=== PATIENT | male | born 1940 | race American Indian/Alaskan Native ===

== ENCOUNTER → 2019-10-18 | Emergency (ER) | payer MEDICARE, OTHER ==
[~2019-10-18] VITALS: Ht 170.2 cm; Wt 85.0 kg
[~2019-10-18] MED LIST: ACETAMINOPHEN-1 EAC1 PO; ASPIRIN EC81 MG PO; CRESTOR10 MG PO; FARXIGA10 MG PO; FERROUS GLUCON324 M2 PO; FERROUS SULFAT325 MG PO; GLIMEPIRIDE4 MG PO; JANUMET XR 50-1 EAC1 PO; LISINOPRIL2.5 MG PO; METHOCARBAMOL750 MG PO; METOPROLOL SUCC25 MG PO; MULTI-DAY VITA1 EACH PO; NORCO 5-325 TA1 EACH PO; OMEGA 3 1,0001 EACH PO; VITAMIN D250000 UNIT PO
--- OUTSIDE RECORDS SUMMARY | ~2019-10-18 | XMS | Encounter Summary ---
Demographics + + + | Address | [address] | | | [place] [address] | + + + | Home Phone | | + + + | Preferred Language | Unknown | + + + | Marital Status | Single | + + + | Hinduism Affiliation | 1041 | + + + | Race | Unknown | + + + | Ethnic Group | Unknown | + + + Author + + + | Author | [facility] | | | and [place] | + + + | Organization | [facility] | | | and [place] | + + + | Address | Unknown | + + + | Phone | Unavailable | + + + Support + + +---------+ + | Name | Relationship | Address | Phone | + + +---------+ + | Kadie Case | ECON | Unknown | | + + +---------+ + Care Team Providers + +------+ + | Care Linux Systems Administrator Name | Role | Phone | + +------+ + PCP | Unavailable | + +------+ + Encounter Details +--------+ + + + + | Date | Type | Department | Care Team | Description | +--------+ + + + + | 08/16/ | Hospital | [facility] | | | | 2000 | Encounter | MED CTR XRAY [address] | | | | | | [address] | | | | | | [place] [address] | | | | | | [phone] | | | +--------+ + + + + Social History + +-------+ +--------+------+ | Tobacco Use | Types | Packs/Day | Years | Date | | | | | Used | | + +-------+ +--------+------+ | Never Assessed | | | | | + +-------+ +--------+------+ + + + | Sex Assigned at | Date Recorded | | | | + + + | Not on file | | + + + + + + + | Job Start Date | Occupation | Industry | + + + + | Not on file | Not on file | Not on file | + + + + + + + + | Travel History | Travel Start | Travel End | + + + + + + | No recent travel history available. | + + documented as of this encounter Plan of Treatment Not on filedocumented as of this encounter Visit Diagnoses Not on filedocumented in this encounter"
--- OUTSIDE RECORDS SUMMARY | ~2019-10-18 | XMS | Clinical Summary ---
Demographics + + + | Address | [address] | | | [place] [address] | + + + | Home Phone | | + + + | Preferred Language | Unknown | + + + | Marital Status | Single | + + + | Mormonism Affiliation | Unknown | + + + | Race | or | + + + | Ethnic Group | Not or | + + + Author + + + | Author | NON REVENUE LOCATIONS | + + + | Organization | NON REVENUE LOCATIONS | + + + | Address | Unknown | + + + | Phone | Unavailable | + + + Support + + +---------+ + | Name | Relationship | Address | Phone | + + +---------+ + | Mihaela Whitehead | ECON | Unknown | | + + +---------+ + Care Team Providers + +------+ + | Care Roll Off Driver Name | Role | Phone | + +------+ + PCP | Unavailable | + +------+ + Source Comments EL is fully live on both [facility] and [facility] Allergies Not on File Medications Not on file Active Problems Not on file Social History + +-------+ +--------+------+ | Tobacco [...] recent travel history available. | + + Last Filed Vital Signs Not on file Plan of Treatment + + + + + | Health Maintenance | Due Date | Last Done | Comments | + + + + + | Pneumococcal | | | | | vaccination (1 of 2 | 8 | | | | - PCV13) | | | | + + + + + | Influenza (Flu) | | | | | vaccination (#1) | 9 | | | + + + + + Results Not on filefrom Last 3 Months Insurance + +--------+ +--------+ + +--------+ | Payer | Benefi | Subscriber | Effect | Phone | Address | Type | | | t Plan | ID | alicia | | | | | | / | | Dates | | | | | | Group | | | | | | + +--------+ +--------+ + +--------+ | MEDICARE | MEDICA | xxxxxxxxxx | Effect | [phone] | [address] | Medica | | | RE A & | | alicia | [phone] | [address] | | | [address] | | for | | [place] | | | | | | all | | [phone] | | | | | | dates | | | | + +--------+ +--------+ + +--------+ | [facility] | [place] | xxxxxxxxx | Effect | | | Agency | | SERVICE | | | alicia | | | | | | HEALTH | | for | | | | | | | | all | | | | | | SERVIC | | dates | | | | | | E | | | | | | + +--------+ +--------+ + +--------+ + +--------+ +--------+ + + | Guarantor Name | Accoun | Relation to | Date | Phone | Billing Address | | | t Type | Patient | of | | | | | | | | | | + +--------+ +--------+ + + | Huey Franco | Person | Self [birth year] | [address] | | | al/Fam | | 1941 | [phone] | [place] [address] | | | luis | | | 2 (Home) | | + +--------+ +--------+ + + | Huey Franco | Agency | Self | [birth year] | | [address] [facility] [address] | | | | | 1941 | [phone] | [place] [address] | | | | | | 2 ([place]) | | + +--------+ +--------+ + +"
--- OUTSIDE RECORDS SUMMARY | ~2019-10-18 | XMS | Encounter Summary ---
Demographics + + + | Address | [address] | | | [place] [address] | + + + | Home Phone | | + + + | Preferred Language | Unknown | + + + | Marital Status | Single | + + + | Nondenominational Affiliation | 1041 | + + + | Race | Unknown | + + + | Ethnic Group | Unknown | + + + Author + + + | Author | [facility] | | | and [place] | + + + | Organization | [facility] | | | and [place] | [...] Team Providers + +------+ + | Care Supervisor Title Name | Role | Phone | + +------+ + PCP | Unavailable | + +------+ + Encounter Details +--------+ + + + + | Date | Type | Department | Care Team | Description | +--------+ + + + + | 09/10/ | Hospital | [facility] | Hannah Simeon, | Carotid Art Occ w/o | | 2008 - | Encounter | [facility] | MD Abdi Valencia | [facility] | | | | INT[facility] | [place] [address] | | | 09/11/ | | [address] | | | | 2008 | | [place], [place] | | | | | | [address] | | | | | [phone] | | | +--------+ + + + [...] Not on filedocumented as of this encounter Procedures + +--------+ + + + | Procedure Name | Priori | Date/Time | Associated Diagnosis | Comments | | | ty | | | | + +--------+ + + + | ECHO LIMITED | Routin | 09/08/2009 | | Results for this | | | e | 3:53 PM | | procedure are in the | | | | PST | | results section. | + +--------+ + + + | XR CHEST 2 VIEWS | Routin | 09/05/2009 | | Results for this | | | e | 2:52 PM | | procedure are in the | | | | PST | | results section. | + +--------+ + + + documented in this encounter Results Echo Limited (09/08/2009 3:53 PM PST) + + | Specimen | + + | | + + + + + | Narrative | Performed At | + + + | [id number] | | | Page 1 ECHO [facility] NAME: | | | [place] [address] MEDICAL RECORD #: | | | [id number] | | | DATE OF : 1940 ORDER | | | NUMBER: [id number] EXAM DATE/TIME: 09/08/2009 14:52 PERFORMING | | | PHYSICIAN: Ronak Lal MD ORDER DETAIL: [id number] | | | ORDER DESCRIPTION: ECHO CARDIAC ADULT WITH DOPPLER COLOR FLOW | | | | | | INDICATIONS pre op, h/o bypass 3x, smoker | | | CONCLUSIONS 1. This was a technically difficult study | | | with suboptimal views, LV fxn is at least adequate. FINDINGS | | | -------- ECG rhythm: Sinus rhythm. Study: A limited 2-dimensional | | | transthoracic echocardiogram with limited spectral and color flow | | | Doppler was performed. Study: This was a technically difficult study | | | with suboptimal views. Left Ventricle: Overall left ventricular | | | systolic function is low-normal with, an EF between 50 - 55 %. Left | | | Ventricle: The cavity size is decreased. Left Ventricle: There is | | | mild concentric left ventricular hypertrophy. Right Ventricle: The | | | right ventricle is mildly enlarged measuring between 3.4 - 3.7 cm. | | | Left Atrium: The left atrium is mildly dilated. Right Atrium: The | | | right atrium is mildly enlarged Right Atrium: , and the RA measures | | | 5.3cm. Aortic Valve: The aortic valve was not well visualized. | | | Mitral Valve: The mitral valve was not well visualized. Mitral Valve: | | | There is trace mitral regurgitation. Tricuspid Valve: The tricuspid | | | valve was not well visualized. Tricuspid Valve: Trace tricuspid | | | regurgitation present. Tricuspid Valve: Right ventricular systolic | | | pressure (pulmonary artery systolic pressure) is normal at < 35 mmHg. | | | Pulmonic Valve: The pulmonic valve was not well visualized. | | | IVC/Hepatic Veins: The IVC was not well visualized. Study quality: | | | This was a technically difficult study with suboptimal views. | | | MEASUREMENTS LA Major: 5.53 cm LVOT Diam: 1.99 | | | cm RA Major: 5.28 cm RVIDd: 3.41 cm LAESV(A-L): 68.86 ml | | | LAESV Index (A-L): 35.49 ml/m2 LAAs A2C: 17.95 cm2 LAESV A-L | | | A2C: 52.69 ml LALs A2C: 5.19 cm LAAs A4C: 23.47 cm2 LAESV | | | A-L A4C: 71.90 ml LALs A4C: 6.50 cm HR: 66.24 BPM AV | | | maxP.77 mmHg AV meanP.07 mmHg AV Vmax: 1.30 m/s AV | | | Vmean: 0.81 m/s AV VTI: 25.60 cm DYLAN Vmax: 1.83 cm2 DYLAN | | | (VTI): 1.66 cm2 LVCI Dopp: 1.46 l/minm2 LVCO Dopp: 2.85 | | | l/min HR: 66.79 BPM LVOT maxP.35 mmHg LVOT meanPG: | | | 1.13 mmHg LVSI Dopp: 22.00 ml/m2 LVSV Dopp: 42.68 ml LVOT | | | Vmax: 0.76 m/s LVOT Vmean: 0.49 m/s LVOT VTI: 13.71 cm MV | | | A Luciano: 1.00 m/s MV DecT: 220.10 ms MV E Luciano: 0.95 m/s MV | | | E/A Ratio: 0.95 MV maxP.97 mmHg MV meanP.29 mmHg | | | MV Vmax: 0.99 m/s MV Vmean: 0.49 m/s MV VTI: 27.94 cm MVA | | | (VTI): 1.52 cm2 Septal e': 0.04 m/s Septal E/e': 19.51 | | | Lateral e': 0.10 m/s Lateral E/e': 9.46 P Vein A: 0.21 m/s | | | P Vein A Dur: 99.81 ms P Vein D: 0.48 m/s P Vein S/D Ratio: | | | 1.27 P Vein S: 0.61 m/s TR maxP.10 mmHg TR Vmax: | | | 2.50 m/s TV A Luciano: 0.25 m/s TV Dec Sunflower: 2.49 m/s2 TV Dec | | | Time: 190.51 ms TV E Luciano: 0.47 m/s TV E/A Ratio: 1.86 | | | Clothing Trades Workers: CM Authenticated by: Ronak Lal MD Report | | | Date/Time: 09-09-2009 09:15:03 | | + + + + + | Procedure Note | + + | Jason Delarosa Conversion - 05/28/2019 3:23 AM PDT [id number] | | Page [address] [place] [address] NAME: [place] | | [address] : ACCOUNT #: | | [id number]: DATE OF : 1940ORDER NUMBER: | | [id number] DATE/TIME: 09/08/2009 14:52PERFORMING PHYSICIAN: Ronak Lal | | MDORDER DETAIL: [id number] DESCRIPTION: ECHO CARDIAC ADULT WITH DOPPLER COLOR | | FLOW INDICATIONS | | -pre op, h/o bypass 3x, smoker CONCLUSIONS 1. This was a technically difficult | | study with suboptimal views, LV fxn is at least adequate. FINDINGS--------ECG rhythm: | | Sinus rhythm.Study: A limited 2-dimensional transthoracic echocardiogram with limited | | spectral and color flow Doppler was performed.Study: This was a technically difficult | | study with suboptimal views.Left Ventricle: Overall left ventricular systolic function | | is low-normal with, an EF between 50 - 55 %.Left Ventricle: The cavity size is | | decreased.Left Ventricle: There is mild concentric left ventricular hypertrophy.Right | | Ventricle: The right ventricle is mildly enlarged measuring between 3.4 - 3.7 cm.Left | | Atrium: The left atrium is mildly dilated.Right Atrium: The right atrium is mildly | | enlargedRight Atrium: , and the RA measures 5.3cm.Aortic Valve: The aortic valve was not | | well visualized.Mitral Valve: The mitral valve was not well visualized.Mitral Valve: | | There is trace mitral regurgitation.Tricuspid Valve: The tricuspid valve was not well | | visualized.Tricuspid Valve: Trace tricuspid regurgitation present.Tricuspid Valve: Right | | ventricular systolic pressure (pulmonary artery systolic pressure) is normal at < 35 | | mmHg.Pulmonic Valve: The pulmonic valve was not well visualized.IVC/Hepatic Veins: The | | IVC was not well visualized.Study quality: This was a technically difficult study with | | suboptimal views. MEASUREMENTS LA Major: 5.53 cmLVOT Diam: 1.99 cmRA | | Major: 5.28 cmRVIDd: 3.41 cmLAESV(A-L): 68.86 mlLAESV Index (A-L): 35.49 | | ml/m2LAAs A2C: 17.95 [id number] A-L A2C: 52.69 mlLALs A2C: 5.19 cmLAAs A4C: 23.47 | | [id number] A-L A4C: 71.90 mlLALs A4C: 6.50 cmHR: 66.24 BPMAV maxP.77 mmHgAV | | meanP.07 mmHgAV Vmax: 1.30 m/Jonh Vmean: 0.81 m/Jonh VTI: 25.60 cmAVA Vmax: | | 1.83 cm2AVA (VTI): 1.66 [id number] Dopp: 1.46 l/ykoe2AEDQ Dopp: 2.85 l/minHR: 66.79 | | BPMLVOT maxP.35 mmHgLVOT meanP.13 mmHgLVSI Dopp: 22.00 ml/m2LVSV Dopp: | | 42.68 mlLVOT Vmax: 0.76 m/sLVOT Vmean: 0.49 m/sLVOT VTI: 13.71 cmMV A Luciano: 1.00 | | m/sMV DecT: 220.10 msMV E Luciano: 0.95 m/sMV E/A Ratio: 0.95MV maxP.97 mmHgMV | | meanP.29 mmHgMV Vmax: 0.99 m/sMV Vmean: 0.49 m/sMV VTI: 27.94 cmMVA (VTI): | | 1.52 er3Iunipc e': 0.04 m/sSeptal E/e': 19.51Lateral e': 0.10 m/sLateral E/e': | | 9.46P Vein A: 0.21 m/sP Vein A Dur: 99.81 msP Vein D: 0.48 m/sP Vein S/D Ratio: | | 1.27P Vein S: 0.61 m/sTR maxP.10 mmHgTR Vmax: 2.50 m/sTV A Luciano: 0.25 m/sTV | | Dec Sunflower: 2.49 m/s2TV Dec Time: 190.51 msTV E Luciano: 0.47 m/sTV E/A Ratio: 1.86 | | Clothing Trades Workers: CMAuthenticated by: Ronak HUANGort Date/Time: 09-09-2009 | | 09:15:03 | |Tricuspid Valve: Right ventricular systolic pressure (pulmonary artery systolic pressure) i s normal at < 35 mmHg. | |Pulmonic Valve: The pulmonic valve was not well visualized. | |IVC/Hepatic Veins: The IVC was not well visualized. | |Study quality: This was a technically difficult study with suboptimal views. | | | |MEASUREMENTS | | | |LA Major: 5.53 cm | |LVOT Diam: 1.99 cm | |RA Major: 5.28 cm | |RVIDd: 3.41 cm | |LAESV(A-L): 68.86 ml | |LAESV Index (A-L): 35.49 ml/m2 | |LAAs A2C: 17.95 cm2 | |LAESV A-L A2C: 52.69 ml | |LALs A2C: 5.19 cm | |LAAs A4C: 23.47 cm2 | |LAESV A-L A4C: 71.90 ml | |LALs A4C: 6.50 cm | |HR: 66.24 BPM | |AV maxP.77 mmHg | |AV meanP.07 mmHg | |AV Vmax: 1.30 m/s | |AV Vmean: 0.81 m/s | |AV VTI: 25.60 cm | |DYLAN Vmax: 1.83 cm2 | |DYLAN (VTI): 1.66 cm2 | |LVCI Dopp: 1.46 l/minm2 | |LVCO Dopp: 2.85 l/min | |HR: 66.79 BPM | |LVOT maxP.35 mmHg | |LVOT meanP.13 mmHg | |LVSI Dopp: 22.00 ml/m2 | |LVSV Dopp: 42.68 ml | |LVOT Vmax: 0.76 m/s | |LVOT Vmean: 0.49 m/s | |LVOT VTI: 13.71 cm | |MV A Luciano: 1.00 m/s | |MV DecT: 220.10 ms | |MV E Luciano: 0.95 m/s | |MV E/A Ratio: 0.95 | |MV maxP.97 mmHg | |MV meanP.29 mmHg | |MV Vmax: 0.99 m/s | |MV Vmean: 0.49 m/s | |MV VTI: 27.94 cm | |MVA (VTI): 1.52 cm2 | |Septal e': 0.04 m/s | |Septal E/e': 19.51 | |Lateral e': 0.10 m/s | |Lateral E/e': 9.46 | |P Vein A: 0.21 m/s | |P Vein A Dur: 99.81 ms | |P Vein D: 0.48 m/s | |P Vein S/D Ratio: 1.27 | |P Vein S: 0.61 m/s | |TR maxP.10 mmHg | |TR Vmax: 2.50 m/s | |TV A Luciano: 0.25 m/s | |TV Dec Sunflower: 2.49 m/s2 | |TV Dec Time: 190.51 ms | |TV E Luciano: 0.47 m/s | |TV E/A Ratio: 1.86 | | | |Clothing Trades Workers: CM | |Authenticated by: Ronak Lal MD | |Report Date/Time: 09-09-2009 09:15:03 | + + XR Chest 2 Vws (09/05/2009 2:52 PM PST) + + | Specimen | + + | | + + + + + | Narrative | Performed At | + + + | [id number] | | | Page 1 RADIOLOGY | | | / | | | [facility] | | | NAME: [place] [address] | | | | | | | | | DATE OF : 1940 ORDER NUMBER: [id number] EXAM | | | DATE/TIME: 09/05/2009 02:40 P ORDERING PHYSICIAN: HANNAH SIMEON | | | ORDER DETAIL: [id number] / / HDI EXAM DESCRIPTION: XR CHEST 2 VIEW | | | | | | TWO-VIEW CHEST 09/05/2009 HISTORY Preoperative evaluation. | | | COMPARISON No prior comparison. FINDINGS The heart is normal in | | | size. The patient has had a previous CABG. There is mild central | | | bronchial wall thickening, probably from mild bronchitis. No acute | | | infiltrates or evidence of edema. No pneumothorax or pleural | | | effusions evident. There is mild elevation of the left hemidiaphragm. | | | IMPRESSION 1. Previous coronary artery bypass graft. 2. Mild | | | bronchitis. 3. No acute superimposed finding. Read by | | | ISH PATEL MD 09/05/2009 04:33 P Electronically Signed by | | | ISH PATEL MD 09/06/2009 03:04 P | | | P P [facility]//[id number]/ cc: HANNAH SIMEON, | | | MD PREMA SEYMOUR, MD ISH PATEL MD | | + + + + + | Procedure Note | + + | [place], Rad Conversion - 05/28/2019 3:23 AM PDT | | [id number] Page 1 | | RADIOLOGY / | | [place] | | [facility] NAME: MADY GRAY | | [place] [address] | | | | DATE OF : 1940 | | | | ORDER NUMBER: [id number] | | EXAM DATE/TIME: 09/05/2009 02:40 P | | ORDERING PHYSICIAN: HANNAH SIMEON | | ORDER DETAIL: [id number] / / HDI | | EXAM DESCRIPTION: XR CHEST 2 VIEW | | | | TWO-VIEW CHEST 09/05/2009 | | | | HISTORY | | Preoperative evaluation. | | | | COMPARISON | | No prior comparison. | | | | FINDINGS | | The heart is normal in size. The patient has had a previous CABG. There | | is mild central bronchial wall thickening, probably from mild | | bronchitis. No acute infiltrates or evidence of edema. No pneumothorax | | or pleural effusions evident. There is mild elevation of the left | | hemidiaphragm. | | | | IMPRESSION | | 1. Previous coronary artery bypass graft. | | 2. Mild bronchitis. | | 3. No acute superimposed finding. 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
--- OUTSIDE RECORDS SUMMARY | ~2019-10-18 | XMS | Encounter Summary ---
Demographics + + + | Address | [address] | | | [place] [address] | + + + | Home Phone | | + + + | Preferred Language | Unknown | + + + | Marital Status | Single | + + + | Restorationism Affiliation | 1041 | + + + | Race | Unknown | + + + | Ethnic Group | Unknown | + + + Author + + + | Author | [facility] | | | and [place] | + + + | Organization | [facility] | | | and [place] [...] Team Providers + +------+ + | Care Charhouse Worker Name | Role | Phone | + +------+ + | Lydia Pop MD | PCP | | + +------+ + Reason for Visit Auth/Cert +--------+--------+ + + + + | Status | Reason | Specialty | Diagnoses / | Referred By | Referred To | | | | | Procedures | Contact | Contact | +--------+--------+ + + + + | Closed | | | Diagnoses | | Darryn, | | | | | Encounter | | Kwasi Lopez MD | | | | | for | | [address], | | | | | colonoscopy | | [address] | | | | | due to | | [place], | | | | | history of | | [place] [address] | | | | | adenomatous | | Phone: | | | | | colonic | | [phone] | | | | | polyps | | Fax: | | | | | 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, | | | | | | | continuous | | | | | | | (HCC) | | | | | | | Encounter | | | | | | | for | | | | | | | colonoscopy | | | | | | | due to | | | | | | | history of | | | | | | | adenomatous | | | | | | | colonic | | | | | | | polyps | | | | | | | [Z12.11, | | | | | | | Z86.010] | | | | | | | 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, | | | | | | | continuous | | | | | | | (HCC) | | | | | | | [F11.20] | | | | | | | Procedures | | | | | | | ID | | | | | | | COLONOSCOPY | | | | | | | FLX DX | | | | | | | W/COLLJ SPEC | | | | | | | WHEN PFRMD | | | +--------+--------+ + + + + Encounter Details +--------+ + + + + | Date | Type | Department | Care Team | Description | +--------+ + + + + | 08/08/ | Anesthesia | [facility] | Eder Ceja, | | | 2014 | Event | [facility] | [address] | | | | | [address] | [place] | | | | | [place] | [address] | | | | | [address] | | | | | | [phone] | | | +--------+ + + + + Anesthesia Record + + + + + | Procedure Name | Responsible | Anesthesia Start | Anesthesia Stop Time | | | Anesthesiologist | Time | | + + + + + | EGD/COLONOSCOPY - | Eder Ceja MD | 08/08/15 1300 | 08/08/15 1347 | | CHRONIC NARC | | | | | DEPENDENT/PAIN (N/A | | | | | ) | | | | + + + + + +----+---+ + + | Da | T | Event | Comment | | te | i | | | | | m | | | | | e | | | +----+---+ + + | 11 | 1 | An Checkout | Pre-use anesthesia machine/equipment checkout. | | /0 | 2 | | | | 6/ | 5 | | | | 20 | 3 | | | | 15 | | | | +----+---+ + + | | 1 | | | | | 3 | | | | | 0 | | | | | 0 | | | +----+---+ + + | | 1 | An Start | Reassessment prior to anesthesia induction/procedure. | | | 3 | | | | | 0 | | | | | 0 | | | +----+---+ + + | | 1 | AN | Per surgeon request | | | 3 | Antibiotic | | | | 0 | declined | | | | 1 | | | +----+---+ + + | | 1 | Pre-Procedu | | | | 3 | ral Timeout | | | | 0 | Completed | | | | 3 | | | +----+---+ + + | | 1 | An | Intravenous induction to loss of reflexes. Spontaneous | | | 3 | Induction | ventilation throughout. | | | 0 | | | | | 6 | | | +----+---+ + + | | 1 | Breathing | | | | 3 | Spontaneous | | | | 0 | ly | | | | 7 | | | +----+---+ + + | | 1 | an stop | | | | 3 | data | | | | 4 | | | | | 4 | | | +----+---+ + + | | 1 | An Stop | Patient handed off to recovery nurse. | | | 4 | | | | | 7 | | | +----+---+ + + +------+ | Meds | +------+ + + + | Name | Total | + + + | lidocaine 2% | 55 mg | + + + | propofol | 70 mg | + + + | propofol | 319.2 mg | + + + | ePHEDrine | 10 mg | + + + | lactated ringers (LR) infusion | 750 mL | + + + + + | Name | + + | O2 Flow Rate (L/Min) | + + + + | No blood administrations on file. | + + +--------+ + + + | Type | Details | Placement | Removal | +--------+ + + + | [READ | 08/08/15; 1149; Chemistry; | 08/08/15 1149 by | 08/08/15 1500 by | | ONLY] | 08/08/15; 1500 | Fartun Chin, | Jose Jean, | | | | RN | RN | | Periph | | | | | eral | | | | | IV - | | | | | Single | | | | | Lumen | | | | | | | | | +--------+ + + + documented in this encounter Social History + +-------+ +--------+------+ | Tobacco [...] Visit Diagnoses Not on filedocumented in this encounter Administered Medications + +--------+ +-------+------+------+ | Medication Order | MAR | Action | Dose | Rate | Site | | | Action | Date | | | | + +--------+ +-------+------+------+ | ePHEDrine 50 mg/mL injection | Given | 08/08/20 | 10 mg | | | | PRN, Starting Tue08/08/15 at | | 15 1:21 | | | | | 1321, Anesthesia Intra-op | | PM PST | | | | + +--------+ +-------+------+------+ +---+---+ | | | +---+---+ + +-------+ +-------+---+---+ | lidocaine (PF) 2% injection | Given | 08/08/20 | 55 mg | | | | Intravenous, PRN, Starting Fri | | 15 1:06 | | | | | 08/08/15 at 1306, Anesthesia | | PM PST | | | | | Intra-op | | | | | | + +-------+ +-------+---+---+ +---+---+ | | | +---+---+ + +-------+ +-------+---+---+ | propofol (DIPRIVAN) injection | Given | 08/08/20 | 70 mg | | | | PRN, Starting 08/08/15 at | | 15 1:06 | | | | | 1306, Anesthesia Intra-op | | PM PST | | | | + +-------+ +-------+---+---+ +---+---+ | | | +---+---+ + + + + + +---+ | propofol (DIPRIVAN) injection | Rate/Dos | 08/08/20 | 75 | 36 mL/hr | | | CONTINUOUS PRN, Starting Fri | e Change | 15 1:29 | mcg/kg/m | | | | 08/08/15 at 1306, Anesthesia | | PM PST | in | | | | Intra-op | | | | | | + + + + + +---+ + + + +-------+---+ | Rate/Dose Change | 08/08/20 | 120 | 57.6 | | | | 15 1:14 | mcg/kg/m | mL/hr | | | | PM PST | in | | | + + + +-------+---+ | New Bag | 08/08/20 | 180 | 86.4 | | | | 15 1:06 | mcg/kg/m | mL/hr | | | | PM PST | in | | | + + + +-------+---+ +---+---+ | | | +---+---+ documented in this encounter"
--- OUTSIDE RECORDS SUMMARY | ~2019-10-18 | XMS | Encounter Summary ---
Demographics + + + | Address | [address] | | | [place] [address] | + + + | Home Phone | | + + + | Preferred Language | Unknown | + + + | Marital Status | Single | + + + | Worship Affiliation | 1041 | + + + | Race | Unknown | + + + | Ethnic Group | Unknown | + + + Author + + + | Author | [facility] | | | and [place] | + + + | Organization | [facility] | | | and [place] [...] Team Providers + +------+ + | Care Magazine Keeper Name | Role | Phone | + +------+ + | Lydia Pop MD | PCP | | + +------+ + Encounter Details +--------+ + + + + | Date | Type | Department | Care Team | Description | +--------+ + + + + | 08/07/ | Abstract | [facility] | Kwasi Cates MD | | | 2014 | | GASTROENTEROLOGY | [address], [place] | | | | | [address] [place] | [address] [place], [place] | | | | | [address] [place], [place] | [address] | | | | | [address] | | | | | | [phone] | | | +--------+ + + + [...] + + documented as of this encounter Last Filed Vital Signs + + + + + | Vital Sign | Reading | Time Taken | Comments | + + + + + | Blood Pressure | 103/63 | 02/18/2015 11:25 AM | | | | | PDT | | + + + + + | Pulse | 80 | 02/18/2015 11:25 AM | | | | | PDT | | + + + + + | Temperature | - | - | | + + + + + | Respiratory Rate | 18 | 02/18/2015 11:25 AM | | | | | PDT | | + + + + + | Oxygen Saturation | 96% | 02/18/2015 11:25 AM | | | | | PDT | | + + + + + | Inhaled Oxygen | - | - | | | Concentration | | | | + + + + + | Weight | 87.3 kg (192 lb 6 | 02/18/2015 11:25 AM | | | | oz) | PDT | | + + + + + | Height | 168.9 cm (5' 6.5") | 02/18/2015 11:25 AM | | | | | PDT | | + + + + + | Body Mass Index | 30.58 | 02/18/2015 11:25 AM | | | | | PDT | | + + + + + documented in this encounter Plan of Treatment Not on filedocumented as of this encounter Visit Diagnoses Not on filedocumented in this encounter
--- OUTSIDE RECORDS SUMMARY | ~2019-10-18 | XMS | Encounter Summary ---
Demographics + + + | Address | [address] | | | [place] [address] | + + + | Home Phone | | + + + | Preferred Language | Unknown | + + + | Marital Status | Single | + + + | Sabianist Affiliation | 1041 | + + + | Race | Unknown | + + + | Ethnic Group | Unknown | + + + Author + + + | Author | [facility] | | | and [place] | + + + | Organization | [facility] | | | and [...] Team Providers + +------+ + | Care Tennis Camp Instructor Name | Role | Phone | + +------+ + PCP | Unavailable | + +------+ + Encounter Details +--------+ + + + + | Date | Type | Department | Care Team | Description | +--------+ + + + + | 08/16/ | Hospital | [facility] | | | | 2000 | Encounter | MED CTR XRAY [address] | | | | | | [place] | | | | | | [place] [address] | | | | | | [phone] | | | +--------+ + + + [...]
--- OUTSIDE RECORDS SUMMARY | ~2019-10-18 | XMS | Encounter Summary ---
Demographics + + + | Address | [address] | | | [place] [address] | + + + | Home Phone | | + + + | Preferred Language | Unknown | + + + | Marital Status | Single | + + + | Anabaptism Affiliation | 1041 | + + + | Race | Unknown | + + + | Ethnic Group | Unknown | + + + Author + + + | Author | [facility] | | | and [place] | + + + | Organization | [facility] | | | and [place] | [...] Team Providers + +------+ + | Care Bun Panner Name | Role | Phone | + +------+ + PCP | Unavailable | + +------+ + Encounter Details +--------+ + + + + | Date | Type | Department | Care Team | Description | +--------+ + + + + | 10/07/ | Hospital | [facility] | Chirag Oliver | | | 2004 - | Encounter | [facility] CTR | | | | | | CARDIAC TRANSPLANT | | | | 10/08/ | | [address] | | | | 2004 | | [place] | | | | | | [address] | | | | | | [phone] | | | +--------+ + + + [...]
--- OUTSIDE RECORDS SUMMARY | ~2019-10-18 | XMS | Encounter Summary ---
Demographics + + + | Address | [address] | | | [place] [address] | + + + | Home Phone | | + + + | Preferred Language | Unknown | + + + | Marital Status | Single | + + + | Congregation Affiliation | 1041 | + + + | Race | Unknown | + + + | Ethnic Group | Unknown | + + + Author + + + | Author | [facility] | | | and [place] | + + + | Organization | [facility] | | | and [...] Team Providers + +------+ + | Care Dowel Inspector Name | Role | Phone | + +------+ + | Pcp, Prov Inactive | PCP | | + +------+ + Reason for Visit Auth/Cert +--------+--------+ + + + + | Status | Reason | Specialty | Diagnoses / | Referred By | Referred To | | | | | Procedures | Contact | Contact | +--------+--------+ + + + + | | | | | | | +--------+--------+ + + + + Encounter Details +--------+ + + + + | Date | Type | Department | Care Team | Description | +--------+ + + + + | 02/01/ | Hospital | [facility] | Donta Reyes MD | | | 2019 | Encounter | MED CTR NUCLEAR | [address] [place] [address] | | | | | MEDICINE [address] | [place], [place] | | | | | [place], | [address] | | | | | [place] [address] | | | | | | [phone] | | | +--------+ + + + [...] + + documented as of this encounter Medications at Time of Discharge + + + +---------+ + + | Medication | Sig | Dispensed | Refills | Start | End Date | | | | | | Date | | + + + +---------+ + + | | Take 1-2 tablets by | | 0 | | | | acetaminophen-codein | mouth every 4 hours | | | | | | e (TYLENOL #3) | as needed for Pain. | | | | | | 300-30 mg per tablet | | | | | | + + + +---------+ + + | aspirin 81 mg | Take 81 mg by mouth | | 0 | | | | chewable tablet | Daily. | | | | | + + + +---------+ + + | ferrous gluconate | Take 325 mg by mouth | | 0 | 06/16/20 | | | (FERGON) 325 mg | Daily. | | | 12 | | | tablet | | | | | | + + + +---------+ + + | lisinopril | Take 5 mg by mouth | | 0 | 06/16/20 | | | (PRINIVIL, ZESTRIL) | Daily. | | | 12 | | | 5 mg tablet | | | | | | + + + +---------+ + + | metoprolol | Take 50 mg by mouth | | 0 | 06/16/20 | | | succinate (TOPROL | Daily. | | | 12 | | | XL) 50 mg 24 hr | | | | | | | tablet | | | | | | + + + +---------+ + + | multivitamin | Take 1 tablet by | | 0 | 06/16/20 | | | (THERAGRAN) per | mouth once daily | | | 12 | | | tablet | | | | | | + + + +---------+ + + | rosuvastatin | Take 10 mg by mouth | | 0 | 06/16/20 | | | (CRESTOR) 10 mg | Daily. | | | 12 | | | tablet | | | | | | + + + +---------+ + + | Sennosides | TABS Take as | | 0 | 06/16/20 | | | (SENOKOT PO) | directed | | | 12 | | + + + +---------+ + + | sitagliptan | Take 50 mg by mouth | | 0 | 06/16/20 | | | (JANUVIA) 50 MG | Daily. | | | 12 | | | tablet | | | | | | + + + +---------+ + + | | Take 2,000 mg by | | 0 | | | | SitaGLIPtin-MetFORMI | mouth Daily. | | | | | | N HCl (JULIO C XR) | | | | | | | 50-1000 MG TB24 | | | | | | + + + +---------+ + + | SUCRALFATE PO | TABS Take as | | 0 | 06/16/20 | | | | directed | | | 12 | | + + + +---------+ + + documented as of this encounter Plan of Treatment Not on filedocumented as of this encounter Procedures + +--------+ + + + | Procedure Name | Priori | Date/Time | Associated Diagnosis | Comments | | | ty | | | | + +--------+ + + + | NM NUCLEAR STRESS | Routin | 02/01/2019 | Coronary artery | Results for this | | TEST (EXERCISE) | e | 2:12 PM | disease of tribal | procedure are in the | | | | PDT | artery of tribal | results section. | | | | | heart with stable | | | | | | angina pectoris | | | | | | (HCC) Chest pain, | | | | | | unspecified type | | | | | | Awareness of heart | | | | | | beat | | + +--------+ + + + documented in this encounter Visit Diagnoses Not on filedocumented in this encounter Administered Medications + +--------+ + +------+------+ | Medication Order | MAR | Action | Dose | Rate | Site | | | Action | Date | | | | + +--------+ + +------+------+ | technetium TC-99M sestamibi | Given | 02/02/20 | 34.5 | | | | (CARDIOLITE) injection 34.5 | | 19 2:11 | millicur | | | | millicurie 34.5 millicurie, | | PM PDT | ies | | | | Intravenous, ONCE PRN, Other, | | | | | | | Starting [facility] 02/01/19 at 1410, For | | | | | | | 1 dose, Nuclear Medicine | | | | | | + +--------+ + +------+------+ +---+---+ | | | +---+---+ documented in this encounter"
--- OUTSIDE RECORDS SUMMARY | ~2019-10-18 | XMS | Clinical Summary ---
Demographics + + + | Address | [address] | | | [place] [address] | + + + | Home Phone | | + + + | Preferred Language | Unknown | + + + | Marital Status | Single | + + + | Taoism Affiliation | 1041 | + + + | Race | Unknown | + + + | Ethnic Group | Unknown | + + + Author + + + | Author | [facility] | | | and [place] | + + + | Organization | [facility] | | | and [place] [...] Team Providers + +------+ + | Care Assistant Case Manager Name | Role | Phone | + +------+ + | Vanessa Mckeon MD | PCP | | + +------+ + Allergies + + + +--------+ + | Active Allergy | Reactions | Severity | Noted | Comments | | | | | Date | | + + + +--------+ + | Diazepam | Itching | Low | | | + + + +--------+ + | Doxepin Hcl | Other (See Comments) | | | Pt does not know | + + + +--------+ + | Valium | Itching | Low | | | + + + +--------+ + Medications + + + +---------+------+------+-------+ | Medication | Sig | Dispensed | Refills | Star | End | Statu | | | | | | t | Date | s | | | | | | Date | | | + + + +---------+------+------+-------+ | sitagliptan | Take 50 mg by mouth | | 0 | 06/03 | | Activ | | (JANUVIA) 50 MG | Daily. | | | 01/20 | | e | | tablet | | | | 12 | | | + + + +---------+------+------+-------+ | rosuvastatin | Take 10 mg by mouth | | 0 | 09/1 | | Activ | | (CRESTOR) 10 mg | Daily. | | | 4/20 | | e | | tablet | | | | 12 | | | + + + +---------+------+------+-------+ | ferrous gluconate | Take 325 mg by mouth | | 0 | 09/1 | | Activ | | (FERGON) 325 mg | Daily. | | | 4/20 | | e | | tablet | | | | 12 | | | + + + +---------+------+------+-------+ | lisinopril | Take 5 mg by mouth | | 0 | 09/1 | | Activ | | (PRINIVIL, ZESTRIL) | Daily. | | | 4/20 | | e | | 5 mg tablet | | | | 12 | | | + + + +---------+------+------+-------+ | metoprolol | Take 50 mg by mouth | | 0 | 09/1 | | Activ | | succinate (TOPROL | Daily. | | | 4/20 | | e | | XL) 50 mg 24 hr | | | | 12 | | | | tablet | | | | | | | + + + +---------+------+------+-------+ | multivitamin | Take 1 tablet by | | 0 | 09/1 | | Activ | | (THERAGRAN) per | mouth once daily | | | 4/20 | | e | | tablet | | | | 12 | | | + + + +---------+------+------+-------+ | Sennosides | TABS Take as | | 0 | 09/1 | | Activ | | (SENOKOT PO) | directed | | | 4/20 | | e | | | | | | 12 | | | + + + +---------+------+------+-------+ | SUCRALFATE PO | TABS Take as | | 0 | 09/1 | | Activ | | | directed | | | 4/20 | | e | | | | | | 12 | | | + + + +---------+------+------+-------+ | | Take 2,000 mg by | | 0 | | | Activ | | SitaGLIPtin-MetFORMI | mouth Daily. | | | | | e | | N HCl (JANUMET XR) | | | | | | | | 50-1000 MG TB24 | | | | | | | + + + +---------+------+------+-------+ | | Take 1-2 tablets by | | 0 | | | Activ | | acetaminophen-codein | mouth every 4 hours | | | | | e | | e (TYLENOL #3) | as needed for Pain. | | | | | | | 300-30 mg per tablet | | | | | | | + + + +---------+------+------+-------+ | aspirin 81 mg | Take 81 mg by mouth | | 0 | | | Activ | | chewable tablet | Daily. | | | | | e | + + + +---------+------+------+-------+ Active Problems + + + | Problem | Noted Date | + + + | Gastritis | 08/08/2015 | + + + | Hiatal hernia | 08/08/2015 | + + + | H-PYLORI | 04/27/2011 | + + + | POLYP-COLON | 04/26/2011 | + + + | HYPERLIPIDEMIA | | + + + | DIABETES MELLITUS | | + + + | ARTERIOSCLEROTIC HEART DISEASE | | + + + | ANEMIA, SECONDARY TO BLOOD LOSS | | + + + | GASTRIC ULCER | | + + + | Neurologic disorder associated with diabetes mellitus | | + + + | Neuropathy | | + + + | Vitamin D deficiency | | + + + | Edema | | + + + | Anemia | | + + + | GI hemorrhage | | + + + | Coronary arteriosclerosis | | + + + | HLD (hyperlipidemia) | | + + + | Palpitations | | + + + | Asymmetrical hearing loss | | + + + | CVA (cerebral vascular accident) | | + + + | Diabetic oculopathy | | + + + | Smoker | | + + + | Onychomycosis | | + + + | Chronic low back pain | | + + + | Acute nephropathy | | + + + | Osteoarthritis | | + + + | Tinea pedis | | + + + | Asymmetrical sensorineural hearing loss | | + + + Family History + + +------+ + | Medical History | Relation | Name | Comments | + + +------+ + | Diabetes | Mother | | | + + +------+ + + +------+--------+ + | Relation | Name | Status | Comments | + +------+--------+ + | Mother | | | | + +------+--------+ + Social History + +-------+ +--------+------+ | [...] | + + Last Filed Vital Signs + + + + + | Vital Sign | Reading | Time Taken | Comments | + + + + + | Blood Pressure | 148/80 | 08/08/2015 2:30 PM | | | | | PST | | + + + + + | Pulse | 61 | 08/08/2015 2:30 PM | | | | | PST | | + + + + + | Temperature | 36.4 C (97.5 F) | 08/08/2015 1:46 PM | | | | | PST | | + + + + + | Respiratory Rate | 16 | 08/08/2015 2:30 PM | | | | | PST | | + + + + + | Oxygen Saturation | 99% | 08/08/2015 2:30 PM | | | | | PST | | + + + + + | Inhaled Oxygen | - | - | | | Concentration | | | | + + + + + | Weight | 83 kg (183 lb) | 08/08/2015 11:00 AM | | | | | PST | | + + + + + | Height | 170.2 cm (5' 7") | 08/08/2015 11:00 AM | | | | | PST | | + + + + + | Body Mass Index | 28.66 | 08/08/2015 11:00 AM | | | | | PST | | + + + + + Plan of Treatment + + + + + | Health Maintenance | Due Date | Last Done | Comments | + + + + + | Vaccine: Zoster (1 | | | | | of 2) | 3 | | | + + + + + | Vaccine: | | | | | Pneumococcal 65+ (1 | 8 | | | | of 2 - PCV13) | | | | + + + + + | Vaccine: Influenza | | 06/28/2018, 07/20/2017, | | | (#1) | 9 | 07/23/2016, Additional history | | | | | exists | | + + + + + | Vaccine: | | 11/25/2017 | | | Dtap/Tdap/Td (2 - | 8 | | | | Td) | | | | + + + + + Results Not on filefrom Last 3 Months Insurance + +--------+ +--------+ +---------+--------+ | Payer | Benefi | Subscriber | Effect | Phone | Address | Type | | | t Plan | ID | alicia | | | | | | / | | Dates | | | | | | Group | | | | | | + +--------+ +--------+ +---------+--------+ | MEDICARE | MEDICA | [id number] | | [phone] | | Medica | | | RE | | 003-Pr | 5 | | re | | | PART A | | esent | | | | | | AND B | | | | | | + +--------+ +--------+ +---------+--------+ | MEDICARE | MEDICA | [id number] | | [phone] | | Medica | | | RE | | 003-Pr | 5 | | re | | | PART A | | esent | | | | | | AND B | | | | | | + +--------+ +--------+ +---------+--------+ | [place] | MEDICA | [id number] | 02/01/20 | [phone] | | Medica | | | [place] | | 19-Pre | 2 | | id | | | PLUS | | sent | | | | + +--------+ +--------+ +---------+--------+ | [facility] | IHS | [id number] | | | | Indemn | | SERVICE | YELLOW | | 015-Pr | | | ity | | | HAWK | | esent | | | | + +--------+ +--------+ +---------+--------+ | [place] | MEDICA | [id number] | | [phone] | | Medica | | | [place] | | 019-Pr | 2 | | id | | | PLUS | | esent | | | | + +--------+ +--------+ +---------+--------+ + +--------+ +--------+ + + | Guarantor [...] | | al/Fam | | 1941 | [phone] | [place] [address] | | | luis | | | 7 (Home) | | + +--------+ +--------+ + + | Huey Franco | Person | Self [birth year] | [address] | | | al/Fam | | 1941 | [phone] | [place] [address] | | | luis | | | 7 (Home) | | + +--------+ +--------+ + + Advance Directives + + + + + | Type | Date Recorded | Patient | Explanation | | | | Room Service Clerk | | + + + + + | Power of | | | | | Chief Of Production | | | | + + + + + | Advance | 08/08/2015 10:44 | | | | Directive | AM | | | + + + + +
--- OUTSIDE RECORDS SUMMARY | ~2019-10-18 | XMS | Encounter Summary ---
Demographics + + + | Address | [address] | | | [place] [address] | + + + | Home Phone | | + + + | Preferred Language | Unknown | + + + | Marital Status | Single | + + + | Rastafarian Affiliation | 1041 | + + + | Race | Unknown | + + + | Ethnic Group | Unknown | + + + Author + + + | Author | [facility] | | | and [place] | + + + | Organization | [facility] | | | and [place] [...] Team Providers + +------+ + | Care Senior Software Engineer Name | Role | Phone | + +------+ + PCP | Unavailable | + +------+ + Encounter Details +--------+ + + + + | Date | Type | Department | Care Team | Description | +--------+ + + + + | 10/08/ | Hospital | [facility] | | | | 1998 - | Encounter | MED CTR GENERIC IP | | | | | | CONV DEPT [address] | | | | 10/09/ | | [place], | | | | 1996 | | [place] [address] | | | | | | [phone] | | | +--------+ + + + [...]
--- OUTSIDE RECORDS SUMMARY | ~2019-10-18 | XMS | Clinical Summary ---
Demographics + + + | Address | [address] | | | [place] [address] | + + + | Home Phone | | + + + | Preferred Language | Unknown | + + + | Marital Status | Single | + + + | Roman Catholic Affiliation | 1041 | + + + | Race | Unknown | + + + | Ethnic Group | Unknown | + + + Author + + + | Author | [facility] (Historical as of | | | 05-19-19) | + + + | Organization | [facility] (Historical as of | | | 05-19-19) | + + + | Address | Unknown | + + + | Phone | Unavailable | + + + Support + + +---------+ + | Name | Relationship | Address | Phone | + + +---------+ + | Kadie Arias | ECON | Unknown | | + + +---------+ + Care Team Providers + +------+ + | Care Concrete Placement Equipment Operator Name | Role | Phone | + +------+ + | Vanessa Mckeon MD | PP | | + +------+ + Allergies Not on File Current Medications Not on file Active Problems Not [...] on file | | + + + Plan of Treatment Not on file Results Not on filefrom Last 3 Months"
--- OUTSIDE RECORDS SUMMARY | ~2019-10-18 | XMS | Encounter Summary ---
Demographics + + + | Address | [address] | | | [place] [address] | + + + | Home Phone | | + + + | Preferred Language | Unknown | + + + | Marital Status | Single | + + + | Mu-Ism Affiliation | 1041 | + + + | Race | Unknown | + + + | Ethnic Group | Unknown | + + + Author + + + | Author | [facility] | | | and [place] | + + + | Organization | [facility] | | | and [...] Team Providers + +------+ + | Care Regulator Inspector Name | Role | Phone | + +------+ + PCP | Unavailable | + +------+ + Encounter Details +--------+ + + + + | Date | Type | Department | Care Team | Description | +--------+ + + + + | 11/18/ | Hospital | [facility] | | | | 1998 - | Encounter | [facility] | | | | | | [address] | | | | 12/02/ | | [place] [id number] | | | | 1998 | | [phone] | | | +--------+ + + + [...]
--- OUTSIDE RECORDS SUMMARY | ~2019-10-18 | XMS | Encounter Summary ---
Demographics + + + | Address | [address] | | | [place] [address] | + + + | Home Phone | | + + + | Preferred Language | Unknown | + + + | Marital Status | Single | + + + | Hoahaoism Affiliation | 1041 | + + + | Race | Unknown | + + + | Ethnic Group | Unknown | + + + Author + + + | Author | [facility] | | | and [place] | + + + | Organization | [facility] | | | and [place] [...] Team Providers + +------+ + | Care Seed Potato Cutter Name | Role | Phone | + [...] | | for | | [address], | | | | | colonoscopy | | [address] | | | | | due to | | [place], | | | | | history of | | [place] [address] | | | | | 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
--- OUTSIDE RECORDS SUMMARY | ~2019-10-18 | XMS | Encounter Summary ---
Demographics + + + | Address | [address] | | | [place] [address] | + + + | Home Phone | | + + + | Preferred Language | Unknown | + + + | Marital Status | Single | + + + | Worship Affiliation | [id number] | + + + | Race | Unknown | + + + | Ethnic Group | Unknown | + + + Author + + + | Author | [facility] | | | and [place] | + + + | Organization | [facility] | | | and [place] [...] Team Providers + +------+ + | Care Filler Shredding Machine Loader Name | Role | Phone | + +------+ + PCP | Unavailable | + +------+ + Encounter Details +--------+ + + + + | Date | Type | Department | Care Team | Description | +--------+ + + + + | 12/28/ | Hospital | [facility] | Felipe Kline, | | | 2010 - | Encounter | [facility] | [address] | | | | | CARDIAC TELEMETRY | [address] [place] | | | 01/05/ | | [address] | [address] | | | 2010 | | [place] | [phone] | | | | | [address] | | | | | | [phone] | Chirag Oliver MD | | +--------+ + + + + [...] + + documented as of this encounter Discharge Summaries Ana Adame PA-C - 08/08/2013 2:10 AM PST PATIENT NAME: MADY FRANCO Sex/Age: M / 70Y : 1940 ADMISSION DATE: 12/28/2010 DISCHARGE DATE: 01/05/2011 [id number] / [id number] DISCHARGE DIAGNOSES: 1. Non-ST elevated myocardial infarction. 2. Profound anemia. 3. Known coronary artery disease with previous coronary artery bypass grafting x3. 4. Type 2 diabetes. 5. Hypertension. 6. Hyperlipidemia. DISCHARGE DIAGNOSES: 1. Acute non-ST elevated myocardial infarction. a. Previous coronary artery bypass grafting. b. Subsequent loss of saphenous vein graft to left circumflex. c. Ninety percent obtus e marginal needing PCI at a later date when GI status is stable. 2. Anemia, status post GI bleed also status post 4 units red blood cell prior to transfe r, 2 units red blood cells transfused here at [facility]. 3. Peptic ulcer disease in the stomach. 4. Question of Crohn's disease by a colonoscopy. 5. Sigmoid polyp noted on colonoscopy, not biopsied at this time. 6. Cellulitis left a ntecubital space secondary to IV. 7. Thrombophlebitis left cephalic vein, as well as left brachial vein. 8. Diabetes romero litus. 9. History of bilateral carotid endarterectomy. 10. Hyperlipidemia. PROCEDURE PERFORMED: 1. Cardiac catheterization power pick placement. 2. Gastroscopy with findings of acute-appearing ulcer in the body of the stomach just be low the cardia and lesser curvature. 3. Colonoscopy: Right colon disease consistent with Crohn's, biopsies taken to rule out ischemia. 4. Polyps in the sigmoid needing to be looked at in the future but not biopsied. 5. Cardiac catheterization with significant findings of loss of saphenous vein graft to left circumflex and 90% obtuse marginal, but no intervention performed because of acute gas trointestinal bleeding. CONSULTATIONS PERFORMED: Infectious disease with Dr. Martinez, gastroenterology with Dr. Antione batista. HISTORY OF PRESENT ILLNESS: This is a 70-year-old gentleman with known cor onary artery disease and previous coronary artery bypass grafting in 2006 with hypertension , hyperlipidemia and diabetes transferred MADY FRANCO ADM:12/28/10 [id number] 01/05/11 DIS IN DISCHARGE SUMMARY [id number] [facility] HIGINIO Ballard [facility] Felipe Kline MD [facility] THIS REPORT IS CONFIDENTIAL AND NOT TO BE RELEASED WITHOUT PROPER AUTHORIZATION. [facility] from [place] with acute GI bleed, status four units transfused with non-ST elevated myocardial infarction with elevation of troponin. The patient's hemoglobin was low at 6.6 a nd hematocrit 17. The patient does admit to one episode of chest pain prior to being admitt ed in the setting of a profound anemia. HOSPITAL COURSE: The patient was admitted to the hospital and underwent cardiac catheteriz ation and the above evaluations performed. In essence, no intervention was performed on his cardiac status, at this time, because of his recent GI bleed, and not wanting to put him o n dual antiplatelet therapy. The patient was placed on appropriate GI medication and was sl ated to go home with the intention of following [facility] no acute distress when his gastrointestinal bleeding was stabl e, consider further intervention with intervention being performed to his obtuse marginal b y Dr. Oliver. However, on Tuesday it was noted that the patient had some cellulitis around his IV site in his left antecubital space. He was subsequently started on IV Ancef, and he had a couple o f days of this. He was also running a temperature, blood cultures were performed, as well a s wound cultures were performed on the second day, as he started having drainage from this. Infectious disease consultation was obtained and they had recommended further IV antibiot ics and repeated blood culture. The blood cultures grew out Methicillin sensitive Staphylococcus aureus and it was recomme nded the patient have two weeks of IV antibiotics. A PIC line was planned to be placed. It was noted that the patient had some cords that were palpable and his antecubital fossa. Ult rasound demonstrated that he did have thrombosis of his cephalic vein as well as brachial v ein. We discussed this briefly with interventional radiology and, obviously, because of hi s GI bleeding, he was not a candidate for thrombolysis in this area. We did ask them to daisy ce the PICC line, however. Also, the patient had repeat lab work showing that his hemoglobin had dropped again to 7.7 from 9.6, his hematocrit was 22.6, white counts at that time were 6.5. Because of this, we typed and cross matched two more units of blood, and they were ordered to be given on this gentleman. We were able to get 1 unit of blood in him today. The patient; however, refuse d repeat hemoglobin and hematocrit was would not take the second unit of blood, and insiste d on being discharged at this time. For the last few days, the patient was very upset regarding his ongoing medical problems, as in particular his IV site and his infection. This was from the IV site that was initiall y placed on arrival to the emergency room. He was also upset about needing more transfusion s regarding his GI bleeding, and actually had a fair number of concerns or complaints. Ever y MADY FRANCO ADM:12/28/10 [id number] 01/05/11 DIS IN DISCHARGE SUMMARY [id number] [facility] Ana Adame, [facility] Felipe Kline MD [facility] THIS REPORT IS CONFIDENTIAL AND NOT TO BE RELEASED WITHOUT PROPER AUTHORIZATION. [facility] single day I saw him over the weekend, I spent an enormous amount of time explaining again the condition and what we were doing to correct these issues at the time. DISPOSITION: The patient will be discharged home in stable condition; however, still earli er than what we would like to send him home, and AGAINST MEDICAL ADVICE. His blood pressure is 120/75, T-max over 24 hours was 100.2, currently his temperature is 98, respiratory rat e is 16, and weight is 80.4 kilograms. DISCHARGE MEDICATIONS: I have asked the patient to followup with his primary care provider tomorrow or . I would like him to have a CBC and basic metabolic panel on , 01/07/2011, order written for this. We have submitted the IV antibiotics for approval thro [facility], which has not been approved, although this is being discussed w ith the patient and, in fact we really would like to do more things before letting him kayden ve. DISCHARGE MEDICATIONS: 1. Entocort EC 9 mg orally daily. 2. Glucotrol XL 10 mg p.o. daily. 3. Glucotrol XL 2.5 mg at night. 4. Lisinopril 10 mg daily 5. Metoprolol XL 25 mg daily. 6. Glucophage 1000 mg at breakfast. 7. Protonix 40 mg b.i.d. 8. Crestor 5 mg daily. 9. Januvia 50 mg daily. 10. Carafate 1 gram before meals and h.s. 11. Sublingual nitroglycerin. I have asked the patient to follow up with Dr. Oliver over the next 3 to 4 weeks. The alfredo ent was informed that most likely he will need further transfusions. I do not know where hi s hemoglobin and hematocrit are at discharge today, as he will not allow us to perform his hemoglobin and hematocrit. We did give the patient his Carafate, as well as his Protonix, as well as his next dose of IV antibiotics somewhat early to get it in to get him through t he night before leaving and, again I have encouraged him to get his medications as soon as possible and to follow up with his primary care provider. Ana Adame PA-C MADY FRANCO ADM:12/28/10 [id number] 01/05/11 DIS IN DISCHARGE SUMMARY [id number] [facility] Ana Adame, [facility] Felipe Kline MD [facility] THIS REPORT IS CONFIDENTIAL AND NOT TO BE RELEASED WITHOUT PROPER AUTHORIZATION. [facility] Felipe Kline MD,[facility]/jojo #[id number] cc: Felipe Kline MD,[facility] MD Gurwinder Castle MD William S. Murphy, MD Douglas E. West, PA-C Ronny Yu, MD Electronically Signed 01/10/11 1853 Felipe Kline MD [facility] MADY FRANCO ADM:12/28/10 [id number] 01/05/11 DIS IN DISCHARGE SUMMARY [id number] [id number] [facility] Ana Adame [facility] Felipe Kline MD [facility] THIS REPORT IS CONFIDENTIAL AND NOT TO BE RELEASED WITHOUT PROPER AUTHORIZATION.Electronica lly signed by Ana Adame PA-C at 08/08/2013 4:45 PM PSTdocumented in this encount er Plan of Treatment Not on filedocumented as of this encounter Procedures + +--------+ + + + | Procedure Name | Priori | Date/Time | Associated Diagnosis | Comments | | | ty | | | | + +--------+ + + + | HISTORICAL IMAGING | | 01/05/2011 | | Results for this | | RESULT | | 10:40 AM | | procedure are in the | | | | PDT | | results section. | + +--------+ + + + | HISTORICAL IMAGING | | 01/04/2011 | | Results for this | | RESULT | | 11:45 PM | | procedure are in the | | | | PDT | | results section. | + +--------+ + + + | XR CHEST 2 VIEWS | | 12/31/2010 | | Results for this | | | | 10:50 PM | | procedure are in the | | | | PDT | | results section. | + +--------+ + + + | SURGICAL PATHOLOGY | Routin | 12/30/2010 | | Results for this | | EXAM | e | 12:00 AM | | procedure are in the | | | | PDT | | results section. | + +--------+ + + + | VAS CAROTID DUPLEX | | 12/29/2010 | | Results for this | | BILATERAL | | 6:10 PM | | procedure are in the | | | | PDT | | results section. | + +--------+ + + + | XR CHEST 2 VIEWS | | 12/28/2010 | | Results for this | | | | 4:07 PM | | procedure are in the | | | | PDT | | results section. | + +--------+ + + + documented in this encounter Results Historical Imaging Result (01/05/2011 10:40 AM PDT) + + | Specimen | + + | | + + + + + | Narrative | Performed At | + + + | Exam Performed Location: [facility] Date: | MISCELANIOUS | | 01/05/2011 10:40:00 AM ULTRASOUND-GUIDED RIGHT ARM PICC | LAB | | Interventional Radiologist: Akhil Raman Referring Physician: | | | ANA ADAME PA-C CLINICAL INFORMATION: Acute coronary | | | syndrome. Evaluate for left upper extremity thrombosis. Picc line | | | placement. PROCEDURE: The patient was brought to the procedure | | | room and placed in the supine position where the right upper arm was | | | sterilely prepped and draped in the usual fashion. After local | | | anesthetic was administered, a micropuncture needle was utilized to | | | access the basilic vein under direct ultrasonographic guidance. A.018 | | | wire was passed centrally under fluoroscopic guidance into the SVC | | | and utilized for measurement purposes. A small incision was made | | | at the access site using an 11 blade. Using standard Seldinger | | | technique, there was placement of a peel away sheath, which was | | | flushed. The PICC was then cut to length and positioned into the SVC | | | under fluoroscopic guidance. The sheath was removed. The wire was | | | removed. The catheter was flushed. Single spot films were obtained | | | over the chest. The catheter was secured to the skin. Fluoro | | | Time: 6 seconds FINDINGS: The ultrasound demonstrated a widely | | | patent and compressible basilic vein. A permanent sonographic image | | | was obtained and stored. Intra procedural fluoroscopic imaging showed | | | the tip of the catheter in good position in the SVC. The catheter | | | flushed well. IMPRESSION: Successful ultrasound guided right arm | | | PICC placement tip in the SVC ready for use. The | | | radiologist/surgeon has reviewed the images and edited/approved the | | | report. For interventional procedures, the signing | | | radiologist/surgeon was present for the londono portions of the exam. | | | S: SQ ([id number]) Signed by: AKHIL RAMAN MD and CRISTAL Denis | | | JAYSON EDWARD | | + + + + + | Procedure Note | + + | [place], Rad Conversion - 07/26/2013 8:41 PM PDT Exam Performed Location: [facility] | | [facility]: 01/05/2011 10:40:00 AMULTRASOUND-GUIDED RIGHT ARM PICCInterventional | | Radiologist: Akhil RamanReferring Physician: ANA SANTOS-CCLINICAL | | INFORMATION:Acute coronary syndrome. Evaluate for left upper extremitythrombosis. Picc | | line placement.PROCEDURE:The patient was brought to the procedure room and placed in | | thesupine position where the right upper arm was sterilely prepped anddraped in the | | usual fashion. After local anesthetic wasadministered, a micropuncture needle was | | utilized to access thebasilic vein under direct ultrasonographic guidance. A.018 wirewas | | passed centrally under fluoroscopic guidance into the SVC andutilized for measurement | | purposes.A small incision was made at the access site using an 11 blade.Using standard | | Seldinger technique, there was placement of a peelaway sheath, which was flushed. The | | PICC was then cut to length andpositioned into the SVC under fluoroscopic guidance. The | | sheath wasremoved. The wire was removed. The catheter was flushed. Singlespot films were | | obtained over the chest. The catheter was securedto the skin.Fluoro Time: 6 | | secondsFINDINGS:The ultrasound demonstrated a widely patent and compressiblebasilic | | vein. A permanent sonographic image was obtained andstored. Intra procedural | | fluoroscopic imaging showed the tip of thecatheter in good position in the SVC. The | | catheter flushed well.IMPRESSION:Successful ultrasound guided right arm PICC placement | | tip in theSVC ready for use.The radiologist/surgeon has reviewed the images and | | edited/approvedthe report. For interventional procedures, the signingradiologist/surgeon | | was present for the londono portions of the exam.S: SQ ([id number]) Signed by: AKHIL Kapadia | | MD LAMINE and JAYSON [place] | | | |A small incision was made at the access site using an 11 blade. | |Using standard Seldinger technique, there was placement of a peel | |away sheath, which was flushed. The PICC was then cut to length and | |positioned into the SVC under fluoroscopic guidance. The sheath was | |removed. The wire was removed. The catheter was flushed. Single | |spot films were obtained over the chest. The catheter was secured | |to the skin. | | | |Fluoro Time: 6 seconds | | | |FINDINGS: | |The ultrasound demonstrated a widely patent and compressible | |basilic vein. A permanent sonographic image was obtained and | |stored. Intra procedural fluoroscopic imaging showed the tip of the | |catheter in good position in the SVC. The catheter flushed well. | | | |IMPRESSION: | |Successful ultrasound guided right arm PICC placement tip in the | |SVC ready for use. | | | | | |The radiologist/surgeon has reviewed the images and edited/approved | |the report. For interventional procedures, the signing | |radiologist/surgeon was present for the londono portions of the exam. | | | | | |S: SQ ([id number]) Signed by: AKHIL RAMAN MD and JAYSON [place] | + + + +---------+ + + | Performing | Address | City/State/Zipcode | Phone Number | | Organization | | | | + +---------+ + + | [facility] | | | [phone] | + +---------+ + + | [facility] | | | [phone] | + +---------+ + + Historical Imaging Result (01/04/2011 11:45 PM PDT) + + | Specimen | + + | | + + + + + | Narrative | Performed At | + + + | Exam Performed Location: [facility] | MISCELANIOUS | | ULTRASOUND VENOUS DUPLEX, LEFT UPPER EXTREMITY CLINICAL | LAB | | INFORMATION: Left upper extremity swelling. COMPARISON: None. | | | PROCEDURE: Duplex and color Doppler evaluation of the veins of the | | | upper extremity including compression and Doppler response to distal | | | compression, Valsalva, and/or other maneuvers. FINDINGS: The | | | right internal jugular and subclavian veins are patent with color | | | Doppler and phasic spectral Doppler flow. The left internal | | | jugular, subclavian and axillary veins are patent with color and | | | phasic Doppler flow. Color and spectral Doppler flow is demonstrated | | | within the left brachial veins which are normally compressible. | | | Color Doppler flow and compressibility are demonstrated within the | | | basilic vein in the upper arm. Hypoechoic thrombus is present within | | | the basilic vein at the level of the antecubital fossa. Color Doppler | | | flow cannot be demonstrated this level. Color and spectral | | | Doppler flow as well as compressibility are demonstrated in the | | | proximal left cephalic vein. A hypoechoic thrombus, incomplete | | | compressibility and lack of color Doppler flow are demonstrated in | | | the mid cephalic vein extending into the proximal forearm. | | | IMPRESSION: 1. Occlusive thrombus of the left cephalic vein in the | | | mid upper arm extending into the forearm. 2. Occlusive thrombus of | | | the left brachial vein at the level of the antecubital fossa | | | extending into the forearm. The radiologist/surgeon has | | | reviewed the images and edited/approved the report. For | | | interventional procedures, the signing radiologist/surgeon was | | | present for the londono portions of the exam. S: SQ ([id number]) | | | Signed by: MIRYAM RIVER MD and LEFTY GARZON MD R5 | | + + + + + | Procedure Note | + + | Jason Delarosa Conversion - 07/26/2013 9:06 PM PDT Exam Performed Location: [facility] | | at [facility] VENOUS DUPLEX, LEFT UPPER EXTREMITYCLINICAL INFORMATION:Left | | upper extremity swelling.COMPARISON:None.PROCEDURE:Duplex and color Doppler evaluation | | of the veins of the upperextremity including compression and Doppler response to | | distalcompression, Valsalva, and/or other maneuvers.FINDINGS:The right internal jugular | | and subclavian veins are patent withcolor Doppler and phasic spectral Doppler flow. The | | left internaljugular, subclavian and axillary veins are patent with color andphasic | | Doppler flow. Color and spectral Doppler flow isdemonstrated within the left brachial | | veins which are normallycompressible.Color Doppler flow and compressibility are | | demonstrated within thebasilic vein in the upper arm. Hypoechoic thrombus is | | presentwithin the basilic vein at the level of the antecubital fossa.Color Doppler flow | | cannot be demonstrated this level.Color and spectral Doppler flow as well as | | compressibility aredemonstrated in the proximal left cephalic vein. A | | hypoechoicthrombus, incomplete compressibility and lack of color Doppler floware | | demonstrated in the mid cephalic vein extending into theproximal forearm.IMPRESSION:1. | | Occlusive thrombus of the left cephalic vein in the mid upperarm extending into the | | forearm.2. Occlusive thrombus of the left brachial vein at the level ofthe antecubital | | fossa extending into the forearm.The radiologist/surgeon has reviewed the images and | | edited/approvedthe report. For interventional procedures, the signingradiologist/surgeon | | was present for the londono portions of the exam.S: SQ ([id number]) Signed by: MIRYAM Tripp | | MD ALETA and LEFTY GARZON MD R5 | |compressible. | | | |Color Doppler flow and compressibility are demonstrated within the | |basilic vein in the upper arm. Hypoechoic thrombus is present | |within the basilic vein at the level of the antecubital fossa. | |Color Doppler flow cannot be demonstrated this level. | | | |Color and spectral Doppler flow as well as compressibility are | |demonstrated in the proximal left cephalic vein. A hypoechoic | |thrombus, incomplete compressibility and lack of color Doppler flow | |are demonstrated in the mid cephalic vein extending into the | |proximal forearm. | | | |IMPRESSION: | |1. Occlusive thrombus of the left cephalic vein in the mid upper | |arm extending into the forearm. | |2. Occlusive thrombus of the left brachial vein at the level of | |the antecubital fossa extending into the forearm. | | | | | |The radiologist/surgeon has reviewed the images and edited/approved | |the report. For interventional procedures, the signing | |radiologist/surgeon was present for the londono portions of the exam. | | | | | |S: SQ ([id number]) Signed by: MIRYAM RIVER MD and LEFTY GARZON MD R5 | + + + +---------+ + + | Performing | Address | City/State/Zipcode | Phone Number | | Organization | | | | + +---------+ + + | [facility] | | | [phone] | + +---------+ + + | [facility] | | | [phone] | + +---------+ + + XR Chest 2 VW (12/31/2010 10:50 PM PDT) + + | Specimen | + + | | + + + + + | Narrative | Performed At | + + + | Exam Performed Location: [facility] CHEST | MISCELANIOUS | | X-RAYS, AP AND LATERAL VIEWS CLINICAL INFORMATION: Fever. | LAB | | COMPARISON: X-rays 12/20/2010. FINDINGS: Sternal wire sutures | | | and mediastinal vascular clips are noted. The heart is enlarged, | | | unchanged. Elevated left hemidiaphragm with bowel gas beneath the | | | hemidiaphragm appears similar to the previous study. There is | | | minimal atelectasis at the lung bases. No focal infiltrate or | | | pleural effusion is seen. No pneumothorax is seen. The bony thorax | | | appears intact. IMPRESSION: Stable chest x-ray. There is mild | | | bibasilar atelectasis. S: SQ ([id number]) Signed by: OSCAR MARIE, | | | MD | | + + + + + | Procedure Note | + + | [place], Rad Conversion - 07/26/2013 9:39 PM PDT Exam Performed Location: [facility] | | at [facility] X-RAYS, AP AND LATERAL VIEWSCLINICAL | | INFORMATION:Fever.COMPARISON:X-rays 12/20/2010.FINDINGS:Sternal wire sutures and | | mediastinal vascular clips are noted. Theheart is enlarged, unchanged. Elevated left | | hemidiaphragm withbowel gas beneath the hemidiaphragm appears similar to the | | previousstudy. There is minimal atelectasis at the lung bases. No focalinfiltrate or | | pleural effusion is seen. No pneumothorax is seen.The bony thorax appears | | intact.IMPRESSION:Stable chest x-ray. There is mild bibasilar atelectasis.S: SQ | | ([id number]) Signed by: OSCAR MARIE MD | | | |FINDINGS: | |Sternal wire sutures and mediastinal vascular clips are noted. The | |heart is enlarged, unchanged. Elevated left hemidiaphragm with | |bowel gas beneath the hemidiaphragm appears similar to the previous | |study. There is minimal atelectasis at the lung bases. No focal | |infiltrate or pleural effusion is seen. No pneumothorax is seen. | |The bony thorax appears intact. | | | |IMPRESSION: | |Stable chest x-ray. There is mild bibasilar atelectasis. | | | | | |S: SQ ([id number]) Signed by: OSCAR MARIE MD | + + + +---------+ + + | Performing | Address | City/State/Zipcode | Phone Number | | Organization | | | | + +---------+ + + | [facility] | | | [phone] | + +---------+ + + | [facility] | | | [phone] | + +---------+ + + Surgical Pathology Exam (12/30/2010 12:00 AM PDT) + + | Specimen | + + | | + + + + + | Narrative | Performed At | + + + | SURGICAL PATHOLOGY REPORT | [facility] | | Date Taken: 12/30/2010 Date Received: | | | 12/30/2010 Completed: 12/31/2010 Physician: Paul WEIR Copy to: | | | Chirag Oliver DIAGNOSIS: Right colon, biopsy: - | | | Colonic mucosa with mucosal ischemic changes and ulceration. 0 | | | Danyel Cao M.D. Electronic signature GROSS | | | DESCRIPTION: The specimen labeled and designated "Salvador, right colon | | | biopsy" is received in fixative and consists of fragments of tissue | | | measuring up to a few millimeters in size. All submitted "A1". | | | ([place]) MICROSCOPIC DESCRIPTION: Histologic sections of all | | | submitted blocks are examined by light microscopy. These findings, | | | together with the gross examination, support the pathologic | | | diagnosis. 1: [id number] | | | [place], [place] [id number] or Testing | | | performed at: [facility] | | | Law Luciano M.D., Director [address] [place] [address] [address] | | | [place] [address] | | + + + + + + + + | Performing | Address | City/State/Zipcode | Phone Number | | Organization | | | | + + + + + | [facility] | [address] | [place] [address] | | | [facility] | | | | | LABORATORY | | | | + + + + + | [facility] | | | | + + + + + VAS Carotid Duplex Bilateral (12/29/2010 6:10 PM PDT) + + | Specimen | + + | | + + + + + | Narrative | Performed At | + + + | Exam Performed Location: [facility] CAROTID | MISCELANIOUS | | DUPLEX ULTRASOUND CLINICAL INFORMATION: Coronary artery disease, | LAB | | hypertension, smoker, history of bilateral endarterectomy. | | | COMPARISON: Carotid sonograms 10/06/2010 PROCEDURE: Evaluation | | | of the extracranial carotid and vertebral arteries with production of | | | real-time images integrating B-mode two-dimensional vascular | | | structure, Doppler spectral analysis and color-flow Doppler imaging. | | | FINDINGS (Peak velocity cm/sec): Anterior Circulation: | | | Right CCA: 106 ICA: 130 ECA: 118 Left CCA: 122 ICA: 78 ECA: | | | 186 Posterior Circulation: Right Vertebral: Antegrade Left | | | Vertebral: Antegrade Rehman scale images: Previous bilateral carotid | | | endarterectomy no evidence of reaccumulation of plaque. | | | IMPRESSION: Previous endarterectomies bilaterally. No evidence of | | | reaccumulation of plaque. Strandness classification and NASCET | | | criteria applied for internal carotid stenosis determination. | | | Criteria: Diameter reduction Peak systolic velocity Peak | | | diastolic velocity Normal <125 cm/sec | | | NA 1%-49% <125 cm/sec | | | NA (Presence of plaque differentiates 1%-49% from | | | normal) 50%-79% >125 cm/sec | | | <140 cm/sec 80%-99% NA | | | >140 cm/sec If PSV is > than 125 and PDV is < 140 | | | and ICA/CCA ratio is > 4.0, then > 70% stenosis by NASCET criteria. | | | S: SQ ([id number]) Signed by: ELA OLGUIN MD | | + + + + + | Procedure Note | + + | Jason Delarosa Conversion - 07/26/2013 9:31 PM PDT Exam Performed Location[facility]:Coronary artery disease, | | hypertension, smoker, history of bilateralendarterectomy.COMPARISON:Carotid sonograms | | 10/06/2010PROCEDURE:Evaluation of the extracranial carotid and vertebral arteries | | withproduction of real-time images integrating B-mode two-dimensionalvascular structure, | | Doppler spectral analysis and color-flowDoppler imaging.FINDINGS(Peak velocity | | cm/sec):Anterior Circulation:RightCCA: 106ICA: 130ECA: 118LeftCCA: 122ICA: 78ECA: | | 186Posterior Circulation:Right Vertebral: AntegradeLeft Vertebral: AntegradeGray scale | | images: Previous bilateral carotid endarterectomy noevidence of reaccumulation of | | plaque.IMPRESSION:Previous endarterectomies bilaterally. No evidence ofreaccumulation | | of plaque.Strandness classification and NASCET criteria applied for internalcarotid | | stenosis determination.Criteria:Diameter reduction Peak systolic velocity Peak | | diastolicvelocityNormal <125 cm/sec NA1%-49% <125 | | cm/sec NA(Presence of plaque differentiates 1%-49% from normal)50%-79% | | >125 cm/sec <140 cm/sec80%-99% NA | | >140 cm/secIf PSV is > than 125 and PDV is < 140 and ICA/CCA ratio is > 4.0,then > 70% | | stenosis by NASCET criteria.S: SQ ([id number]) Signed by: ELA OLGUIN MD | |FINDINGS | |(Peak velocity cm/sec): | | | |Anterior Circulation: | | | |Right | |CCA: 106 | |ICA: 130 | |ECA: 118 | | | |Left | |CCA: 122 | |ICA: 78 | |ECA: 186 | | | |Posterior Circulation: | | | |Right Vertebral: Antegrade | |Left Vertebral: Antegrade | | | |Rehman scale images: Previous bilateral carotid endarterectomy no | |evidence of reaccumulation of plaque. | | | |IMPRESSION: | |Previous endarterectomies bilaterally. No evidence of | |reaccumulation of plaque. | | | |Strandness classification and NASCET criteria applied for internal | |carotid stenosis determination. | | | |Criteria: | | | |Diameter reduction Peak systolic velocity Peak diastolic | |velocity | | | |Normal <125 cm/sec NA | | | |1%-49% <125 cm/sec NA | | | |(Presence of plaque differentiates 1%-49% from normal) | | | |50%-79% >125 cm/sec <140 cm/sec | | | |80%-99% NA >140 cm/sec | | | | | | | |If PSV is > than 125 and PDV is < 140 and ICA/CCA ratio is > 4.0, | |then > 70% stenosis by NASCET criteria. | | | | | |S: SQ ([id number]) Signed by: ELA OLGUIN MD | + + + +---------+ + + | Performing | Address | City/State/Zipcode | Phone Number | | Organization | | | | + +---------+ + + | [facility] | | | [phone] | + +---------+ + + | [facility] | | | [phone] | + +---------+ + + XR Chest 2 VW (12/28/2010 4:07 PM PDT) + + | Specimen | + + | | + + + + + | Narrative | Performed At | + + + | Exam Performed Location: [facility] TWO-VIEW | MISCELANIOUS | | CHEST RADIOGRAPH CLINICAL INFORMATION: Acute coronary syndrome. | LAB | | COMPARISON: 11/26/2006 FINDINGS: Current examination | | | demonstrates evidence of previous median sternotomy. Removal of the | | | right IJ line and left-sided chest tube since the previous | | | examination is noted. Gas filled stomach with mild elevation left | | | hemidiaphragm. Previous median sternotomy is noted. Mild cardiac | | | enlargement is noted. Bilateral infrahilar areas of atelectasis | | | versus infiltrate are present. This has improved slightly since the | | | previous examination. IMPRESSION: 1. Previous median | | | sternotomy. Mild cardiac enlargement. Mild perihilar and | | | infrahilar areas of atelectasis versus infiltrate with slight | | | interval improvement. No focal confluent infiltrates or overt | | | failure. 2. Elevated left hemidiaphragm with gaseous distension of | | | the stomach. See above comments S: SQ ([id number]) | | | Signed by: RUSTY WORTHY MD | | + + + + + | Procedure Note | + + | [place], Rad Conversion - 07/26/2013 9:23 PM PDT Exam Performed Location[facility] | [facility] CHEST RADIOGRAPHCLINICAL INFORMATION:Acute coronary | | syndrome.COMPARISON:11/26/2006FINDINGS:Current examination demonstrates evidence of | | previous mediansternotomy. Removal of the right IJ line and left-sided chest tubesince | | the previous examination is noted. Gas filled stomach withmild elevation left | | hemidiaphragm. Previous median sternotomy isnoted. Mild cardiac enlargement is noted. | | Bilateral infrahilarareas of atelectasis versus infiltrate are present. This | | hasimproved slightly since the previous examination.IMPRESSION:1. Previous median | | sternotomy. Mild cardiac enlargement. Mildperihilar and infrahilar areas of | | atelectasis versus infiltratewith slight interval improvement. No focal confluent | | infiltratesor overt failure.2. Elevated left hemidiaphragm with gaseous distension of | | thestomach.See above commentsS: SQ ([id number]) Signed by: RUSTY WORTHY MD | |sternotomy. Removal of the right IJ line and left-sided chest tube | |since the previous examination is noted. Gas filled stomach with | |mild elevation left hemidiaphragm. Previous median sternotomy is | |noted. Mild cardiac enlargement is noted. Bilateral infrahilar | |areas of atelectasis versus infiltrate are present. This has | |improved slightly since the previous examination. | | | |IMPRESSION: | | | |1. Previous median sternotomy. Mild cardiac enlargement. Mild | |perihilar and infrahilar areas of atelectasis versus infiltrate | |with slight interval improvement. No focal confluent infiltrates | |or overt failure. | |2. Elevated left hemidiaphragm with gaseous distension of the | |stomach. | | | |See above comments | | | | | | | | | |S: SQ ([id number]) Signed by: RUSTY WORTHY MD | + + + +---------+ + + | Performing | Address | City/State/Zipcode | Phone Number | | Organization | | | | + +---------+ + + | [facility] | | | [phone] | + +---------+ + + | [facility] | | | [phone] | + +---------+ + + documented in this encounter Visit Diagnoses Not on filedocumented in this encounter
--- OUTSIDE RECORDS SUMMARY | ~2019-10-18 | XMS | Encounter Summary ---
Demographics + + + | Address | [address] | | | [place] [address] | + + + | Home Phone | | + + + | Preferred Language | Unknown | + + + | Marital Status | Single | + + + | Gnosticist Affiliation | [id number] | + + + | Race | Unknown | + + + | Ethnic Group | Unknown | + + + Author + + + | Author | [facility] | | | and [place] | + + + | Organization | [facility] | | | and [...] Team Providers + +------+ + | Care User Experience Team Lead Name | Role | Phone | + +------+ + PCP | Unavailable | + +------+ + Encounter Details +--------+ + + + + | Date | Type | Department | Care Team | Description | +--------+ + + + + | 11/14/ | Hospital | [facility] | Hannah Simeon, | Carotid Art Occ w/o | | 2009 - | Encounter | CONVERSION [address] | MD [address] | [facility] | | | | [address] | [place] [address] | | | 11/15/ | | [place], [place] | | | | 2009 | | [id number] | | | | | | [phone] | | | +--------+ + + + [...] XR CHEST 2 VIEWS | Routin | 11/04/2009 | | Results for this | | | e | 2:34 PM | | procedure are in the | | | | PST | | results section. | + +--------+ + + + documented in this encounter Results XR Chest 2 Vws (11/04/2009 2:34 PM PST) + + | Specimen | + + | | + + + + + | Narrative | Performed At | + + + | [facility] | | | [facility] [address] | | | , | | | [id number]/RADIOLOGY Patient Name: HUEY GRAY Date of : | | | 1940 Medical Record: [id number] Account: [id number] | | | CONNOR// Exam Date/Time: 11/04/2009 12:17 P | | | Ordering Provider: HANNAH SIMEON Order Detail: 7000 / / HDI | | | Exam Description: XR CHEST 2 VIEW | | | | | | PA AND LATERAL VIEWS CHEST 11/04/2009 INDICATIONS A 68-year-old | | | male, preprocedural. TECHNIQUE PA and lateral views chest. | | | COMPARISON Prior study 09/05/2009. FINDINGS This is a patient | | | post median sternotomy and CABG, with some calcification of the | | | aortic arch and some minimal fullness in the AP window, but this is | | | stable from the patient's prior examination. Lungs are | | | symmetrically inflated. There is some minimal coarse markings | | | throughout the medial base, perhaps more on the left than the right, | | | but this is not a new finding. There is arthropathy of the shoulders | | | and spine, modest, non unusual for age and nonfocal. IMPRESSION | | | Stable examination. Bronchitis would be difficult to exclude, or | | | chronic interstitial hilar disease, but no evidence of acute or | | | active process when the patient's prior examination is compared. | | | Read by BRONWYN GERMAN MD 11/04/2009 04:03 P Electronically | | | Signed by BRONWYN GERMAN MD 11/05/2009 05:21 P DD: | | | 11/04/2009 04:[address] [facility]/[id number]/ cc: | | | MD BRONWYN RICE MD | | + + + + + | Procedure Note | + + | Jason Delarosa Conversion - 05/27/2019 4:36 PM PDT | | [facility] | | [facility] [address] | | , | | | | [id number]/RADIOLOGY | | | | Patient Name: HUEY GRAY | | Date of : 1940 | | Medical Record: [id number] | | Account: [id number] | | CONNOR// | | | | | | Exam Date/Time: 11/04/2009 12:17 P | | Ordering Provider: HANNAH SIMEON | | Order Detail: 7000 / / HDI | | Exam Description: XR CHEST 2 VIEW | | | | PA AND LATERAL VIEWS CHEST 11/04/2009 | | | | INDICATIONS | | A 68-year-old male, preprocedural. | | | | TECHNIQUE | | PA and lateral views chest. | | | | COMPARISON | | Prior study 09/05/2009. | | | | FINDINGS | | This is a patient post median sternotomy and CABG, with some | | calcification of the aortic arch and some minimal fullness in the AP | | window, but this is stable from the patient's prior examination. | | | | Lungs are symmetrically inflated. There is some minimal coarse markings | | throughout the medial base, perhaps more on the left than the right, but | | this is not a new finding. There is arthropathy of the shoulders and | | spine, modest, non unusual for age and nonfocal. | | | | IMPRESSION | | Stable examination. Bronchitis would be difficult to exclude, or chronic | | interstitial hilar disease, but no evidence of acute or active process | | when the patient's prior examination is compared. | | | | Read by | | BRONWYN GERMAN MD 11/04/2009 04:03 P | | Electronically Signed by | | BRONWYN GERMAN MD 11/05/2009 05:21 P | | | | P | | A | | [facility]/[id number]/ | | cc: HANNAH SIMEON MD | | BRONWYN GERMAN MD | + + documented in this encounter Visit Diagnoses + + | Diagnosis | + + | Occlusion and stenosis of carotid artery without mention of cerebral infarction | + + documented in this encounter"
--- OUTSIDE RECORDS SUMMARY | ~2019-10-18 | XMS | Encounter Summary ---
Demographics + + + | Address | [address] | | | [place] [address] | + + + | Home Phone | | + + + | Preferred Language | Unknown | + + + | Marital Status | Single | + + + | Holiness Affiliation | Unknown | + + + | Race | or | + + + | Ethnic Group | Not or | + + + Author + + + | Organization | Unknown | + + + | Address | Unknown | + + + | Phone | Unavailable | + + + Support + + +---------+ + | Name | Relationship | Address | Phone | + + +---------+ + | Mihaela Whitehead | ECON | Unknown | | + + +---------+ + Care Team Providers + +------+ + | Care Proofer Prepress Name | Role | Phone | + +------+ + PCP | Unavailable | + +------+ + Encounter Details +--------+ + + + + | Date | Type | Department | Care Team | Description | +--------+ + + + + | 07/15/ | Office | | Report, Outpatient | Progress Note | | 2005 | Visit-Trans | | Consultation | | | | cribed | | | | +--------+ + + [...] + + documented as of this encounter Progress Notes Interface, Pipe Changer In - 08/04/2005 5:04 AM [facility] [id number] ISAAC EARL Consulting Physician: Geoff Henry M.D. Consultation Date: 07/15/2005 Referring Physician: Dr. Covarrubias [facility] Chief Complaint: A 64-year-old male with lumbar back pain. Reason For Requested Consultation: Evaluation of Huey Franco's lumbar back pain. History of Present Illness: This is a 64-year-old male with lumbar back pain. He suffered a work related injury in August 1977. He was moving thermopane windows when a jenifer of wind blew, and he felt a popping sensation in his back. He is status post lumbar laminectomy surgery x2 at levels L4-L5 and L5-S1. He describes this pain has throbbing, stabbing, sharp, shooting, burning, exhausting, tender, grueling, wretched, and agonizing. The pain is made worse by climbing stairs, bending forwards, lifting, bending backwards, walking, standing, and stressful situations. Relieving the pain is lying down, sitting, and medications. Weather appears to aggravate the pain as well. He does have some numbness in his right hand and the back of his legs, and he has some weakness in his right hand. His lumbar back pain is about 75% of his pain and includes some bilateral lower extremity pain. He additionally has right arm numbness secondary to shingles with arm pain for the past 6 to 7 months. His shingles occurred 6 to 7 months ago. He has also gotten some pain and numbness in his hand on the right and some significant pain in his shoulder. His care has been complicated by a coronary artery disease, and he received a shunt to his heart. Currently, he has been suffering restenosis in his stents and has been considered for radiation therapy to his coronary; however, it is complicated by 2 stents which surround the area that needs to be irradiated. Additionally, he describes head pain with unilateral headaches which occur every 3 to 4 weeks, and he has a 5-minute grabbing pain in that area. He has no visual problems associated with that. He has a history of having a head injury when he was cleaning a television which is up above head level, it fell and hit him on the head. He described his pain between a 3 and 8 out of 10 and interferes with much of his general activity. He has tried medications which have been helpful for him, especially Tylenol No. 3 and surgery which improved his pain. He has tried physical therapy which made his pain worse. Past Medical History: 1. Stent placement, multiple in his heart, up to 8 stents. 2. Hypercholesteremia. 3. Coronary artery disease. 4. Smoking 1/2 to 1-1/2 packs per day. 5. History of alcoholism and cirrhosis. 6. History of osteoarthritis. 7. History of herpes zoster, right arm. 8. History of stroke in the past as evidenced by MRI. 9. History of diabetes. 10. History of anticoagulation, currently on Plavix therapy. Medications: 1. Plavix 1 tablet daily. 2. Toprol 1 tablet daily. 3. Imdur 1 tablet daily. 4. Aspirin 1 tablet daily. 5. Glucophage 1 tablet daily. 6. Glipizide 1 tablet daily. 7. Tylenol No. 3 one-half tablet twice a day. 8. Methocarboxal 1 tablet 3times a day. 9. Nitroglycerin p.r.n. 10. Quinine sulfate. Allergies: 1. VALIUM CAUSED HIM TO ITCH ALL OVER. 2. FIG NEWTONS "MAKE HIM TOTALLY SICK." Medications he has tried; 1. Tylenol No. 3 2. Demerol. 3. Darvon. 4. Neurontin. 5. Flexeril was not effective. 6. Valium, he had a drug reaction. 7. Methocarbamol (Robaxin) 3 times a day. 8. Capsaicin. 9. Celebrex. Review of Systems: Cardiovascular: No symptoms of angina and no symptoms of high blood pressure. Respiratory: No symptoms. GI: No symptoms. : No symptoms. Musculoskeletal: No symptoms. Integumentary: No symptoms. Neurologic: No symptoms. Psychiatric: No symptoms. Endocrine: No symptoms. Hematologic: No symptoms. Allergic: No symptoms. Cancer: No symptoms. Constitutional: No symptoms. Occasional incontinence, easy bowel movements 2 to 3 times a day. Sleep disturbance 3 to 4 hours per night. Past Surgical History : 1. Stent implant. 2. Angioplasty. 3. Cholecystectomy. 4. Appendectomy. 5. Tonsillectomy. 6. Laminectomy x2. 7. Multiple fracture repairs. Family History: Mother with diabetes, brother and sister with diabetes, had 15 siblings, now has 7. Social History: Smokes a 1/2 pack to 1-1/2 packs per day; does not drink alcohol; does not use marijuana. Drinks occasional caffeine. 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 Physical Examination: Vital Signs: Weight 78 kg/172 pounds, height 5 feet 7 inches, blood pressure 96/56, pulse 64, respiratory rate is 16, temperature 36.2. Pain is 2 out of 10. General: Interaction is pleasant, calm, slow mobility. Facies within normal limits. He is well developed. Lungs: Clear to auscultation. Heart: Regular rate and rhythm. Abdomen: Soft, nontender, positive bowel sounds. Neck: Limited flexion. Right rotation and extension causes right arm pain. Left rotation and extension, no pain. Palpation over the posterior occiput bilaterally causes pain. Skin: Within normal limits. He has an area of old zoster rash on his right arm. Musculoskeletal: His lumbar range of motion is 30 degrees flexion, 0 extension. He has tenderness over the lumbar spine lateral to the areas of his spur. He has myofascial tenderness over the buttocks. Right rotation and extension, left rotation and extension elicits pain in his left lumbar spine. His straight leg leg raise is 70 degrees on the right, 80 degrees on the left with some pulling in the back of the leg but no overt pain in the back. Ludwig's is negative bilaterally. Hip rotation causes some pain on the left hip. Toe gait is brief. Heel gait, he is unable to do a tandem gait. He has balance problems with it. Romberg is negative for ulnar drift. Gait is otherwise slow. Squat, he is slow to rise, he is able to hop on each foot. He has decreased vibrations in his feet. Reflexes are 1+ throughout the upper and lower extremities except at the ankles where they are 0. Diagnostic Data: Mr. Franco brought his records today which we reviewed at length including his history of catheterization and his most recent MRI of the spine from August 16, 2001. MRI of lumbar spine August 16, 2001, status post posterior lumbar surgery L4-L5, L5-S1 with focal right paramedian recurrent disk herniation in L4-L5 with subarticular recess narrowing exacerbated by hypertrophic facet arthropathy. Problem List: 1. Status post spine surgery x2, L4-L5, L5-S1. 2. Myofascial pain including bilateral piriformis pain. 3. Mechanical and possible facet arthropathy as evidenced on physical exam and MRI from 2000. 4. History of diabetes type 2. 5. History of coronary artery disease status post stent placement. 6. History of anticoagulation, on Plavix. 7. History of very mild postherpetic neuralgia with numbness in his right upper extremity. 8. History of muscular mechanical neck pain. 9. History of hyperlipidemia. 10. History of osteoarthritis. 11. History of lumbar disk disease. 12. History of tobacco dependency. 13. 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 Impression: Huey Franco is a 64-year-old male with chronic lumbar back pain. He feels like his lumbar back pain is about 75% of his current pain. He is concerned about his short-acting opioid medicines as these have given him the most significant relief over time. On review of records, it appears he has tried Neurontin in the past. He would likely benefit from multiple medication therapies including a long-acting pain medicine such as long-acting morphine or methadone, so he could have a stable level of opioid therapy rather than short-acting drugs. We would suggest starting at a very low dose, for instance on the methadone, start at 2.5 mg twice a day and increase to 2.5 mg two to three times per day and then increase by 2.5 mg each week until the patient is at a stable dose. Alternatively, we can start a long-acting morphine such as MS Contin 2 to 3 times per day starting at a low dose 15 mg and increasing upward as needed. We would suggest these as a substitute for his Vicodin therapy given his history of cirrhosis of the liver which we are not exactly clear on what his current problems are; in regards to this, he says that he does not have any problems with his liver function test; however, it is likely that Tylenol is not the best choice for him. If he has problems with liver function, he would best at that time not start a medication like methadone; however, long-acting morphine would be beneficial. Additionally, other modalities for pain medications can also be tried. Consider Effexor 37.5 mg increase each week. First, 37.5 mg for 1 week and increase to 75 mg for 1 week and then on to 150 mg the following week. This medication can be effective for both depression and for pain. Additionally, if there is any time when he can be off his Plavix for 1 week, we would consider doing a lumbar medial branch block for him. We discussed this therapy with him today. It would likely give him good relief for his mechanical pain in his back which probably is a large component of this pain. However, given his cardiac history and his need to optimize his stent, going off Plavix may not be feasible at this time. We will defer to his kiln firer helper and his primary care physician for an opinion on this. We would definitely maintain him on opioid-type therapy until the time when we could do this type of procedure and he may not completely come off the opioid therapy, but it may help his pain significantly. If we would proceed to denervation with him, we would like to have a Physical Therapy evaluation here and at least 2 followup visits. If not, we would be happy to have the patient see a physical therapist close to home. If coming off his Plavix will be very far into the future and would not make the lumbar medial branch possible anytime soon or he does not wish to follow through with this type of therapy, we would suggest physical therapist in [place] named Ham High, phone number [phone] for pain-oriented physical therapy who is a patient with lumbar back pain. If you have any questions please feel free to call us in regards to Huey Franco. It was pleasure meeting him today, and hope we will see him in the future. Recommendations: 1. Long acting opioid substitution for vicodin, see suggestions above. 2. Trial of Effexor as dosed above. Titrating to doses for pain efficacy above 150mg as described above. 2. If can be off plavix safely at some time in the future, he may benefit from Lumbar medial branch blocks, associated deneration and PT as described above. 3. If can not be off plavix safely in the future would suggest a trial of PT with Ham Bolden (information above). Dr. Geoff Henry was involved in the history, physical, and formulation of plan. Yaquelin Esposito M.D. Geoff Henry M.D. / [id number] / [id number] / [id number] / [id number] cc: Dr. Covarrubias [address] [place] [address] Electronically signed by Yaquelin Esposito 08-03-2005 08:55:55 AM documented i n this encounter Plan of Treatment Not on filedocumented as of this encounter Visit Diagnoses Not on filedocumented in this encounter
--- OUTSIDE RECORDS SUMMARY | ~2019-10-18 | XMS | Encounter Summary ---
Demographics + + + | Address | [address] | | | [place] [address] | + + + | Home Phone | | + + + | Preferred Language | Unknown | + + + | Marital Status | Single | + + + | Mormonism Affiliation | 1041 | + + + | Race | Unknown | + + + | Ethnic Group | Unknown | + + + Author + + + | Author | [facility] | | | and [place] | + + + | Organization | [facility] | | | and [place] | [...] Team Providers + +------+ + | Care Hot Strip Mill Inspector Name | Role | Phone | [...] [place] | | | | | | [address] | | | | | | [phone] | | | +--------+ + + + [...]
--- OUTSIDE RECORDS SUMMARY | ~2019-10-18 | XMS | Encounter Summary ---
Demographics + + + | Address | [address] | | | [place] [address] | + + + | Home Phone | | + + + | Preferred Language | Unknown | + + + | Marital Status | Single | + + + | Baptism Affiliation | Unknown | + + + | Race | or | + + + | Ethnic Group | Not or | + + + Author + + + | Author | [facility] | + + + | Organization | [facility] | + + + | Address | Unknown | + + + | Phone | Unavailable | + + + Support + + +---------+ + | Name | Relationship | Address | Phone | + + +---------+ + | Mihaela Whitehead | ECON | Unknown | | + + +---------+ + Care Team Providers + +------+ + | Care Subway Train Driver Name | Role | Phone | [...] [id number] | | | | | | [place], [place] | | | | | | [address] | | | | | | [phone] | | | +--------+ + + + [...]
--- OUTSIDE RECORDS SUMMARY | ~2019-10-18 | XMS | Encounter Summary ---
Demographics + + + | Address | [address] | | | [place] [address] | + + + | Home Phone | | + + + | Preferred Language | Unknown | + + + | Marital Status | Single | + + + | Taoist Affiliation | Unknown | + + + [...] Team Providers + +------+ + | Care Nurse Administrator Name | Role | Phone | [...] as of this encounter Progress Notes Interface, Forepart Rasper In - 07/17/2005 5:05 AM PDT [id number] 07/15/2005 07/15/2005 [id number] ISAAC EARL [facility] [address] [place] [address] or July 16, 2005 Kevin Harris M.D. [facility] [address] [place] [address] RE: HUEY GRAY MR #: [id number] Dear Dr. Harris: Thank you very much for referring Huey Gray to the [facility] here at [facility] for consultation regarding his chief complaint of [...] him with one of our fellows, Dr. Esposito, who will be dictating complete consultation note [...] give me a call through the paging fine grade operator in the meantime. The best way to reach me is at [phone]. Sincerely, Geoff Henry M.D. [facility] / [id number] / [id number] / [id number] / documented i n this encounter Plan of Treatment Not on filedocumented as of this encounter Visit Diagnoses Not on filedocumented in this encounter"
--- OUTSIDE RECORDS SUMMARY | ~2019-10-18 | XMS | Encounter Summary ---
Demographics + + + | Address | [address] | | | [place] [address] | + + + | Home Phone | | + + + | Preferred Language | Unknown | + + + | Marital Status | Single | + + + | Gnosticism Affiliation | 1041 | + + + | Race | Unknown | + + + | Ethnic Group | Unknown | + + + Author + + + | Author | [facility] | | | and [place] | + + + | Organization | [facility] | | | and [place] [...] Team Providers + +------+ + | Care Install And Repair Technician Name | Role | Phone | + +------+ + | Lydia Pop MD | PCP | | + +------+ + Reason for Referral Evaluate & Treat (Routine) +--------+ + + + + + | Status | Reason | Specialty | Diagnoses / | Referred By | Referred To | | | | | Procedures | Contact | Contact | +--------+ + + + + + | Closed | Specialty | Gastroenterol | Diagnoses | Harri, | Harri, | | | Services | ogy | Hx of | Kwasi Lopez MD | Kwasi Lopez MD | | | Required | | colonic | [address], | | | | | polyps | [place], [address] | [address] | | | | | 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[place], | | | | | dependence, | [place], [place] | [place] [address] | | | | | continuous | [address] | Phone: | | | | | (HCC) | Phone: | [phone] | | | | | Procedures | [phone] | Fax: | | | | | [place] | Fax: | [phone] | | | | | COLONOSCOPY | [phone] | | | | | | FLX DX | | | | | | | W/COLLJ SPEC | | | | | | | WHEN PFRMD | | | | | | | RI | | | | | | | COLONOSCOPY | | | | | | | W/BIOPSY | | | | | | | SINGLE/MULTI | | | | | | | PLE RI | | | | | | | COLSC FLX | | | | | | | W/RMVL OF | | | | | | | TUMOR POLYP | | | | | | | LESION SNARE | | | | | | | TQ RI | | | | | | | ESOPHAGOGAST | | | | | | | RODUODENOSCO | | | | | | | PY TRANSORAL | | | | | | | DIAGNOSTIC | | | | | | | RI EDG | | | | | | | TRANSORAL | | | | | | | BIOPSY | | | | | | | SINGLE/MULTI | | | | | | | PLE RI | | | | | | | ANESTH,UGI | | | | | | | ENDOSCOPY | | | | | | | RI | | | | | | | ANESTH,INTES | | | | | | | SIERRA,SCOPE,L | | | | | | | OW | | | +--------+ + + + + + Reason for Visit + + + | Reason | Comments | + + + | Appointment | procedure | + + + Encounter Details +--------+ + + + + | Date | Type | Department | Care Team | Description | +--------+ + + + + | 07/22/ | Telephone | [facility] | Kwasi Cates MD | Appointment | | 2014 | | GASTROENTEROLOGY | [address] | (procedure) | | | | [address] | [address] [place] | | | | | [address] | [address] | | | | | [address] | | | | | | [phone] | | | +--------+ + + + [...] Ambulatory referral | Outpatient | Routin | Hx of colonic | Expected: | | to Gastroenterology | Referral | e | polyps Opioid type | 08/08/2015, Expires: | | (donato) | | | dependence, | 07/21/2016 | | | | | continuous (HCC) | | + + +--------+ + + documented as of this encounter Visit Diagnoses + + | Diagnosis | + + | Hx of colonic polyps - Primary Personal history of colonic polyps | + + | Opioid type dependence, continuous (HCC) Opioid type dependence, continuous | + + documented in this encounter"
--- OUTSIDE RECORDS SUMMARY | ~2019-10-18 | XMS | Encounter Summary ---
Demographics + + + | Address | [address] | | | [place] [address] | + + + | Home Phone | | + + + | Preferred Language | Unknown | + + + | Marital Status | Single | + + + | Mosque Affiliation | 1041 | + + + | Race | Unknown | + + + | Ethnic Group | Unknown | + + + Author + + + | Author | [facility] | | | and [place] | + + + | Organization | [facility] | | | and [...] Team Providers + +------+ + | Care Hemotherapist Name | Role | Phone | + +------+ + PCP | Unavailable | + +------+ + Encounter Details +--------+ + + + + | Date | Type | Department | Care Team | Description | +--------+ + + + + | 01/13/ | Hospital | [facility] | | | | 1999 | Encounter | MED CTR XRAY [address] | | | | | | [address] | | | | | | [place] [address] | | | | | | [phone] | | | +--------+ + + + [...]
--- OUTSIDE RECORDS SUMMARY | ~2019-10-18 | XMS | Encounter Summary ---
Demographics + + + | Address | [address] | | | [place] [address] | + + + | Home Phone | | + + + | Preferred Language | Unknown | + + + | Marital Status | Single | + + + | Jewish Affiliation | 1041 | + + + | Race | Unknown | + + + | Ethnic Group | Unknown | + + + Author + + + | Author | [facility] | | | and [place] | + + + | Organization | [facility] | [...] Team Providers + +------+ + | Care Field Trainer Name | Role | Phone | + +------+ + PCP | Unavailable | + +------+ + Encounter Details +--------+ + + + + | Date | Type | Department | Care Team | Description | +--------+ + + + + | 01/13/ | Hospital | [facility] | | | | 1999 | Encounter | MED CTR XRAY [address] | | | | | | [address] | | | | | | [place] [address] | | | | | | [phone] | | | +--------+ + + + [...]
--- OUTSIDE RECORDS SUMMARY | ~2019-10-18 | XMS | Encounter Summary ---
Demographics + + + | Address | [address] | | | [place] [address] | + + + | Home Phone | | + + + | Preferred Language | Unknown | + + + | Marital Status | Single | + + + | Latter Day Affiliation | 1041 | + + + | Race | Unknown | + + + | Ethnic Group | Unknown | + + + Author + + + | Author | [facility] | | | and [place] | + + + | Organization | [facility] | | | and [place] [...] Team Providers + +------+ + | Care Sales And Marketing Assistant Name | Role | Phone | + +------+ + PCP | Unavailable | + +------+ + Encounter Details +--------+ + + + + | Date | Type | Department | Care Team | Description | +--------+ + + + + | 12/28/ | Hospital | [facility] | Felipe Kline, | | | 2010 - | Encounter | [facility] | [address] | | | | | CARDIAC TELEMETRY | [address] [place] | | | 01/05/ | | [address] | [address] | | | 2010 | | [place] | [phone] | | | | | [address] | | | | | | [phone] | Chirag Oliver MD | | +--------+ [...] 1940 ADMISSION DATE: 12/28/2010 DISCHARGE DATE: 01/05/2011 [id number] / [id number] DISCHARGE DIAGNOSES: 1. Non-ST elevated myocardial infarction. [...] units red blood cells transfused here at [facility]. 3. Peptic ulcer disease in the stomach. [...] hyperlipidemia and diabetes transferred MADY FRANCO ADM:12/28/10 [id number] 01/05/11 DIS IN DISCHARGE SUMMARY [id number] [facility] HIGINIO Ballard [facility] Felipe Kline MD [facility] FS R THIS REPORT IS CONFIDENTIAL AND NOT TO BE RELEASED WITHOUT PROPER AUTHORIZATION. [facility] from [place] with acute GI bleed, status four units [...] up closely as an outpatient from a [facility] side of things no acute distress when [...] or complaints. Ever y MADY FRANCO ADM:12/28/10 [id number] 01/05/11 DIS IN DISCHARGE SUMMARY [id number] [facility] Ana Adame, [facility] Felipe Kline MD [facility] FS R THIS REPORT IS CONFIDENTIAL AND NOT TO BE RELEASED WITHOUT PROPER AUTHORIZATION. [facility] single day I saw him over the [...] submitted the IV antibiotics for approval thro [facility], which has not been approved, although this [...] provider. Ana Adame PA-C MADY FRANCO ADM:12/28/10 [id number] 01/05/11 DIS IN DISCHARGE SUMMARY [id number] [facility] Ana Adame, [facility] Felipe Kline MD [facility] FS R THIS REPORT IS CONFIDENTIAL AND NOT TO BE RELEASED WITHOUT PROPER AUTHORIZATION. [facility] Felipe Kline MD,[facility] P P DEW/jojo #[id number] cc: Felipe Kline MD,[facility] MD Gurwinder Castle MD William S. Murphy, MD Douglas E. West, PA-C Ronny Yu, MD Electronically Signed 01/10/11 1853 Felipe Kline MD [facility] MADY FRANCO ADM:12/28/10 [id number] 01/05/11 DIS IN DISCHARGE SUMMARY [id number] [facility] Ana Adame [facility] Felipe Kline MD [facility] THIS REPORT IS CONFIDENTIAL AND NOT [...] + + + | Exam Performed Location: [facility] [place] Date: | MISCELANIOUS | | 01/05/2011 10:40:00 [...] the exam. | | | S: SQ ([id number]) Signed by: AKHIL RAMAN MD and CRISTAL Denis | | | JAYSON EDWARD | | + + + + + | Procedure Note | + + | [place], Rad Conversion - 07/26/2013 8:41 PM PDT Exam Performed [place] [place]: 01/05/2011 10:40:00 AMULTRASOUND-GUIDED RIGHT ARM PICCInterventional | [...] the londono portions of the exam.S: SQ ([id number]) Signed by: AKHIL Kapadia | | MD [...] | | | | | |S: SQ ([id number]) Signed by: AKHIL RAMAN MD and JAYSON COL[place] | + + + +---------+ + + | Performing | Address | City/State/Zipcode | Phone Number | | Organization | | | | + +---------+ + + | [facility] | | | [phone] | + +---------+ + + | [facility]ISC[facility] | | | [phone] | + +---------+ + + Historical Imaging Result (01/04/2011 11:45 PM PDT) + + | Specimen | + + | | + + + + + | Narrative | Performed At | + + + | Exam Performed Location: [facility] [place] | MISCELANIOUS | | ULTRASOUND VENOUS DUPLEX, [...] londono portions of the exam. S: SQ ([id number]) | | | Signed by: MIRYAM RIVER MD and LEFTY GARZON MD R5 | | + + + + + | Procedure Note | + + | Jason Delarosa Conversion - 07/26/2013 9:06 PM PDT Exam Performed Location: [facility] | | at [facility] VENOUS DUPLEX, LEFT UPPER EXTREMITYCLINICAL INFORMATION:Left | [...] the londono portions of the exam.S: SQ ([id number]) Signed by: MIRYAM Tripp | | MD [...] | | | | | |S: SQ ([id number]) Signed by: MIRYAM RIVER MD and LEFTY GARZON MD R5 | + + + +---------+ + + | Performing | Address | City/State/Zipcode | Phone Number | | Organization | | | | + +---------+ + + | [facility] | | | [phone] | + +---------+ + + | [facility]ISC[facility] | | | [phone] | + +---------+ + + XR Chest 2 VW (12/31/2010 10:50 PM PDT) + + | Specimen | + + | | + + + + + | Narrative | Performed At | + + + | Exam Performed Location: [facility] [place] CHEST | MISCELANIOUS | | X-RAYS, AP [...] | | | bibasilar atelectasis. S: SQ ([id number]) Signed by: OSCAR MARIE, | | | MD | | + + + + + | Procedure Note | + + | [place], Rad Conversion - 07/26/2013 9:39 PM PDT Exam Performed Location: [facility] | | at [facility] X-RAYS, AP AND LATERAL VIEWSCLINICAL | | [...] is mild bibasilar atelectasis.S: SQ | | ([id number]) Signed by: OSCAR MARIE MD | | [...] | | | | | |S: SQ ([id number]) Signed by: OSCAR MARIE MD | + + + +---------+ + + | Performing | Address | City/State/Zipcode | Phone Number | | Organization | | | | + +---------+ + + | [facility] | | | [phone] | + +---------+ + + | MISC[facility] | | | [phone] | + +---------+ + + Surgical Pathology Exam (12/30/2010 12:00 AM PDT) + + | Specimen | + + | | + + + + + | Narrative | Performed At | + + + | SURGICAL PATHOLOGY REPORT | [facility] | | Date Taken: 12/30/2010 Date Received: [...] the pathologic | | | diagnosis. 1: [address] | | | [place], [place] [address] or Testing | | | performed at: [facility] | | | Law Luciano M.D., Director [address] [place] [address] [address] | | | [place] [address] | | + + + + + + + + | Performing | Address | City/State/Zipcode | Phone Number | | Organization | | | | + + + + + | [facility] | [address] | [place] [address] | | | [facility] | | | | | LABORATORY | | | | + + + + + | [facility] | | | | + + + + + VAS Carotid Duplex Bilateral (12/29/2010 6:10 PM PDT) + + | Specimen | + + | | + + + + + | Narrative | Performed At | + + + | Exam Performed Location: [facility] [place] CAROTID | MISCELANIOUS | | DUPLEX ULTRASOUND [...] NASCET criteria. | | | S: SQ ([id number]) Signed by: ELA OLGUIN MD | | + + + + + | Procedure Note | + + | Jason Delarosa Conversion - 07/26/2013 9:31 PM PDT Exam [facility] [...] | | stenosis by NASCET criteria.S: SQ ([id number]) Signed by: ELA OLGUIN MD | |FINDINGS [...] | | | | | |S: SQ ([id number]) Signed by: ELA OLGUIN MD | + + + +---------+ + + | Performing | Address | City/State/Zipcode | Phone Number | | Organization | | | | + +---------+ + + | [facility] | | | [phone] | + +---------+ + + | [facility]ISC[facility] | | | [phone] | + +---------+ + + XR Chest 2 VW (12/28/2010 4:07 PM PDT) + + | Specimen | + + | | + + + + + | Narrative | Performed At | + + + | Exam Performed Location: [facility] [place] TWO-VIEW | MISCELANIOUS | | CHEST RADIOGRAPH [...] the stomach. See above comments S: SQ ([id number]) | | | Signed by: RUSTY WORTHY MD | | + + + + + | Procedure Note | + + | [place], Rad Conversion - 07/26/2013 9:23 PM PDT Exam Performed [facility] CHEST RADIOGRAPHCLINICAL INFORMATION:Acute coronary | | syndrome.COMPARISON:11/26/2006FINDINGS:Current [...] of | | thestomach.See above commentsS: SQ ([id number]) Signed by: RUSTY WORTHY MD | |sternotomy. [...] | | | | | |S: SQ ([id number]) Signed by: RUSTY WORTHY MD | + + + +---------+ + + | Performing | Address | City/State/Zipcode | Phone Number | | Organization | | | | + +---------+ + + | [facility] | | | [phone] | + +---------+ + + | MISCELANIOUS [facility] | | | [phone] | + +---------+ + + documented in this encounter Visit Diagnoses Not on filedocumented in this encounter
--- OUTSIDE RECORDS SUMMARY | ~2019-10-18 | XMS | Encounter Summary ---
Demographics + + + | Address | [address] | | | [place] [address] | + + + | Home Phone | | + + + | Preferred Language | Unknown | + + + | Marital Status | Single | + + + | Yazidism Affiliation | Unknown | + + + [...] Team Providers + +------+ + | Care Extrusion Engineer Name | Role | Phone | [...] as of this encounter Progress Notes Interface, Geospatial Technologist In - 08/04/2005 5:[address] [facility] [id number] ISAAC EARL Consulting Physician: Geoff Henry M.D. Consultation Date: 07/15/2005 Referring Physician: Dr. Covarrubias [facility] Chief Complaint: A [...] caffeine. 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 Physical Examination: Vital [...] this time. We will defer to his parking lot spotter and his primary care physician for an [...] therapy, we would suggest physical therapist in [place] named [place], phone number [phone] for pain-oriented physical therapy who is a [...] Yaquelin Esposito M.D. Geoff Henry M.D. / [id number] / [id number] / [id number] / [id number] cc: Dr. Covarrubias [address] [place] [address] Electronically signed by Yaquelin Esposito 08-03-2005 08:55:55 AM documented i n this encounter Plan of Treatment Not on filedocumented as of this encounter Visit Diagnoses Not on filedocumented in this encounter
--- OUTSIDE RECORDS SUMMARY | ~2019-10-18 | XMS | Encounter Summary ---
Demographics + + + | Address | [address] | | | [place] [address] | + + + | Home Phone | | + + + | Preferred Language | Unknown | + + + | Marital Status | Single | + + + | Nondenominational Affiliation | 1041 | + + + | Race | Unknown | + + + | Ethnic Group | Unknown | + + + Author + + + | Author | [facility] | | | and [place] | + + + | Organization | [facility] | | | and [place] [...] Team Providers + +------+ + | Care Surveillance Officer Name | Role | Phone | + [...] unspecified | [address], | | | | | anemia type | [place], [place] | [address] | | | | | PUD (peptic | [address] [place] | [place], | | | | | ulcer | [place], [place] | [place] [address] | | | | | disease) | [address] | Phone: | | | | | | Phone: | [phone] | | | | | | [phone] | Fax: | | | | | | Fax: | [phone] | | | | | | [phone] | | +--------+ + + + + + Encounter Details +--------+ + + + + | Date | Type | Department | Care Team | Description | +--------+ + + + + | 08/07/ | Orders Only | [facility] | Kwasi Cates MD | Anemia, unspecified | | 2014 | | GASTROENTEROLOGY | [address], [place] | anemia type (Primary | | | | [address] | [address] [place], [place] | Dx); PUD (peptic | | | | [address] [place], [place] | [address] | ulcer disease) | | | | [address] | | | | | | [phone] | | | +--------+ + + + [...] (peptic ulcer | 08/08/2015, Expires: | | ([email or web address]) | | | disease) | 08/06/2016 | [...]
--- OUTSIDE RECORDS SUMMARY | ~2019-10-18 | XMS | Encounter Summary ---
Demographics + + + | Address | [address] | | | [place] [address] | + + + | Home Phone | | + + + | Preferred Language | Unknown | + + + | Marital Status | Single | + + + | Yarsanism Affiliation | 1041 | + + + | Race | Unknown | + + + | Ethnic Group | Unknown | + + + Author + + + | Author | [facility] | | | and [place] | + + + | Organization | [facility] | | | and [place] | [...] Team Providers + +------+ + | Care Paving And Surfacing Labourer Name | Role | Phone | + [...] unspecified | [address], | | | | | anemia type | [place], [place] | [address] | | | | | PUD (peptic | [address] [place] | [place], | | | | | ulcer | [place], [place] | [place] [address] | | | | | disease) | [address] | Phone: | | | | | | Phone: | [phone] | | | | | | [phone] | Fax: | | | | | | Fax: | [phone] | | | | | | [phone] | | +--------+ + + + + + Encounter Details +--------+ + + + + | Date | Type | Department | Care Team | Description | +--------+ + + + + | 08/07/ | Orders Only | [facility] | Kwasi Cates MD | Anemia, unspecified | | 2014 | | GASTROENTEROLOGY | [address], [place] | anemia type (Primary | | | | [address] | [address] [place], [place] | Dx); PUD (peptic | | | | [address] [place], [place] | [address] | ulcer disease) | | | | [address] | | | | | | [phone] | | | +--------+ + + + [...]
--- OUTSIDE RECORDS SUMMARY | ~2019-10-18 | XMS | Encounter Summary ---
Demographics + + + | Address | [address] | | | [place] [address] | + + + | Home Phone [...] + + + | Author | [facility] | | | and [place] | + + + | Organization | [facility] [...] Team Providers + +------+ + | Care Pricing Director Name | Role | Phone | + +------+ + PCP | Unavailable | + +------+ + Encounter Details +--------+ + + + + | Date | Type | Department | Care Team | Description | +--------+ + + + + | 02/22/ | Hospital | [facility] | | | | 2000 | Encounter | MED CTR XRAY [address] | | | | | | [address] | | | | | | [place] [address] | | | | | | [phone] | | | +--------+ + + + [...]
--- OUTSIDE RECORDS SUMMARY | ~2019-10-18 | XMS | Encounter Summary ---
Demographics + + + | Address | [address] | | | [place] [address] | + + + | Home Phone | | + + + | Preferred Language | Unknown | + + + | Marital Status | Single | + + + | Mormon Affiliation | 1041 | + + + | Race | Unknown | + + + | Ethnic Group | Unknown | + + + Author + + + | Author | [facility] | | | and [place] | + + + | Organization | [facility] [...] Team Providers + +------+ + | Care Online Marketing Analyst Name | Role | Phone | + [...] colonic | [address], | | | | | polyps | [address], [place] | [address] | | | | | 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[place], | | | | | dependence, | [place], [place] | [place] [address] | | | | | continuous | [address] | Phone: | | | | | (HCC) | Phone: | [phone] | | | | | Procedures | [phone] | Fax: | | | | | ID | Fax: | [phone] | | | | | COLONOSCOPY | [phone] | | | | | | FLX [...] | | | | | | PLE ID | | | | | | | COLSC FLX | | | | | | | W/RMVL OF | | | | | | | TUMOR POLYP | | | | | | | LESION SNARE | | | | | | | TQ ID | | | | | | | ESOPHAGOGAST | | | | | | | RODUODENOSCO | | | | | | | PY TRANSORAL | | | | | | | DIAGNOSTIC | | | | | | | ID EDG | | | | | | | TRANSORAL | | | | | | | BIOPSY | | | | | | | SINGLE/MULTI | | | | | | | PLE ID | | | | | | [...] + + | 07/22/ | Telephone | [facility] | Kwasi Cates MD | Appointment | | 2014 | | GASTROENTEROLOGY | [address] | (procedure) | | | | [address] | [address] [place] | | | | | [address] [place] | [address] | | | | | [address] | | | | | | [phone] | | | +--------+ + + + [...]
--- OUTSIDE RECORDS SUMMARY | ~2019-10-18 | XMS | Encounter Summary ---
Demographics + + + | Address | [address] | | | [place] [address] | + + + | Home Phone | | + + + | Preferred Language | Unknown | + + + | Marital Status | Single | + + + | Yazidism Affiliation | 1041 | + + + | Race | Unknown | + + + | Ethnic Group | Unknown | + + + Author + + + | Author | [facility] | | | and [place] | + + + | Organization | [facility] | | | and [place] [...] Team Providers + +------+ + | Care Turner Machine Operator Name | Role | Phone | [...] | | for | | [address], | | | | | colonoscopy | | [address] | | | | | due to | | [place], | | | | | history of | | [place] [address] | | | | | adenomatous | | Phone: | | | | | colonic | | [phone] | | | | | polyps | | Fax: | | | | | Opioid type | | [phone] | | | | | dependence, | [...] | | | | | | | ND | | | | | | | COLONOSCOPY | | | | | | | FLX DX | | | | | | | W/COLLJ SPEC | | | | | | | WHEN PFRMD | | | +--------+--------+ + + + + Encounter Details +--------+---------+ + + + | Date | Type | Department | Care Team | Description | +--------+---------+ + + + | 08/08/ | Surgery | [facility] | Kwasi Cates MD | EGD/COLONOSCOPY - | | 2014 | | [facility] | [address], [place] | CHRONIC NARC | | | | [address] | [address] [place], [place] | DEPENDENT/PAIN | | | | [place], [place] | [address] | | | | | [address] | | | | | | [phone] | | | +--------+---------+ + + + Social History + +-------+ [...] + + + documented in this encounter Medications at Time of Discharge [...] | | | | | N HCl (JANUMET XR) | [...] + | HELICOBACTER PYLORI | Routin | 08/08/2015 | | Results for this | | BIOPSY | e | 1:10 PM | | procedure are in the | | | | PST | | results section. 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 | + +--------+ + + + | COLONOSCOPY | Routin | 08/08/2015 | | Results for this | | | e | 12:58 PM | | procedure are in the | | | | PST | | results section. | + +--------+ + + + | POC GLUCOSE | Routin | 08/08/2015 | | Results for this | | | e | 11:45 AM | | procedure are in the | | | | PST | | results section. | + +--------+ + + + | SURGICAL PATHOLOGY | Routin | 08/08/2015 | | Results for this | | EXAM | e | 12:00 AM | | procedure are in the | | | | PST | | results section. | + +--------+ + + + documented in this encounter Results Helicobactor pylori Biopsy (08/08/2015 1:10 PM PST) + + + + + + | Component | Value | Ref Range | Performed | Pathologist | | | | | At | Signature | + + + + + + | Helicobacte | Negative | Negative | [facility] | | | r pylori Ag | | | [facility] | | | | | [facility] | | | [facility] | [facility] - | | | | | | LABORATORY | | + + + + + + + + | Specimen | + + | Tissue - Entire | | pyloric antrum (body | | structure) | + + + + + + + | Performing | Address | City/State/Zipcode | Phone Number | | Organization | | | | + + + + + | [facility] | [address] | [place] | [phone] | | [facility] | | [address] | | | - LABORATORY | | | | + + + + + LIDA (08/08/2015 12:58 PM PST) + + | Specimen | + + | | + + + + -+ | Narrative | Performed At | + + -+ | | [facility] | | GastroenterologyPatient Name: Huey RamirezerProcedure Date: 08/08/2015 | [facility] | | 12:58 PMMRN: [id number] #: [id number] of : | | | 1940dmit Type: AmbulatoryAge: 74Room: [place] [address]Gender: MaleNote | | | Status: FinalizedAttending MD: Kwasi Cates, [facility]cedure: | | | Upper GI endoscopyIndications: AnemiaProviders: | | | Kwasi Cates MD, Manuela Christianson RN, Michaelle | | | Ally West, Lead Nurse, Eder Ceja MD | | | (Anesthesia Staff)Referring MD: | | | Lydia Pop MD (Referring MD)Medicines: Sedation | | | Required Anesthesia Staff AssistanceComplications: No immediate | | | complications. Estimated blood loss: Minimal.Procedure: | | | Pre-Anesthesia Assessment: - Prior to the procedure, a History | | | and Physical was performed, and patient medications, allergies | | | and sensitivities were reviewed. The patient's tolerance of | | | previous anesthesia was reviewed. - Prior to the procedure, a | | | History and Physical was performed, and patient medications and | | | allergies were reviewed. The patient is competent. The risks | | | and benefits of the procedure and the sedation options and | | | risks were discussed with the patient. All questions were | | | answered and informed consent was obtained. Patient identification and | | | proposed procedure were verified by the physician, the nurse, | | | the anesthesiologist and the regulatory and compliance technician in the endoscopy suite. | | | Mental Status Examination: alert and oriented. Airway | | | Examination: normal oropharyngeal airway and neck mobility and | | | Mallampati Class III (part of the uvula and soft palate | | | visualized). Respiratory Examination: clear to auscultation. CV | | | Examination: normal. Prophylactic Antibiotics: The patient | | | does not require prophylactic antibiotics. Prior Anticoagulants: | | | The patient has taken no previous anticoagulant or antiplatelet | | | agents. ASA Grade Assessment: III - A patient with severe | | | systemic disease. After reviewing the risks and benefits, the | | | patient was deemed in satisfactory condition to undergo the | | | procedure. The anesthesia plan was to use monitored anesthesia | | | care (MAC). Immediately prior to administration of medications, | | | the patient was re-assessed for adequacy to receive sedatives. | | | The heart rate, respiratory rate, oxygen saturations, blood | | | pressure, adequacy of pulmonary ventilation, and response to | | | care were monitored throughout the procedure. The physical | | | status of the patient was re-assessed after the procedure. - | | | After reviewing the risks and benefits, the patient was deemed in | | | satisfactory condition to undergo the procedure. - Using IV | | | propofol under the supervision of an anesthesiologist was | | | determined to be medically necessary for this procedure based on age | | | 65 or older, severe comorbidity (greater than ASA Grade II), | | | patient's dependence on opiates, sedatives or hypnotics and | | | patient's history of drug or alcohol abuse. - Immediately | | | prior to administration of medications, the patient was | | | re-assessed for adequacy to receive sedatives. - The heart rate, | | | respiratory rate, oxygen saturations, blood pressure, adequacy | | | of pulmonary ventilation, and response to care were monitored | | | throughout the procedure. - The physical status of the patient | | | was re-assessed after the procedure. After obtaining informed | | | consent, the endoscope was passed under direct vision. | | | Throughout the procedure, the patient's blood pressure, pulse, | | | and oxygen saturations were monitored continuously. The endoscope was | | | introduced through the mouth, and advanced to the third part of | | | duodenum. The upper GI endoscopy was accomplished without | | | difficulty. The patient tolerated the procedure well.Findings: | | | The cricopharyngeus, upper third of the esophagus, middle third | | | of the esophagus, lower third of the esophagus and lower | | | esophageal sphincter were normal. The Z-line was regular | | | and was found 40 cm from the incisors. A small hiatus hernia was | | | present. Localized moderate inflammation characterized by | | | congestion (edema) and erosions was found in the gastric | | | antrum. Biopsies were taken with a cold forceps for | | | Helicobacter pylori testing using CLOtest. Verification of | | | patient identification for the specimen was done. The duodenal | | | bulb, first part of the duodenum, 2nd part of the duodenum, | | | area of the papilla and 3rd part of the duodenum were normal. | | | The retroflexed view confirmed previous findings,Impression: - | | | Normal cricopharyngeus, upper third of esophagus, middle third of | | | esophagus, lower third of esophagus and lower esophageal sphincter. | | | - Z-line regular, 40 cm from the incisors. - Hiatus | | | hernia. - Gastritis. Biopsied. - Normal duodenal bulb, | | | first part of the duodenum, 2nd part of the duodenum, area of | | | the papilla and 3rd part of the duodenum. - The retroflexed view | | | confirmed previous findings,Recommendation: - Written discharge | | | instructions were provided to the patient. - Discharge patient | | | to home (ambulatory). - Mechanical soft diet for 3 days. - | | | Continue present medications. - No aspirin, ibuprofen, | | | naproxen, or other non-steroidal anti-inflammatory drugs for 7 | | | days after polyp removal. - Await pathology results. - | | | Perform a colonoscopy today. - Telephone GI clinic for pathology | | | results in 1 week.Kwasi Cates MD08/08/2015 1:54 PMThis report has | | | been signed electronically.Number of Addenda: 0Note Initiated On: | | | 08/08/2015 12:58 PMScope Withdrawal Time: 0 hours 0 minutes 0 seconds | | | Total Procedure Duration: 0 hours 2 minutes 50 seconds Scope In: | | | 1:09:13 PMScope Out: 1:12:03 PM [facility] | | | [place], [address] [place] [id number] | | | - Discharge patient to home (ambulatory). | | | - Mechanical soft diet for 3 days. | | | - Continue present medications. | | | - No aspirin, ibuprofen, naproxen, or other non-steroidal | | | anti-inflammatory drugs for 7 days after polyp removal. | | | - Await pathology results. | | | - Perform a colonoscopy today. | | | - Telephone GI clinic for pathology results in 1 week. | | |Kwasi Cates MD | | |08/08/2015 1:54 PM | | |This report has been signed electronically. | | |Number of Addenda: 0 | | |Note Initiated On: 08/08/2015 12:58 PM | | |Scope Withdrawal Time: 0 hours 0 minutes 0 seconds | | |Total Procedure Duration: 0 hours 2 minutes 50 seconds | | |Scope In: 1:09:13 PM | | |Scope Out: 1:12:03 PM | | | [facility], [address] [place] [address] | | | [phone] | | + + -+ + +---------+ + + | Performing | Address | City/State/Zipcode | Phone Number | | Organization | | | | + +---------+ + + | [facility] | | | | + +---------+ + + COLONOSCOPY (08/08/2015 12:58 PM PST) + + | Specimen | + + | | + + + +--------- -----+ | Narrative | Performe d At | + +--------- -----+ | | [facility] | | GastroenterologyPatient Name: Huey Goodwin Date: 08/08/2015 | [place] | | 12:58 PMMRN: [id number] #: [id number] of : | | | 3Admit Type: AmbulatoryAge: 74Room: [facility] 01Gender: MaleNote | | | Status: FinalizedAttending MD: Kwasi Cates MDProcedure: | | | ColonoscopyIndications: High risk colon cancer | | | surveillance: Personal history of colonic | | | polypsProviders: Kwasi Cates MD, Manuela Thomas | | | RIO Christianson, Michaelle West, | | | Lead Nurse, Eder Ceja MD (Anesthesia | | | Staff)Referring MD: Lydia Pop MD (Referring | | | MD)Medicines: Sedation Required Anesthesia Staff | | | AssistanceComplications: No immediate complications. Estimated | | | blood loss: None.Procedure: Pre-Anesthesia Assessment: - | | | Prior to the procedure, a History and Physical was performed, and | | | patient medications, allergies and sensitivities were reviewed. The | | | patient's tolerance of previous anesthesia was reviewed. | | | - Prior to the procedure, a History and Physical was performed, and | | | patient medications and allergies were reviewed. The patient is | | | competent. The risks and benefits of the procedure and the | | | sedation options and risks were discussed with the patient. All | | | questions were answered and informed consent was obtained. | | | Patient identification and proposed procedure were verified by | | | the physician, the nurse, the anesthesiologist and the | | | regulatory and compliance technician in the endoscopy suite. Mental Status Examination: | | | alert and oriented. Airway Examination: normal oropharyngeal | | | airway and neck mobility and Mallampati Class III (part of the | | | uvula and soft palate visualized). Respiratory Examination: clear to | | | auscultation. CV Examination: normal. Prophylactic Antibiotics: | | | The patient does not require prophylactic antibiotics. Prior | | | Anticoagulants: The patient has taken no previous anticoagulant | | | or antiplatelet agents. ASA Grade Assessment: III - A patient | | | with severe systemic disease. After reviewing the risks and | | | benefits, the patient was deemed in satisfactory condition to | | | undergo the procedure. The anesthesia plan was to use monitored | | | anesthesia care (MAC). Immediately prior to administration of | | | medications, the patient was re-assessed for adequacy to | | | receive sedatives. The heart rate, respiratory rate, oxygen | | | saturations, blood pressure, adequacy of pulmonary ventilation, and | | | response to care were monitored throughout the procedure. The | | | physical status of the patient was re-assessed after the | | | procedure. - After reviewing the risks and benefits, the patient | | | was deemed in satisfactory condition to undergo the procedure. | | | - Using IV propofol under the supervision of an | | | anesthesiologist was determined to be medically necessary for | | | this procedure based on age 65 or older, severe comorbidity | | | (greater than ASA Grade II) and patient's dependence on | | | opiates, sedatives or hypnotics. - Immediately prior to | | | administration of medications, the patient was re-assessed for | | | adequacy to receive sedatives. - The heart rate, respiratory | | | rate, oxygen saturations, blood pressure, adequacy of pulmonary | | | ventilation, and response to care were monitored throughout | | | the procedure. - The physical status of the patient was | | | re-assessed after the procedure. After I obtained informed | | | consent, the scope was passed under direct vision. Throughout | | | the procedure, the patient's blood pressure, pulse, and oxygen | | | saturations were monitored continuously. The endoscope was | | | introduced through the anus and advanced to the cecum, identified by | | | the appendiceal orifice, ileocecal valve and palpation. The | | | colonoscopy was somewhat difficult due to significant looping | | | and a tortuous colon. Successful completion of the procedure | | | was aided by using manual pressure, straightening and | | | shortening the scope to obtain bowel loop reduction and using | | | scope torsion. The patient tolerated the procedure well. The | | | quality of the bowel preparation was good.Findings: The perianal | | | and digital rectal examinations were normal. Pertinent | | | negatives include normal sphincter tone, no palpable rectal lesions | | | and normal prostate (size, shape, and consistency). The | | | descending colon and transverse colon were moderately redundant. | | | Four sessile polyps were found in the descending colon, in the distal | | | ascending colon and in the cecum. The polyps were small in | | | size. Estimated blood loss: none. The exam was otherwise | | | without abnormality. The retroflexed view of the distal rectum | | | and anal verge was normal and showed no anal or rectal | | | abnormalities.Impression: - Redundant colon. - Four small | | | polyps in the descending colon, in the distal ascending colon | | | and in the cecum. - The examination was otherwise normal. | | | - The distal rectum and anal verge are normal on retroflexion | | | view.Recommendation: - Written discharge instructions were | | | provided to the patient. - Discharge patient to home | | | (ambulatory). - Mechanical soft diet for 3 days. - | | | Continue present medications. - No aspirin, ibuprofen, naproxen, | | | or other non-steroidal anti-inflammatory drugs for 7 days | | | after polyp removal. - Await pathology results. - Repeat | | | colonoscopy for surveillance based on pathology results and for | | | surveillance of multiple polyps. - Return to primary care | | | physician as previously scheduled. - Telephone GI clinic for | | | pathology results in 1 week.Kwasi Cates MD08/08/2015 2:01 PMThis | | | report has been signed electronically.Number of Addenda: 0Note | | | Initiated On: 08/08/2015 12:58 PMScope Withdrawal Time: 0 hours 15 | | | minutes 25 seconds Total Procedure Duration: 0 hours 26 minutes 23 | | | seconds Scope In: 1:13:56 PMScope Out: 1:40:19 PM [facility]. | | | [facility], [address] [place] [address] | | | [phone] | | | - Await pathology results. | | | - Repeat colonoscopy for surveillance based on pathology results and for | | | surveillance of multiple polyps. | | | - Return to primary care physician as previously scheduled. | | | - Telephone GI clinic for pathology results in 1 week. | | |Kwasi Cates MD | | |08/08/2015 2:01 PM | | |This report has been signed electronically. | | |Number of Addenda: 0 | | |Note Initiated On: 08/08/2015 12:58 PM | | |Scope Withdrawal Time: 0 hours 15 minutes 25 seconds | | |Total Procedure Duration: 0 hours 26 minutes 23 seconds | | |Scope In: 1:13:56 PM | | |Scope Out: 1:40:19 PM | | | [facility], [address] [facility] [place], [place] | | | [address] | | + +--------- -----+ + +---------+ + + | Performing | Address | City/State/Zipcode | Phone Number | | Organization | | | | + +---------+ + + | [facility] | | | | + +---------+ + + POC Glucose (08/08/2015 11:45 AM PST) + +---------+ + + + | Component | Value | Ref Range | Performed | Pathologist | | | | | At | Signature | + +---------+ + + + | Glucose, | 298 (H) | 70 - 150 mg/dL | [facility] | | | POC | | | [facility] | | | | | | MEDICAL | | | | | | CENTER - | | | | | | LABORATORY | | + +---------+ + + + + + | Specimen | + + | Blood | + + + + + + + | Performing | Address | City/State/Zipcode | Phone Number | | Organization | | | | + + + + + | [facility] | [address] | [place] | [phone] | | [facility] | | [address] | | | - LABORATORY | | | | + + + + + Surgical Pathology Exam (08/08/2015 12:00 AM PST) + + | Specimen | + + | | + + + + + | Narrative | Performed At | + + + | SPECIMEN(S): A CECAL COLON POLYP SPECIMEN(S): B ASCENDING COLON | [facility] | | POLYP SPECIMEN(S): C DESCENDING COLON POLYP SPECIMEN SOURCE: A. | [facility] | | CECAL COLON POLYP B. ASCENDING COLON POLYP C. DESCENDING COLON POLYP | | | CLINICAL HISTORY: Z12.11 (encounter for screening for malignant | | | neoplasm of colon), Z86.010 (personal history of colonic polyps), | | | F11.20 (opioid dependence, uncomplicated) MICROSCOPIC DESCRIPTION: | | | Histologic sections of all submitted blocks are examined by light | | | microscopy. These findings, together with the gross examination, | | | support the pathologic diagnosis. FINAL PATHOLOGIC DIAGNOSIS: A. | | | Cecum, polyp: - Fragments of tubular adenoma. B. Ascending | | | colon, polyp: - Fragments of tubular adenoma. C. Descending | | | colon, polyp: - Fragments of tubular adenoma. DDN:[facility]:C2NR | | | GROSS DESCRIPTION: The specimen is received in three parts. A. | | | The specimen is labeled "Salvador, Huey E" and designated "cecal polyp" | | | on the requisition. Received in formalin are five hurst colored tissue | | | fragments 0.2-0.4 cm, all into (A1). B. The specimen is labeled | | | "Salvador, Huey E" and designated "ascending colon polyp" on the | | | requisition. Received in formalin is one hurst colored tissue fragment, | | | 0.3 cm, all into (B1). C. The specimen is labeled "Salvador, Huey | | | E" and designated "descending colon polyp" on the requisition. | | | Received in formalin are five cream to pink-hurst colored tissue | | | fragments 0.15-0.5 cm, all into (C1). yt:REGGIE:[facility] PERFORMING | | | LABORATORY: Tissue processing and slide preparation were performed by | | | [facility], [facility] [place], [address], [place] [address] | | | (School Teacher: Aydin Wilhelm M.D. CLIA#: [id number]). | | | Professional interpretation was performed by [facility], [address] | | | [facility] [address], [place] [address] (School Teacher: Aydin | | | Natalya Wilhelm; CLIA#: [id number]). Diagnostician: Cy | | | Latesha ARCEO Pathologist Electronically Signed 08/12/2015 | | + + + + +---------+ + + | Performing | Address | City/State/Zipcode | Phone Number | | Organization | | | | + +---------+ + + | [facility] | | | | | [facility] | | | | + +---------+ + + documented in this encounter Visit Diagnoses + + | Diagnosis | + + | Encounter for colonoscopy due to history of adenomatous colonic polyps Special | | screening for malignant neoplasms, colon | + + | Opioid type dependence, continuous (HCC) Opioid type dependence, continuous | + + documented in this encounter Administered Medications + +---------+ +------+-------+------+ | Medication Order | MAR | Action | Dose | Rate | Site | | | Action | Date | | | | + +---------+ +------+-------+------+ | lactated ringers (LR) infusion | New Bag | 08/08/20 | | 100 | | | at 100 mL/hr, Intravenous, | | 15 11:50 | | mL/hr | | | CONTINUOUS, Starting 08/09/15 | | AM PST | | | | | at 0000, Pre-op | | | | | | + +---------+ +------+-------+------+ +---+---+ | | | +---+---+ + +-------+ +-------+---+---+ | metoprolol succinate | Given | 08/08/20 | 50 mg | | | | (TOPROL-XL) ER tablet 50 mg 50 | | 15 12:11 | | | | | mg, Oral, DAILY, First dose on | | PM PST | | | | | 08/08/15 at 1230, Tablet may | | | | | | | be cut where scored but do not | | | | | | | crush. Give now prior to OR with | | | | | | | sip of water., Pre-op | | | | | | + +-------+ +-------+---+---+ +---+---+ | | | +---+---+ documented in this encounter
--- OUTSIDE RECORDS SUMMARY | ~2019-10-18 | XMS | Encounter Summary ---
Demographics + + + | Address | [address] | | | [place] [address] | + + + | Home Phone | | + + + | Preferred Language | Unknown | + + + | Marital Status | Single | + + + | Confucianism Affiliation | 1041 | + + + | Race | Unknown | + + + | Ethnic Group | Unknown | + + + Author + + + | Author | [facility] | | | and [place] | + + + | Organization | [facility] | | | and [place] [...] Team Providers + +------+ + | Care Elastic Cutter Name | Role | Phone | + +------+ + PCP | Unavailable | + +------+ + Encounter Details +--------+ + + + + | Date | Type | Department | Care Team | Description | +--------+ + + + + | 04/09/ | Hospital | [facility] | Kwasi Cates MD | | | 2010 | Encounter | MED CTR [facility] OP | [address], [place] | | | | | [address] | [address] [place] | | | | | [place] | [address] | | | | | [address] | | | | | | [phone] | | | +--------+ + + + [...] | [address] | [place] | [phone] | | [facility] | | [address] | | | - LABORATORY | | | | + + + + + | [facility] | [address] | [place], [place] | | | [facility] | | [address] | | | - LABORATORY | | | | + + + + + documented in this encounter Visit Diagnoses Not on filedocumented in this encounter"
--- OUTSIDE RECORDS SUMMARY | ~2019-10-18 | XMS | Encounter Summary ---
Demographics + + + | Address | [address] | | | [place] [address] | + + + | Home Phone | | + + + | Preferred Language | Unknown | + + + | Marital Status | Single | + + + | Jain Affiliation | 1041 | + + + | Race | Unknown | + + + | Ethnic Group | Unknown | + + + Author + + + | Author | [facility] | | | and [place] | + + + | Organization | [facility] [...] Team Providers + +------+ + | Care Leisure Studies Professor Name | Role | Phone | + +------+ + PCP | Unavailable | + +------+ + Encounter Details +--------+ + + + + | Date | Type | Department | Care Team | Description | +--------+ + + + + | 02/22/ | Hospital | [facility] | | | | 2000 | Encounter | MED CTR XRAY [address] | | | | | | [address] [place] [address] | | | | | | [place] [address] | | | | | | [phone] | | | +--------+ + + + [...]
--- OUTSIDE RECORDS SUMMARY | ~2019-10-18 | XMS | Clinical Summary ---
Demographics + + + | Address | [address] | | | [place] [address] | + + + | Home Phone | | + + + | Preferred Language | Unknown | + + + | Marital Status | Single | + + + | Congregational Affiliation | 1041 | + + + | Race | Unknown | + + + | Ethnic Group | Unknown | + + + Author + + + | Author | [facility] | | | and [place] | + + + | Organization | [facility] | | | [...] Team Providers + +------+ + | Care Manager Marketing Communication Name | Role | Phone | + [...] +--------+ +---------+--------+ | MEDICARE | MEDICA | [id number] | | [phone] | | Medica | | | RE | | 003-Pr | 5 | | re | | | PART A | | esent | | | | | | AND B | | | | | | + +--------+ +--------+ +---------+--------+ | MEDICARE | MEDICA | [id number] | | [phone] | | Medica | | | RE | | 003-Pr | 5 | | re | | | PART A | | esent | | | | | | AND B | | | | | | + +--------+ +--------+ +---------+--------+ | [place]ID [place] | MEDICA | [id number] | 02/01/20 | [phone] | | Medica | | | [place] | | 19-Pre | 2 | | id | | | PLUS | | sent | | | | + +--------+ +--------+ +---------+--------+ | [facility] | IHS | [id number] | | | | Indemn | | SERVICE | YELLOW | | 015-Pr | | | ity | | | HAWK | | esent | | | | + +--------+ +--------+ +---------+--------+ | [place]ICAID [place] | MEDICA | [id number] | | [phone] | | Medica | | | ID [...] | 1941 | [phone] | [place] [address] | | | luis | | | 7 (Home) | | + +--------+ +--------+ + + | Huey Franco | Person | Self [birth year] | [address] | | | al/Fam | | 1941 | [phone] | [place] [address] | | | luis | | | 7 (Home) | | + +--------+ +--------+ + + Advance Directives + + + + + | Type | Date Recorded | Patient | Explanation | | | | Endo Tech | | + + + + + | Power of | | | | | Utility Locator | | | | + + + + + | Advance | 08/08/2015 10:44 | | | | Directive | AM | | | + + + + +
--- OUTSIDE RECORDS SUMMARY | ~2019-10-18 | XMS | Encounter Summary ---
Demographics + + + | Address | [address] | | | [place] [address] | + + + | Home Phone | | + + + | Preferred Language | Unknown | + + + | Marital Status | Single | + + + | Mormonism Affiliation | 1041 | + + + | Race | Unknown | + + + | Ethnic Group | Unknown | + + + Author + + + | Author | [facility] | | | and [place] | + + + | Organization | [facility] | | | and [place] [...] Team Providers + +------+ + | Care Career Development Director Name | Role | Phone | [...] + + | 02/01/ | Hospital | [facility] | Donta Reyes MD | | | 2019 | Encounter | MED CTR NUCLEAR | [address] [place] [address] | | | | | MEDICINE [address] | [place], [place] | | | | | [place], | [address] | | | | | [place] [address] | | | | | | [phone] | | | +--------+ + + + [...] e | 2:12 PM | disease of cocopah | procedure are in the | | | | PDT | artery of cocopah | results section. | | | | [...] | | | | | | Starting [facility] 02/01/19 at 1410, For | | | | | | | 1 dose, Nuclear Medicine | | | | | | + +--------+ + +------+------+ +---+---+ | | | +---+---+ documented in this encounter"
--- OUTSIDE RECORDS SUMMARY | ~2019-10-18 | XMS | Encounter Summary ---
Demographics + + + | Address | [address] | | | [place] [address] | + + + | Home Phone | | + + + | Preferred Language | Unknown | + + + | Marital Status | Single | + + + | Tenriism Affiliation | 1041 | + + + | Race | Unknown | + + + | Ethnic Group | Unknown | + + + Author + + + | Author | [facility] | | | and [place] | + + + | Organization | [facility] | | | and [place] [...] Team Providers + +------+ + | Care Ring Conductor Name | Role | Phone | + +------+ + PCP | Unavailable | + +------+ + Encounter Details +--------+ + + + + | Date | Type | Department | Care Team | Description | +--------+ + + + + | 06/15/ | Abstract | [facility] | [facility] | | | 2011 | | Conversion Location | SR | | | | | [phone] | | | +--------+ + + + [...] + + + | Blood Pressure | 122/74 | 03/24/2011 12:00 AM | | | | | PDT | | + + + + + | Pulse | - | - | | + + + + + | Temperature | - | - | | + + + + + | Respiratory Rate | - | - | | + + + + + | Oxygen Saturation | - | - | | + + + + + | Inhaled Oxygen | - | - | | | Concentration | | | | + + + + + | Weight | 77.1 kg (170 lb) | 03/24/2011 12:00 AM | | | | | PDT | | + + + + + | Height | 170.2 cm (5' 7") | 03/24/2011 12:00 AM | | | | | PDT | | + + + + + | Body Mass Index | 26.63 | 03/24/2011 12:00 AM | | | | | PDT | | + + + + + documented in this encounter Plan of Treatment Not on filedocumented as of this encounter Procedures + +--------+ + + + | Procedure Name | Priori | Date/Time | Associated Diagnosis | Comments | | | ty | | | | + +--------+ + + + | ENDOSCOPY, COLON, | Routin | 12/30/2010 | | Results for this | | DIAGNOSTIC | e | 12:00 AM | | procedure are in the | | | | PDT | | results section. | + +--------+ + + + documented in this encounter Results ENDOSCOPY, COLON, DIAGNOSTIC (12/30/2010 12:00 AM PDT) + + | Specimen | + + | | + + + + + | Narrative | Performed At | + + + | | | + + + documented in this encounter Visit Diagnoses Not on filedocumented in this encounter
--- OUTSIDE RECORDS SUMMARY | ~2019-10-18 | XMS | Encounter Summary ---
Demographics + + + | Address | [address] | | | [place] [address] | + + + | Home Phone [...] + | Author | [facility] | | | and [place] | + + + | Organization | [facility] | | | and [place] [...] Team Providers + +------+ + | Care Black Jack Dealer Name | Role | Phone | + +------+ + PCP | Unavailable | + +------+ + Encounter Details +--------+ + + + + | Date | Type | Department | Care Team | Description | +--------+ + + + + | 01/12/ | Hospital | [facility] | Tony Raymond MD | | | 2010 - | Encounter | [facility] | [address] | | | | | CARDIAC TRANSPLANT | [place] [address] | | | 01/17/ | | [address] | [phone] | | | 2010 | | [place] | | | | | | [address] | | | | | | [phone] | | | +--------+ + + + [...] documented as of this encounter Discharge Summaries Antonio Cadena MD - 08/08/2013 1:57 AM PST PATIENT NAME: MADY FRANCO Sex/Age: M / 70Y : 1940 ADMISSION DATE: 01/12/2011 DISCHARGE DATE: 01/17/2011 [id number] / [id number] ADMISSION DIAGNOSES: 1. Anemia. 2. Gastrointestinal bleed. 3. Coronary artery disease with recent non-ST elevation. 4. Diabetes. 5. Recent bacteremia. 6. Fall risk. 7. Code status: Full code. DISCHARGE DIAGNOSES: 1. Anemia, stable status post transfusion. 2. Gastrointestinal bleed secondary to a gastric ulcer found on EGD in December 2010. 3. Encephalopathy improved. 4. Coronary artery disease, stable. 5. Diabetes mellitus, stable. 6. Chronic obstructive pulmonary disease, stable. 7. History of bacteremia, not an active problem during this stay. 8. Fall risk. Patient wa s recommended for extended-care facility placement. 9. Code status: Full code. CONSULTS: Gastrointestinal: Informal consult phone call with Dr. Bai. The patient has a bleedi ng gastric ulcer, as well as ischemic colitis in the descending colon. The patient should n ot be on aspirin, but can start Plavix when his gastrointestinal bleed is stable. Cardiology: Informal consult with Dr. Oliver [facility] who recommended interventi on or stent when gastrointestinal bleed is stable. HOSPITAL COURSE: 1. Anemia. The patient initially presented at [facility] with a hemoglobin of 4 .4. He received 2 liters of IV fluid and 4 units packed red blood cells. Upon arrival at [facility] ICU the patient had a hemoglobin of 6.2. He received a second tra nsfusion of 4 units packed red blood cells and, upon transfer to the floor, his hemoglobin had improved to 8.7. The patient did not require any further transfusions. His hemoglobin remained stable over the rest of his stay and he was discharged with a hemoglobin of 8.7. The anemia was attribu mandy to his gastric ulcer, as well as ischemic colitis, and the fact that he had been on Caro vix and aspirin MADY FRANCO ADM:01/12/11 [id number] 01/17/11 DIS IN DISCHARGE SUMMARY [id number] [facility] MD DEYSI Cowart B [facility] Ata Yeager MD B THIS REPORT IS CONFIDENTIAL AND NOT TO BE RELEASED WITHOUT PROPER AUTHORIZATION. [facility] for his coronary artery disease. 2. Gastrointestinal bleed. As the patient had recent colonoscopy and EGD the week prior to this admission, this was not repeated. However, we did discuss the findings with Dr. Antione batista. As noted above, the findings included a bleeding gastric ulcer, as well as right-mary ed ischemic colitis. This bleed appeared stable during his hospitalization and he was kenneth nued on Protonix for the gastrointestinal bleed, as well as budesonide for the ischemic co litis. 3. Encephalopathy. Initially the patient reported that he could not recall the events of his previous hospitalizations, said that he didn't know what had been going on, and did no t know that he needed to be taking certain medications. This apparent encephalopathy improv ed over the course of his stay, and I found that upon further more direct questioning the patient was able to recall those events significantly. At the time of discharge the patient was able to recount interventions, as well as treatment goals, and consequences and risks of not following up with medications and appointments. 4. Coronary artery disease. Stable during this hospitalization. The patient had a non-ST elevation myocardial infarction on January 11 prior to this hospitalization. As noted above, consult with cardiology recommended stent placement or other interventions when his gastro intestinal bleed is stable. Once the patient has a stable hemoglobin for two weeks, he can start his Plavix, although he will undoubtedly have further GI bleeds and transfusions. 5. Diabetes mellitus. We had moderately good control of his diabetes during his stay. At the time of discharge, he was returned to his home regimen of glipizide 2.5 mg p.o. q.p.m. , metformin 1000 mg p.o. q. a.m. 6. Recent bacteremia. On his previous stay, the patient had bacteremia. However, blood c ultures during this stay were negative, and the patient did not require antibiotic therapy. 7. Chronic obstructive pulmonary disease, stable with DuoNeb q.4 hours p.r.n. 8. Fall risk. Due to his likelihood of having further gastrointestinal bleeds and profou nd anemia, as well as his having demonstrated an inability MADY FRANCO ADM:01/12/11 [id number] 01/17/11 DIS IN DISCHARGE SUMMARY [id number] [facility] Antonio Cadena MD ES B [facility] MD Derek Reyes THIS REPORT IS CONFIDENTIAL AND NOT TO BE RELEASED WITHOUT PROPER AUTHORIZATION. [facility] or unwillingness to continue medications and follow up with appointments, it was felt the patient would be best provided for in a nursing home facility. Social work provided tremendous assistance with this and did find placement for him at an extended care facility in [place], where the patient has family, however, the patient was not overly agreeable to this placement. He said he would go, but if he didn't like it, he would just leave. At the time of discharge the patient was contemplating the extended-care facility placemen t. 9. Code status remains full code. DISPOSITION: Stable. DISCHARGE MEDICATIONS: 1. Budesonide 9 mg p.o. daily. 2. Glipizide 2.5 mg p.o. every evening before meal. 3. Lisinopril 5 mg p.o. daily. 4. Metformin 1000 mg p.o. q.a.m. before breakfast. 5. Crestor 10 mg p.o. at bedtime. 6. Sitagliptin 50 mg p.o. daily before breakfast. 7. Carafate 1 gram p.o. daily. 8. Protonix 40 mg p.o. b.i.d. before meals. 9. Nitroglycerin 0.4 mg sublingual p.r.n. chest pain. 10. Metoprolol 50 mg p.o. daily. FOLLOW UP: 1. The patient will need a CBC on TuesdayJanuary 20, either by the extended-care facility if the patient has reported to an extended-care facility or by [facility] if he returns home. These results should be evaluated, and if it is dropping, the patient may require a blood transfusion. His CBC should be evaluated closely over the next couple of weeks. Once his hemoglobin is determined to be stable x2 weeks, he can be restarted on his Plavix. 2. Gastrointestinal. The patient will need to establish with a gastroenterology doctor in either [place], which is his home, or [place], where the nursing facility is. Recomm endations by Dr. Bai is that the patient continue on Protonix and Carafate as well as the budesonide for the ischemic colitis. The patient should continue to follow up with a astroenterology physician to monitor for further MADY FRANCO ADM:01/12/11 [id number] 01/17/11 DIS IN DISCHARGE SUMMARY [id number] [facility] Antonio Cadena MD ES B [facility] Ata Yeager MD B THIS REPORT IS CONFIDENTIAL AND NOT TO BE RELEASED WITHOUT PROPER AUTHORIZATION. [facility] gastrointestinal bleed and any intervention is needed. 3. Cardiology. The patient should follow up with a maintenance of way clerk in regards to restarting P lavix, and further intervention and possible stenting of his coronary arteries after non-ST -elevation myocardial infarction. The patient can restart Plavix once his hemoglobin is st able for two weeks. His maintenance of way clerk can determine the optimal timing for further intervent ions regarding his coronary artery disease. 4. Placement. Again, the patient did have a nursing home facility placement arranged by social work, which is greatly appreciated. However, at the time of discharge, the patient was seen and discharged here in [place] to go to the [facility], because he was unabl e to find family here that felt capable of taking him into their home. It will be left up t o the patient to determine whether or not he wants to present himself to the skilled nursi facility in [place] where he has placement. He verbalized his understanding that if he fails to do so, he will loose that placement and it will not be readily available to be ac cepted into the nursing home facility. He states that he understands the risks involved if he were to discontinue his medications or not continue to follow up with his doctors as recommended. At the time of discharge it is unknown what the patient has decided in terms of his long-term placement. Antonio Cadena MD,R2 Ata Yeager MD A P DEYANIRA/rod #[id number] cc: Antonio Cadena MD,R2 MD Ata Castle MD Bryan K. Stamm, MD Electronically Signed 05/03/11 0843 Antonio Cadena MD Electronically Signed 04/27/11 1602 Ata Yeager MD MADY FRANCO ADM:01/12/11 [id number] 01/17/11 DIS IN DISCHARGE SUMMARY [id number] [facility] Antonio Cadena MD ES B [facility] Ata Yeager MD B THIS REPORT IS CONFIDENTIAL AND NOT TO BE RELEASED WITHOUT PROPER AUTHORIZATION.Electronica lly signed by Antonio Cadena MD at 08/08/2013 4:10 PM PSTdocumented in this encounter Progress Notes Antonio Cadena MD - 08/08/2013 1:55 AM PST Family Medicine Progress Note . Progress Note initiated: 01/14/11 at 1511. ISAAC,MADY Bella, a 70yo Male admitted on 01/12/11 with profound anemia 2/2 GI bleed. ADOD: 01/15/11 Comments: No acute concerns overnight per RN, pt states feeling "better, but still tired". Denies CP, GABRIEL, dizziness. Family Medicine Physical Exam General Appearance: well developed, well nourished, no apparent distress Current VS,I&O's: Date Time Temp Pulse Resp B/P Pulse O2 O2 Flow FiO2 Ox Delivery Rate 01/14 1230 99.2 74 22 115/66 93 Room Air 01/14 0800 97.8 68 16 126/67 99 Nasal 2 Cannula 24hr totals 01/14 0700 Intake Total 880.00 Output Total 1600.00 Balance -720.00 HEENT: PERRL, poor dentition, sclera anicteric Neck: supple, non-tender Respiratory: lungs clear, no respiratory distress Cardiovascular: regular rate/rhythm, no murmurs/rubs/gallops, normal peripheral pulses Abdominal: normal bowel sounds, soft, nontender Psychiatric: normal mood/affect, oriented to self and place. Does not recall details of c onversation yesterday. Says "the doctors are keeping me in the dark ". Wants to know "wha t are you going to do about the bleeding?" When asked why he didn't take his medication be fore he states "I don't have anyone at home to help me". Current Labs: Labs from last 24 hours 01/14 01/14 1110 0350 Chemistry Sodium (135 - 145 mmol/L) 136 Potassium (3.5 - 5.0 mmol/L) 3.6 Chloride (98 - 109 mmol/L) 107 Carbon Dioxide (21 - 28 mmol/L) 24 Anion Gap (5 - 16 mmol/L) 5 BUN (7 - 23 mg/dL) 9 Creatinine (0.50 - 1.30 mg/dL) 0.79 Estimated GFR (>60 - ) >60 Glucose (65 - 99 mg/dL) 135 H POC Glucose (65 - 99 mg/dL) Calcium (8.5 - 10.5 mg/dL) 7.3 L Phosphorus (2.1 - 3.9 mg/dL) 3.2 Magnesium (1.5 - 2.4 mg/dL) 2.2 Troponin I (0.00 - 0.29 ng/mL) 0.99 1.12 Coagulation PT (10.9 - 14.8 sec) 15.0 H INR (0.9 - 1.2 ) 1.1 PT Normal Mean Secs (() - sec) 13.4 Hematology WBC (4.0 - 11.0 K/uL) 10.1 RBC (4.30 - 5.70 M/uL) 2.78 L Hgb (13.7 - 16.7 g/dL) 8.3 L Hct (40.0 - 50.0 %) 24.5 L MCV (80.0 - 100.0 fL) 88.3 MCH (27.0 - 34.0 pg) 29.9 MCHC (32.0 - 35.5 g/dL) 33.8 RDW (11.0 - 15.0 %) 17.0 H Plt Count (150 - 400 K/uL) 124 L Neut % (40.0 - 80.0 %) 84.2 H Absolute Neuts (auto) (2.00 - 7.30 K/uL) 8.47 H Differential Method Lymphocytes % (15.0 - 45.0 %) 9.9 L Monocytes % (0.0 - 12.0 %) 5.0 Eosinophils % (0.0 - 7.0 %) 0.6 Basophils % (0.0 - 2.0 %) 0.3 Absolute Lymphocytes (1.00 - 3.40 K/uL) 0.99 L Absolute Monocytes (0.00 - 0.80 K/uL) 0.50 Absolute Eosinophils (0.00 - 0.50 K/uL) 0.06 Absolute Basophils (0.00 - 0.10 K/uL) 0.03 WBC/PLT Morphology (() - ) Normal Platelet Morphology (() - ) Decreased RBC Morphology (() - ) Anisocytosis 1+ Current Medications Budesonide 9 mg QDAY PO Lisinopril 5 mg QDAY PO Metoprolol Tartrate 25 mg QDAY PO Rosuvastatin Calcium 10 mg QHS PO Folic Acid 1 mg QDAY PO Pyridoxine HCl 100 mg QDAY PO Thiamine HCl 100 mg QDAY PO Insulin Glargine 20 units QHS SC Pantoprazole 40 mg BIDAC PO Influenza Virus Vaccine 0.5 ml ONCE@0900 IM Pneumococcal Polysaccharide Vaccine 25 mcg ONCE@0900 IM Multivitamins/Minerals 1 tab QDAY PO Family Medicine A/P . 63 yo M with 2nd admit for GI bleed and anemia and recent NSTEMI, left AMA last admission one week ago. 1. Anemia * profound anemia, now stable 24 hrs after last transfusion (s/p 8 units PRBC total) * 2/2 bleeding gastric ulcer examined by GI on last admission * recheck noon H/H, am CBC 2. GI bleed * evaluated last week during admit, found bleeding gastric ulcer * on protonix 40 mg PO BI D, carafate 1 gm PO qid 3. Encephalopathy * acute vs chronic, 2/2 anemia, hypoperfusion, metabolic etiologies * medical team questio ns his ability to appreciate his condition and treatment goals * MMSE today to eval 4. CAD * s/p NSTEMI 01/11 with rec medical management * troponin bump 2/2 demand ischemia, trending down since admit, no further checks required * considered transfusion for Hgb > 9.0, but at troponin trending down, asx, feel transfusi on not indicated at this time * once bleed is stable x 2 weeks outpt physician can consider starting ASA per cards recs 5. thrombocytopenia * new since admit, 2/2 dilution and consumption from bleed * check CBC in am 6. Hypokalemia * stabilized, still borderline low * replace w/KCl 40 mEq PO x 1 now, BMP in am 7. hypoxia * resolved, pt has been on oxygen 2L NC since transfer from ICU, O2 sats 100% * D/C'd nisha al cannula, monitor oxygen sats, apply O2 for sats < 90 8. Deconditioning * 2 recent hospitalizations, risk of deconditioning * PT/OT to eval 9. Dispo * H/H stable x 24 hours post transfusion, troponin trending down * Concern about pt's abil ity to care for self adequately, administer medications reliably at home. Pt has a GI blee d that without treatment is potentially life- threatening. Explained this to the patient, he agrees that he needs more help and will agree to go to an ECF. * SW arranging ECF VTE prophylaxis: SCDs Code Status: Full Code ADDENDUM: Ata Yeager on 01/14/11 at 1647 Subjective: Patient's cognitive status unclear. States he has no place to live around he re and meds not taken for that reason. Not sure if transient confusion or more constant. Short answers, usually one word, needs to be focused to attention. Without complaint excep t fatigue at this time. Objective: Dry mouth; answers questions when directed to him. Gill vitcarlene is modus operandi Chest: entirely clear CV: RRR without murmur or gallop Abdomen: SNT with normal BT Labs per above: Assess GI bleed; likely same source as previous; non-compliant with meds Anemia secondary to abov e with likely need to get a catheterization per cards note NSTEMI Confusion: likely making compliance worse; may need ECF and this has been discussed and he is apparently agreeable. Doesn't appear to be hypoxia related but may well be baseline. w orking with SW on this Teaching Physician's Statement: During today's hospital visit, I personally interviewed and examined the patient. I confir med the londono components of today's history and PE. I then reviewed the note as written by [facility] physician, and discussed the patient with the resident. I agree with the impress ions and plans and have listed any needed clarifications below. CC: //ivnm// Electronically Signed By: Antonio Cadena MD 01/14/11 1528 Electronically Signed By: Kaycee Yeager MD 01/14/11 3286 (A) ISAACMADY Jessica ADM:01/12/11 [id number] ADM IN PROGRESS NOTE [id number] [facility] Antonio Cadena MD E -Sign: [facility] THIS REPORT IS CONFIDENTIAL AND NOT TO BE RELEASED WITHOUT PROPER AUTHORIZATION.Electronica lly signed by Antonio Cadena MD at 01/14/2011 3:28 PM PDTColeAntonio cavazos MD - 013 1:54 AM [facility] Family Medicine Progress Note . Progress Note initiated: 01/15/11 at 1225. ISAACMADY Jessica, a 70yo Male admitted on 01/12/11 with profound anemia 2/2 GI bleed. ADOD: 01/15/11 Comments: no acute events overnight per nursing, pt has no c/o pain. Pt first claims he d oes not know "what is going on". But when specific questions are posed he explains that he has a bleeding ulcer, that he has had blood transfusions, and that he has to take two medi cines to keep it from bleeding more. He states that if he does not take his medications he will "keel over". Family Medicine Physical Exam General Appearance: well developed, well nourished, no apparent distress Current VS,I&O's: Date Time Temp Pulse Resp B/P Pulse O2 O2 Flow FiO2 Ox Delivery Rate 01/15 1203 98.9 75 24 134/76 100 Nasal 5 Cannula 01/15 0800 96.6 65 28 131/64 99 Nasal 3 Cannula 01/15 0430 98.2 82 12 123/62 94 Nasal 3L Cannula 24hr totals 01/15 0700 Intake Total 1140.00 Output Total 1980.00 Balance -840.00 HEENT: head inspection normal, poor dentition Respiratory: lungs clear, no respiratory distress Cardiovascular: regular rate/rhythm, no murmurs/rubs/gallops, normal peripheral pulses Abdominal: normal bowel sounds, soft, nontender Extremities: no calf tenderness, no edema Psychiatric: sleeping comfortably, oriented x 3, MMSE yesterday . , pt first denies knowledge of his medical condition, but on questioning has good recall and understanding of events and risks of discontinuing treatment. Current Labs: Labs from last 24 hours 01/15 01/15 0859 0325 Chemistry Potassium (3.5 - 5.0 mmol/L) 3.7 POC Glucose (65 - 99 mg/dL) Vitamin B12 (247 - 911 pg/mL) 615 TSH (0.40 - 5.00 uIU/mL) 0.46 Hematology WBC (4.0 - 11.0 K/uL) 12.8 H RBC (4.30 - 5.70 M/uL) 3.02 L Hgb (13.7 - 16.7 g/dL) 8.8 L Hct (40.0 - 50.0 %) 27.2 L MCV (80.0 - 100.0 fL) 90.1 MCH (27.0 - 34.0 pg) 29.1 MCHC (32.0 - 35.5 g/dL) 32.3 RDW (11.0 - 15.0 %) 17.6 H Plt Count (150 - 400 K/uL) 209 Urines Urine Color (() - ) Yellow Urine Appearance (() - ) Clear Urine pH (5.0 - 7.5 ) 5.5 Ur Specific Sharon (1.001 - 1.030 ) 1.004 Urine Protein (NEG - mg/dL) Negative Urine Glucose (UA) (NEG - mg/dL) Negative Urine Ketones (NEG - mg/dL) Negative Urine Occult Blood (NEG - ) Negative Urine Nitrite (NEG - ) Negative Urine Bilirubin (NEG - ) Negative Urine Urobilinogen (<2.0 - mg/dL) 2.0 H Ur Leukocyte Esterase (NEG - ) Negative Urine RBC (<3 - /hpf) <1 Urine WBC (<6 - /hpf) <1 Ur Squamous Epith Cells Urine Bacteria (NS - /hpf) None seen Ur Culture Indicated? Current Medications Budesonide 9 mg QDAY PO Lisinopril 5 mg QDAY PO Metoprolol Tartrate 25 mg QDAY PO Rosuvastatin Calcium 10 mg QHS PO Insulin Glargine 20 units QHS SC Pantoprazole 40 mg BIDAC PO Ferrous Sulfate 325 mg QDAY PO Multivitamins/Minerals 1 tab QDAY PO Senna 1 tab QDAY PO Family Medicine A/P . 63 yo M with 2nd admit for GI bleed and anemia and recent NSTEMI, left AMA last admission one week ago. 1. Anemia * 2/2 bleeding gastric ulcer and ischemic colitis per discussion w/ Dr. Bai of GI (se e below) * stable; should have H/H checked Thursday 01/18 at ECF or outpt 2. GI bleed * Phone call w/Dr. Bai of GI reveals that pt has both a gastric ulcer that was treate d w/epinephrine, and ischemic colitis in the right colon * Needs reliable GI follow-up * Dr. Bai's recs: NO ASA! Ok to start Plavix when bleed stable (h/h stable x 2 weeks ), but expect continued bleeding and need for further transfusions if pt is on Plavix. How ever, Dr. Bai recognizes this pt's risk of severe life -threatening coronary events gi ve recent cardiac cath findings, and feels that Mr. Franco can be on Plavix as long as he h as reliable GI follow-up or other outpt monitoring of h/h and transfusion as indicated. * Cont Protonix PO BID and carafate, can wean carafate to PO once daily, follow- up w/GI * Can call Dr. Bai here or Dr. Dejesus in [facility] for further details as Dr. Perdomo er dictated a very detailed letter to Dr. Dejesus as well 3. Encephalopathy * acute vs chronic, 2/2 anemia, hypoperfusion, metabolic etiologies * medical team questio ns his ability to appreciate his condition and treatment goals * MMSE today to eval 4. CAD * s/p NSTEMI 01/11 with rec medical management * troponin bump now resolved, 2/2 demand ischemia from profound anemia * Cardiac cath in [place] January revealed occluded saphenous vein graft and another partially occluded vessel whi ch could be stented * Cards recs (Dr. Oliver of [facility] [phone]): needs intervention/st ent "at some point in the future when GI bleed is stable". See above #1 * Ok to start Plavix in two weeks if h/h stable, but expect further GI bleeding from ische juanjo colitis and need for repeated transfusions 5. thrombocytopenia * 2/2 dilution and consumption from GIB, now stable 6. Hypokalemia * resolved w/PO replacement 7. hypoxia * Pt again on O2 by NC despite normal RA sats * D/C oxygen, recheck sats, titrate for O2 sats > 90 8. Deconditioning * 2 recent hospitalizations, risk of deconditioning * PT/OT to eval, cont PT at outpt ECF 9. Dispo * Pt stable to transfer to ECF. * SW unable to get pt accepted in ECF in [place], [place] because of recent AMA discharge * SW continuing to attempt to find placement Pt needs to establish care with a primary care provider wherever he goes, to coordinate care between GI and cardiology. Pt needs to have further caterina discussions concerning his two life-threatening illnesses, his ischemic colitis and CAD. Anticoagulation for the lat ter will almost definitely result in worsening of the former, requiring repeated blood mccullough sfusions, which is not without risk. On the other hand, witholding anticoagulation because of GIB puts pt at risk for another [place]. Have broached this subject with the patient, but jann bella is vague about his wishes. At this time pt not on Plavix or other anti-platelet medicat ion, may resume if h/h stable x 2 weeks. VTE prophylaxis: SCDs ADDENDUM: Ata Yeager on 01/15/11 at 1431 Subjective: Doing baseline, ready for home but this is complicated. No local connection s. Working on disposition Objective: good spirits though sleepy Chest: Clear CV: RRR without Murmur Abdomen: Not tender labs above Assess: 1. Anemia 2. GI bleed 4. CAD Plan: Really a disposition issue at this time. If good situation, good to go home but sit uation is not good. Need to create a viable option regardless, may need to go to snf t omorrow if nothing available by end of day. Teaching Physician's Statement: During today's hospital visit, I personally interviewed and examined the patient. I confir med the londono components of today's history and PE. I then reviewed the note as written by e resident physician, and discussed the patient with the resident. I agree with the impress ions and plans and have listed any needed clarifications below. CC: //ivnh// Electronically Signed By: Antonio Cadena MD 01/15/11 1244 Electronically Signed By: Kaycee Yeager MD 01/15/11 1447 (A) MADY FRANCO ADM:01/12/11 [id number] ADM IN PROGRESS NOTE [id number] [facility] Antonio Cadena MD E -Sign: [facility] THIS REPORT IS CONFIDENTIAL AND NOT TO BE RELEASED WITHOUT PROPER AUTHORIZATION.Electronica lly signed by Antonio Cadena MD at 01/15/2011 12:44 PM PDTColeAntonio cavazos MD - 013 1:54 AM [facility] Family Medicine Progress Note . Progress Note initiated: 01/16/11 at 0652. MADY FRANCO, a 70yo Male admitted on 01/12/11with profound anemia 2/2 GI bleed. ADOD: 01/16/11 Comments: [facility] arranged ECF in [place], [place], cannot take until Tuesday. SW asked pt's siste r to transport, no answer yet. No acute ON events per RN. Mobilizing pt more yesterday w/P T/OT and up to chair most of day. Family Medicine Physical Exam General Appearance: well developed, well nourished, no apparent distress Current VS,I&O's: Date Time Temp Pulse Resp B/P Pulse O2 O2 Flow FiO2 Ox Delivery Rate 01/16 0331 97.4 80 20 126/64 95 Room Air 01/16 0000 97.4 68 22 128/72 100 Nasal 1 Cannula 24hr totals 01/16 0700 Intake Total 1480.00 Output Total 3330.00 Balance -1850.00 HEENT: head inspection normal, poor dentition Respiratory: lungs clear, no respiratory distress Cardiovascular: regular rate/rhythm, no murmurs/rubs/gallops, normal peripheral pulses Abdominal: normal bowel sounds, soft, nontender Extremities: no calf tenderness, no edema Psychiatric: sleeping comfortably, oriented x 3, cooperative, as before states ignorance o f his medical situation, but with specific questioning admits to adequate recollection of e vents and medical plan. Current Labs: Labs from last 24 hours 01/15 0859 Chemistry POC Glucose (65 - 99 mg/dL) Urines Urine Color (() - ) Yellow Urine Appearance (() - ) Clear Urine pH (5.0 - 7.5 ) 5.5 Ur Specific Sharon (1.001 - 1.030 ) 1.004 Urine Protein (NEG - mg/dL) Negative Urine Glucose (UA) (NEG - mg/dL) Negative Urine Ketones (NEG - mg/dL) Negative Urine Occult Blood (NEG - ) Negative Urine Nitrite (NEG - ) Negative Urine Bilirubin (NEG - ) Negative Urine Urobilinogen (<2.0 - mg/dL) 2.0 H Ur Leukocyte Esterase (NEG - ) Negative Urine RBC (<3 - /hpf) <1 Urine WBC (<6 - /hpf) <1 Ur Squamous Epith Cells Urine Bacteria (NS - /hpf) None seen Ur Culture Indicated? Current Medications Budesonide 9 mg QDAY PO Lisinopril 5 mg QDAY PO Metoprolol Tartrate 25 mg QDAY PO Rosuvastatin Calcium 10 mg QHS PO Insulin Glargine 20 units QHS SC Pantoprazole 40 mg BIDAC PO Ferrous Sulfate 325 mg QDAY PO Senna 1 tab QDAY PO Family Medicine A/P . 63 yo M with 2nd admit for GI bleed and anemia and recent NSTEMI, left AMA last admission one week ago. 1. Anemia * stable, 2/2 GIB (see below) * should have H/H checked Thursday 01/18 at [facility] or outpt * if pt remains in hospital will check h/h in am to confirm stability prior to d /c 2. GI bleed * Stable, on protonix PO BID and carafate currently QID per GI recs (see prev note) * will send detailed notes and recs to [facility] upon d/c as adequate follow-up is crucial for t his pt 3. Encephalopathy * resolved, MMSE * pt still claims ignorance of medical condition, but can reiterate recent medical events, plan, and consequence of insufficient follow-up or noncompliance 4. CAD * s/p NSTEMI 01/11 with rec medical management * pt recommended to have stent when GI bleed stable * start Plavix when h/h stable x 2 weeks with understanding that pt will have continued GI B and require transfusions 5. thrombocytopenia * resolved 6. Hypokalemia * resolved w/PO replacement, no further issues 7. hypoxia * resolved, pt off O2 w/adequate RA sats 8. Deconditioning * cont PT/OT here and in ECF 9. Dispo * Pt stable to transfer to ECF. * Call sister today to confirm transportation plan, d/c today with sister with plan for EC F on Tuesday * Pt MUST have good follow- up with GI, Cardiology and PCP to coordinate care and clarify goals of care with patient VTE prophylaxis: SCDs CC: //ivnm// Electronically Signed By: Antonio Cadena MD 01/16/11 0703 MADY FRANCO A DM:01[birth year]12[birth year]11 [id number] ADM IN PROGRESS NOTE [id number] [facility] Antonio Cadena MD E -Sign: [facility] THIS REPORT IS CONFIDENTIAL AND NOT TO BE RELEASED WITHOUT PROPER AUTHORIZATION.Electronica lly signed by Antonio Cadena MD at 01/16/2011 7:03 AM [facility] MD - 08/08/2013 1:54 AM [facility] Family Medicine Progress Note . Progress Note initiated: 01/16/11 at 0911. MADY FRANCO, a 70yo Male admitted on 01/12/11. ADOD: 01/16/11 Comments: [] [place] accepted [place]. Willing to go to ECF but clearly conflicted. Not sure what h e/family want to do O: VSS; had BM Little quicker with response at this time More alert, sitting with hair cared for A/P : GI bleed (importance of continuance of GI f/u. GI recommends re-start Plavix; not ASA) se ems like this is a long time request. Carafate for one month. His concern is the ischemic colitis. Will do one more CBC before D/C if he goes tomorrow. Anemia stable NSTEMI Disposition: is good to go at this time but will need family to step up. Teaching Physician's Statement: During today's hospital visit, I personally interviewed and examined the patient. I confir med the londono components of today's history and PE. I then reviewed the note as written by e resident physician, and discussed the patient with the resident. I agree with the impress ions and plans and have listed any needed clarifications below. Family Medicine A/P . 63 yo M with 2nd admit for GI bleed and anemia and recent NSTEMI, left AMA last admission one week ago. 1. Anemia * stable, 2/2 GIB (see below) * should have H/H checked Thursday 01/18 at ECF or outpt * if pt remains in hospital will check h/h in am to confirm stability prior to d /c 2. GI bleed * Stable, on protonix PO BID and carafate currently QID per GI recs (see prev note) * will send detailed notes and recs to ECF upon d/c as adequate follow-up is crucial for t his pt 3. Encephalopathy * resolved, MMSE 28/30 * pt still claims ignorance of medical condition, but can reiterate recent medical events, plan, and consequence of insufficient follow-up or noncompliance 4. CAD * s/p NSTEMI 01/11 with rec medical management * pt recommended to have stent when GI bleed stable * start Plavix when h/h stable x 2 weeks with understanding that pt will have continued GI B and require transfusions 5. thrombocytopenia * resolved 6. Hypokalemia * resolved w/PO replacement, no further issues 7. hypoxia * resolved, pt off O2 w/adequate RA sats 8. Deconditioning * cont PT/OT here and in ECF 9. Dispo * Pt stable to transfer to ECF. * Call sister today to confirm transportation plan, d/c today with sister with plan for EC F on Tuesday * Pt MUST have good follow- up with GI, Cardiology and PCP to coordinate care and clarify goals of care with patient VTE prophylaxis: SCDs CC: //ivnh// Electronically Signed By: Ata Yeager MD 01/16/11 1351 MADY FRANCO ADM:01/12/11 [id number] ADM IN PROGRESS NOTE [id number] [facility] Ata Yeager MD E -Sign: [facility] THIS REPORT IS CONFIDENTIAL AND NOT TO BE RELEASED WITHOUT PROPER AUTHORIZATION.Electronica lly signed by Ata Yeager MD at 01/16/2011 1:51 PM PDTAntonio Cadena MD - 08/08/20 13 1:53 AM PST Family Medicine Progress Note . Progress Note initiated: 01/17/11 at 0701. MADY FRANCO, a 70yo Male admitted on 01/12/11with profound anemia 2/2 GI bleed, with re cent NSTEMI and MSSA bacteremia for which he left AMA. ADOD: Comments: Discussed pt's need to contact family and make arrangements for discharge today with transportation to home ([place], [place]) at his convenience. Counseled pt that he can go to ECF or home, but he will need to decide and report to ECF Tuesday if that is where he wa nts to live. Pt reported he wants to "live by myself". No acute ON events per RN. Family Medicine Physical Exam General Appearance: well developed, well nourished, no apparent distress Current VS,I&O's: Date Time Temp Pulse Resp B/P Pulse O2 O2 Flow FiO2 Ox Delivery Rate 01/17 0400 98.0 68 16 150/80 91 Room Air 01/17 0000 99.0 66 18 130/82 93 Room Air 24hr totals 01/17 0700 Intake Total 2640.00 Output Total 2350.00 Balance 290.00 HEENT: head inspection normal Respiratory: lungs clear, no respiratory distress Cardiovascular: regular rate/rhythm, no murmurs/rubs/gallops, normal peripheral pulses Abdominal: normal bowel sounds, soft, nontender Extremities: no calf tenderness, no edema Psychiatric: sleeping comfortably, oriented x 3, cooperative, flat affect, unchanged from previous exams Current Labs: Labs from last 24 hours 01/17 0611 Chemistry POC Glucose (65 - 99 mg/dL) Hematology WBC (4.0 - 11.0 K/uL) 7.4 RBC (4.30 - 5.70 M/uL) 2.99 L Hgb (13.7 - 16.7 g/dL) 8.7 L Hct (40.0 - 50.0 %) 26.6 L MCV (80.0 - 100.0 fL) 89.1 MCH (27.0 - 34.0 pg) 29.3 MCHC (32.0 - 35.5 g/dL) 32.9 RDW (11.0 - 15.0 %) 16.4 H Plt Count (150 - 400 K/uL) 197 Current Medications Budesonide 9 mg QDAY PO Lisinopril 5 mg QDAY PO Metoprolol Tartrate 25 mg QDAY PO Rosuvastatin Calcium 10 mg QHS PO Insulin Glargine 20 units QHS SC Pantoprazole 40 mg BIDAC PO Ferrous Sulfate 325 mg QDAY PO Multivitamins/Minerals 1 tab QDAY PO Senna 1 tab QDAY PO Sucralfate 1 gm ACHS PO Family Medicine A/P . 63 yo M with 2nd admit for GI bleed and anemia and recent NSTEMI, left AMA last admission one week ago. 1. Anemia * now stable 4 days s/p transfusion * will need minimum weekly h/h as outpt, either at [facility] or [facility] 2. GI bleed * no change, no melena or hematochezia * on protonix PO BID and carafate currently QID per GI recs, will change to BID on dischar ge (see note 01/15) * will send detailed notes to ECF and to GI and PCP in [place] for follow-up 3. Encephalopathy * no acute concerns, MMSE 28/30 * pt better able to recount interventions and treatment goals 4. CAD * stable; s/p NSTEMI 01/11 with rec medical management * pt recommended to have stent when GI bleed stable * plan to start Plavix when h/h stable x 2 weeks with understanding that pt will have cont inued GIB and require transfusions 5. thrombocytopenia * resolved 6. Hypokalemia * resolved w/PO replacement, no further issues 7. hypoxia * resolved, pt off O2 w/adequate RA sats 8. Deconditioning * cont PT/OT here and in ECF or at home by [facility] 9. Dispo * Will d/c today, either to family's home or to [facility] depending on pt 's wishes and ability to arrange placement with the help of SW and RN * pt to either report to ECF i n [place] on Tuesday or return home depending on his wishes and willingness to commit to E CF placement long-term. * Pt to be provided with detailed notes for follow-up VTE prophylaxis: SCDs CC: //ivnm// Electronically Signed By: Antonio Cadena MD 01/17/11 1109 MADY FRANCO DM:01/12/11 [id number] ADM IN PROGRESS NOTE [id number] [facility] Antonio Cadena MD E -Sign: [facility] THIS REPORT IS CONFIDENTIAL AND NOT TO BE RELEASED WITHOUT PROPER AUTHORIZATION.Electronica lly signed by Antonio Cadena MD at 01/17/2011 11:09 AM [facility] MD - 08/08/2013 1:53 AM [facility] Family Medicine Progress Note . Progress Note initiated: 01/17/11 at 0841. MADY FRANCO, a 70yo Male admitted on 01/12/11. ADOD: 01/16/11 Comments: [] S: Discussed clearly with him re: options for further care/where he wants to live. No com plaints overnight O: VSS though BP up a bit, Awake alert HCt is stable A/P GI bleed with anemia NSTEMI, did increase his propranolol Disposition issues remain a problem Day of Discharge I interviewed and examined the patient. The patient is ready for discharge as described. Discharge disposition is also noted. Patient is to follow-up with primary provider - other providers as noted. For further deta ils of hospital course, discharge medications, and follow-up please see the dictated discha rge summary. Family Medicine A/P VTE prophylaxis: SCDs CC: //ivnm// Electronically Signed By: Ata Yeager MD 01/17/11 1032 MADY FRANCO ADM:01/12/11 [id number] ADM IN PROGRESS NOTE [id number] [facility] Ata Yeager MD E -Sign: [facility] THIS REPORT IS CONFIDENTIAL AND NOT TO BE RELEASED WITHOUT PROPER AUTHORIZATION.Electronica lly signed by Ata Yeager MD at 01/17/2011 10:32 AM PDTdocumented in this encounter Plan of Treatment Not on filedocumented as of this encounter Visit Diagnoses Not on filedocumented in this encounter
--- OUTSIDE RECORDS SUMMARY | ~2019-10-18 | XMS | Encounter Summary ---
Demographics + + + | Address | [address] | | | [place] [address] | + + + | Home Phone | | + + + | Preferred Language | Unknown | + + + | Marital Status | Single | + + + | Bahai Affiliation | 1041 | + + + | Race | Unknown | + + + | Ethnic Group | Unknown | + + + Author + + + | Author | [facility] | | | and [place] | + + + | Organization | [facility] | | | and [place] [...] Team Providers + +------+ + | Care Cartoonist Special Effects Name | Role | Phone | + [...] | | for | | [address], | | | | | colonoscopy | | [address] | | | | | due to | | [place], | | | | | history of | | [place] [address] | | | | | adenomatous | | Phone: | | | | | colonic | | [phone] | | | | | polyps | | 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 | | [...] [address] | [place] | [phone] | | [facility] | | [address] | | | - LABORATORY | | | | + + + + + LIDA (08/08/2015 12:58 PM PST) + + | Specimen | + + | | + + + + -+ | Narrative | Performed At | + + -+ | | [facility] | | GastroenterologyPatient Name: Huey RamirezerProcedure Date: 08/08/2015 | [facility] | | 12:58 PMMRN: [id number] #: [id number] of : | | | 1940dmit Type: AmbulatoryAge: 74Room: [place] [address]Gender: MaleNote | | | Status: FinalizedAttending MD: Kwasi Cates, [facility]cedure: | | | Upper GI endoscopyIndications: AnemiaProviders: | | | Kwasi Cates MD, Manuela Christianson RN, Michaelle | | | Ally West, New Car Make Ready Mechanic, Eder Ceja MD | | | (Anesthesia [...] | | | the anesthesiologist and the thin film technician in the endoscopy suite. | | [...] | | 1:09:13 PMScope Out: 1:12:03 PM [facility] | | | [place], [address] [place] [address] | | | - Discharge patient to [...] |Scope Out: 1:12:03 PM | | | [facility], [address] [place] [address] | | | [address] | | + + -+ + +---------+ [...] GastroenterologyPatient Name: Huey Goodwin Date: 08/08/2015 | PROVYOANAO N | | 12:58 PMMRN: [id number] #: [id number] of : | | | 1940dmit Type: AmbulatoryAge: 74Room: [facility] 01Gender: MaleNote | | | Status: FinalizedAttending MD: MITCHEL Lacyrocedure: | | | ColonoscopyIndications: High risk colon cancer | | | surveillance: Personal history of colonic | | | polypsProviders: Kwasi Cates MD, Manuela Thomas | | | RIO Christianson, Michaelle West, | | | New Car Make Ready Mechanic, Eder Ceja MD (Anesthesia | | | [...] the anesthesiologist and the | | | thin film technician in the endoscopy suite. Mental Status [...] Scope In: 1:13:56 PMScope Out: 1:40:19 PM [facility]. | | | [facility], [address] [place] [address] | | | [phone] | | | - Await pathology results. [...] |Scope Out: 1:40:19 PM | | | [facility], [address] [facility], [place], [place] | | | [address] | | + +--------- -----+ + +---------+ [...] + | [facility] | [address] | [place] | [phone] | | [facility] | | [address] | | | - LABORATORY | | [...] colon, polyp: - Fragments of tubular adenoma. DDN:[facility]:C2NR | | | GROSS DESCRIPTION: The specimen is received in three parts. A. | | | The specimen is labeled "Salvador Huey E" and designated "cecal polyp" | [...] into (B1). C. The specimen is labeled "Salvador Huey | | | E" and designated "descending colon polyp" on the requisition. | | | Received in formalin are five cream to pink-hurst colored tissue | | | fragments 0.15-0.5 cm, all into (C1). yt:REGGIE:[facility] PERFORMING | | | LABORATORY: Tissue processing and slide preparation were performed by | | | [employer], [facility] [address], [place] [address] | | | (Brass Finisher: Aydin Wilhelm M.D. CLIA#: [id number]). | | | Professional interpretation was performed by [employer], [facility] | | | [facility] [address], [place] [address] (Brass Finisher: Aydin | | | Natalya Wilhelm; CLIA#: [id number]). Diagnostician: Cy | | | Latesha ARCEO [...] + | Diagnosis | + + | POLYP-COLON Benign neoplasm of colon | + + | Iron deficiency anemia due to chronic blood loss Iron deficiency anemia secondary to | | blood loss (chronic) | + + | Gastritis Unspecified gastritis and gastroduodenitis without mention of hemorrhage | + + | Hiatal hernia Diaphragmatic hernia without mention of obstruction or gangrene | + + documented in this encounter [...]
--- OUTSIDE RECORDS SUMMARY | ~2019-10-18 | XMS | Encounter Summary ---
Demographics + + + | Address | [address] | | | [place] [address] | + + + | Home Phone [...] + + + | Author | [facility] | | | and [place] | + + + | Organization | [facility] | | | and [place] [...] Team Providers + +------+ + | Care Tubing Drier Name | Role | Phone | + +------+ + PCP | Unavailable | + +------+ + Encounter Details +--------+ + + + + | Date | Type | Department | Care Team | Description | +--------+ + + + + | 01/12/ | Hospital | [facility] | Sanjay Ordaz, | | | 2010 | Encounter | MED CTR EMERGENCY | [address] | | | | | CENTER [address] | [place] | | | | | [place] | [address] | | | | | [address] | | | | | | [phone] | | | +--------+ + + + [...] + + documented in this encounter Results Vincentime INR (01/12/2011 9:43 PM PDT) + + [...] + + | [facility] | [address] | [place] | [phone] | | [facility] | | [address] | | | - LABORATORY | | | | + + + + + | [facility] | [address] | [place] | | | [facility] | | [address] | | | - LABORATORY | | [...] [address] | [place] | [phone] | | [facility] | | [address] | | | - LABORATORY | | | | + + + + + | [facility] | [address] | [place] | | | [facility] | | [address] | | | - LABORATORY | | [...] + + + | UNIT # | [id number] | | [facility] | | | | [...] ST. | [address] | [place], [place] | [phone] | | [facility] | | [address] | | | - LABORATORY | | | | + + + + + | [facility] | | | | | [facility] | | | | | - LABORATORY [...] + + + | UNIT # | [id number] | | [facility] | | | | | [facility] | | | | | | MEDICAL | | | | | | CENTER - | | | | | | LABORATORY | | + + + + + + | UNIT ABO | O | | [facility] | | | | | | [facility] | | | | | | MEDICAL | | | | | | CENTER - | | | | | | LABORATORY | | + + + + + + | UNIT RH | POS | | [facility] | | | | | | [facility] | | | | | | MEDICAL | | | | | | CENTER - | | | | | | LABORATORY | | + + + + + + | Unit Status | TRANSFUSED | | [facility] | | | | | | ST. [...] [address] | [place] | [phone] | | [facility] | | [address] | | | - LABORATORY | | | | + + + + + | [facility] | | | | | [facility] | | | | | - LABORATORY [...] | | Code | | | [facility] | | | | | | MEDICAL | | | | | | CENTER - | | | | | | LABORATORY | | + + + + + + | UNIT # | [id number] | | [facility] | | | | [...] + | [facility] | [address] | [place] | [phone] | | [facility] | | [address] | | | - LABORATORY | | | | + + + + + | [facility] | | | | | [facility] | | | | | - LABORATORY [...] + + + | UNIT # | [id number] | | [facility] | | | | [...] + + + + + | [facility] | [address] | [place] | [phone] | | [facility] | | [address] | | | - LABORATORY | | | | + + + + + | [facility] | | | | | [facility] | | | | | - LABORATORY [...] (H) | 70 - 109 mg/dL | [facility] | | | | | | [facility] | | | | | | MEDICAL | | | | | | CENTER - | | | | | | LABORATORY | | + + + + + + | Calcium | 7.4 (L) | 8.3 - 10.5 | [facility] | | | | | mg/dL | [facility] | | | | | | [...] >60Comment: For | >60 mL/min/A | [facility] | | | GFR | -Americans, | [...] | 11.1 | 6.0 - 17.0 | [facility] | | | | | | [facility] | | [...] [address] | [place] | [phone] | | [facility] | | [address] | | | - LABORATORY | | | | + + + + + | [facility] | [address] | [place] | | | [facility] | | [address] | | | - LABORATORY | | | | + + + + + Troponin I (01/12/2011 7:57 PM PDT) + + + + + + | Component | Value | Ref Range | Performed | Pathologist | | | | | At | Signature | + + + + + + | Troponin I | 1.51 ()Comment: | <0.10 ng/mL | [facility] | | | | | | [facility] | | | | ALERT VALUE | [...] | | | | | | the [facility] | | | | | | Access [...] [address] | [place] | [phone] | | [facility] | | [address] | | | - LABORATORY | | | | + + + + + | [facility] | [address] | [place] | | | [facility] | | [address] | | | - LABORATORY | | | | + + + + + CBC with Differential (01/12/2011 7:57 PM PDT) + + + + + + | Component | Value | Ref Range | Performed | Pathologist | | | | | At | Signature | + + + + + + | WBC | 8.8 | 4.0 - 11.0 K/uL | [facility] | | | | | | [facility] | | | | | | MEDICAL | | | | | | CENTER - | | | | | | LABORATORY | | + + + + + + | RBC | 1.57 (L) | 4.30 - 5.70 | [facility] | | | | | M/uL | [facility] | | | | | | [...] | | | Monocytes | | | [facility] | | | | | | MEDICAL | | | | | | CENTER - | | | | | | LABORATORY | | + + + + + + | Absolute | 0.0 | 0.0 - 0.4 K/uL | [facility] | | | Eosinophils | | | [facility] | | | | | | MEDICAL | | | | | | CENTER - | | | | | | LABORATORY | | + + + + + + | Absolute | 0.0 | 0.0 - 0.1 K/uL | [facility] | | | Basophils | | | [facility] | | [...] + | [facility] | [address] | [place], [place] | [phone] | | [facility] | | [address] | | | - LABORATORY | | | | + + + + + | [facility] | [address] | [place], [place] | | | [facility] | | [address] | | | - LABORATORY | | | | + + + + + XR Chest AP Portable (01/12/2011 6:39 PM PDT) + + | Specimen | + + | | + + + + + | Narrative | Performed At | + + + | [facility] Diagnostic Imaging Department | [facility] | | [address] [facility] | [facility] | | PORTABLE SINGLE VIEW AP CHEST, [...] Transcribed Date/Time: | | | 01/13/2011 11:18 Saddle And Harness Maker: <Electronically Signed | | | by Rodrigo Ibarra MD> 01/13/11 2282 | | + + + + + | Procedure Note | + + | [place], Rad Conversion - 11/09/2013 2:41 PM [facility] | | Diagnostic Imaging Department [address] [place] [address] | | PORTABLE SINGLE VIEW AP CHEST, [...] 10:06 Transcribed | | Date/Time: 01/13/2011 11:18 Saddle And Harness Maker: <Electronically Signed by Rodrigo Kraft | | [...] 10:06 | |Transcribed Date/Time: 01/13/2011 11:18 | |Saddle And Harness Maker: | |<Electronically Signed by Rodrigo Ibarra MD> 01/13/111711 | + + + +---------+ + + | Performing | Address | City/State/Zipcode | Phone Number | | Organization | | | | + +---------+ + + | [place] | | | | | [place] | | | | + +---------+ + + documented in this encounter Visit Diagnoses Not on filedocumented in this encounter"
--- OUTSIDE RECORDS SUMMARY | ~2019-10-18 | XMS | Encounter Summary ---
Demographics + + + | Address | [address] | | | [place] [address] | + + + | Home Phone | | + + + | Preferred Language | Unknown | + + + | Marital Status | Single | + + + | Protestant Affiliation | 1041 | + + + | Race | Unknown | + + + | Ethnic Group | Unknown | + + + Author + + + | Author | [facility] | | | and [place] | + + + | Organization | [facility] | | | and [...] Team Providers + +------+ + | Care Continuous Improvement Lead Name | Role | Phone | [...] 2014 | | GASTROENTEROLOGY | [address], [place] | | | | | [address] [place] | [address] [place], [place] | | | | | [address] [place], [place] | [address] | | | | | [address] | | | | | | [phone] | | | +--------+ + + + [...]
--- OUTSIDE RECORDS SUMMARY | ~2019-10-18 | XMS | Encounter Summary ---
Demographics + + + | Address | [address] | | | [place] [address] | + + + | Home Phone | | + + + | Preferred Language | Unknown | + + + | Marital Status | Single | + + + | Yazidi Affiliation | 1041 | + + + | Race | Unknown | + + + | Ethnic Group | Unknown | + + + Author + + + | Author | [facility] | | | and [place] | + + + | Organization | [facility] | | | and [place] [...] Team Providers + +------+ + | Care Flosser Name | Role | Phone | + +------+ + | Lydia Pop MD | PCP | | + +------+ + Reason for Visit + + + | Reason | Comments | + + + | Results, Pathology | | + + + Encounter Details +--------+ + + + + | Date | Type | Department | Care Team | Description | +--------+ + + + + | 08/15/ | Telephone | [facility] | Kwasi Cates MD | Results, Pathology | | 2015 | | GASTROENTEROLOGY | [address], [place] | | | | | [address] [place] | [address] [place], [place] | | | | | [address] [place], [place] | [address] | | | | | [address] | | | | | | [phone] | | | +--------+ + + + [...]
--- OUTSIDE RECORDS SUMMARY | ~2019-10-18 | XMS | Encounter Summary ---
Demographics + + + | Address | [address] | | | [place] [address] | + + + | Home Phone | | + + + | Preferred Language | Unknown | + + + | Marital Status | Single | + + + | Scientology Affiliation | 1041 | + + + | Race | Unknown | + + + | Ethnic Group | Unknown | + + + Author + + + | Author | [facility] | | | and [place] | + + + | Organization | [facility] [...] Team Providers + +------+ + | Care Machinist 2Nd Shift Name | Role | Phone | + [...] | CONVERSION [address] | MD [address] | Infarc | | | | [address] | [place] [address] | | | 11/15/ | | [place], [place] | | | | 2009 | | [address] | | | | | | [phone] | | | +--------+ + + + [...] Performed At | + + + | [facility] | | | [facility] [address] | | | , | | | [id number]/RADIOLOGY Patient Name: HUEY GRAY Date of : | | | 1940 Medical Record: [id number] Account: [id number] | | | CONNOR// Exam Date/Time: 11/04/2009 [...] | | | 11/04/2009 04:03 P A [facility]/[id number]/ cc: | | | MD BRONWYN RICE MD | | + + + + + | Procedure Note | + + | Jason Delarosa Conversion - 05/27/2019 4:36 PM PDT | | [facility] | | [facility] [address] | | , | | | | [id number]/RADIOLOGY | | | | Patient Name: HUEY GRAY | | Date of : 1940 | | Medical Record: [id number] | | Account: [id number] | | CONNOR// | | | | [...] | P | | A | | [facility]/[id number]/ | | cc: HANNAH SIMEON MD | | BRONWYN GERMAN MD | + + documented in this encounter Visit Diagnoses + + | Diagnosis | + + | Occlusion and stenosis of carotid artery without mention of cerebral infarction | + + documented in this encounter"
--- OUTSIDE RECORDS SUMMARY | ~2019-10-18 | XMS | Encounter Summary ---
Demographics + + + | Address | [address] | | | [place] [address] | + + + | Home Phone | | + + + | Preferred Language | Unknown | + + + | Marital Status | Single | + + + | Sikhism Affiliation | 1041 | + + + | Race | Unknown | + + + | Ethnic Group | Unknown | + + + Author + + + | Author | [facility] | | | and [place] | + + + | Organization | [facility] | | | and [...] Team Providers + +------+ + | Care Aircraft Engine Dismantler Name | Role | Phone | + +------+ + PCP | Unavailable | + +------+ + Encounter Details +--------+ + + + + | Date | Type | Department | Care Team | Description | +--------+ + + + + | 04/09/ | Hospital | [facility] | Kwasi Cates MD | | | 2010 | Encounter | MED CTR MP INTRA OP | [address], [place] | | | | | [address] | [address] [place] | | | | | [place] | [address] | | | | | [address] | | | | | | [phone] | | | +--------+ + + + [...] | [address] | [place] | [phone] | | [facility] | | [address] | | | - LABORATORY | | | | + + + + + | [facility] | [address] | [place], [place] | | | [facility] | | [address] | | | - LABORATORY | | | | + + + + + documented in this encounter Visit Diagnoses Not on filedocumented in this encounter"
--- OUTSIDE RECORDS SUMMARY | ~2019-10-18 | XMS | Encounter Summary ---
Demographics + + + | Address | [address] | | | [place] [address] | + + + | Home Phone | | + + + | Preferred Language | Unknown | + + + | Marital Status | Single | + + + | Episcopal Affiliation | 1041 | + + + | Race | Unknown | + + + | Ethnic Group | Unknown | + + + Author + + + | Author | [facility] | | | and [place] | + + + | Organization | [facility] | | | and [place] | [...] Team Providers + +------+ + | Care Collections Officer Name | Role | Phone | [...] | | | | 2004 | | [address] | | | | | | [phone] | | | +--------+ + + + [...]
--- OUTSIDE RECORDS SUMMARY | ~2019-10-18 | XMS | Encounter Summary ---
Demographics + + + | Address | [address] | | | [place] [address] | + + + | Home Phone | | + + + | Preferred Language | Unknown | + + + | Marital Status | Single | + + + | Cheondoism Affiliation | Unknown | + + + | Race | or | + + + | Ethnic Group | Not or | + + + Author + + + | Author | [facility] | + + + | Organization | [facility] | + + + | Address | Unknown | + + + | Phone | Unavailable | + + + Support + + +---------+ + | Name | Relationship | Address | Phone | + + +---------+ + | Mihaela [place] | ECON | Unknown | | + + +---------+ + Care Team Providers + +------+ + | Care Plycor Operator Name | Role | Phone | [...] [id number] | | | | | | [place], [place] | | | | | | [address] | | | | | | [phone] | | | +--------+ + + + [...]
--- OUTSIDE RECORDS SUMMARY | ~2019-10-18 | XMS | Encounter Summary ---
Demographics + + + | Address | [address] | | | [place] [address] | + + + | Home Phone | | + + + | Preferred Language | Unknown | + + + | Marital Status | Single | + + + | Restorationist Affiliation | Unknown | + + + | Race | or | + + + | Ethnic Group | Not or | + + + Author + + + | Author | [facility] | + + + | Organization | [facility] | + + + | Address | Unknown | + + + | Phone | Unavailable | + + + Support + + +---------+ + | Name | Relationship | Address | Phone | + + +---------+ + | Mihaela [place] | ECON | Unknown | | + + +---------+ + Care Team Providers + +------+ + | Care Nurse Aide Evaluator Name | Role | Phone | + [...] [id number] | | | | | | [place], [place] | | | | | | [address] | | | | | | [phone] | | | +--------+ + + + [...]
--- OUTSIDE RECORDS SUMMARY | ~2019-10-18 | XMS | Encounter Summary ---
Demographics + + + | Address | [address] | | | [place] [address] | + + + | Home Phone | | + + + | Preferred Language | Unknown | + + + | Marital Status | Single | + + + | Advent Affiliation | 1041 | + + + | Race | Unknown | + + + | Ethnic Group | Unknown | + + + Author + + + | Author | [facility] | | | and [place] | + + + | Organization | [facility] | | | and [place] [...] Team Providers + +------+ + | Care Courtesy Bus Driver Name | Role | Phone | + +------+ + PCP | Unavailable | + +------+ + Encounter Details +--------+ + + + + | Date | Type | Department | Care Team | Description | +--------+ + + + + | 01/22/ | Hospital | [facility] | Erich Castaneda | CHR ISCHEMIC HRT DIS | | 2003 - | Encounter | [facility] [place] | [address] | NOS | | | | CLINICAL DECISION | [address] | | | 01/23/ | | [address] | [place] [address] | | | 2003 | | [place], [place] | [phone] | | | | | [address] | | | | | | [phone] | | | +--------+ + + + [...]
--- OUTSIDE RECORDS SUMMARY | ~2019-10-18 | XMS | Encounter Summary ---
Demographics + + + | Address | [address] | | | [place] [address] | + + + | Home Phone | | + + + | Preferred Language | Unknown | + + + | Marital Status | Single | + + + | Gnosticism Affiliation | 1041 | + + + | Race | Unknown | + + + | Ethnic Group | Unknown | + + + Author + + + | Author | [facility] | | | and [place] | + + + | Organization | [facility] | | | and [place] | + + + | Address | Unknown | + + + | Phone | Unavailable | + + + Support + + +---------+ + | Name | Relationship | Address | Phone | + + +---------+ + | Kadei Case | ECON | Unknown | | + + +---------+ + Care Team Providers + +------+ + | Care Quill Winder Name | Role | Phone | + [...] | | | | 2004 | | [address] | | | | | | [phone] | | | +--------+ + + + [...]
--- OUTSIDE RECORDS SUMMARY | ~2019-10-18 | XMS | Encounter Summary ---
Demographics + + + | Address | [address] | | | [place] [address] | + + + | Home Phone | | + + + | Preferred Language | Unknown | + + + | Marital Status | Single | + + + | Oriental Orthodox Affiliation | 1041 | + + + | Race | Unknown | + + + | Ethnic Group | Unknown | + + + Author + + + | Author | [facility] | | | and [place] | + + + | Organization | [facility] | | | and [place] [...] Team Providers + +------+ + | Care Golf Course Keeper Name | Role | Phone | + +------+ + PCP | Unavailable | + +------+ + Encounter Details +--------+ + + + + | Date | Type | Department | Care Team | Description | +--------+ + + + + | 11/18/ | Hospital | [facility] | | | | 1998 - | Encounter | MED CTR OP REHAB | | | | | | [address] [place] | | | | 12/02/ | | [place] [address] | | | | 1998 | | [phone] | | | +--------+ + + + [...]
--- OUTSIDE RECORDS SUMMARY | ~2019-10-18 | XMS | Encounter Summary ---
Demographics + + + | Address | [address] | | | [place] [address] | + + + | Home Phone | | + + + | Preferred Language | Unknown | + + + | Marital Status | Single | + + + | Yarsani Affiliation | 1041 | + + + | Race | Unknown | + + + | Ethnic Group | Unknown | + + + Author + + + | Author | [facility] | | | and [place] | + + + | Organization | [facility] [...] Team Providers + +------+ + | Care Erecting Crane Operator Name | Role | Phone | [...] | | for | | [address], | | | | | colonoscopy | | [place] | | | | | due to | | [place], | | | | | history of | | [place] [address] | | | | | adenomatous | | Phone: | | | | | colonic | | [phone] | | | | | polyps | | 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, | [...] | | | | | | | [place] | | | | | | | [...] + + | 08/08/ | Hospital | [facility] | Kwasi Cates MD | POLYP-COLON; 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 | [address], [place] | deficiency anemia | | | | [address] | [address] [place], [place]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 | | | | [place], [place] | [address] | loss | | | | [address] | | | | | | [phone] | | | +--------+ + + + [...] [address] | [place] | [phone] | | [facility] | | [address] | | | - LABORATORY | | | | + + + + + LIDA (08/08/2015 12:58 PM PST) + + | Specimen | + + | | + + + + -+ | Narrative | Performed At | + + -+ | | [facility] | | GastroenterologyPatient Name: Huey RamirezerProcedure Date: 08/08/2015 | [facility] | | 12:58 PMMRN: [id number] #: [id number] of : | | | 1940dmit Type: AmbulatoryAge: 74Room: [place] [address]Gender: MaleNote | | | Status: FinalizedAttending MD: Kwasi Cates, [facility]cedure: | | | Upper GI endoscopyIndications: AnemiaProviders: | | | Kwasi Cates MD, Manuela Christianson RN, Michaelle | | | Ally [place], Unit Nurse, Eder Ceja MD | | | [...] | | | the anesthesiologist and the hearing aide technician in the endoscopy suite. | | [...] | | 1:09:13 PMScope Out: 1:12:03 PM [facility] | | | [place], [address] [place] [address] | | | - Discharge patient to [...] |Scope Out: 1:12:03 PM | | | [facility], [address] [place] [address] | | | [address] | | + + -+ + +---------+ [...] | PROVY[place]O N | | 12:58 PMMRN: [id number] #: [id number] of : | | | 1940dmit Type: AmbulatoryAge: 74Room: [facility] [place]Gender: MaleNote | | | Status: FinalizedAttending MD: MITCHEL Lacyrocedure: | | | ColonoscopyIndications: High risk colon cancer | | | surveillance: Personal history of colonic | | | polypsProviders: Kwasi Cates MD, Manuela Thomas | | | RIO Christianson, Michaelle [place], | | | Unit Nurse, Eder Ceja MD (Anesthesia | | [...] the anesthesiologist and the | | | hearing aide technician in the endoscopy suite. Mental Status [...] Scope In: 1:13:56 PMScope Out: 1:40:19 PM [facility]. | | | [facility], [address] [place] [address] | | | [phone] | | | - Await pathology results. [...] |Scope Out: 1:40:19 PM | | | [facility], [address] [facility], [place], [place] | | | [address] | | + +--------- -----+ + +---------+ [...] [address] | [place] | [phone] | | [facility] | | [address] | | | - LABORATORY | | [...] colon, polyp: - Fragments of tubular adenoma. DDN:[facility]:C2NR | | | GROSS DESCRIPTION: The specimen [...] | fragments 0.15-0.5 cm, all into (C1). yt:REGGIE:[facility] PERFORMING | | | LABORATORY: Tissue processing and slide preparation were performed by | | | [employer], [facility] [address], [place] [address] | | | (Revenue Accountant: Aydin Wilhelm M.D. CLIA#: [id number]). | | | Professional interpretation was performed by [employer], [facility] | | | [facility], [place] [address] (Revenue Accountant: Aydin | | | Natalya Wilhelm; CLIA#: [id number]). Diagnostician: Cy | | | Latesha ARCEO [...]
--- OUTSIDE RECORDS SUMMARY | ~2019-10-18 | XMS | Encounter Summary ---
Demographics + + + | Address | [address] | | | [place] [address] | + + + | Home Phone [...] | Author | [facility] | | | and [place] | + + + | Organization | [facility] | | | and [...] Team Providers + +------+ + | Care Cut And Cover Line Worker Name | Role | Phone | + +------+ + PCP | Unavailable | + +------+ + Encounter Details +--------+ + + + + | Date | Type | Department | Care Team | Description | +--------+ + + + + | 11/17/ | Hospital | [facility] | Unknown, | | | 1992 | Encounter | MED CTR XRAY [address] | MD Dean | | | | [address] | | | | | | [place] [address] | (Fax) | | | | | [phone] | | | +--------+ + + + [...]
--- OUTSIDE RECORDS SUMMARY | ~2019-10-18 | XMS | Encounter Summary ---
Demographics + + + | Address | [address] | | | [place] [address] | + + + | Home Phone | | + + + | Preferred Language | Unknown | + + + | Marital Status | Single | + + + | Rastafari Affiliation | 1041 | + + + | Race | Unknown | + + + | Ethnic Group | Unknown | + + + Author + + + | Author | [facility] | | | and [place] | + + + | Organization | [facility] | | | and [...] Team Providers + +------+ + | Care Building Superintendent Name | Role | Phone | + +------+ + PCP | Unavailable | + +------+ + Encounter Details +--------+ + + + + | Date | Type | Department | Care Team | Description | +--------+ + + + + | 11/24/ | Hospital | [facility] | Cy Olson MD | | | 2006 - | Encounter | HEART MED CTR | [address] [place] [address] | | | | | CARDIAC TRANSPLANT | [address] [place], | | | 12/02/ | | [address] | [place] [address] | | | 2006 | | [place] | [phone] | | | | | [address] | | | | | | [phone] | | | +--------+ + + + [...]
--- OUTSIDE RECORDS SUMMARY | ~2019-10-18 | XMS | Encounter Summary ---
Demographics + + + | Address | [address] | | | [place] [address] | + + + | Home Phone | | + + + | Preferred Language | Unknown | + + + | Marital Status | Single | + + + | Zoroastrianism Affiliation | 1041 | + + + | Race | Unknown | + + + | Ethnic Group | Unknown | + + + Author + + + | Author | [facility] | | | and [place] | + + + | Organization | [facility] | | | and [...] Providers + +------+ + | Care Senior Portfolio Analyst Name | Role | Phone | + +------+ + PCP | Unavailable | + +------+ + Encounter Details +--------+ + + + + | Date | Type | Department | Care Team | Description | +--------+ + + + + | 11/17/ | Hospital | [facility] | Unknown, | | | 1992 | Encounter | MED CTR XRAY [address] | MD [address] | | | | | [place] | | | | | | [place] [address] | (Fax) | | | | | [phone] | | | +--------+ + + + [...]
--- OUTSIDE RECORDS SUMMARY | ~2019-10-18 | XMS | Encounter Summary ---
Demographics + + + | Address | [address] | | | [place] [address] | + + + | Home Phone | | + + + | Preferred Language | Unknown | + + + | Marital Status | Single | + + + | Cheondoism Affiliation | 1041 | + + + | Race | Unknown | + + + | Ethnic Group | Unknown | + + + Author + + + | Author | [facility] | | | and [place] | + + + | Organization | [facility] | | | and [...] Team Providers + +------+ + | Care Timber Deadener Name | Role | Phone | + +------+ + PCP | Unavailable | + +------+ + Encounter Details +--------+ + + + + | Date | Type | Department | Care Team | Description | +--------+ + + + + | 01/12/ | Hospital | [facility] | Tony Raymond MD | | | 2010 - | Encounter | HEART MED CTR | [address] | | | | | CARDIAC TRANSPLANT | [place] [address] | | | 01/17/ | | [address] | [phone] | | | 2010 | | [place] | | | | | | [address] | | | | | | [phone] | | | +--------+ + + + [...] 1940 ADMISSION DATE: 01/12/2011 DISCHARGE DATE: 01/17/2011 [id number] / [id number] ADMISSION DIAGNOSES: 1. Anemia. 2. Gastrointestinal bleed. [...] stable. Cardiology: Informal consult with Dr. Oliver [facility] who recommended interventi on or stent when gastrointestinal bleed is stable. HOSPITAL COURSE: 1. Anemia. The patient initially presented at [facility] with a hemoglobin of 4 .4. He received 2 liters of IV fluid and 4 units packed red blood cells. Upon arrival at [facility] ICU the patient had a hemoglobin of [...] Caro vix and aspirin MADY FRANCO ADM:01/12/11 [id number] 01/17/11 DIS IN DISCHARGE SUMMARY [id number] [facility] MD DEYSI Cowart [facility] Ata Yeager MD B THIS REPORT IS CONFIDENTIAL AND NOT TO BE RELEASED WITHOUT PROPER AUTHORIZATION. [facility] for his coronary artery disease. 2. Gastrointestinal [...] having demonstrated an inability MADY FRANCO ADM:01/12/11 [id number] 01/17/11 DIS IN DISCHARGE SUMMARY [id number] [facility] Antonio Cadena MD ES [facility] MD Derek Reyes THIS REPORT IS CONFIDENTIAL AND NOT TO BE RELEASED WITHOUT PROPER AUTHORIZATION. [facility] or unwillingness to continue medications and follow up with appointments, it was felt the patient would be best provided for in a correction facility. Social work provided tremendous assistance with this and did find placement for him at an extended care facility in [place], where the patient has family, however, the [...] reported to an extended-care facility or by [facility] if he returns home. These results [...] establish with a gastroenterology doctor in either [place], which is his home, or [place], where the nursing facility is. Recomm endations by Dr. Bai is that the patient continue on Protonix and Carafate as well as the budesonide for the ischemic colitis. The patient should continue to follow up with a astroenterology physician to monitor for further MADY FRACNO ADM:01/12/11 [id number] 01/17/11 DIS IN DISCHARGE SUMMARY [id number] [facility] Antonio Cadena MD ES [facility] Ata Yeager MD B THIS REPORT IS CONFIDENTIAL AND NOT TO BE RELEASED WITHOUT PROPER AUTHORIZATION. [facility] gastrointestinal bleed and any intervention is needed. 3. Cardiology. The patient should follow up with a sustainable development policy analyst in regards to restarting P lavix, and further intervention and possible stenting of his coronary arteries after non-ST -elevation myocardial infarction. The patient can restart Plavix once his hemoglobin is st able for two weeks. His sustainable development policy analyst can determine the optimal timing for further intervent ions regarding his coronary artery disease. 4. Placement. Again, the patient did have a correction facility placement arranged by social work, which is greatly appreciated. However, at the time of discharge, the patient was seen and discharged here in [place] to go to the [facility], because he was unabl e to find family here that felt capable of taking him into their home. It will be left up t o the patient to determine whether or not he wants to present himself to the skilled nursi facility in [place] where he has placement. He verbalized his understanding that if he fails to do so, he will loose that placement and it will not be readily available to be ac cepted into the correction facility. He states that he understands the risks involved if he were to discontinue his medications or not continue to follow up with his doctors as recommended. At the time of discharge it is unknown what the patient has decided in terms of his long-term placement. Antonio Cadena MD,R2 Ata Yeager MD A P DEYANIRA/rod #[id number] cc: Antonio Cadena MD,R2 MD Ata Castel MD Bryan K. Stamm, MD Electronically Signed 05/03/11 0843 Antonio Cadena MD Electronically Signed 04/27/11 1602 Ata Yeager MD MADY FRANCO ADM:01/12/11 [id number] 01/17/11 DIS IN DISCHARGE SUMMARY [id number] [facility] Antonio Cadena MD ES [facility] Ata Yeager MD B [...] then reviewed the note as written by [facility], and discussed the patient with the resident. I agree with the impress ions and plans and have listed any needed clarifications below. CC: //ivnm// Electronically Signed By: Antonio Cadena MD 01/14/11 1528 Electronically Signed By: Kaycee Yeager MD 01/14/11 8156 (A) ISAACMADY Jessica ADM:01/12/11 [id number] ADM IN PROGRESS NOTE [id number] [facility] Antonio Cadena MD E -Sign: [facility] THIS REPORT IS CONFIDENTIAL AND NOT TO BE RELEASED WITHOUT PROPER AUTHORIZATION.Electronica lly signed by Antonio Cadena MD at 01/14/2011 3:28 PM PDTColeAntonio cavazos MD - 013 1:54 AM [facility] Family Medicine Progress Note . Progress Note [...] (5.0 - 7.5 ) 5.5 Ur Specific [place] (1.001 - 1.030 ) 1.004 Urine Protein [...] Dr. Bai here or Dr. Dejesus in [facility] for further details as Dr. Perdomo er [...] stented * Cards recs (Dr. Oliver of [facility] [phone]): needs intervention/st ent "at some point in [...] to get pt accepted in ECF in [place] because of recent AMA discharge * [...] GIB puts pt at risk for another ME. Have broached this subject with the patient, [...] option regardless, may need to go to nursing home t omorrow if nothing available by end [...] have listed any needed clarifications below. CC: //ivks// Electronically Signed By: Antonio Cadena MD 01/15/11 1244 Electronically Signed By: Kaycee Yeager MD 01/15/11 1447 (A) MADY FRANCO ADM:01/12/11 [id number] ADM IN PROGRESS NOTE [id number] [facility] Antonio Cadena MD E -Sign: [facility] THIS REPORT IS CONFIDENTIAL AND NOT TO BE RELEASED WITHOUT PROPER AUTHORIZATION.Electronica lly signed by Antonio Cadena MD at 01/15/2011 12:44 PM PDTColeAntonio cavazos MD - 013 1:54 AM [facility] Family Medicine Progress Note . Progress Note initiated: 01/16/11 at 0652. MADY FRANCO, a 70yo Male admitted on 01/12/11with profound anemia 2/2 GI bleed. ADOD: 01/16/11 Comments: [facility] arranged ECF in [place], [place], cannot take until Tuesday. SW asked [...] (5.0 - 7.5 ) 5.5 Ur Specific [place] (1.001 - 1.030 ) 1.004 Urine Protein [...] should have H/H checked Thursday 01/18 at [facility] or outpt * if pt remains in hospital will check h/h in am to confirm stability prior to d /c 2. GI bleed * Stable, on protonix PO BID and carafate currently QID per GI recs (see prev note) * will send detailed notes and recs to [facility] upon d/c as adequate follow-up is [...] MD 01/16/11 0703 MADY FRANCO A DM:01/12/11 [id number] ADM IN PROGRESS NOTE [id number] [facility] Antonio Cadena MD E -Sign: [facility] THIS REPORT IS CONFIDENTIAL AND NOT TO BE RELEASED WITHOUT PROPER AUTHORIZATION.Electronica lly signed by Antonio Cadena MD at 01/16/2011 7:03 AM [facility] - 08/08/2013 1:54 AM [facility] Family Medicine Progress Note . Progress Note [...] care with patient VTE prophylaxis: SCDs CC: //ivks// Electronically Signed By: Ata Yeager MD 01/16/11 1351 MADY FRANCO ADM:01/12/11 [id number] ADM IN PROGRESS NOTE [id number] [facility] Ata Yeager MD E -Sign: [facility] THIS REPORT IS [...] minimum weekly h/h as outpt, either at [facility] or by [facility] health at home 2. GI bleed * no change, no melena or hematochezia * on protonix PO BID and carafate currently QID per GI recs, will change to BID on dischar ge (see note 01/15) * will send detailed notes to ECF and to GI and PCP in [place] for follow-up 3. Encephalopathy * no acute [...] and in ECF or at home by [facility] 9. Dispo * Will d/c today, either to family's home or to [facility] depending on pt 's wishes and ability to arrange placement with the help of SW and RN * pt to either report to ECF i n [place] on Tuesday or return home depending on his wishes and willingness to commit to E CF placement long-term. * Pt to be provided with detailed notes for follow-up VTE prophylaxis: SCDs CC: //ivnm// Electronically Signed By: Antonio Cadena MD 01/17/11 1109 MADY FRANCO DM:01/12/11 [id number] ADM IN PROGRESS NOTE [id number] [id number] [facility] Antonio Cadena MD E -Sign: [facility] THIS REPORT IS CONFIDENTIAL AND NOT TO BE RELEASED WITHOUT PROPER AUTHORIZATION.Electronica lly signed by Antonio Cadena MD at 01/17/2011 11:09 AM [facility] - 08/08/2013 1:53 AM [facility] Family Medicine Progress Note . Progress Note [...] Yeager MD 01/17/11 1032 MADY FRANCO ADM:01/12/11 [id number] ADM IN PROGRESS NOTE [id number] [id number] [facility] Ata Yeager MD E -Sign: [facility] THIS REPORT IS CONFIDENTIAL AND NOT TO BE RELEASED WITHOUT PROPER AUTHORIZATION.Electronica lly signed by Ata Yeager MD at 01/17/2011 10:32 AM PDTdocumented in this encounter Plan of Treatment Not on filedocumented as of this encounter Visit Diagnoses Not on filedocumented in this encounter
--- OUTSIDE RECORDS SUMMARY | ~2019-10-18 | XMS | Encounter Summary ---
Demographics + + + | Address | [address] | | | [place] [address] | + + + | Home Phone | | + + + | Preferred Language | Unknown | + + + | Marital Status | Single | + + + | Confucianist Affiliation | 1041 | + + + | Race | Unknown | + + + | Ethnic Group | Unknown | + + + Author + + + | Author | [facility] | | | and [place] | + + + | Organization | [facility] | | | and [place] [...] Providers + +------+ + | Care Manager Intensive Care Unit Name | Role | Phone | + [...] | SR | | | | | [phone] | | | +--------+ + + + [...]
--- OUTSIDE RECORDS SUMMARY | ~2019-10-18 | XMS | Encounter Summary ---
Demographics + + + | Address | [address] | | | [place] [address] | + + + | Home Phone [...] + + + | Author | [facility] | | | and [place] | + + + | Organization | [facility] | | | and [...] Team Providers + +------+ + | Care Project Manager/Team Coach Name | Role | Phone | + +------+ + PCP | Unavailable | + +------+ + Encounter Details +--------+ + + + + | Date | Type | Department | Care Team | Description | +--------+ + + + + | 01/12/ | Hospital | [facility] | Sanjay Ordaz, | | | 2010 | Encounter | MED CTR EMERGENCY | [address] | | | | | CENTER [address] | [place] | | | | | [place] | [id number] | | | | | [address] | | | | | | [phone] | | | +--------+ + + + [...] + | [facility] | [address] | [place] | [phone] | | [facility] | | [address] | | | - LABORATORY | | | | + + + + + | [facility] | [address] | [place] | | | [facility] | | [address] | | | - LABORATORY | | [...] [address] | [place] | [phone] | | [facility] | | [address] | | | - LABORATORY | | | | + + + + + | [facility] | [address] | [place] | | | [facility] | | [address] | | | - LABORATORY | | [...] + + + | UNIT # | [id number] | | [facility] | | | | [...] ST. | [address] | [place], [place] | [phone] | | [facility] | | [address] | | | - LABORATORY | | | | + + + + + | [facility] | | | | | [facility] | | | | | [...] + + + | UNIT # | [id number] | | [facility] | | | | [...] [address] | [place] | [phone] | | [facility] | | [address] | | | - LABORATORY | | | | + + + + + | [facility] | | | | | [facility] | | | | | [...] + + + | UNIT # | [id number] | | [facility] | | | | [...] + | [facility] | [address] | [place] | [phone] | | [facility] | | [address] | | | - LABORATORY | | | | + + + + + | [facility] [facility] | | | | | [facility] | | | | | [...] + + + | UNIT # | [id number] | | [facility] | | | | [...] [address] | [place] | [phone] | | [facility] | | [address] | | | - LABORATORY | | | | + + + + + | [address] | | | | | [facility] | | | | | [...] [address] | [place] | [phone] | | [facility] | | [address] | | | - LABORATORY | | | | + + + + + | [facility] | [address] | [place] | | | [facility] | | [address] | | | - LABORATORY | | [...] [facility] | | | | | | [facility] | | | | [facility]ERT [facility] | [...] | | | | | | the User Replay | | | | | | Access [...] [address] | [place] | [phone] | | [facility] | | [address] | | | - LABORATORY | | | | + + + + + | [facility] | [address] | [place] | | | [facility] | | [address] | | | - LABORATORY | | [...] + | [facility] | [address] | [place], [place] | [phone] | | [facility] | | [address] | | | - LABORATORY | | | | + + + + + | [facility] | [address] | [place], [place] | | | [facility] | | [address] | | | - LABORATORY | | | | + + + + + XR Chest AP Portable (01/12/2011 6:39 PM PDT) + + | Specimen | + + | | + + + + + | Narrative | Performed At | + + + | [facility] Diagnostic Imaging Department | [facility] | | [address] [facility] | [facility] | | PORTABLE SINGLE VIEW AP CHEST, [...] Transcribed Date/Time: | | | 01/13/2011 11:18 Claims Vice President: <Electronically Signed | | | by Rodrigo Ibarra MD> 01/13/11 0382 | | + + + + + | Procedure Note | + + | [place], Rad Conversion - 11/09/2013 2:41 PM [facility] | | Diagnostic Imaging Department [address] [place] [address] | | PORTABLE SINGLE VIEW AP CHEST, [...] 10:06 Transcribed | | Date/Time: 01/13/2011 11:18 Claims Vice President: <Electronically Signed by Rodrigo Kraft | | [...] 10:06 | |Transcribed Date/Time: 01/13/2011 11:18 | |Claims Vice President: | |<Electronically Signed by Rodrigo Ibarra MD> [...]
--- OUTSIDE RECORDS SUMMARY | ~2019-10-18 | XMS | Encounter Summary ---
Demographics + + + | Address | [address] | | | [place] [address] | + + + | Home Phone | | + + + | Preferred Language | Unknown | + + + | Marital Status | Single | + + + | Gnosticism Affiliation | Unknown | + + + | Race | or | + + + | Ethnic Group | Not or | + + + Author + + + | Author | [facility] | + + + | Organization | [facility] | + + + | Address | Unknown | + + + | Phone | Unavailable | + + + Support + + +---------+ + | Name | Relationship | Address | Phone | + + +---------+ + | Mihaela Whitehead | ECON | Unknown | | + + +---------+ + Care Team Providers + +------+ + | Care Merchandise Flow Team Member Name | Role | Phone | + [...] [id number] | | | | | | [place], [place] | | | | | | [address] | | | | | | [phone] | | | +--------+ + + + [...]
--- OUTSIDE RECORDS SUMMARY | ~2019-10-18 | XMS | Encounter Summary ---
Demographics + + + | Address | [address] | | | [place] [address] | + + + | Home Phone [...] | Author | [facility] | | | and [place] | + + + | Organization | [facility] | [...] Team Providers + +------+ + | Care Kindergarten Paraprofessional Name | Role | Phone | + [...] artery | [address] | [address] | | | | | disease of | Avenue | [place], | | | | | nome | [place], | [place] | | | | | artery of | [place] [address] | [address] | | | | | nome heart | Phone: | Phone: | | | | | with stable | [phone] | [phone] | | | | | angina | Fax: | Fax: | | | | | pectoris | [phone] | [phone] | | | | | (HCC) Chest [...] | 02/01/ | Hospital | [facility] | Donta Reyes MD | Coronary artery | | 2019 | Encounter | MED CTR NUCLEAR | [address] | disease of [place] | | | | MEDICINE [address] | [place], [place] | artery of nome | | | | [place], | [address] | heart with stable | | | | [place] [address] | | angina pectoris | | | | [phone] | Game ProtectorKyleigh | ([facility]); Chest pain, | | | | | [...] | | | N HCl (JULIO C KU) | | | | | | | [...] e | 2:12 PM | disease of nome | procedure are in the | | | | PDT | artery of nome | results section. 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
--- OUTSIDE RECORDS SUMMARY | ~2019-10-18 | XMS | Encounter Summary ---
Demographics + + + | Address | [address] | | | [place] [address] | + + + | Home Phone | | + + + | Preferred Language | Unknown | + + + | Marital Status | Single | + + + | Restorationist Affiliation | 1041 | + + + | Race | Unknown | + + + | Ethnic Group | Unknown | + + + Author + + + | Author | [facility] | | | and [place] | + + + | Organization | [facility] | | [...] Team Providers + +------+ + | Care Shoveler Name | Role | Phone | + [...] artery | [address] | [address] | | | | | disease of | Avenue | [place], | | | | | [place] | [place], | [place] | | | | | artery of | [place] [address] | [address] | | | | | [place] heart | Phone: | Phone: | | | | | with stable | [phone] | [phone] | | | | | angina | Fax: | Fax: | | | | | pectoris | [phone] | [phone] | | | | | (HCC) Chest [...] + + | 02/01/ | Hospital | [facility] | Donta Reyes MD | Coronary artery | | 2019 | Encounter | MED CTR NUCLEAR | [address] | disease of [place] | | | | MEDICINE [address] | [place], [place] | artery of [place] | | | | [place], | [address] | heart with stable | | | | [place] [address] | | angina pectoris | | | | [phone] | InletterKyleigh | ([facility]); Chest pain, | | | | [...] e | 2:12 PM | disease of [place] | procedure are in the | | | | PDT | artery of [place] | results section. | | | | | heart with stable | | | | | | angina pectoris | | | | | | ([facility]) Chest pain, | | | | [...] + + | Coronary artery disease of [place] artery of [place] heart with stable angina pectoris | | [...] | | | | | | Starting [facility] 02/01/19 at 1005, For | | | | | | | 1 dose, Nuclear Medicine | | | | | | + +--------+ + +------+------+ +---+---+ | | | +---+---+ documented in this encounter"
--- OUTSIDE RECORDS SUMMARY | ~2019-10-18 | XMS | Encounter Summary ---
Demographics + + + | Address | [address] | | | [place] [address] | + + + | Home Phone | | + + + | Preferred Language | Unknown | + + + | Marital Status | Single | + + + | Synagogue Affiliation | 1041 | + + + | Race | Unknown | + + + | Ethnic Group | Unknown | + + + Author + + + | Author | [facility] | | | and [place] | + + + | Organization | [facility] | | | and [...] Team Providers + +------+ + | Care City Wellness Coordinator Name | Role | Phone | [...] | | for | | [address], | | | | | colonoscopy | | [address] | | | | | due to | | [place], | | | | | history of | | [place] [address] | | | | | adenomatous | | Phone: | | | | | colonic | | [phone] | | | | | polyps | | Fax: | | | | | 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 | [place] | [phone] | | [facility] | | [address] | | | - LABORATORY | | | | + + + + + LIDA (08/08/2015 12:58 PM PST) + + | Specimen | + + | | + + + + -+ | Narrative | Performed At | + + -+ | | [facility] | | GastroenterologyPatient Name: Huey RamirezerProcedure Date: 08/08/2015 | PROVATION | | 12:58 PMMRN: [id number] #: [id number] of : | | | 1940dmit Type: AmbulatoryAge: 74Room: [place] [address]Gender: MaleNote | | | Status: FinalizedAttending MD: Kwasi Cates, [facility]rocedure: | | | Upper GI endoscopyIndications: AnemiaProviders: | | | Kwasi Cates MD, Manuela Christianson RN, Michaelle | | | Ally West, Electric Shipyard Operator, Eder Ceja MD | | | (Anesthesia [...] | | | the anesthesiologist and the recreation technician in the endoscopy suite. | | [...] | | 1:09:13 PMScope Out: 1:12:03 PM [facility] | | | [place], [address] [place] [address] | | | - Discharge patient to [...] |Scope Out: 1:12:03 PM | | | [facility], [address] [place] [address] | | | [address] | | + + -+ + +---------+ [...] | PROVATIO N | | 12:58 PMMRN: [id number] #: [id number] of : | | | 3Admit Type: AmbulatoryAge: 74Room: [facility] 01Gender: MaleNote | | | Status: FinalizedAttending MD: Kwasi Cates MDProcedure: | | | ColonoscopyIndications: High risk colon cancer | | | surveillance: Personal history of colonic | | | polypsProviders: Kwasi Cates MD, Manuela Thomas | | | RIO Christianson, Michaelle West, | | | Electric Shipyard Operator, Eder Ceja MD (Anesthesia | | | [...] the anesthesiologist and the | | | recreation technician in the endoscopy suite. Mental Status [...] Scope In: 1:13:56 PMScope Out: 1:40:19 PM [facility]. | | | [facility], [address] [place] [address] | | | [phone] | | | - Await pathology results. [...] |Scope Out: 1:40:19 PM | | | [facility], [address] [facility] [place], [place] | | | [address] | | + +--------- -----+ + +---------+ [...] [address] | [place] | [phone] | | [facility] | | [address] | | | - LABORATORY | | [...] colon, polyp: - Fragments of tubular adenoma. DDN:[facility]:C2NR | | | GROSS DESCRIPTION: The specimen [...] | fragments 0.15-0.5 cm, all into (C1). yt:REGGIE:[facility] PERFORMING | | | LABORATORY: Tissue processing and slide preparation were performed by | | | [facility] [employer], [facility], [address], [place] [address] | | | (Shoe Laster: Aydin Wilhelm M.D. CLIA#: [id number]). | | | Professional interpretation was performed by [employer], [address] | | | [facility] [address], [place] [address] (Shoe Laster: Aydin | | | Natalya Wilhelm; CLIA#: [id number]). Diagnostician: Cy | | | Latesha ARCEO [...]
--- OUTSIDE RECORDS SUMMARY | ~2019-10-18 | XMS | Encounter Summary ---
Demographics + + + | Address | [address] | | | [place] [address] | + + + | Home Phone [...] + + + | Author | [facility] | | | and [place] | + + + | Organization | [facility] | [...] Team Providers + +------+ + | Care Licensed Guide Name | Role | Phone | + +------+ + PCP | Unavailable | + +------+ + Encounter Details +--------+ + + + + | Date | Type | Department | Care Team | Description | +--------+ + + + + | 01/22/ | Hospital | [facility] | Erich Castaneda | CHR ISCHEMIC HRT DIS | | 2003 - | Encounter | MEDICAL [place] | [address] | NOS | | | | CLINICAL DECISION | Adarsh Su | | | 01/23/ | | [address] | [place] [address] | | | 2003 | | [place], [place] | [phone] | | | | | [address] | | | | | | [phone] | | | +--------+ + + + [...]
--- OUTSIDE RECORDS SUMMARY | ~2019-10-18 | XMS | Encounter Summary ---
Demographics + + + | Address | [address] | | | [place] [address] | + + + | Home Phone | | + + + | Preferred Language | Unknown | + + + | Marital Status | Single | + + + | Restorationism Affiliation | 1041 | + + + | Race | Unknown | + + + | Ethnic Group | Unknown | + + + Author + + + | Author | [facility] | | | and [place] | + + + | Organization | [facility] | | | and [...] Team Providers + +------+ + | Care Ground Control Approach Technician Name | Role | Phone | + +------+ + PCP | Unavailable | + +------+ + Encounter Details +--------+ + + + + | Date | Type | Department | Care Team | Description | +--------+ + + + + | 11/24/ | Hospital | [facility] | Cy Olson MD | | | 2006 - | Encounter | HEART MED CTR | [address] [place] [address] | | | | | CARDIAC TRANSPLANT | [address] [place], | | | 12/02/ | | [address] | [place] [address] | | | 2006 | | [place] | [phone] | | | | | [address] | | | | | | [phone] | | | +--------+ + + + [...]
--- OUTSIDE RECORDS SUMMARY | ~2019-10-18 | XMS | Encounter Summary ---
Demographics + + + | Address | [address] | | | [place] [address] | + + + | Home Phone | | + + + | Preferred Language | Unknown | + + + | Marital Status | Single | + + + | Muslim Affiliation | Unknown | + + + [...] Team Providers + +------+ + | Care Block Sealer Name | Role | Phone | + [...] as of this encounter Progress Notes Interface, [employer] Travel Counselor In - 07/17/2005 5:05 AM PDT [id number] 07/15/2005 07/15/2005 [id number] ISAAC EARL [facility] [address] [place] [address] or July 16, 2005 Kevin Harris M.D. [facility] [address] [place] [address] RE: HUEY GRAY MR #: [id number] Dear Dr. Harris: Thank you very much for referring Huey Gray to the [facility] here at [facility] for consultation regarding his chief complaint of [...] give me a call through the paging auger operator in the meantime. The best way to reach me is at [phone]. Sincerely, Geoff Henry M.D. [facility] / [id number] / [id number] / [phone] / documented i n this encounter Plan of Treatment Not on filedocumented as of this encounter Visit Diagnoses Not on filedocumented in this encounter"
--- OUTSIDE RECORDS SUMMARY | ~2019-10-18 | XMS | Clinical Summary ---
Demographics + + + | Address | [address] | | | [place] [address] | + + + | Home Phone [...] Team Providers + +------+ + | Care Breaker Machine Tender Name | Role | Phone | + +------+ + PCP | Unavailable | + +------+ + Source Comments EL is fully live on both [facility] Ambulatory and [facility] InPatient.[facility] Allergies Not on File Medications [...] | | | | all | | [address] | | | | | | dates | | | | + +--------+ +--------+ + +--------+ | [facility] | [facility] | [phone] | Effect | | | [...] | 1941 | [id number] | [place] [address] | | | luis | | | 2 (Home) | | + +--------+ +--------+ + + | Huey Franco | Agency | Self | [birth year] | | [address] | | | | | 1941 | [phone] | [place] [address] | | | | | | 2 ([place]) | | + +--------+ +--------+ + +"
--- OUTSIDE RECORDS SUMMARY | ~2019-10-18 | XMS | Encounter Summary ---
Demographics + + + | Address | [address] | | | [place] [address] | + + + | Home Phone | | + + + | Preferred Language | Unknown | + + + | Marital Status | Single | + + + | Anglican Affiliation | 1041 | + + + | Race | Unknown | + + + | Ethnic Group | Unknown | + + + Author + + + | Author | [facility] | | | and [place] | + + + | Organization | [facility] | | | and [...] Team Providers + +------+ + | Care Radiation Oncology Therapist Name | Role | Phone | + +------+ + PCP | Unavailable | + +------+ + Encounter Details +--------+ + + + + | Date | Type | Department | Care Team | Description | +--------+ + + + + | 10/08/ | Hospital | [facility] | | | | 1998 - | Encounter | MED CTR GENERIC IP | | | | | | CONV DEPT [address] | | | | 10/09/ | | [place], | | | | 1998 | | [place] [address] | | | | | | [phone] | | | +--------+ + + + [...]
--- OUTSIDE RECORDS SUMMARY | ~2019-10-18 | XMS | Clinical Summary ---
Demographics + + + | Address | [address] | | | [place] [address] | + + + | Home Phone | | + + + | Preferred Language | Unknown | + + + | Marital Status | Single | + + + | Anabaptism Affiliation | 1041 | + + + | Race | Unknown | + + + | Ethnic Group | Unknown | + + + Author + + + | Author | [facility] (Historical as of | | | 05-19-19) | + + + | Organization | [facility] (Historical as of | | | 05-19-19) [...] Team Providers + +------+ + | Care Salvage Repairer Name | Role | Phone | + [...]
--- OUTSIDE RECORDS SUMMARY | ~2019-10-18 | XMS | Encounter Summary ---
Demographics + + + | Address | [address] | | | [place] [address] | + + + | Home Phone | | + + + | Preferred Language | Unknown | + + + | Marital Status | Single | + + + | Episcopal Affiliation | 1041 | + + + | Race | Unknown | + + + | Ethnic Group | Unknown | + + + Author + + + | Author | [facility] | | | and [place] | + + + | Organization | [facility] | | | and [...] Team Providers + +------+ + | Care Insulation Technician Name | Role | Phone | + +------+ + PCP | Unavailable | + +------+ + Encounter Details +--------+ + + + + | Date | Type | Department | Care Team | Description | +--------+ + + + + | 09/10/ | Hospital | [facility] | Hannah Simeon, | Carotid Art Occ w/o | | 2008 - | Encounter | MEDICAL ARGYLE | MD Abdi Valencia | [facility] | | | | INTENSIVE CARE UNIT | [place] [address] | | | 09/11/ | | [address] | | | | 2008 | | [place], [place] | | | | | | [address] | | | | | | [phone] | | | +--------+ + + + [...] Performed At | + + + | [id number] | | | Page 1 ECHO [facility] NAME: | | | [place] [address] MEDICAL RECORD #: | | | [id number] | | | DATE OF : 1940 ORDER | | | NUMBER: [id number] EXAM DATE/TIME: 09/08/2009 14:52 PERFORMING | | [...] TV A Luciano: 0.25 m/s TV Dec Beauregard: 2.49 m/s2 TV Dec | | | Time: 190.51 ms TV E Luciano: 0.47 m/s TV E/A Ratio: 1.86 | | | Histotechnician: CM Authenticated by: Ronak Lal MD Report | | | Date/Time: 09-09-2009 09:15:03 | | + + + + + | Procedure Note | + + | Jason Delarosa Conversion - 05/28/2019 3:23 AM PDT [id number] | | [address] [place] [address] NAME: [place]RAY [place] | | [address] : ACCOUNT #: | | [id number]: DATE OF : 1940ORDER NUMBER: | | [id number] DATE/TIME: 09/08/2009 14:52PERFORMING PHYSICIAN: Ronak Lal | [...] (A-L): 35.49 | | ml/m2LAAs A2C: 17.95 vi5UIVOR A-L A2C: 52.69 mlLALs A2C: 5.19 cmLAAs A4C: 23.47 | | ok1WHIRM A-L A4C: 71.90 mlLALs A4C: 6.50 cmHR: 66.24 BPMAV maxP.77 mmHgAV | | meanP.07 mmHgAV Vmax: 1.30 m/Jonh Vmean: 0.81 m/Jonh VTI: 25.60 cmAVA Vmax: | | 1.83 cm2AVA (VTI): 1.66 am2AFXU Dopp: 1.46 l/gpce6RZTP Dopp: 2.85 l/minHR: 66.79 | | BPMLVOT maxP.35 mmHgLVOT meanP.13 mmHgLVSI Dopp: 22.00 ml/m2LVSV Dopp: | | 42.68 mlLVOT Vmax: 0.76 m/sLVOT Vmean: 0.49 m/sLVOT VTI: 13.71 cmMV A Luciano: 1.00 | | m/sMV DecT: 220.10 msMV E Luciano: 0.95 m/sMV E/A Ratio: 0.95MV maxP.97 mmHgMV | | meanP.29 mmHgMV Vmax: 0.99 m/sMV Vmean: 0.49 m/sMV VTI: 27.94 cmMVA (VTI): | | 1.52 qs3Kaeusl e': 0.04 m/sSeptal E/e': 19.51Lateral e': 0.10 m/sLateral E/e': | | 9.46P Vein A: 0.21 m/sP Vein A Dur: 99.81 msP Vein D: 0.48 m/sP Vein S/D Ratio: | | 1.27P Vein S: 0.61 m/sTR maxP.10 mmHgTR Vmax: 2.50 m/sTV A Luciano: 0.25 m/sTV | | Dec Beauregard: 2.49 m/s2TV Dec Time: 190.51 msTV E Luciano: 0.47 m/sTV E/A Ratio: 1.86 | | Histotechnician: CMAuthenticated by: Ronak HUANGort Date/Time: 09-09-2009 | [...] A Luciano: 0.25 m/s | |TV Dec Beauregard: 2.49 m/s2 | |TV Dec Time: 190.51 ms | |TV E Luciano: 0.47 m/s | |TV E/A Ratio: 1.86 | | | |Histotechnician: CM | |Authenticated by: Ronak Lal MD | |Report Date/Time: 09-09-2009 09:15:03 | + + XR Chest 2 Vws (09/05/2009 2:52 PM PST) + + | Specimen | + + | | + + + + + | Narrative | Performed At | + + + | [id number] | | | Page 1 RADIOLOGY | | | / | | | [facility] | | | [place] [address] | | | | | | | | | DATE OF : 1940 ORDER NUMBER: [id number] EXAM | | | DATE/TIME: 09/05/2009 02:40 P ORDERING PHYSICIAN: HANNAH SIMEON | | | ORDER DETAIL: [id number] / / HDI EXAM DESCRIPTION: XR CHEST [...] 03:04 P | | | P P [facility]//[id number]/ cc: HANNAH SIMEON, | | | MD PREMA SEYMOUR, MD ISH PATEL MD | | + + + + + | Procedure Note | + + | [place], Rad Conversion - 05/28/2019 3:23 AM PDT | | [id number] Page 1 | | RADIOLOGY / | | [place]NOR | | [facility] NAME: MADY GRAY | | [place] [address] | | | | DATE OF : 1940 | | | | ORDER NUMBER: [id number] | | EXAM DATE/TIME: 09/05/2009 02:40 P [...] | P | | P | | [facility]//[id number]/ | | cc: HANNAH SIMEON MD | | PREMA SEYMOUR MD | | ISH PATEL MD | + + documented in this encounter Visit Diagnoses + + | Diagnosis | + + | Occlusion and stenosis of carotid artery without mention of cerebral infarction | + + documented in this encounter"
--- OUTSIDE RECORDS SUMMARY | ~2019-10-18 | XMS | Encounter Summary ---
Demographics + + + | Address | [address] | | | [place] [address] | + + + | Home Phone | | + + + | Preferred Language | Unknown | + + + | Marital Status | Single | + + + | Alevism Affiliation | 1041 | + + + | Race | Unknown | + + + | Ethnic Group | Unknown | + + + Author + + + | Author | [facility] | | | and [place] | + + + | Organization | [facility] | | [...] Team Providers + +------+ + | Care Ladies' Hat Trimmer Name | Role | Phone | + [...] 2015 | | GASTROENTEROLOGY | [address], [place] | | | | | [address] | [address] [place], [place] | | | | | [address] [place], [place] | [address] | | | | | [address] | | | | | | [phone] | | | +--------+ + + + [...]
--- OUTSIDE RECORDS SUMMARY | 2019-10-18 12:24 | XMS ---
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 Elisa VISIT COUNT (12 MO.) 1 [facility] [place] TOTAL 1 NOTE: Visits indicate total known visits. ED/UCC VISIT TRACKING (12 MO.) 10/18/2019 12:21 [facility] [place] TYPE: Emergency COMPLAINT: - SOB INPATIENT VISIT TRACKING (12 MO.) No inpatient visits to display in this time frame [email or web address]
--- NOTE | 2019-10-18 15:21 | NUR ---
PT was in ED for a stroke. Pastor Russell and I introduced ourselves to PT's brothers who were with him. PT was alert but unable to communicate words. I was able to contact PT's sister at the request of the brothers and let them talk with each other. I sat with the PT and his brothers and let me know what would happen when [facility] arrived. I stayed with PT while his brothers went out for a bit and until [facility] arrived. One of the brother's was visably upset and I was able to offer some comfort. Pastor Russell walked him out to his [place]
--- NOTE | 2019-10-19 19:44 | EKG ---
[facility] [address] [place], [place] [address] Signed Normal sinus rhythm Normal ECG No previous ECGs available Confirmed by ADILSON CASTILLO DO ([id number]) on 10/19/2019 7:44:45 PM Electronically Signed By: ADILSON CASTILLO DO 10/19/19 194 PATIENT NAME: MADY GRAY Electrocardiogram DATE OF : [birth year] PHYSICIAN: ADILSON CASTILLO DO REPORT #: [id number] REPORT IS CONFIDENTIAL AND NOT TO BE RELEASED WITHOUT AUTHORIZATION
== END ==
LOC: ED 12:20
DX: I63.9 Cerebral infarction, unspecified (principal); E11.9 Type 2 diabetes mellitus without complications; F17.200 Nicotine dependence, unspecified, uncomplicated; Z88.8 Allergy status to other drugs, medicaments and biological substances; Z79.899 Other long term (current) drug therapy; Z79.82 Long term (current) use of aspirin; Z79.84 Long term (current) use of oral hypoglycemic drugs
CPT/HCPCS: 70450; 70496; 70498; 71045; 80053; 84484; 85025; 85610; 85730; 93005; 93010; 99285-25; J2997; Q9967

== ENCOUNTER 2020-04-30 15:57 | Emergency (ER) | payer MEDICARE, OTHER ==
[~2020-04-30] VITALS: Ht 170.2 cm; Wt 85.0 kg
--- OUTSIDE RECORDS SUMMARY | ~2020-04-30 | XMS | Encounter Summary ---
Demographics + + + | Address | [address] | | | [place] [address] | + + + | Home Phone | | + + + | Preferred Language | Unknown | + + + | Marital Status | Single | + + + | Buddhism Affiliation | Unknown | + + + | Race | or | + + + | Ethnic Group | Not or | + + + Author + + + | Author | [facility] | + + + | Organization | [facility] | + + + | Address | Unknown | + + + | Phone | Unavailable | + + + Support + + +---------+ + | Name | Relationship | Address | Phone | + + +---------+ + | Mihaela Whitehead | ECON | Unknown | | + + +---------+ + Care Team Providers + +------+ + | Care Dance Costume Designer Name | Role | Phone | + +------+ + PCP | Unavailable | + +------+ + Encounter Details +--------+ + + + + | Date | Type | Department | Care Team | Description | +--------+ + + + + | 07/15/ | Ancillary | Registration [address] | | | | 2004 | Reg[address] | [address] | | | | | [address] | [address] Mailcode: [id number] | | | | | | [place], [place] | | | | | | [address] | | | | | | [phone] | | | +--------+ + + + [...]
--- OUTSIDE RECORDS SUMMARY | ~2020-04-30 | XMS | Encounter Summary ---
Demographics + + + | Address | [address] | | | [place] [address] | + + + | Home Phone | | + + + | Preferred Language | Unknown | + + + | Marital Status | Single | + + + | Druze Affiliation | 1041 | + + + | Race | Unknown | + + + | Ethnic Group | Unknown | + + + Author + + + | Author | [facility] | | | and [place] | + + + | Organization | [facility] | | | and [place] | + [...] Team Providers + +------+ + | Care Tar And Ammonia Pump Operator Name | Role | Phone | + +------+ + PCP | Unavailable | + +------+ + Encounter Details +--------+ + + + + | Date | Type | Department | Care Team | Description | +--------+ + + + + | 01/22/ | Hospital | [facility] | Erich Castaneda | CHR ISCHEMIC HRT DIS | | 2003 - | Encounter | MEDICAL [place] | [address] | NOS | | | | CLINICAL DECISION | Adarsh Su | | | 01/23/ | | [address] | [place] [address] | | | 2003 | | [place], [place] | [phone] | | | | | [address] | | | | | | [phone] | | | +--------+ + + + [...] on file | | + + + documented as of this encounter Plan of Treatment Not on filedocumented as of this encounter Visit Diagnoses + + | Diagnosis | + + | Chronic ischemic heart disease, unspecified | + + documented in this encounter"
--- OUTSIDE RECORDS SUMMARY | ~2020-04-30 | XMS | Encounter Summary ---
Demographics + + + | Address | [address] | | | [place] [address] | + + + | Home Phone | | + + + | Preferred Language | Unknown | + + + | Marital Status | Single | + + + | Judaism Affiliation | 1041 | + + + | Race | Unknown | + + + | Ethnic Group | Unknown | + + + Author + + + | Author | [facility] | | | and [place] | + + + | Organization | [facility] | | | and [place] | [...] Team Providers + +------+ + | Care Billing And Insurance Coordinator Name | Role | Phone | + [...] | | for | | [address], | | | | | colonoscopy | | [address] | | | | | due to | | [place], | | | | | history of | | [place] [address] | | | | | 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 ANESTHESIA POSTANESTHESIA EVALUATION Huey Lopez Salvador 74 y.o. male 1940 [id number] Procedure(s) EGD/COLONOSCOPY - CHRONIC NARC DEPENDENT/PAIN (N/A ) Filed Vitals: 08/08/15 1100 08/08/15 1211 08/08/15 1346 BP: 132/65 94/56 Pulse: 45 76 67 Temp: 36.2 C (97.2 F) 36.4 C (97.5 F) Resp: 18 16 SpO2: 95% 96% Cooperates? Yes Mental Status Performs simple tasks. Respiratory Satisfactory - Airway patent (self maintained). Cardiovascular Satisfactory Blood pressure and heart rate acceptable Temperature Satisfactory Pain Satisfactory N/V Control Satisfactory Hydration Satisfactory No signs of dehydration Complications None apparent Electronically signed by Eder Ceja MD 08/08/2015 13:48 [facility] nesthesia Preprocedu re Evaluation - Eder Ceja MD - 08/07/2015 9:35 AM PSTFormatting of this note might b e different from the original. ANESTHESIA PREANESTHESIA EVALUATION Huey Franco 74 y.o. male 1940 [id number] Procedure(s): COLONOSCOPY - CHRONIC NARC DEPENDENT/PAIN (N/A Rectum) Medical history, anesthesia, medications, allergy, NPO status verified histories reviewed. Review of Systems / Med History Cardiovascular (+) CAD. Exercise tolerance <4 METS. Pulmonary (+) smoking history. Neurology (+) CVA. Gastrointestinal/Hepatic (+) reflux/GERD, hyperlipidemia. Endocrine (+) Diabetes:type 2, NIDDM. Physical Exam Airway MP II, TM >3 FB, Mouth opening >2 FB. Neck: full ROM, extends >30 degrees. Dental Willy ssly normal except where noted below.; CV Rhythm regular. Rate Normal. (-) murmur. Pulm Clear to auscultation bilaterally. Neuro Grossly normal. Anesthesia Plan ASA 3 (Arteriosclerotic Heart Disease) Type: Total IV anesthesia and general. Induction: Intravenous. Potential problems: None anticipated. Monitors: Standard ASA monitors. Consent statement:Anesthetic plan, alternatives, risks and benefits discussed with patient. Risks discussed included (but were not limited to): perioperative CV events, sore throat, d eath, heart problems, respiratory events, nausea, . Consenting person understands and agrees to proceed. PARQ. TIVA w/ propofol.. documented in this en counter Plan of Treatment Not on filedocumented as [...] mg | | | | PRN, Starting Fri 15 at | | 15 1:21 | | | | | 1321, Anesthesia Intra-op | | PM PST | | | | + +--------+ +-------+------+------+ +---+---+ | | | +---+---+ + +-------+ +-------+---+---+ | lidocaine (PF) 2% injection | Given | 08/08/20 | 55 mg | | | | Intravenous, PRN, Starting Tue | | 15 1:06 | | | | | 08/08/15 at 1306, Anesthesia | | PM PST | | | | | Intra-op | | | | | | + +-------+ +-------+---+---+ +---+---+ | | | +---+---+ + +-------+ +-------+---+---+ | propofol (DIPRIVAN) injection | Given | 08/08/20 | 70 mg | | | | PRN, Starting Tue08/08/15 at | | 15 1:06 | | [...]
--- OUTSIDE RECORDS SUMMARY | ~2020-04-30 | XMS | Encounter Summary ---
Demographics + + + | Address | [address] | | | [place] [address] | + + + | Home Phone | | + + + | Preferred Language | Unknown | + + + | Marital Status | Single | + + + | Nondenominational Affiliation | 1041 | + + + | Race | Unknown | + + + | Ethnic Group | Unknown | + + + Author + + + | Author | [facility] | | | and [place] | + + + | Organization | [facility] | | | and [place] [...] Team Providers + +------+ + | Care Geometry Tutor Name | Role | Phone | + +------+ + PCP | Unavailable | + +------+ + Encounter Details +--------+ + + + + | Date | Type | Department | Care Team | Description | +--------+ + + + + | 07/07/ | Hospital | [facility] | Chirag Oliver | | | 2004 - | Encounter | HEART MED CTR ICU | | | | | | [address] | | | | 07/08/ | | [place] | | | | 2004 | | [address] | | | | | | [phone] | | | +--------+ + + + [...]
--- OUTSIDE RECORDS SUMMARY | ~2020-04-30 | XMS | Encounter Summary ---
Demographics + + + | Address | [address] | | | [place] [address] | + + + | Home Phone | | + + + | Preferred Language | Unknown | + + + | Marital Status | Single | + + + | Denominational Affiliation | 1041 | + + + | Race | Unknown | + + + | Ethnic Group | Unknown | + + + Author + + + | Author | [facility] | | | and [place] | + + + | Organization | [facility] | | | and [...] Team Providers + +------+ + | Care Foundation Engineer Name | Role | Phone | + +------+ + | Lydia Pop MD | PCP | | + +------+ + Reason for Referral Evaluate & Treat (Urgent) +--------+ + + + + + | Status | Reason | Specialty | Diagnoses / | Referred By | Referred To | | | | | Procedures | Contact | Contact | +--------+ + + + + + | Closed | Specialty | Gastroenterol | Diagnoses | Harri, | Harri, | | | Services | ogy | Anemia, | Kwasi Lopez MD | Kwasi Lopez MD | | | Required | | unspecified | [address], | | | | | anemia type | [address], [place] | [address] | | | | | PUD (peptic | [address] [place] | [place], | | | | | ulcer | [place], [place] | [place] [address] | | | | | disease) | [id number] | Phone: | | | | | | Phone: | [phone] | | | | | | [phone] | Fax: | | | | | | Fax: | [phone] | | | | | | [phone] | | +--------+ + + + + + Encounter Details +--------+ + + + + | Date | Type | Department | Care Team | Description | +--------+ + + + + | 08/07/ | Orders Only | [facility] | Kwasi Cates MD | Anemia, unspecified | | 2014 | | GASTROENTEROLOGY | [address], [place] | anemia type (Primary | | | | [address] | [address] [place], [place] | Dx); PUD (peptic | | | | [address] [place], [place] | [address] | ulcer disease) | | | | [address] | | | | | | [phone] | | | +--------+ + + + [...] as of this encounter Plan of Treatment + + +--------+ + + | Name | Type | Priori | Associated Diagnoses | Order Schedule | | | | ty | | | + + +--------+ + + | Ambulatory referral | Outpatient | Routin | Anemia PUD | Expected: | | to Gastroenterology | Referral | e | (peptic ulcer | 08/08/2015, Expires: | | (harri) | | | disease) | 08/06/2016 | + + +--------+ + + documented as of this encounter Visit Diagnoses + + | Diagnosis | + + | Anemia, unspecified anemia type - Primary | + + | PUD (peptic ulcer disease) Peptic ulcer, unspecified site, unspecified as acute or | | chronic, without mention of hemorrhage, perforation, or obstruction | + + documented in this encounter"
--- OUTSIDE RECORDS SUMMARY | ~2020-04-30 | XMS | Encounter Summary ---
Demographics + + + | Address | [address] | | | [place] [address] | + + + | Home Phone | | + + + | Preferred Language | Unknown | + + + | Marital Status | Single | + + + | [employer] Affiliation | 1041 | + + + | Race | Unknown | + + + | Ethnic Group | Unknown | + + + Author + + + | Author | [facility] | | | and [place] | + + + | Organization | [facility] | | | and [place] [...] Team Providers + +------+ + | Care Bryologist Name | Role | Phone | + +------+ + PCP | Unavailable | + +------+ + Encounter Details +--------+ + + + + | Date | Type | Department | Care Team | Description | +--------+ + + + + | 08/16/ | Hospital | [facility] | | | | 2000 | Encounter | MED [facility] XRAY [address] | | | | | [address] | | | | | | [place] [address] | | | | | | [phone] | | | +--------+ + + + [...]
--- OUTSIDE RECORDS SUMMARY | ~2020-04-30 | XMS | Encounter Summary ---
Demographics + + + | Address | [address] | | | [place] [address] | + + + | Home Phone | | + + + | Preferred Language | Unknown | + + + | Marital Status | Single | + + + | Rastafarian Affiliation | [id number] | + + + | Race | Unknown | + + + | Ethnic Group | Unknown | + + + Author + + + | Author | [facility] | | | and [place] | + + + | Organization | [facility] | | | and [place] [...] Team Providers + +------+ + | Care Asp Net Developer Name | Role | Phone | + +------+ + PCP | Unavailable | + +------+ + Encounter Details +--------+ + + + + | Date | Type | Department | Care Team | Description | +--------+ + + + + | 01/12/ | Hospital | [facility] | Sanjay Ordaz, | | | 2010 | Encounter | [facility] | [address] [place] | | | | | CENTER [address] | [place] | | | | | [place] | [id number] | | | | | [id number] | | | | | | [phone] | | | +--------+ + + + [...] + + documented as of this encounter ED Notes Sanjay Ordaz MD - 01/12/2011 6:39 PM PDTDATE: 01/12/2011 IDENTIFICATION: This is a 70-year-old male. CHIEF COMPLAINT: This is a 70-year-old male with a chief complaint of weakness. HISTORY OF PRESENT ILLNESS: He denies any fevers or chills. Denies any abdominal pain or c hest pain. He does state, he has been having some dark stools. He had left [facility] in [place] one week ago today against medical advice. He had been hospitalized there for symptomatic anemia and non ST elevation GA secondary to acu te upper GI bleedin g from a gastric ulcer and was transfused blood. He also developed a staphylococcal bacteremia the re, and aranda d a PICC line placed for IV antibiotics. He has been out in the community for one week after he left [facility], and was finally brought ba to the nearest emergency department with the report of weakness. PAST MEDICAL HISTORY: Includes coronary artery disease with stents, he has had a three ves denny CABG, has a history of anemia, hypertension, has had a heart attack, and he is an insulin-depende nt diabeti c. SOCIAL HISTORY: He denies smoking. ALLERGIC 1. DOXEPIN. 2. DIAZEPAM. MEDICATIONS 1. Vitamin D. 2. Glipizide. 3. Zithromax. 4. Metformin. 5. Plavix. 6. Aspirin. 7. Vitamin D. 8. Actos. 9. Toprol. 10. Tylenol 3. 11. Robaxin. REVIEW OF SYSTEMS: A 10 system review of systems is negative except as detailed in the HPI above. PHYSICAL EXAMINATION VITAL SIGNS: His blood pressure is 120/45, heart rate 105, respirations 20, afebrile, 99% on room ai r. GENERAL: The patient appears pale, in no acute distress. HEENT: Pupils are equal and reactive to light and accommodation. Extraocular movements int act. Oral mucosa moist. NECK: Supple. Nontender. CARDIAC: Normal S1, S2. LUNGS: Clear to auscultation bilaterally. ABDOMEN: Soft, nontender, nondistended. Normal bowel sounds. RECTAL: He is guaiac-positive from below. No gross hematochezia. NEUROLOGIC: Cranial nerves 2-12 intact. Normal sensation, motor, and strength in all 4 ext remities. Alert and oriented x3. SKIN: Without rashes or lesions. TEST REVIEW: The patient had an hematocrit of 14.7, normal platelets, normal white blood c ell count. His comprehensive metabolic panel shows a glucose of 405, calcium 7.4, total protein 4.6, album in 2.3. Hi s sodium was 132, his potassium 3.1. His bicarb was normal at 24, and his troponin was 1.51. EKG shows a normal sinus rhythm with a rate of 87. He has flattened T-waves laterally. Othe rwise no S T- segment abnormalities. Chest x-ray shows no acute abnormalities. ASSESSMENT / PLAN 1. THIS IS A 70-YEAR-OLD WITH A DIAGNOSIS OF RECURRENT GASTROINTESTINAL BLEEDING. 2. HE DI D DEVELOP HYPOTENSION IN THE EMERGENCY DEPARTMENT WITH A BLOOD PRESSURE OF 77. He was typed and crossed for 2 units of red blood cells which were transfused with improvement in his h emodynamic parameters. 3. IN ADDITION, NON ST ELEVATION GA, LIKELY SECONDARY TO ACUTE BLOOD LOSS ANEMIA. The alfredo ent was transfused a total of 2 units of red blood cells as well as given 2 liters of venkata l saline, and given IV Protonix 80 mg. We contacted the trolley operator at [place], where he had been cared for before, and will transfer h im there via helicopter given his critical status. Approximately 45 minutes of critical care time was provided this patient. DICTATED BY: Sanjay Ordaz M.D. Emergency Medicine JOB #: [id number] EXT JOB #:[id number] <Electronicall y Signed by Sanjay Ordaz MD> 01/15/11 1408 documented in this encounter Plan of Treatment Not on filedocumented as of this encounter Procedures + +--------+ + + + | Procedure Name | Priori | Date/Time | Associated Diagnosis | Comments | | | ty | | | | + +--------+ + + + | PROTIME INR | Routin | 01/12/2011 | | Results for this | | | e | 9:43 PM | | procedure are in the | | | | PDT | | results section. | + +--------+ + + + | TYPE AND SCREEN | Routin | 01/12/2011 | | Results for this | | | e | 8:22 PM | | procedure are in the | | | | PDT | | results section. | + +--------+ + + + | CROSSMATCH (IN ML) | Routin | 01/12/2011 | | Results for this | | | e | 8:10 PM | | procedure are in the | | | | PDT | | results section. | + +--------+ + + + | CROSSMATCH (IN ML) | Routin | 01/12/2011 | | Results for this | | | e | 8:10 PM | | procedure are in the | | | | PDT | | results section. | + +--------+ + + + | CROSSMATCH (IN ML) | Routin | 01/12/2011 | | Results for this | | | e | 8:10 PM | | procedure are in the | | | | PDT | | results section. | + +--------+ + + + | CROSSMATCH (IN ML) | Routin | 01/12/2011 | | Results for this | | | e | 8:10 PM | | procedure are in the | | | | PDT | | results section. | + +--------+ + + + | TROPONIN I | Routin | 01/12/2011 | | Results for this | | | e | 7:57 PM | | procedure are in the | | | | PDT | | results section. | + +--------+ + + + | CBC WITH | Routin | 01/12/2011 | | Results for this | | DIFFERENTIAL | e | 7:57 PM | | procedure are in the | | | | PDT | | results section. | + +--------+ + + + | COMPREHENSIVE | Routin | 01/12/2011 | | Results for this | | METABOLIC PANEL | e | 7:57 PM | | procedure are in the | | | | PDT | | results section. | + +--------+ + + + | XR CHEST AP PORTABLE | | 01/12/2011 | | Results for this | | | | 6:39 PM | | procedure are in the | | | | PDT | | results section. | + +--------+ + + + documented in this encounter Results Protime INR (01/12/2011 9:43 PM PDT) + + + + + + | Component | Value | Ref Range | Performed | Pathologist | | | | | At | Signature | + + + + + + | Prothrombin | 15.0 (H) | 11.3 - 13.9 | [facility] | | | Time | | seconds | [facility] | | | | | | MEDICAL | | | | | | CENTER - | | | | | | LABORATORY | | + + + + + + | INR | 1.3Comment: INR: USUAL | | [facility] | | | | ORAL ANTICOAGULATION | | [facility] | | | | RANGE | | MEDICAL | | | | 2.0-3.0 | | CENTER - | | | | HIGH LEVEL ORAL | | LABORATORY | | | | ANTICOAGULATION RANGE | | | | | | 2.5-3.5 | | | | + + + + + + + + | Specimen | + + | | + + + + + + + | Performing | Address | City/State/Zipcode | Phone Number | | Organization | | | | + + + + + | [facility] | [address] | [place], [place] | [phone] | | [facility] | | [address] | | | - LABORATORY | | | | + + + + + | [facility] | [address] | [place], [place] | | | [facility] | | [address], [facility] | | | - LABORATORY | | | | + + + + + Type and Screen (01/12/2011 8:22 PM PDT) + + + + + + | Component | Value | Ref Range | Performed | Pathologist | | | | | At | Signature | + + + + + + | ABO | OP | | [facility] | | | | | | [facility] | | | | | | MEDICAL | | | | | | CENTER - | | | | | | LABORATORY | | + + + + + + | Antibody | NEGATIVE | | [facility] | | | Screen | | | [facility] | | | | | | MEDICAL | | | | | | CENTER - | | | | | | LABORATORY | | + + + + + + + + | Specimen | + + | | + + + + + + + | Performing | Address | City/State/Zipcode | Phone Number | | Organization | | | | + + + + + | [facility] | [address] | [place] | [phone] | | [facility] | | [address] | | | - LABORATORY | | | | + + + + + | [facility] | [address] | [place] | | | [facility] | | [address], [facility] | | | - LABORATORY | | | | + + + + + Product: PRBC (01/12/2011 8:10 PM PDT) + + + + + + | Component | Value | Ref Range | Performed | Pathologist | | | | | At | Signature | + + + + + + | Product | PACKED CELLS | | [facility] | | | Code | | | [facility] | | | | | | MEDICAL | | | | | | CENTER - | | | | | | LABORATORY | | + + + + + + | UNIT # | [id number] | | [facility] | | | | | | [facility] | | | | | | MEDICAL | | | | | | CENTER - | | | | | | LABORATORY | | + + + + + + | UNIT ABO | O | | [facility] | | | | | | [facility] | | | | | | MEDICAL | | | | | | CENTER - | | | | | | LABORATORY | | + + + + + + | UNIT RH | POS | | [facility] | | | | | | [facility] | | | | | | MEDICAL | | | | | | CENTER - | | | | | | LABORATORY | | + + + + + + | Unit Status | TRANSFUSED | | [facility] | | | | | | [facility] | | | | | | MEDICAL | | | | | | CENTER - | | | | | | LABORATORY | | + + + + + + + + | Specimen | + + | | + + + + + + + | Performing | Address | City/State/Zipcode | Phone Number | | Organization | | | | + + + + + | [facility] | [address] | [place] | [phone] | | [facility] | | [address] | | | - LABORATORY | | | | + + + + + | [facility] | | | | | [facility] | | | | | - LABORATORY | | | | + + + + + Product: PRBC (01/12/2011 8:10 PM PDT) + + + + + + | Component | Value | Ref Range | Performed | Pathologist | | | | | At | Signature | + + + + + + | Product | PACKED CELLS | | [facility] | | | Code | | | [facility] | | | | | | MEDICAL | | | | | | CENTER - | | | | | | LABORATORY | | + + + + + + | UNIT # | [id number] | | [facility] | | | | | | [facility] | | | | | | MEDICAL | | | | | | CENTER - | | | | | | LABORATORY | | + + + + + + | UNIT ABO | O | | [facility] | | | | | | [facility] | | | | | | MEDICAL | | | | | | CENTER - | | | | | | LABORATORY | | + + + + + + | UNIT RH | POS | | [facility] | | | | | | [facility] | | | | | | MEDICAL | | | | | | CENTER - | | | | | | LABORATORY | | + + + + + + | Unit Status | TRANSFUSED | | [facility] | | | | | | [facility] | | | | | | MEDICAL | | | | | | CENTER - | | | | | | LABORATORY | | + + + + + + + + | Specimen | + + | | + + + + + + + | Performing | Address | City/State/Zipcode | Phone Number | | Organization | | | | + + + + + | [facility] | [address] | [place] | [phone] | | [facility] | | [address] | | | - LABORATORY | | | | + + + + + | [facility] | | | | | [facility] | | | | | - LABORATORY | | | | + + + + + Product: PRBC (01/12/2011 8:10 PM PDT) + + + + + + | Component | Value | Ref Range | Performed | Pathologist | | | | | At | Signature | + + + + + + | Product | PACKED CELLS | | [facility] | | | Code | | | [facility] | | | | | | MEDICAL | | | | | | CENTER - | | | | | | LABORATORY | | + + + + + + | UNIT # | [id number] | | [facility] | | | | | | [facility] | | | | | | MEDICAL | | | | | | CENTER - | | | | | | LABORATORY | | + + + + + + | UNIT ABO | O | | [facility] | | | | | | [facility] | | | | | | MEDICAL | | | | | | CENTER - | | | | | | LABORATORY | | + + + + + + | UNIT RH | POS | | [facility] | | | | | | [facility] | | | | | | MEDICAL | | | | | | CENTER - | | | | | | LABORATORY | | + + + + + + | Unit Status | TRANSFUSED | | [facility] | | | | | | [facility] | | | | | | MEDICAL | | | | | | CENTER - | | | | | | LABORATORY | | + + + + + + + + | Specimen | + + | | + + + + + + + | Performing | Address | City/State/Zipcode | Phone Number | | Organization | | | | + + + + + | [facility] | [address] | [place] | [phone] | | [facility] | | [address] | | | - LABORATORY | | | | + + + + + | [facility] | | | | | [facility] | | | | | - LABORATORY | | | | + + + + + Product: PRBC (01/12/2011 8:10 PM PDT) + + + + + + | Component | Value | Ref Range | Performed | Pathologist | | | | | At | Signature | + + + + + + | Product | PACKED CELLS | | [facility] | | | Code | | | [facility] | | | | | | MEDICAL | | | | | | CENTER - | | | | | | LABORATORY | | + + + + + + | UNIT # | [id number] | | [facility] | | | | | | [facility] | | | | | | MEDICAL | | | | | | CENTER - | | | | | | LABORATORY | | + + + + + + | UNIT ABO | O | | [facility] | | | | | | [facility] | | | | | | MEDICAL | | | | | | CENTER - | | | | | | LABORATORY | | + + + + + + | UNIT RH | POS | | [facility] | | | | | | [facility] | | | | | | MEDICAL | | | | | | CENTER - | | | | | | LABORATORY | | + + + + + + | Unit Status | TRANSFUSED | | [facility] | | | | | | [facility] | | | | | | MEDICAL | | | | | | CENTER - | | | | | | LABORATORY | | + + + + + + + + | Specimen | + + | | + + + + + + + | Performing | Address | City/State/Zipcode | Phone Number | | Organization | | | | + + + + + | [facility] | [address] | [place] | [phone] | | [facility] | | [address] | | | - LABORATORY | | | | + + + + + | [facility] | | | | | [facility] | | | | | - LABORATORY | | | | + + + + + Comprehensive Metabolic Panel (01/12/2011 7:57 PM PDT) + + + + + + | Component | Value | Ref Range | Performed | Pathologist | | | | | At | Signature | + + + + + + | Glucose | 405 (H) | 70 - 109 mg/dL | [facility] | | | | | | [facility] | | | | | | MEDICAL | | | | | | CENTER - | | | | | | LABORATORY | | + + + + + + | Calcium | 7.4 (L) | 8.3 - 10.5 | [facility] | | | | | mg/dL | [facility] | | | | | | MEDICAL | | | | | | CENTER - | | | | | | LABORATORY | | + + + + + + | Alkaline | 55 | 40 - 110 IU/L | [facility] | | | Phosphatase | | | [facility] | | | | | | MEDICAL | | | | | | CENTER - | | | | | | LABORATORY | | + + + + + + | AST | 22 | 10 - 42 IU/L | [facility] | | | | | | [facility] | | | | | | MEDICAL | | | | | | CENTER - | | | | | | LABORATORY | | + + + + + + | ALT | 14 | 6 - 45 IU/L | [facility] | | | | | | [facility] | | | | | | MEDICAL | | | | | | CENTER - | | | | | | LABORATORY | | + + + + + + | Bilirubin | 0.7 | 0.2 - 1.0 mg/dL | [facility] | | | Total | | | [facility] | | | | | | MEDICAL | | | | | | CENTER - | | | | | | LABORATORY | | + + + + + + | Total | 4.6 (L) | 6.0 - 7.8 gm/dL | [facility] | | | Protein | | | [facility] | | | | | | MEDICAL | | | | | | CENTER - | | | | | | LABORATORY | | + + + + + + | Albumin | 2.3 (L) | 3.2 - 5.0 gm/dL | [facility] | | | | | | [facility] | | | | | | MEDICAL | | | | | | CENTER - | | | | | | LABORATORY | | + + + + + + | BUN | 11 | 7 - 18 mg/dL | [facility] | | | | | | [facility] | | | | | | MEDICAL | | | | | | CENTER - | | | | | | LABORATORY | | + + + + + + | Creatinine | 0.98 | 0.60 - 1.30 | [facility] | | | | | mg/dL | [facility] | | | | | | MEDICAL | | | | | | CENTER - | | | | | | LABORATORY | | + + + + + + | Estimated | >60Comment: For | >60 mL/min/A | [facility] | | | GFR | -Americans, | | [facility] | | | | please multiply the | | MEDICAL | | | | result by 1.210 | | CENTER - | | | | This is an estimated | | LABORATORY | | | | GFR and is based on | | | | | | a standard body | | | | | | mass and serum | | | | | | creatinine | | | | + + + + + + | BUN/Creatin | 11.2 (L) | 12 - 20 | [facility] | | | ine Ratio | | | [facility] | | | | | | MEDICAL | | | | | | CENTER - | | | | | | LABORATORY | | + + + + + + | Na | 132 (L) | 136 - 149 mEq/L | [facility] | | | | | | [facility] | | | | | | MEDICAL | | | | | | CENTER - | | | | | | LABORATORY | | + + + + + + | K | 3.1 (L) | 3.5 - 5.1 mEq/l | [facility] | | | | | | [facility] | | | | | | MEDICAL | | | | | | CENTER - | | | | | | LABORATORY | | + + + + + + | Cl | 100 | 98 - 109 mEq/l | [facility] | | | | | | [facility] | | | | | | MEDICAL | | | | | | CENTER - | | | | | | LABORATORY | | + + + + + + | CO2 | 24 | 24 - 31 mEq/L | [facility] | | | | | | [facility] | | | | | | MEDICAL | | | | | | CENTER - | | | | | | LABORATORY | | + + + + + + | Anion Gap | 11.1 | 6.0 - 17.0 | [facility] | | | | | | [facility] | | | | | | MEDICAL | | | | | | CENTER - | | | | | | LABORATORY | | + + + + + + + + | Specimen | + + | | + + + + + + + | Performing | Address | City/State/Zipcode | Phone Number | | Organization | | | | + + + + + | [facility] | [address] | [place] | [phone] | | [facility] | | [address] | | | - LABORATORY | | | | + + + + + | [facility] | [address] | [place], [place] | | | [facility] | | [id number] | | | - LABORATORY | | | | + + + + + Troponin I (01/12/2011 7:57 PM PDT) + + + + + + | Component | Value | Ref Range | Performed | Pathologist | | | | | At | Signature | + + + + + + | Troponin I | 1.51 ()Comment: | <0.10 ng/mL | [facility] | | | | | | [facility] | | | | ALERT VALUE | | MEDICAL | | | | DO NOT DISCARD WRITTEN | | CENTER - | | | | DOCUMENTATION. PLACE IN | | LABORATORY | | | | NURSING NOTES Nursing | | | | | | documentation will NOT | | | | | | be included on Summary | | | | | | Report @TELEPHONE | | | | | | NOTIFICATION? TOREY/ER | | | | | | 01/12/11 @2018 by WILDER | | | | | | Clinical Provider | | | | | | notification at Nurses | | | | | | discretion Report | | | | | | by Nursing Staff to | | | | | | Clinical Provider who | | | | | | will act/intervene on | | | | | | this value: Nurse | | | | | | Calling Result: | | | | | | | | | | | | Date/Time: | | | | | | Provider or licensee | | | | | | called: | | | | | | | | | | | | Time Provider | | | | | | called/paged: | | | | | | Time spoke to | | | | | | Provider: | | | | | | Reference Ranges: | | | | | | 0.00-0.09 = | | | | | | NORMAL | | | | | | 0.10-0.50 = | | | | | | INDETERMINATE-SUSPICIOUS | | | | | | FOR | | | | | | | | | | | | NON-INFARCT | | | | | | MYOCARDIAL INJURY | | | | | | >0.50 = | | | | | | CONSISTENT WITH | | | | | | MYOCARDIAL INFARCT | | | | | | Results in the | | | | | | Indeterminate range can | | | | | | reflect a pre-infarct | | | | | | acute coronary | | | | | | syndrome, but can also | | | | | | reflect myocardial | | | | | | necrosis or injury | | | | | | that is not due to | | | | | | coronary artery | | | | | | disease. Some of these | | | | | | causes are sepsis, | | | | | | hypocolemia, atrial | | | | | | fibrillation, heart | | | | | | failure, pulmonary | | | | | | embolism, myocarditis, | | | | | | myocardial contusion, | | | | | | and renal failure. | | | | | | Testing performed on | | | | | | the [employer] | | | | | | Access Analyzer. | | | | + + + + + + + + | Specimen | + + | | + + + + + + + | Performing | Address | City/State/Zipcode | Phone Number | | Organization | | | | + + + + + | [facility] | [address] | [place] | [phone] | | [facility] | | [address] | | | - LABORATORY | | | | + + + + + | [facility] | [address] | [place] | | | [facility] | | [address], [facility] | | | - LABORATORY | | | | + + + + + CBC with Differential (01/12/2011 7:57 PM PDT) + + + + + + | Component | Value | Ref Range | Performed | Pathologist | | | | | At | Signature | + + + + + + | White Blood | 8.8 | 4.0 - 11.0 K/uL | [facility] | | | Cells | | | [facility] | | | | | | MEDICAL | | | | | | CENTER - | | | | | | LABORATORY | | + + + + + + | Red Blood | 1.57 (L) | 4.30 - 5.70 | [facility] | | | Cells | | M/uL | [facility] | | | | | | MEDICAL | | | | | | CENTER - | | | | | | LABORATORY | | + + + + + + | Hemoglobin | 4.4 (LL)Comment: Time | 13.5 - 18.0 | [facility] | | | | for CRITICAL 10 results | gm/dL | [facility] | | | | to Clinical Provider is | | MEDICAL | | | | 30 min. DO NOT | | CENTER - | | | | DISCARD THIS REPORT * | | LABORATORY | | | | PLACE IN NURSING NOTES | | | | | | Nursing | | | | | | documentation will NOT | | | | | | be included on Summary | | | | | | Report RESULT | | | | | | CALLED TO BRIJESH 01/12/11 | | | | | | @2005 by HORACIO @ * | | | | | | READ BACK MUST BE | | | | | | OBTAINED * READ BACK | | | | | | PERFORMED? YES | | | | | | Nurses' patient: Y N | | | | | | if NO -handoff | | | | | | to: Date/time: | | | | | | Report by Nursing | | | | | | Staff to Clinical | | | | | | Provider who will | | | | | | act/intervene on this | | | | | | value: Nurse Calling | | | | | | Result: | | | | | | Date/Time: | | | | | | Provider or licensee | | | | | | called: | | | | | | | | | | | | Time Provider | | | | | | called/paged: | | | | | | Time spoke to | | | | | | Provider: | | | | | | Read Back performed: Y | | | | | | N Provider NOT | | | | | | called - Reason: | | | | | | | | | | | | | | | | | | | | | | | | | | | | | | | | | | | | . | | | | + + + + + + | Hematocrit | 14.7 (LL) | 40.0 - 51.0 % | [facility] | | | | | | [facility] | | | | | | MEDICAL | | | | | | CENTER - | | | | | | LABORATORY | | + + + + + + | MCV | 93.7 | 83.0 - 101.0 fL | [facility] | | | | | | [facility] | | | | | | MEDICAL | | | | | | CENTER - | | | | | | LABORATORY | | + + + + + + | MCH | 27.8 (L) | 28.0 - 35.0 pg | [facility] | | | | | | [facility] | | | | | | MEDICAL | | | | | | CENTER - | | | | | | LABORATORY | | + + + + + + | MCHC | 29.6 (L) | 32.0 - 36.0 | [facility] | | | | | g/dL | [facility] | | | | | | MEDICAL | | | | | | CENTER - | | | | | | LABORATORY | | + + + + + + | RDW-CV | 19.0 (H) | <15.0 % | [facility] | | | | | | [facility] | | | | | | MEDICAL | | | | | | CENTER - | | | | | | LABORATORY | | + + + + + + | Platelet | 274 | 140 - 440 K/uL | [facility] | | | Count | | | [facility] | | | | | | MEDICAL | | | | | | CENTER - | | | | | | LABORATORY | | + + + + + + | % | 82.3 (H) | 45 - 75 % | [facility] | | | Neutrophils | | | [facility] | | | | | | MEDICAL | | | | | | CENTER - | | | | | | LABORATORY | | + + + + + + | % | 11.7 (L) | 20 - 45 % | [facility] | | | Lymphocytes | | | [facility] | | | | | | MEDICAL | | | | | | CENTER - | | | | | | LABORATORY | | + + + + + + | % Monocytes | 5.7 | 4 - 12 % | [facility] | | | | | | [facility] | | | | | | [facility]ICAL | | | | | | CENTER - | | | | | | LABORATORY | | + + + + + + | % | 0.3 | 0 - 5 % | [facility] | | | Eosinophils | | | [facility] | | | | | | MEDICAL | | | | | | CENTER - | | | | | | LABORATORY | | + + + + + + | % Basophils | 0.0 | 0 - 1 % | [facility] | | | | | | [facility] | | | | | | MEDICAL | | | | | | CENTER - | | | | | | LABORATORY | | + + + + + + | Absolute | 7.2 (H) | 1.5 - 6.6 K/uL | [facility] | | | Neutrophils | | | [facility] | | | | | | MEDICAL | | | | | | CENTER - | | | | | | LABORATORY | | + + + + + + | Absolute | 1.0 | 0.6 - 3.2 K/uL | [facility] | | | Lymphocytes | | | [facility] | | | | | | MEDICAL | | | | | | CENTER - | | | | | | LABORATORY | | + + + + + + | Absolute | 0.5 | 0.0 - 1.0 K/uL | [facility] | | | Monocytes | | | [facility] | | | | | | MEDICAL | | | | | | CENTER - | | | | | | LABORATORY | | + + + + + + | Absolute | 0.0 | 0.0 - 0.4 K/uL | [facility] | | | Eosinophils | | | [facility] | | | | | | MEDICAL | | | | | | CENTER - | | | | | | LABORATORY | | + + + + + + | Absolute | 0.0 | 0.0 - 0.1 K/uL | [facility] | | | Basophils | | | [facility] | | | | | | MEDICAL | | | | | | CENTER - | | | | | | LABORATORY | | + + + + + + + + | Specimen | + + | | + + + + + + + | Performing | Address | City/State/Zipcode | Phone Number | | Organization | | | | + + + + + | [facility] | [address] | [place], [place] | [phone] | | [facility] | | [id number] | | | - LABORATORY | | | | + + + + + | [facility] | [address] | [place], [place] | | | [facility] | | [id number], [facility] | | | - LABORATORY | | | | + + + + + XR Chest AP Portable (01/12/2011 6:39 PM PDT) + + | Specimen | + + | | + + + + + | Narrative | Performed At | + + + | [facility] | [facility] | | [address] [facility] | [facility] | | PORTABLE SINGLE VIEW AP CHEST, | DIAG IMG | | 2000 HOURS, 01/12/2011 CLINICAL HISTORY: ASSESS PICC LINE. | | | FINDINGS: No prior comparisons are available. PICC line is in | | | place from a right arm approach with the catheter tip at about the | | | cavoatrial junction. 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 Lung volumes are relatively low. There is subsegmental | | | atelectasis at the left base. Heart size is at the upper limits of | | | normal. There is no heart failure. There is no pulmonary | | | infiltrate. IMPRESSION: 1. PICC LINE NEAR CAVOATRIAL | | | JUNCTION. 2. LOW LUNG VOLUMES WITH LEFT BASE ATELECTASIS. | | | Dictated Date/Time: 01/13/2011 10:06 Transcribed Date/Time: | | | 01/13/2011 11:18 Police Officer Crime Prevention: <Electronically Signed | | | by Rodrigo Ibarra MD> 01/13/11 1712 | | + + + + + | Procedure Note | + + | Jason Delarosa Conversion - 11/09/2013 2:41 PM [facility] | | Diagnostic Imaging Department [address] [facility] | | PORTABLE SINGLE VIEW AP CHEST, 2000 HOURS, 01/12/2011 | | CLINICAL HISTORY: ASSESS PICC LINE. FINDINGS: No prior comparisons are available. | | PICC line is in place from a right arm approach with the catheter tip at about the | | cavoatrial junction. Patient is status post median sternotomy and CABG. Lung volumes | | are relatively low. There is subsegmental atelectasis at the left base. Heart size is | | at the upper limits of normal. There is no heart failure. There is no pulmonary | | infiltrate. IMPRESSION: 1. PICC LINE NEAR CAVOATRIAL JUNCTION. 2. LOW LUNG VOLUMES | | WITH LEFT BASE ATELECTASIS. Dictated Date/Time: 01/13/2011 10:06 Transcribed | | Date/Time: 01/13/2011 11:18 Police Officer Crime Prevention: <Electronically Signed by Rodrigo Kraft | | MD Fred> 01/13/111711 | | | |CABG. Lung volumes are relatively low. There is subsegmental atelectasis at the left base . Heart | |size is at the upper limits of normal. There is no heart failure. There is no pulmonary i nfiltrate. | | | | | |IMPRESSION: | |1. PICC LINE NEAR CAVOATRIAL JUNCTION. | | | |2. LOW LUNG VOLUMES WITH LEFT BASE ATELECTASIS. | | | |Dictated Date/Time: 01/13/2011 10:06 | |Transcribed Date/Time: 01/13/2011 11:18 | |Police Officer Crime Prevention: | |<Electronically Signed by Rodrigo Ibarra MD> 01/13/111711 | + + + +---------+ + + | Performing | Address | City/State/Zipcode | Phone Number | | Organization | | | | + +---------+ + + | [facility] | | | | | [facility] | | | | + +---------+ + + documented in this encounter Visit Diagnoses Not on filedocumented in this encounter"
--- OUTSIDE RECORDS SUMMARY | ~2020-04-30 | XMS | Clinical Summary ---
Demographics + + + | Address | [address] | | | [place] [address] | + + + | Home Phone | | + + + | Preferred Language | Unknown | + + + | Marital Status | Single | + + + | Scientologist Affiliation | Unknown | + + + [...] Team Providers + +------+ + | Care Laundry Assistant Name | Role | Phone | + +------+ + PCP | Unavailable | + +------+ + Source Comments EL is fully live on both [facility] and [facility] In[facility] Allergies Not on File Medications Not on [...] | | | | all | | [id number] | | | | | | dates | | | | + +--------+ +--------+ + +--------+ | [facility] | [place] | [phone] | Effect | | | [...] | 1941 | [id number] | [place] [address] | | | luis | | | 2 (Home) | | + +--------+ +--------+ + + | Huey Franco | Agency | Self | [birth year] | | [address] | | | | | 1941 | [phone] | [place] [address] | | | | | | 2 ([place]) | | + +--------+ +--------+ + +"
--- OUTSIDE RECORDS SUMMARY | ~2020-04-30 | XMS | Encounter Summary ---
Demographics + + + | Address | [address] | | | [place] [address] | + + + | Home Phone | | + + + | Preferred Language | Unknown | + + + | Marital Status | Single | + + + | Holiness Affiliation | Unknown | + + + | Race | or | + + + | Ethnic Group | Not or | + + + Author + + + | Author | [facility] | + + + | Organization | [facility] | + + + | Address | Unknown | + + + | Phone | Unavailable | + + + Support + + +---------+ + | Name | Relationship | Address | Phone | + + +---------+ + | Mihaela Whitehead | ECON | Unknown | | + + +---------+ + Care Team Providers + +------+ + | Care Fur Glazer Name | Role | Phone | + [...] [id number] | | | | | | [place], [place] | | | | | | [address] | | | | | | [phone] | | | +--------+ + + + [...]
--- OUTSIDE RECORDS SUMMARY | ~2020-04-30 | XMS | Encounter Summary ---
Demographics + + + | Address | [address] | | | [place] [address] | + + + | Home Phone | | + + + | Preferred Language | Unknown | + + + | Marital Status | Single | + + + | Voodoo Affiliation | 1041 | + + + | Race | Unknown | + + + | Ethnic Group | Unknown | + + + Author + + + | Author | [facility] | | | and [place] | + + + | Organization | [facility] | | | and [place] | [...] Team Providers + +------+ + | Care Pipe Processor Name | Role | Phone | + +------+ + PCP | Unavailable | + +------+ + Encounter Details +--------+ + + + + | Date | Type | Department | Care Team | Description | +--------+ + + + + | 10/08/ | Hospital | [facility] | | | | 1998 - | Encounter | MED CTR GENERIC IP | | | | | | CONV DEPT [address] | | | | 10/09/ | | [place], | | | | 1998 | | [place] [phone] | | | | | | [phone] | | | +--------+ + + + [...]
--- OUTSIDE RECORDS SUMMARY | ~2020-04-30 | XMS | Encounter Summary ---
Demographics + + + | Address | [address] | | | [place] [address] | + + + | Home Phone [...] Author | [facility] | | | and [place] | + + + | Organization | [facility] | | | and [place] [...] Team Providers + +------+ + | Care Geophysical Support Specialist Name | Role | Phone | + +------+ + PCP | Unavailable | + +------+ + Encounter Details +--------+ + + + + | Date | Type | Department | Care Team | Description | +--------+ + + + + | 09/10/ | Hospital | [facility] | Hannah Simeon, | Carotid Art Occ w/o | | 2008 - | Encounter | MEDICAL CENTER | [address] | [facility] | | | | INTENSIVE CARE UNIT | [address] | | | 09/11/ | | [address] | [place] [address] | | | 2008 | | [place], [place] | [phone] | | | | | [address] | | | | | | [phone] | | | +--------+ + + + [...] Performed At | + + + | [id number] | | | Page 1 ECHO [facility] NAME: | | | [place] [address] MEDICAL RECORD #: | | | [id number] | | | DATE OF : 1940 ORDER | | | NUMBER: [id number] EXAM DATE/TIME: 09/08/2009 14:52 PERFORMING | | [...] TV A Luciano: 0.25 m/s TV Dec Spencer: 2.49 m/s2 TV Dec | | | Time: 190.51 ms TV E Luciano: 0.47 m/s TV E/A Ratio: 1.86 | | | Ui Programmer: CM Authenticated by: Ronak Lal MD Report | | | Date/Time: 09-09-2009 09:15:03 | | + + + + + | Procedure Note | + + | Jason Delarosa Conversion - 05/28/2019 3:23 AM PDT [id number] | | Page [address] [place] [address] NAME: JOSIAH GRAY ID | | [id number] : ACCOUNT #: | | [id number]: DATE OF : 1940ORDER NUMBER: | | [id number] DATE/TIME: 09/08/2009 14:52PERFORMING PHYSICIAN: Ronak Lal | | MDORDER DETAIL: 2069 DESCRIPTION: ECHO CARDIAC ADULT WITH DOPPLER COLOR [...] (A-L): 35.49 | | ml/m2LAAs A2C: 17.95 [id number] A-L A2C: 52.69 mlLALs A2C: 5.19 cmLAAs A4C: 23.47 | | px7ZZFSI A-L A4C: 71.90 mlLALs A4C: 6.50 cmHR: 66.24 BPMAV maxP.77 mmHgAV | | meanP.07 mmHgAV Vmax: 1.30 m/Jonh Vmean: 0.81 m/Jonh VTI: 25.60 cmAVA Vmax: | | 1.83 cm2AVA (VTI): 1.66 no4HAVD Dopp: 1.46 l/rxew8UZST Dopp: 2.85 l/minHR: 66.79 | | BPMLVOT maxP.35 mmHgLVOT meanP.13 mmHgLVSI Dopp: 22.00 ml/m2LVSV Dopp: | | 42.68 mlLVOT Vmax: 0.76 m/sLVOT Vmean: 0.49 m/sLVOT VTI: 13.71 cmMV A Luciano: 1.00 | | m/sMV DecT: 220.10 msMV E Luciano: 0.95 m/sMV E/A Ratio: 0.95MV maxP.97 mmHgMV | | meanP.29 mmHgMV Vmax: 0.99 m/sMV Vmean: 0.49 m/sMV VTI: 27.94 cmMVA (VTI): | | 1.52 et8Gtlodl e': 0.04 m/sSeptal E/e': 19.51Lateral e': 0.10 m/sLateral E/e': | | 9.46P Vein A: 0.21 m/sP Vein A Dur: 99.81 msP Vein D: 0.48 m/sP Vein S/D Ratio: | | 1.27P Vein S: 0.61 m/sTR maxP.10 mmHgTR Vmax: 2.50 m/sTV A Luciano: 0.25 m/sTV | | Dec Spencer: 2.49 m/s2TV Dec Time: 190.51 msTV E Luciano: 0.47 m/sTV E/A Ratio: 1.86 | | Ui Programmer: CMAuthenticated by: Ronak HUANGort Date/Time: 09-09-2009 | [...] A Luciano: 0.25 m/s | |TV Dec Spencer: 2.49 m/s2 | |TV Dec Time: 190.51 ms | |TV E Luciano: 0.47 m/s | |TV E/A Ratio: 1.86 | | | |Ui Programmer: CM | |Authenticated by: Ronak Lal MD | |Report Date/Time: 09-09-2009 09:15:03 | + + XR Chest 2 Vws (09/05/2009 2:52 PM PST) + + | Specimen | + + | | + + + + + | Narrative | Performed At | + + + | [id number] | | | Page 1 RADIOLOGY | | | / | | | [facility] | | | NAME: [place] [address] | | | | | | | | | DATE OF : 1940 ORDER NUMBER: [id number] EXAM | | | DATE/TIME: 09/05/2009 02:40 P ORDERING PHYSICIAN: HANNAH SIMEON | | | ORDER DETAIL: 7000 / / HDI EXAM DESCRIPTION: XR CHEST [...] 03:04 P | | | P P [facility]//[id number]/ cc: HANNAH SIMEON, | | | MD ISH FERNANDO MD | | + + + + + | Procedure Note | + + | Jason Delarosa - 05/28/2019 3:23 AM PDT | | [id number] Page 1 | | RADIOLOGY / | | [facility] | | [facility] NAME: MADY GRAY Jessica | | [place] [address] | | | | DATE OF : 1940 | | | | ORDER NUMBER: [id number] | | EXAM DATE/TIME: 09/05/2009 02:40 P [...] | P | | P | | [facility]//[id number]/ | | cc: HANNAH SIMEON MD | | PREMA SEYMOUR MD | | ISH PATEL MD | + + documented in this encounter Visit Diagnoses + + | Diagnosis | + + | Occlusion and stenosis of carotid artery without mention of cerebral infarction | + + documented in this encounter"
--- OUTSIDE RECORDS SUMMARY | ~2020-04-30 | XMS | Encounter Summary ---
Demographics + + + | Address | [address] | | | [place] [address] | + + + | Home Phone | | + + + | Preferred Language | Unknown | + + + | Marital Status | Single | + + + | Sabianist Affiliation | 1041 | + + + | Race | Unknown | + + + | Ethnic Group | Unknown | + + + Author + + + | Author | [facility] | | | and [place] | + + + | Organization | [facility] | | | and [...] Team Providers + +------+ + | Care Iron Handler Name | Role | Phone | + [...] | Encounter | CON[address] | [facility] | | | | [address] | [address] | | | 11/15/ | | [place], [place] | [place] [address] | | | 2009 | | [address] | [phone] | | | | | [phone] | | | +--------+ + + + [...] Performed At | + + + | [facility] | | | [facility] [address] | | | , | | | [id number]/RADIOLOGY Patient Name: HUEY GRAY Date of : | | | 1940 Medical Record: [id number] Account: [id number] | | | [facility]// Exam Date/Time: 11/04/2009 [...] | | | 11/04/2009 04:03 P A AMADA/kris/[id number]/ cc: | | | MD BRONWYN RICE MD | | + + + + + | Procedure Note | + + | Jason Delarosa - 05/27/2019 4:36 PM PDT | | [facility] | | [facility] [address] | | , | | | | [id number]/RADIOLOGY | | | | Patient Name: HUEY GRAY | | Date of : 1940 | | Medical Record: [id number] | | Account: [id number] | | [facility]// | | | | [...] | P | | A | | [facility]/[id number]/ | | cc: HANNAH SIMEON MD | | BRONWYN GERMAN MD | + + documented in this encounter Visit Diagnoses + + | Diagnosis | + + | Occlusion and stenosis of carotid artery without mention of cerebral infarction | + + documented in this encounter"
--- OUTSIDE RECORDS SUMMARY | ~2020-04-30 | XMS | Encounter Summary ---
Demographics + + + | Address | [address] | | | [place] [address] | + + + | Home Phone | | + + + | Preferred Language | Unknown | + + + | Marital Status | Single | + + + | Hindu Affiliation | Unknown | + + + [...] Team Providers + +------+ + | Care Physician/Ophthalmologist Name | Role | Phone | + +------+ + PCP | Unavailable | + +------+ + Encounter Details +--------+ + + + + | Date | Type | Department | Care Team | Description | +--------+ + + + + | 07/15/ | [facility] | | Letter, Clinic | Letters | | 2005 | scribed | | | | +--------+ + + [...] as of this encounter Progress Notes Interface, Steam Fitter Helper In - 07/17/2005 5:05 AM PDT [id number] 07/15/2005 07/15/2005 [id number] ISAAC EARL [facility] [address] [place] [address] or July 16, 2005 Kevin Harris M.D. [facility] [address] [place] [address] RE: HUEY GRAY MR #: [id number] Dear Dr. Harris: Thank you very much for referring Huey Gray to the [facility] here at [facility] for consultation regarding his chief complaint of ongoing back pain. He does have multiple other pain issues; 40% to 75% of the pain is in his back. As part of his consultation visit, I reviewed his extensive medical records, reviewed the Pain Center questionnaire with him, performed a complete history and physical examination, and discussed our impressions and conditions in detail with Mr. Gray. I saw him with one of our fellows, Dr. Epsosito, who will be dictating complete consultation note under separate cover. I am writing to briefly summarize the initial findings, impressions, and recommendations. As you recall, Mr. Gray is a pleasant 64-year-old man for longstanding history of low back pain. He is status post two spinal surgeries. He has persistent back pain with occasional radiation to the lower extremities which he rates as averaging between 3/10 and 8/10. He august that the medications he is taking now are somewhat helpful for him and feels that better pain control will allow him to be more functional. He does not notice numerous impacts of the pain in his day-to-day functioning. He feels that when he takes lower doses of oral opioids his function decreases and his pain increases. Complicating the picture is significant history of coronary artery disease status post stenting and currently on Plavix. He is an active smoker and has history of liver disease. He also has a history of recent herpes zoster with mild postherpetic neuralgia symptoms in the right upper extremity. For additional details, please refer to Dr. Esposito's dictation as well as the Pain Center documentation. Highlights of the physical examination is that Mr. Gray is a pleasant gentleman. He is fully cooperative with history and physical examination. He has significantly restricted range of motion of the lumbar spine, and extension maneuvers significantly provoke his low back pain. He also has significant myofacial findings with muscular tenderness in the paraspinal muscles, gluteal muscles, and specifically the piriformis area. He has mild sensory abnormalities in the area of his herpes zoster which appears to be approximately a C6 dermatome. My impression is that Mr. Gray has multiple pain-related issues. These include the following 1. Status post spine surgery x2 with persistent back and lower extremity pain. 2. Mechanical and myofascial pain with possible facet involvement as well as piriformis involvement. 3. Type 2 diabetes. 4. Coronary artery disease with active anticoagulation with Plavix. 5. Possible peripheral neuropathy. On examination today, we noted that he had decreased appreciation of multiple modes of sensory. Findings in his feet appear this could represent early diabetic peripheral polyneuropathy. However, this is somewhat asymmetric with more sensory loss on the right leg than the left leg. This is not specifically consistent with diabetic neuropathy. 6. Very mild postherpetic neuralgia. 7. Left severe muscular and mechanical neck pain with possible arthritic component. In terms of recommendations, I would suggest the following 1. Unfortunately, given his current Plavix, he is not a candidate for nerve block procedures. When it is appropriate for him to be off his Plavix for approximately a week, it might be reasonable to consider doing a diagnostic medial branch block to see if the facet joints are significant to contribute to his low back pain. If they are, then he may be a candidate for more pertinent procedure such as facet denervation. 2. In terms of medications, I would suggest the following. 2.1. Consider discontinuing his short-acting oral opioids and continuing with a long-acting opioid such as low-dose methadone or the lowest dose of long-acting morphine to start. Either of these could be titrated to effect. This would result in time-contingent rather pain-contingent dosing, would have multiple advantages to him in terms of providing pain relief and making the number of pills he gets per month a very much stepping stone. This medication could be continued if it resulted in improvement in pain and function. Certainly, if this passes sooner, we suggest using an opioid contract and then materials risk of pain management and compliance with the [place] statutes. 2.2. Consider trial of Effexor XR beginning at 37.5 mg a day and titrating up to 75 or 150 mg. This medication could be quite efficacious in treating neuropathic and musculoskeletal pain. 3. I believe cervical therapy is worth a try again for Mr. Gray. If extensive musculoskeletal pain, which often is benefited by appropriate physical therapy, which results in home exercise program and decrease the results in an equipment overall exercise tolerance and levels. At the end of visit, Mr. Gray seems satisfied with our recommendations to him. I would be happy to see him back here if it is possible for us to consider proceeding with the medial branch block. Similarly, if there are questions or concerns about how he is progressing with any of your suggestions, I would be more than happy to see him back for a checkup visit. If any questions or concerns, please do not hesitate to give me a call through the paging furnace charging machine operator in the meantime. The best way to reach me is at [phone]. Sincerely, Geoff Henry M.D. [facility] / [id number] / [id number] / [id number] / documented i n this encounter Plan of Treatment Not on filedocumented as of this encounter Visit Diagnoses Not on filedocumented in this encounter"
--- OUTSIDE RECORDS SUMMARY | ~2020-04-30 | XMS | Encounter Summary ---
Demographics + + + | Address | [address] | | | [place] [address] | + + + | Home Phone | | + + + | Preferred Language | Unknown | + + + | Marital Status | Single | + + + | Mandaeism Affiliation | 1041 | + + + | Race | Unknown | + + + | Ethnic Group | Unknown | + + + Author + + + | Author | [facility] | | | and [place] | + + + | Organization | [facility] | | | and [...] Team Providers + +------+ + | Care Pill Maker Name | Role | Phone | + [...] [place] | | | | | | [address] | | | | | | [phone] | | | +--------+ + + + [...]
--- OUTSIDE RECORDS SUMMARY | ~2020-04-30 | XMS | Encounter Summary ---
Demographics + + + | Address | [address] | | | [place] [address] | + + + | Home Phone | | + + + | Preferred Language | Unknown | + + + | Marital Status | Single | + + + | Episcopalian Affiliation | 1041 | + + + | Race | Unknown | + + + | Ethnic Group | Unknown | + + + Author + + + | Author | [facility] | | | and [place] | + + + | Organization | [facility] | | | and [...] Team Providers + +------+ + | Care Associate Data Scientist Name | Role | Phone | + +------+ + | Lydia Pop MD | PCP | | + +------+ + Reason for Visit + +--------+ + | Reason | Onset | Comments | | | Date | | + +--------+ + | Results, Pathology | 08/15/ | | | | 2014 | | + +--------+ + Encounter Details +--------+ + + + + | Date | Type | Department | Care Team | Description | +--------+ + + + + | 08/15/ | Telephone | [facility] | Kwasi Cates MD | Results, Pathology | | 2015 | | GASTROENTEROLOGY | [address], [place] | | | | | [address] [place] | [address] [place], [place] | | | | | [address] [place], [place] | [address] | | | | | [address] | | | | | | [phone] | | | +--------+ + + + [...] + + documented as of this encounter Miscellaneous Notes Telephone Encounter - Daina Salcedo RN - 08/15/2015 10:04 AM PSTNotified patient th at H Pylori biopsy from stomach was negative. Notified patient that pathology on sessile co clau polyps showed tubular adenoma. Dr Cates recommends next colonoscopy in 5 years. hgb 12 .5 in July, per Doctor Darryn if hemoglobin drops we would consider doing small bowel caps ule endoscopy. Patient will follow up with his PCP Kate Johnston. We will route procedur e notes and pathology report. documented in th is encounter Plan of Treatment Not on filedocumented as of this encounter Visit Diagnoses Not on filedocumented in this encounter"
--- OUTSIDE RECORDS SUMMARY | ~2020-04-30 | XMS | Encounter Summary ---
Demographics + + + | Address | [address] | | | [place] [address] | + + + | Home Phone | | + + + | Preferred Language | Unknown | + + + | Marital Status | Single | + + + | Yarsanism Affiliation | [id number] | + + + | Race | Unknown | + + + | Ethnic Group | Unknown | + + + Author + + + | Author | [facility] | | | and [place] | + + + | Organization | [facility] | | | and [place] [...] Providers + +------+ + | Care Senior Hr Manager Name | Role | Phone | + +------+ + PCP | Unavailable | + +------+ + Encounter Details +--------+ + + + + | Date | Type | Department | Care Team | Description | +--------+ + + + + | 04/09/ | Hospital | [facility] | Kwasi Cates MD | | | 2010 | Encounter | [facility] | [address], [place] | | | | | [address] | [address] | | | | | [place] | [id number] | | | | | [id number] | | | | | | [phone] | | | +--------+ + + + [...] documented as of this encounter Miscellaneous Notes Op Note - Kwasi Cates MD - 04/09/2011 8:50 AM PDTPatient Name: Huey Franco Gender: Saeid Procedure Date: 04/09/2011 11:10 AM Date of : 1940 Age: 70 Admit Type: Outpatient Room: [facility] Room 1 Note Status: Finalized Attending MD: Kwasi Cates MD Procedure: Colonoscopy Indications: High risk colon cancer surveillance: Personal history of colonic polyps Providers: Maik Cates MD, Apolonia Yuan RN, Michaelle West, Radio Electronics Officer, Kevin Mak MD (Anesthesia Staff) Referring MD: Mitch Dejesus MD Medicines: Sedation Required Anesthesia Staff Assistance Complications : No immediate complications. Estimated blood loss: None. Procedure: - Prior to the procedure, a History and Physical was performed, and patient medications, allergies and sensitivities have been reviewed. The patient's tolerance of previous anesthesia has been reviewed. - The risks and benefits of the procedure and the sedation options and risks were discussed with the patient. All questions were answered and informed consent was obtained. - Airway Examination: normal oropharyngeal airway and neck mobility and Mallampati Class III (part of the uvula and soft palate visualized). - ASA Grade Assessment: III - A patient with severe systemic disease. - After reviewing the risks and benefits, the patient was deemed in satisfactory condition to undergo the procedure. - Anesthesia under the supervision of an anesthesiologist using IV propofol was determined to be medically necessary for this procedure based on age 65 or older, ASA Grade III-V and patient's dependence on opiates, sedatives or hypnotics. - Immediately prior to administration of medications, the patient was re-assessed for adequacy to receive sedatives. - The heart rate, respiratory rate, oxygen saturations, blood pressure, adequacy of pulmonary ventilation, and response to care were monitored throughout the procedure. - The physical status of the patient was re-assessed after the procedure. After I obtained informed consent, the scope was passed under direct vision. Throughout the procedure, the patient's blood pressure, pulse, and oxygen saturations were monitored continuously. The endoscope was introduced through the anus and advanced to the cecum, identified by the appendiceal orifice, ileocecal valve and palpation. The colonoscopy was technically difficult and complex due to significant looping. Successful completion of the procedure was aided by using manual pressure and straightening and shortening the scope to obtain bowel loop reduction. The patient tolerated the procedure well. The quality of the bowel preparation was good except sigmoid colon was fair and good except splenic flexure was fair. Findings: Perianal examination was normal. The digital rectal exam was abnormal. Findings include decreased sphincter tone. Pertinent negatives include no palpable rectal lesions. There was moderate spasm in the sigmoid colon and in the descending colon. Many sessile, non-bleeding polyps were found in the mid sigmoid colon, in the proximal descending colon, in the mid descending colon and at the hepatic flexure. The polyps were medium in size. These polyps were removed with a hot snare. Resection and retrieval were complete. Estimated blood loss: none. Verification of patient identification for the specimen was done by the physician and nurse. The exam was otherwise without abnormality.Non-bleeding internal hemorrhoids were found during retroflexion and were moderate. Impression: - Rectal exam revealed decreased sphincter tone. - Moderate colonic spasm consistent with irritable bowel syndrome. - Many medium, non-bleeding polyps in the mid sigmoid colon, in the proximal descending colon, in the mid descending colon and in the hepatic flexure. Resected and retrieved. - Non-bleeding internal hemorrhoids. Recommendation: - Discharge patient to home (ambulatory). - Mechanical soft diet for 3 days. - Continue present medications. - No aspirin, ibuprofen, naproxen, or other non-steroidal anti-inflammatory drugs for 7 days after polyp removal. - Repeat colonoscopy for surveillance based on pathology results. - Return to primary care physician as previously scheduled. - Telephone GI clinic for pathology results in 2 weeks. - Telephone GI clinic if symptomatic. Kwasi Cates MD Signed Date: 04/09/2011 12:09 PM Number of Addenda: 0 Note initiated on 04/09/2011 11:08 AM Scope Withdrawal Time: N/A Total Procedure Duration Time: 39 minutes 10 seconds <Electronically Signed by Kwasi Cates MD> 04/09/11 1211 Op Note - Kwasi Cates MD - 04/09/2011 8:50 AM PDTPatient Name: Huey Franco Gender: Saeid Procedure Date: 04/09/2011 11:10 AM Date of : 1940 Age: 70 Admit Type: Outpatient Room: Endo Room 1 Note Status: Finalized Attending MD: Kwasi Cates MD Procedure: Upper GI endoscopy Indications: Follow-up of peptic ulcer Providers: Maik Cates MD, Apolonia Yuan RN, Michaelle West, Radio Electronics Officer, Kevin Mak MD (Anesthesia Staff) Referring MD: Mitch Dejesus MD Medicines: Sedation Required Anesthesia Staff Assistance Complications : No immediate complications. Estimated blood loss: Minimal. Procedure: - Prior to the procedure, a History and Physical was performed, and patient medications, allergies and sensitivities have been reviewed. The patient's tolerance of previous anesthesia has been reviewed. - The risks and benefits of the procedure and the sedation options and risks were discussed with the patient. All questions were answered and informed consent was obtained. - Patient identification and proposed procedure were verified prior to the procedure by the physician, the nurse and the anesthesiologist. The procedure was verified in the procedure room. - Airway Examination: normal oropharyngeal airway and neck mobility and Mallampati Class III (part of the uvula and soft palate visualized). - Mental Status Examination: alert and oriented. - ASA Grade Assessment: III - A patient with severe systemic disease. - After reviewing the risks and benefits, the patient was deemed in satisfactory condition to undergo the procedure. - Anesthesia under the supervision of an anesthesiologist using IV propofol was determined to be medically necessary for this procedure based on age 65 or older, ASA Grade III-V and patient's dependence on opiates, sedatives or hypnotics. - Immediately prior to administration of medications, the patient was re-assessed for adequacy to receive sedatives. - The heart rate, respiratory rate, oxygen saturations, blood pressure, adequacy of pulmonary ventilation, and response to care were monitored throughout the procedure. - The physical status of the patient was re-assessed after the procedure. After obtaining informed consent, the endoscope was passed under direct vision. Throughout the procedure, the patient's blood pressure, pulse, and oxygen saturations were monitored continuously. The endoscope was introduced through the mouth, and advanced to the third part of duodenum. The upper GI endoscopy was accomplished without difficulty. The patient tolerated the procedure well. Findings: The cricopharyngeus, upper third of the esophagus, middle third of the esophagus, lower third of the esophagus and lower esophageal sphincter were normal. The Z-line was irregular and was found 39 cm from the incisors. Mild inflammation was found in the gastric antrum. The duodenal bulb, first part of the duodenum, 2nd part of the duodenum, area of the papilla and 3rd part of the duodenum were normal. The retroflexed view confirmed previous findings, Biopsies were taken with a cold forceps for Helicobacter pylori testing using CLOtest. Estimated blood loss was minimal. Verification of patient identification for the specimen was done by the physician and nurse. Impression: - Normal at the cricopharyngeus, in the upper third of the esophagus, in the middle third of the esophagus, in the lower third of the esophagus and lower esophageal sphincter. - Z-line irregular, 39 cm from the incisors. - Gastritis. - Normal duodenal bulb, first part of the duodenum, 2nd part of the duodenum, area of the papilla and 3rd part of the duodenum. Recommendation: - Perform a colonoscopy today. - Continue present medications. - Mechanical soft diet for 3 days. - No aspirin, ibuprofen, naproxen, or other non-steroidal anti-inflammatory drugs for 7 days after polyp removal. - Return to primary care physician as previously scheduled. - Telephone GI clinic for pathology results in 2 weeks. Kwasi Cates MD Signed Date: 04/09/2011 12:02 PM Number of Addenda: 0 Note initiated on 04/09/2011 11:11 AM Scope Withdrawal Time: N/A Total Procedure Duration Time: 02 minutes 51 seconds <Electronically Signed by Kwasi Cates MD> 04/09/11 1203 documented in this encounter Plan of Treatment Not on filedocumented as of this encounter Procedures + +--------+ + + + | Procedure Name | Priori | Date/Time | Associated Diagnosis | Comments | | | ty | | | | + +--------+ + + + | HELICOBACTER PYLORI | Routin | 04/09/2011 | | Results for this | | BIOPSY | e | 2:06 PM | | procedure are in the | | | | PDT | | results section. | + +--------+ + + + documented in this encounter Results Helicobactor pylori Biopsy (04/09/2011 2:06 PM PDT) + + + + + + | Component | Value | Ref Range | Performed | Pathologist | | | | | At | Signature | + + + + + + | GASTRIC | Positive for Urease | | [facility] | | | [facility] | | | [facility] | | | UREASE TEST | | | [facility] | | | [...] + | [facility] | [address] | [place], [place] | [phone] | | [facility] | | [id number] | | | - LABORATORY | | | | + + + + + | [facility] | [address] | [place] | | | [facility] | | [id number] [place] [address] | | | - LABORATORY | | | | + + + + + documented in this encounter Visit Diagnoses Not on filedocumented in this encounter"
--- OUTSIDE RECORDS SUMMARY | ~2020-04-30 | XMS | Encounter Summary ---
Demographics + + + | Address | [address] | | | [place] [address] | + + + | Home Phone [...] | Author | [facility] | | | and [place] | + + + | Organization | [facility] | | | and [...] Team Providers + +------+ + | Care Commercial Sales Specialist Name | Role | Phone | + +------+ + PCP | Unavailable | + +------+ + Encounter Details +--------+ + + + + | Date | Type | Department | Care Team | Description | +--------+ + + + + | 11/18/ | Hospital | [facility] | | | | 1998 - | Encounter | [facility] | | | | | | [address] | | | | 12/02/ | | [place] [id number] | | | | 1998 | | [phone] | | | +--------+ + + + [...]
--- OUTSIDE RECORDS SUMMARY | ~2020-04-30 | XMS | Encounter Summary ---
Demographics + + + | Address | [address] | | | [place] [address] | + + + | Home Phone [...] Author | [facility] | | | and [place] | + + + | Organization | [facility] | | | and [...] Team Providers + +------+ + | Care Metal Mockup Maker Name | Role | Phone | + +------+ + PCP | Unavailable | + +------+ + Encounter Details +--------+ + + + + | Date | Type | Department | Care Team | Description | +--------+ + + + + | 12/28/ | Hospital | [facility] | Felipe Kline B, | | | 2010 - | Encounter | [facility] | [address] | | | | | CARDIAC TELEMETRY | [address] [place] | | | 01/05/ | | [address] | [address] | | | 2010 | | [place] | | | | | | [address] | Chirag Oliver | | | | | [phone] | MD | | +--------+ + + + [...] 1940 ADMISSION DATE: 12/28/2010 DISCHARGE DATE: 01/05/2011 [id number] / [id number] DISCHARGE DIAGNOSES: 1. Non-ST elevated myocardial infarction. [...] units red blood cells transfused here at [facility]. 3. Peptic ulcer disease in the stomach. [...] hyperlipidemia and diabetes transferred MADY FRANCO ADM:12/28/10 [id number] 01/05/11 DIS IN DISCHARGE SUMMARY [id number] [facility] Ana Adame, [facility] Felipe Kline MD [facility] FS R THIS REPORT IS CONFIDENTIAL AND NOT TO BE RELEASED WITHOUT PROPER AUTHORIZATION. [facility] from [place] with acute GI bleed, status four units [...] up closely as an outpatient from a [facility] of things no acute distress when [...] or complaints. Ever y MADY FRANCO ADM:12/28/10 [id number] 01/05/11 DIS IN DISCHARGE SUMMARY [id number] [facility] Ana Adame [facility] Felipe Kline MD [facility] R THIS REPORT IS CONFIDENTIAL AND NOT TO BE RELEASED WITHOUT PROPER AUTHORIZATION. [facility] single day I saw him over the [...] submitted the IV antibiotics for approval thro ugh [facility], which has not been approved, although this [...] provider. Ana Adame PA-C MADY FRANCO ADM:12/28/10 [id number] 01/05/11 DIS IN DISCHARGE SUMMARY [id number] [facility] Ana Adame [facility] Felipe Kline MD [facility] R THIS REPORT IS CONFIDENTIAL AND NOT TO BE RELEASED WITHOUT PROPER AUTHORIZATION. [facility] Felipe Kline MD,FSCAI P P DEW/dkm #[id number] cc: Felipe Kline MD,[facility] MD Gurwinder Castle MD William S. Murphy, MD Douglas E. West, PA-C Ronny Yu, MD Electronically Signed 01/10/11 [address] [facility] FS MADY FRANCO ADM:12/28/10 [id number] 01/05/11 DIS IN DISCHARGE SUMMARY [id number] [facility] Felipe Kline MD [facility] FS R THIS REPORT IS CONFIDENTIAL AND NOT TO BE RELEASED WITHOUT PROPER AUTHORIZATION.Electronica lly signed by Ana Adame PA-C at 08/08/2013 4:45 PM PSTdocumented in this encount er H&P Notes Ene New ARNP - 08/08/2013 2:10 AM PST PATIENT NAME: MADY FRANCO 70Y / M DATE OF : 1940 ADMISSION DATE: 12/28/2010 [id number] / [id number] REASON FOR ADMISSION Profound anemia and non-ST elevation myocardial infarction. HISTORY OF PRESENT ILLNESS Mr Franco is a 70-year-old Indian with known arteriosclerotic heart diseas e (ASHD), history of coronary artery bypass graft (CABG) x3 on 11/25/2006, hypertension, dy slipidemia, and diabetes mellitus. He was transferred from [facility] in [place], [place], with gastrointestinal bleed and non-ST elevation myocardial infarction. Accor ding to the patient, his blood sugars were abnormal yesterday and he complained of generali zed weakness. He then presented to the ER. He was found to be profoundly anemic with hemogl obin 6.6 and hematocrit 19. He has received a total of 4 units of packed cells. His hemogl obin and hematocrit this morning were up to 9.6 and 26.5. According to the patient, he has not noticed any changes in his bowel habits or abdominal discomfort. According to nursing, his bowel movements are "dark." The patient does admit to one episode of chest discomfort i n the setting of profound anemia while in [place]. Troponin this morning was positive at 1.33 so he was transported to [facility] in [place] for further evaluatio n and care. He was pain free on arrival. PAST MEDICAL HISTORY 1. Atherosclerotic heart disease. a. Coronary artery bypass graft x3 on 11/25/2006 (left internal mammary artery to left ant erior descending, saphenous vein graft to obtuse marginal-3, circumflex, and right coronary artery. b. History of multiple stents with restenosis. 2. Hypertension. 3. Dyslipidemia. 4. Diabetes mellitus type 2. 5. Reported history of tuberculosis (TB). 6. Chronic obstructive pulmonary disease. 7. Bilateral carotid endarterectomies. PAST SURGICAL HISTORY 1. Coronary artery bypass graft x3 on 11/25/2006. 2. Bilateral carotid endarterectomies (2-3 years ago). 3. Multiple stents. 4. Hernia repair. 5. Tonsillectomy. 6. Appendectomy. 7. Cholecystectomy. 8. Back surgery. MEDICATIONS SHELLY FRANCO IS E ADM:12/28/10 [id number] ADM IN HISTORY & PHYSICAL [id number] [facility] JAYSON Milligan E-Sign: [facility] MD Sona Ramirez THIS REPORT IS CONFIDENTIAL AND NOT TO BE RELEASED WITHOUT PROPER AUTHORIZATION. [facility] 1. Glipizide 10 mg by mouth daily. 2. Janumet twice daily. 3. Aspirin 325 mg by mouth daily. 4. Plavix 75 mg by mouth daily. 5. Toprol 25 mg by mouth daily. 6. Crestor 10 mg by mouth daily. 7. Lisinopril 10 mg by mouth daily. ALLERGIES Valium. SOCIAL HISTORY , disabled. He smokes a pack a day and has done so for years. He is diabeti c. He drinks a couple glasses of alcohol. FAMILY HISTORY Noncontributory as the patient has a history of known coronary disease and prior coronary artery bypass graft. REVIEW OF SYSTEMS CONSTITUTIONAL: Positive for fatigue. HEENT: Positive for decreased vision, glasses, and b ilateral cataract surgeries. Hard of hearing. CARDIOVASCULAR: One episode of chest pain. RE SPIRATORY: Negative for coughing, wheezing, or shortness of breath. GASTROINTESTINAL: Posit alicia for anemia. GENITOURINARY: Denies any prostate problems or kidney stones. MUSCULOSKELE JOVANI: Denies arthritis or gout. SKIN: Negative for itching, rash, or nonhealing sores. NEUR OLOGICAL: The patient reports a history of a cerebrovascular accident, timeframe unknown. N o residual deficits. PSYCHIATRIC: Negative for depression or anxiety. ENDOCRINE: Positive f or diabetes. ALLERGIC/IMMUNOLOGICAL: Negative for seasonal allergies or taking antihistami norah. HEMATOLOGICAL: Positive for recent anemia. DIAGNOSTIC DATA Sodium 138, potassium 3.9, BUN 51, creatinine 0.98, magnesium 1.7, AST 8, ALT 7. Troponin up to 1.33. CK 92. CK-MB 4.0. Hemoglobin 9.6, hematocrit 26.5, platelets 138,000, white blood cell count 11.7. PHYSICAL EXAMINATION VITAL SIGNS: Blood pressure 105/63, pulse 76, respirations 18, saturation 100% on 2 L. CONSTITUTIONAL: He is pleasant appearing and in no acute distress. HEENT: Conjunctivae and lids normal in appearance. Extraocular movements intact. No gross abnormalities of the gum or palate. Oral mucosa negative for pallor or cyanosis. SHELLY FRANCO IS E ADM:12/28/10 [id number] ADM IN HISTORY & PHYSICAL [id number] [facility] JAYSON Milligan E-Sign: [facility] MD Sona Ramirez THIS REPORT IS CONFIDENTIAL AND NOT TO BE RELEASED WITHOUT PROPER AUTHORIZATION. [facility] NECK: Supple with no jugular venous distention. No thyromegaly. RESPIRATORY: Respiratory e ffort normal. Lungs clear to auscultation. CARDIOVASCULAR: PMI nondisplaced. Somewhat dista nt heart tones, regular rate and rhythm, no rub, murmur, or gallop appreciated. Carotid ups trokes normal without bruit. Abdominal aorta not palpably enlarged. Negative for bruit. Fe moral pulses 1+ without bruits. Pedal pulses diminished bilaterally. Extremities cool and n egative for peripheral edema. ABDOMEN: Soft, nontender, and free of masses. No hepatospleno megaly. MUSCULOSKELETAL: Back negative for scoliosis. Muscle strength equal bilaterally. EXTREMITIES: Digits and nails are negative for clubbing or cyanosis. Inspection of extremi ties reveals no inflammation or signs of ischemia. SKIN: Skin warm, dry, and free of rashes . NEUROLOGICAL: The patient is oriented to time, place, and person. Normal affect. ASSESSMENT 1. Non-ST elevation myocardial infarction with a troponin of 1.33. 2. Profound anemia with hemoglobin 6.6 and hematocrit 19. Status post transfusion of 4 uni ts of packed red blood cells. Hemoglobin and hematocrit up to 9.6 and 26.5. 3. Known arteriosclerotic heart disease with a history of coronary artery bypass graft x3 on 11/25/2006 (left internal mammary artery to left anterior descending, saphenous vein gra ft to obtuse marginal-3, circumflex, and right coronary artery. a. History of multiple stents. 4. Diabetes mellitus type 2. 5. Hypertension. 6. Dyslipidemia. DECISION AND PLAN 1. Will plan to check repeat enzymes and EKG today as well as in the morning. 2. Plan to obtain a GI consultation. The patient will ultimately need an upper endoscopy a s well as a colonoscopy. Will plan to see where his enzymes are in the morning before given definitive cardiovascular clearance to undergo scoping. 3. Protonix 40 mg IV twice daily will be continued. 4. Plan to guaiac stools and obtain iron studies from [facility] in [place]. SALVADOR,SHELLY IS E ADM:12/28/10 [id number] ADM IN HISTORY & PHYSICAL [id number] [facility] JAYSON Milligan E-Sign: [facility] MD Sona Ramirez THIS REPORT IS CONFIDENTIAL AND NOT TO BE RELEASED WITHOUT PROPER AUTHORIZATION. [facility] 5. Recheck CBC in the morning. 6. Diabetic consultation for glucose management. 7. Check echocardiogram today. 8. Decrease aspirin to 81 mg by mouth daily. The above plan was discussed with Dr Chirag Oliver, who is in complete agreement. JAYSON Gregorio MD P P KMM/[facility] #[id number] cc: JAYSON Gergorio MD Ronny Yu, MD Electronically Signed 12/29/10 0917 Chirag Oliver MD SHELLY FRANCO IS E ADM:12/28/10 [id number] ADM IN HISTORY & PHYSICAL [id number] [facility] JAYSON Milligan E-Sign: [facility] MD Sona Ramirez THIS REPORT IS CONFIDENTIAL AND NOT TO BE RELEASED WITHOUT PROPER AUTHORIZATION.Electronica lly signed by JAYSON Chiang at 08/08/2013 4:45 PM PSTdocumented in this encounter Procedure Notes Chirag Oliver MD - 08/08/2013 2:10 AM PST PATIENT NAME: MADY FRANCO Sex/Age: M / 70Y : 1940 LEADERSHIP PROGRAM ASSOCIATE: Chirag Oliver MD DATE: 12/28/2010 PROCEDURE PERFORMED: 1. Coronary arteriography. 2. Left heart study. 3. Study of the bypass graft to the distal right coronary artery. 4. Study of the left internal mammary to the left anterior descending. INDICATION FOR THE PROCEDURE: Non-Q-wave myocardial infarction. PROCEDURE: The right femoral area was prepped and draped in the usual manner. The right fe moral artery was localized without difficulty and a sheath was placed. We then advanced a 6 Bulgarian pigtail catheter up the aorta and into the left ventricle. Supravalvular, aortic, l eft ventricular, and transvalvular pullout pressure recordings were obtained before and af ter contrast injection. Ventriculography was injected and recorded in the CAMPBELL 30 projection . FINDINGS: LEFT HEART STUDY: On the left heart study, there was normal hyperdynamic wall motion seen . Estimated ejection fraction was 70%. No gradient across the aortic valve. The left ventri cular outflow tract, tricuspid aortic valve, and proximal ascending aorta appear normal. Th ere is no mitral regurgitation seen. We then advanced a 6 Bulgarian #4 left Naga catheter up the aorta and into the left cash ry artery, which was injected and imaged in multiple views. Left main coronary artery is long and bifurcates into the anterior descending and circumfl ex branches. The anterior descending is a long vessel that wraps around the cardiac apex. T here is an area of a previous stent in the mid left anterior descending that is 90% narrowe d. There is patent left internal mammary distal to that and more proximal to that area, th ere is another 50% stenosis. The diagonal is relatively small and insignificant. The circumflex is a fairly large system with three obtuse marginals. The distal obtuse mar ginal has a focal 90% stenosis just distal to the takeoff of the second obtuse marginal; th is is likely the source of the patient's non-Q-wave myocardial infarction. I tried multiple catheters to get into the [place] right coronary artery, we used a no-torq ue right, and we used a Amplatz L1 and Amplatz R2 and could not get close. We then advanced a no-torque right up the left subclavian. We used a Glidewire to get it i n position, used an exchange wire, and placed a MADY FRANCO ADM:12/28/10 [id number] 01/05/11 DIS IN CARDIAC PROCEDURE REPORT [id number] [facility] Chirag Oliver MD E-Sign: [facility] THIS REPORT IS CONFIDENTIAL AND NOT TO BE RELEASED WITHOUT PROPER AUTHORIZATION. [facility] mammary catheter. On injection of the left internal mammary, it was a good conduit that ti es near the apex and is free of disease. We then injected the aortic root to see if the circumflex bypass graft was visible. It was injected in the AZERBAIJANI view. Aortic root is mildly dilated. There was no significant aortic i nsufficiency. We could see the [place] right coming off and having about a 60 to 70% stenosi s proximally. We could see the right bypass graft coming off. There was no evidence of the circumflex graft. Subsequently, we used the Amplatz L1, localized the stump to the bypass graft to the circu mflex, and it was injected in multiple views. We then used a multipurpose following the bypass graft to the distal right, which is ____ posterior descending, it is patent proximally and distally, and free of disease. At th e end of procedure the sheath was pulled, and there was manual compression held. CONCLUSIONS: 1. Normal to hyperdynamic left ventricular systolic function with an ejection fraction o f 70%. 2. Mild aortic root dilatation without significant aortic insufficiency. 3. Atherosclerotic heart disease. A. 50% proximal left anterior descending stenosis with a 90% stenosis in the mid left an terior descending in an area of a previously placed stent. b. 90% stenosis of the mainste m circumflex distal to the takeoff of the second obtuse marginal. c. 60% stenosis of the proximal mainstem of the right with a more distal 90% stenosis of the mainstem, which has a very aberrant takeoff. 4. Status post coronary artery bypass g raft surgery. a. Patent left internal mammary to the distal left anterior descending. b. Patent saph enous vein bypass graft to the distal right. c. Total occlusion of the bypass graft to th e circumflex. RECOMMENDATIONS: The patient has a focal stenosis of the circumflex trunk, which is likely the source of the none Q wave myocardial infarction. The patient had multiple gastric and colonic ulcers, and had a major gastrointestinal bleed. We recommend bring the patient maría k in a couple of months after his GI status is stabilized, and place a stent in the circum flex mainstem due to the loss of the bypass graft in that distribution. Chirag Oliver MD SHELLY FRANCO IS E ADM:12/28/10 [id number] 01/05/11 DIS IN CARDIAC PROCEDURE REPORT Z619-01 [id number] [facility] Chirag Oliver MD E-Sign: [facility] THIS REPORT IS CONFIDENTIAL AND NOT TO BE RELEASED WITHOUT PROPER AUTHORIZATION. [facility]/jojo #[id number] cc: MD Chirag Castle MD Malcolm Townsley, MD Electronically Signed 01/08/11 0808 Chirag Oliver MD SHELLY FRANCO IS E ADM:12/28/10 [id number] 01/05/11 DIS IN CARDIAC PROCEDURE REPORT Z619-01 [id number] [facility] Chirag Oliver MD E-Sign: [facility] THIS REPORT IS CONFIDENTIAL AND NOT TO BE RELEASED WITHOUT PROPER AUTHORIZATION.Electronica lly signed by Chirag Oliver MD at 08/08/2013 4:45 PM PSTConversion Transaction, Provider Unknown - 08/08/2013 2:09 AM [facility] SURGICAL PATHOLOGY REPORT Date Taken: 12/30/2010 Date Received: 12/30/2010 Completed: 12/31/2010 Physician: Paul WEIR Copy to: Chirag Oliver DIAGNOSIS: Right colon, biopsy: - Colonic mucosa with mucosal ischemic changes and ulceration. 0 Danyel Cao M.D. Electronic signature GROSS DESCRIPTION: The specimen labeled and designated "Salvador, right colon biopsy" is received in fixative a nd consists of fragments of tissue measuring up to a few millimeters in size. All submitted "A1". (AK) MICROSCOPIC DESCRIPTION: Histologic sections of all submitted blocks are examined by light microscopy. These findin gs, together with the gross examination, support the pathologic diagnosis. 1: [address] [address] or Testing performed at: [facility] Law Luciano M.D., Director [facility] [address] [place] [address] [address] [place] [address] SHELLY FRANCO IS E ADM:12/28/10 [id number] ADM IN Z601-01 [id number] SURGICAL PATHOLOGY-ANATOMICAL PATHOLOGY Pathology [facility] THIS REPORT IS CONFIDENTIAL AND NOT TO BE RELEASED WITHOUT PROPER AUTHORIZATION. dy Abreu MD - 08/08/2013 2: 08 AM PSTHeart Rate 59 P-R Interval 144 QRSD Interval 86 QT Interval 436 QTC Interval 432 P [place] 22 QRS [place] 40 T Wave [place] 69 EKG Severity - BORDERLINE ECG - SINUS RHYTHM BORDERLINE T WAVE ABNORMALITIES <Signature Filed in OV> 12/30/10 0857 Edy Abreu MD SHELLY FRANCO IS E ADM:12/28/10 [id number] ADM IN ELECTROCARDIOGRAM REPORT [id number] [facility] Edy Abreu MD E-Sign: [facility] THIS REPORT IS CONFIDENTIAL AND NOT TO BE RELEASED WITHOUT PROPER AUTHORIZATION.Electronica lly signed by Edy Abreu MD at 08/08/2013 4:39 PM PSTdocumented in this encounter Consult Notes Gurwinder Martinez MD - 08/08/2013 2:10 AM PST PATIENT NAME: SALVADOR MADY Lopez CONSULTING: Gurwinder Martinez MD REQUESTING: Felipe Kline MD, [facility] DATE OF ADMISSION: 12/28/2010 DATE OF CONSULTATION: 01/03/2011 [id number] / [id number] AGE/SEX: 70Y / M : 1940 Thank you for involving me in the care of your patient with regard to his bacteremia and a rm infection. The patient was seen, examined, records and x-rays reviewed. IMPRESSION: Staphylococcus aureus (susceptibilities pending) bacteremia from Hep-Lock sour ce and septic phlebitis in this debilitated, 70-year-old diabetic male transferred here las t week with GI bleeding and myocardial infarction. I have reviewed with microbiology lab. W e will have final susceptibilities out tomorrow morning. If no persistent bacteremia and al l goes well, I would anticipate 14 days of intravenous antibiotics. If persistent bacterem ia, will need further workup and more prolonged course of therapy. Until we know this is no t MRSA we will treat with vancomycin x1 dose now. SUGGESTIONS: 1. Reviewed with microbiology lab. Will have susceptibilities tomorrow morning. 2. Increase cefazolin to 2 grams every eight hours. 3. Vancomycin 1.5 grams IV now x1. 4. Repeat blood cultures x2. 5. We will follow up on susceptibilities in a.m. 6. If all negative and all goes well anticipate 14 days of intravenous antibiotics. 7. If blood cultures and/or fever persists, we will need further workup and possibly prolo nged therapy. HISTORY OF PRESENT ILLNESS: The patient's history is as reviewed and will not be completel y repeated here. In brief, the patient is a 70-year-old male who had known atherosclerotic cardiovascular disease, severe diabetes. He was seen and evaluated for at [facility] with significant GI bleed and evidence of an infarct. He was transferred here for fur ther evaluation. Of note at the time his hematocrit was found to be 19, he was transfused. When he was transferred here, he was seen and evaluated by Dr. Weir and GI bleed is no w resolved. He did rule in for myocardial infarction. On the evening of the he had sig nificant high spiking fevers and was febrile for the next 48 hours. Blood cultures were obt ained and he was noted to have significant inflammatory changes associated with his left a rm. Blood cultures turned positive now for staph species. Per my discussion with the elizabeth benoit staph aureus with susceptibilities pending. He has been started on cefazolin, which he has tolerated well. The IV catheter was taken out and has had a hot pack placed on the arm. He thinks his arm feels somewhat better over the last 48 hours, but continues to have difficulties with fevers, chills, sweats. He has had no nausea or vomiting and no true kirti rrhea since his arrival. He has had no bad headache SALVADOR,MADY E ADM:12/28/10 [id number] ADM IN CONSULTATION Z619-01 [id number] [facility] Gurwinder Martinez MD E-Sign: [facility] THIS REPORT IS CONFIDENTIAL AND NOT TO BE RELEASED WITHOUT PROPER AUTHORIZATION. [facility] or visual changes, no significant back pain, hip pain or other joint pain as well. He does feel weak, tired, and fatigued. PAST MEDICAL HISTORY: 1. Known atherosclerotic cardiovascular disease and is now four years out from coronary ar demarcus bypass grafting. Also has a history of stenting. 2. Hypertension. 3. Hyperlipidemia. 4. Diabetes. 5. Remote history of tuberculosis treated with medication for latent tuberculosis. 6. Chronic obstructive pulmonary disease. 7. History of bilateral carotid endarterectomies. MEDICATIONS: He is currently receiving cefazolin 1 gram every eight hours, Entocort, Gluco trol, insulin, lisinopril, Glucophage, metoprolol, Protonix, Crestor and Carafate. ALLERGIES: He reports itching to diazepam and other benzodiazepines. FAMILY HISTORY: Noncontributory. SOCIAL HISTORY: The patient is disabled. He is a significant smoker. Does have a history o f alcohol use. He lives in [place]. REVIEW OF SYSTEMS: 12 system review of systems taken and other than above is noncontributo ry. PHYSICAL EXAMINATION: GENERAL: Chronically ill, albeit not currently acutely toxic, elderly male, resting comfor tably in the sitting position. VITAL SIGNS: T-max in the last 24 hours is 103.2. It has been as high as 104.2 here during the hospitalization. HEENT: No conjunctival petechiae. No thrush. LYMPHATIC: No nodes in his axillary region or his neck. CHEST: Clear. CARDIAC: Cardiac exam shows no gallop or rub. I do not hear a murmur at this time. ABDOMEN: Slightly distended but nontender. Positive bowel sounds. SKIN: Examination of the skin of the his extremities reveals no peripheral embolic stigmata or rash. Left arm shows Hep-Lock site in left volar aspect of his forearm with significant inflammatory changes ab ove and below this. EXTREMITIES: There is good range of motion of his wrist, elbow and his shoulder without an y evidence of synovitis. There is no clear fluctuance, necrosis, ischemia or crepitus at th is point but it is quite tender, warm and swollen. He has good distal pulses as well. NEUROLOGIC: Alert and oriented x3. He is moving all extremities well. MADY FRANCO ADM:12/28/10 [id number] ADM IN CONSULTATION [id number] [facility] Gurwinder Martinez MD E-Sign: [facility] THIS REPORT IS CONFIDENTIAL AND NOT TO BE RELEASED WITHOUT PROPER AUTHORIZATION. [facility] RADIOLOGY: Chest x-ray shows some mild atelectasis. Otherwise negative. LABORATORY: Cultures are as outlined. His most recent creatinine is 0.94. CRP is 2.2. Urin alysis is unrevealing. Sed rate was 36, white count on admission was 9.9 and on the day of the consultation is 6.4 with hematocrit 29.8 and a platelet count of 126. Gurwinder Martinez MD P P LESA/desi #[id number] cc: MD Gurwinder Castle MD William S. Murphy, MD SHELLY FRANCO ADM:12/28/10 [id number] ADM IN CONSULTATION [id number] [facility] Gurwinder Martinez MD E-Sign: [facility] THIS REPORT IS CONFIDENTIAL AND NOT TO BE RELEASED WITHOUT PROPER AUTHORIZATION.Electronica lly signed by Gurwinder Martinez MD at 08/08/2013 4:45 PM Law Ag MD - 08/08/2013 2:10 AM [facility] PATIENT NAME: MADY FRANCO CONSULTING: Kaycee Weir MD REQUESTING: Chirag Oliver MD DATE OF ADMISSION: 12/28/2010 DATE OF CONSULTATION: 12/29/2010 [id number] / [id number] AGE/SEX: 70Y / M : 1940 I appreciate seeing Mr. Franco in regards to his GI bleeding. I identified the following p roblems: 1. Gastrointestinal bleeding as an insidious onset, most likely due to the combination of aspirin (full adult) and Plavix over time. 2. Myocardial infarction, mild, stable for procedures. 3. Arteriosclerotic coronary vascular disease with bypass grafting in the past. 4. Carotid endarterectomy, remote. 5. Continued smoking and alcohol consumption. RECOMMENDATIONS: I spoke with the patient about doing both colonoscopy and gastroscopy maria alejandra orrow morning, as he appears to be stable now post 4 units transfusion. He persists in havi ng guaiac-positive stools and I suspect that this is probably upper GI from his aspirin plu s Plavix, but he has not had a colonoscopy and needs to have that as well. We will plan to do that in the a.m. early and then he can return to some form of diet. HISTORY OF PRESENT ILLNESS: The patient is a 70-year-old male, who has, as noted, relatively severe arteriosclerotic coronary vascular disease and also has had carot id disease as well. He was referred here from [facility] where he was admitted because he was weak, because of a small myocardial infarction, and anemia. He had a hemoglobin of 6.6, af ter 4 units transfusion was 9.6, and that has remained stable. He is feeling much better i n the way of weakness and sickness. He has noted some dark stools, but no actual bleeding, and has not had any nausea or vomiting. There has been no abdominal discomfort. He is diabe tic, which may vary the pattern of discomfort with regards to both his heart and stomach. H is weight has been stable. He continues to smoke upwards of a pack of cigarettes a day and drinks several drinks of hard liquor per day. PHYSICAL EXAMINATION: The exam was confined to his abdomen which shows no organomegaly or masses. The bowel soun ds are normal. There was no pain to deep palpation. Again, I appreciate seeing him with you, and we will arrange testing so that we can facili cintron his hospitalization. SHELLY FRANCO IS E ADM:12/28/10 [id number] ADM IN CONSULTATION [id number] [facility] Kaycee Weir MD E-Sign: [facility] THIS REPORT IS CONFIDENTIAL AND NOT TO BE RELEASED WITHOUT PROPER AUTHORIZATION. [facility] Ashlyn Weir MD A A JDF/kw #[id number] cc: MD Ashlyn Castle MD William S. Murphy, MD Electronically Signed 01/04/11 1240 Kaycee Weir MD SHELLY FRANCO IS E ADM:12/28/10 [id number] ADM IN CONSULTATION Z619-01 [id number] [facility] Kaycee Weir MD E-Sign: [facility] THIS REPORT IS CONFIDENTIAL AND NOT TO BE RELEASED WITHOUT PROPER AUTHORIZATION.Electronica lly signed by Law Weir MD at 08/08/2013 4:45 PM PSTdocumented in this encounter Miscellaneous Notes Op Note - Law Weir MD - 08/08/2013 2:10 AM PST PATIENT NAME: MADY FRANCO Date of : 1940 Age/Sex: 70Y / M SURGEON: Kaycee Weir MD SURGERY DATE: 12/30/2010 [id number] / [id number] PROCEDURE: Gastroscopy. IDENTIFYING DATA AND INDICATION FOR PROCEDURE: The patient is a 70-year-old male born 1940 with persistent chronic anemia of undete rmined etiology with guaiac-positive stools and a recent myocardial infarction. He is unde rgoing gastroscopy for definition. MEDICATION: See medication sheet. PROCEDURE: The patient was intubated without difficulty in the left lateral decubitus position with a single-channel forward-viewing gastroduodenoscope. This was passed down the esophagus, wh ich looked entirely normal. There was no evidence of a hiatal hernia, Ariza's esophagus, or reflux esophagitis. The scope was then passed into the stomach, where a small quantity of gastric liquid was aspirated from the fundus. The remainder of the upper stomach appea red normal, with folds effacing well with air insufflation. We passed the scope out into the second, proximal, and third portion of the duodenum with no abnormalities. We pulled the scope back into the stomach, and a J-turn was executed. J ust below the cardia in the proximal body of the stomach was a 1-cm acute-appearing ulcerat ion. This had some mounded folds around it, and I could not absolutely rule out malignancy , but I think this is an acute benign ulcer. This ulcer appeared to be a bleeding site, and so we started to attempt to put a clip on t his and that started bleeding. We then subsequently injected this with 3 mL of epinephrine and then did BICAP of this lesion. I subsequently then did clip the lesion without difficu lty. All of this was done to allow some form of anticoagulation for his myocardial infarction, coronary artery disease. At this point, there was no active bleeding. The patient was extubated and left in good c ondition. IMPRESSION: Acute-appearing ulcer in the body of the stomach just below the cardia and lesser curvatur e; otherwise normal. Ashlyn Weir MD SHELLY FRANCO IS E ADM:12/28/10 [id number] ADM IN OPERATIVE REPORT Z619-01 [id number] [facility] Kaycee Weir MD E-SIGN: [facility] THIS REPORT IS CONFIDENTIAL AND NOT TO BE RELEASED WITHOUT PROPER AUTHORIZATION. [facility] A A JDF/[facility] #[id number] cc: MD Ashlyn Castle MD William S. Murphy, MD Electronically Signed 01/04/11 1240 Kaycee Weir MD SALVADORSHELLY IS E ADM:12/28/10 [id number] ADM IN OPERATIVE REPORT Z619-01 [id number] [facility] Kaycee Weir MD E-SIGN: [facility] THIS REPORT IS CONFIDENTIAL AND NOT TO BE RELEASED WITHOUT PROPER AUTHORIZATION.Electronica lly signed by Law Weir MD at 08/08/2013 4:45 PM PSTOp Note - Law Weir MD - 08/08/2013 2:10 AM PST PATIENT NAME: MADY FRANCO Date of : 1940 Age/Sex: 70Y / M SURGEON: Kaycee Weir MD SURGERY DATE: 12/30/2010 [id number] / [id number] PROCEDURE: Colonoscopy. IDENTIFYING DATA AND INDICATION FOR PROCEDURE: The patient is a 70-year-old male born 1940. The patient is undergoing colonoscopy as a routine screening measure to rule out an additional cause for bleeding beyond that fou nd in his stomach. MEDICATION: See medication sheet. PROCEDURE: The patient was intubated without difficulty in the left lateral decubitus position with a single-channel forward-viewing variable stiffness adult colonoscope. This was passed with out difficulty up the rectosigmoid area to 30 cm. At this point, an adenomatous-appearing polyp was seen and photo documented. This was about a 1.5-cm polyp with a reasonable base. The lesion was not resected because of the patient's chronic bleeding problems. The scope was then passed up the descending colon, across the transverse colon, to the mid proximal transverse colon. At this point, we ran into a linear ulceration of about 2.5 cm , which was photo documented. This also appeared to have some bleeding to it, so we inject ed this site with 2 mL of epinephrine. We then passed the scope to the hepatic flexure, and, on turning into the right colon, it was obvious that the patient had multiple ulcerations in the right colon. There was also w hat appeared to be some pseudopolyp formation. All of this is consistent with Crohn's dise ase. I cannot rule out the possibility of ischemia, but I really favor that this is Crohn' s. We passed the scope down into the cecum, which was normal. I was able to intubate the fir st 3 or 4 cm of terminal ileum, which appeared normal. Biopsies were taken of the lesions i n the right colon and submitted for pathological interpretation. The scope was then withdrawn slowly throughout. The remainder of the colon was visualized and was without any abnormalities other than that seen initially. The patient was then ex tubated and left in good condition. IMPRESSION: 1. Right colon disease consistent with Crohn's disease; rule out ischemia. Biopsies taken. 2. Polyp in the sigmoid which will need to be looked at for removal in MADY FRANCO ADM:12/28/10 [id number] ADM IN OPERATIVE REPORT Z619-01 [id number] [facility] Kaycee Weir MD E-SIGN: [facility] THIS REPORT IS CONFIDENTIAL AND NOT TO BE RELEASED WITHOUT PROPER AUTHORIZATION. [facility] time. Ashlyn Weir MD A A JDF/cmv #[id number] cc: MD Ashlyn Castle MD William S. Murphy, MD Electronically Signed 01/04/11 1240 Kaycee Weir MD SHELLY FRANCO IS E ADM:12/28/10 [id number] ADM IN OPERATIVE REPORT Z619-01 [id number] [facility] Kaycee Weir MD E-SIGN: [facility] THIS REPORT IS CONFIDENTIAL AND NOT TO BE RELEASED WITHOUT PROPER AUTHORIZATION.Electronica lly signed by Law Weir MD at 08/08/2013 4:45 PM PSTEcho - Chirag Oliver MD - 2:10 AM PSTPatient Name: MADY FRANCO Study Date: 2010-12-28 : 1940 Gender: M Age: 70 Y Location: [facility] Z601 01 Height: 170 cm Weight: 84 kg HR: 74 BPM BP: / mmHG BSA: 2.0 m2 Reason For Study: CAD; Eval LV fx INTERPRETATION SUMMARY A two-dimensional transthoracic echocardiogram was performed. Limited views were obtained. The study was technically difficult due to patient body habitus. Image quality was fair to poor. The imaging agent, Definity, was used to better delineate the endocardium. The left ventri cular systolic function is within normal limits. The visually estimated LV ejection fractio n is 65-70%. The transmitral spectral Doppler flow pattern is normal for age. No regional wall motion a bnormalities are noted. No hemodynamically significant valvular aortic stenosis. The aortic valve is grossly venkata l in appearance. The mitral valve appears normal in structure and function. Left Ventricle The left ventricle is grossly normal size. The left ventricular systolic function is withi n normal limits. The visually estimated LV ejection fraction is 65-70%. The transmitral spe ctral Doppler flow pattern is normal for age. No regional wall motion abnormalities are not ed. Mitral Valve The mitral valve appears normal in structure and function. There is no mitral regurgitatio n noted. Aortic Valve The aortic valve is grossly normal in appearance. No hemodynamically significant valvular aortic stenosis. Pericardium/Pleural The pericardium appears normal. There is no pericardial effusion. Diastolic Doppler Measurements MV dec time 0.19 (.132-. 296 sec) Doppler Measurements and Calculations MV E point 92 (40 -90 cm/sec) MV A point 105 (40-80 cm/sec) MV E/A 0.88 Interpreting Physician: Chirag Oliver M.D. electronically signed on 12-29-2010 12:59:06 Shadowgraph Scale Operator: Bo Givens [facility] SHELLY FRANCO IS E ADM:12/28/10 [id number] ADM IN ECHOCARDIOGRAPHY REPORT [id number] [facility] Chirag Oliver MD E-Sign: [facility] THIS REPORT IS CONFIDENTIAL AND NOT TO BE RELEASED WITHOUT PROPER AUTHORIZATION.Electronica lly signed by Chirag Oliver MD at 08/08/2013 4:44 PM Law Lemons MD - 08/08/2013 2:09 AM [facility] ISABEL-OPERATIVE CASE INFORMATION Patient: MADY FRANCO MR#: [id number] Acct: [id number] : 1940 AGE: 70 SEX: M CRURN: [id number] GROCERY SPECIALIST'S PRE-OPERATIVE ASSESSMENT Preferr ed Name: Patient Identified: Consent Verfied: Procedure & Site Verified: By entering info rmation in the [place] Protocol Section, you will be verifying the Correct Patient Ident ity, Correct Side and Site, Agreement on the Procedure's to be done, Correct patient Positi on, Availability of correct implants and any special equipment or special requirements Time out? Time of Time out: Site(s): All participating team members: Patient Loc pre-Op: Methods of Patient Identificatio n: Allergies Identified Pre-op: History and Physical: Comments: NPO Status: Comments: Lab Work: Blood Products Available: Comment: Belongings: Disposition: Limitations: Prosthesis: Pre-Operative Checklist Comments: Pre-Operative Assessmen t Reviewed/ Verified by: INTRA-OPERATIVE INFORMATION Date of Surgery: 12/30/2010 OR Suite: [place] [address] Case Type: ELECTIVE Pre-Op Diagnosis: NO NE Post-Op Diagnosis: SAME SURGEON(S) & ASST(S) PROCEDURE DESCRIPTION Surgeon 1: Kaycee Weir GASTRO/COLON/BX PHYSICIAN/SURGEON ASSISTANTS/PRIVATE SCRUBS ANESTHESIA INFORMATION MDA: HORSE SHOW MANAGER: Anes Type: No Anes Re CASE CHRONOLOG Y Time in Room: 0625 Incision: 0642 End of Surgery: 0724 Wound Class: Time out of Room: 0745 Pre-Op Antibiotic Ordered: Time Given: OR STAFF Mayi Smith RN 1st Music Executive DotyMikaela RN 2nd Music Executive Temperature Control Methods Initial Skin Integrity WNL: Position 1 Devices Used OR Staff Poornima scott Staff Other [facility] ISABEL-OPERATIVE CASE INFORMATION Patient: MADY FRANCO MR#: [id number] Acct: [id number] : 1940 AGE: 70 SEX: M CRURN: [id number] Tourniquets Used: Anti-embolitic Therapy Used: Electrosurgical Devices Used: Urinary Catheter Inserted in OR: Urinary Cathether in Place on Arrival: Clipper Prep in O.R.: Surgical Prep: Field Irrigations/Medications: Medications Added Medicat ions (Non-Irrigation): See Medication Administration Record: Specimens: Y Description Routine FS Cult Cyto Disposal To Pt Implants: N Tissue solution used: LOT# Tissue prepared by: Intra-operative X-Rays: Drains: Post Closure Care Packi ng: Dressing: Cell Saver Used: Counts Applicable: Surgeon Notified of Count Results: Patient Transferred Post-op to: Inpatient Rm Skin Condi tion Unchanged from Pre-op: Comment: CASE COMMENTS All magy lds reviewed and updated as necessary. end of document Regina mercado signed by Law Weir MD at 08/08/2013 4:40 PM PSTdocumented in this encounter Plan of Treatment Not [...] + + + | Exam Performed Location: [facility] [place] Date: | MISCELANIOUS | | 01/05/2011 10:40:00 [...] the exam. | | | S: SQ ([id number]) Signed by: AKHIL RAMAN MD and CRISTAL Denis | | | JAYSON EDWARD | | + + + + + | Procedure Note | + + | [place], Rad Conversion - 07/26/2013 8:41 PM PDT Exam Performed [facility] [place]: 01/05/2011 10:40:00 AMULTRASOUND-GUIDED RIGHT ARM PICCInterventional | [...] the londono portions of the exam.S: SQ ([id number]) Signed by: AKHIL Kapadia | | MD [...] | | | | | |S: SQ ([id number]) Signed by: AKHIL RAMAN MD and JAYSON COLORADO | + + + +---------+ + + | Performing | Address | City/State/Zipcode | Phone Number | | Organization | | | | + +---------+ + + | [facility] | | | [phone] | + +---------+ + + | [facility] | | | [phone] | + +---------+ + + Historical Imaging Result (01/04/2011 11:45 PM PDT) + + | Specimen | + + | | + + + + + | Narrative | Performed At | + + + | Exam Performed Location: [facility] | MISCELANIOUS | | ULTRASOUND VENOUS DUPLEX, [...] londono portions of the exam. S: SQ ([id number]) | | | Signed by: MIRYAM RIVER MD and LEFTY GARZON MD R5 | | + + + + + | Procedure Note | + + | [place], Rad Conversion - 07/26/2013 9:06 PM PDT [facility] LEFT UPPER EXTREMITYCLINICAL INFORMATION:Left | [...] the londono portions of the exam.S: SQ ([id number]) Signed by: MIRYAM Tripp | | MD [...] | | | | | |S: SQ ([id number]) Signed by: MIRYAM RIVER MD and LEFTY GARZON MD R5 | + + + +---------+ + + | Performing | Address | City/State/Zipcode | Phone Number | | Organization | | | | + +---------+ + + | [facility] | | | [phone] | + +---------+ + + | [facility] | | | [phone] | + +---------+ + + XR Chest 2 VW (12/31/2010 10:50 PM PDT) + + | Specimen | + + | | + + + + + | Narrative | Performed At | + + + | Exam Performed Location: [facility] CHEST | MISCELANIOUS | | X-RAYS, AP [...] | | | bibasilar atelectasis. S: SQ ([id number]) Signed by: OSCAR MARIE, | | | MD | | + + + + + | Procedure Note | + + | [place], Rad Conversion - 07/26/2013 9:39 PM PDT Exam Performed Location: [facility] | | at [facility] X-RAYS, AP AND LATERAL VIEWSCLINICAL | | [...] is mild bibasilar atelectasis.S: SQ | | ([id number]) Signed by: OSCAR MARIE MD | | [...] | | | | | |S: SQ ([id number]) Signed by: OSCAR MARIE MD | + + + +---------+ + + | Performing | Address | City/State/Zipcode | Phone Number | | Organization | | | | + +---------+ + + | [facility] | | | [phone] | + +---------+ + + | [facility] | | | [phone] | + +---------+ + + Surgical Pathology Exam (12/30/2010 12:00 AM PDT) + + | Specimen | + + | | + + + + + | Narrative | Performed At | + + + | SURGICAL PATHOLOGY REPORT | [facility] | | Date Taken: 12/30/2010 Date Received: [...] the pathologic | | | diagnosis. 1: [address] | | | [place] [address] or Testing | | | performed at: [facility] | | | Law Luciano M.D., Director [address] [place] [address] [address] | | | [place] [address] | | + + + + + + + + | Performing | Address | City/State/Zipcode | Phone Number | | Organization | | | | + + + + + | [facility] | [address] | [place] [address] | | | [facility] | | | | | LABORATORY | | | | + + + + + | [facility] | | | | + + + + + VAS Carotid Duplex Bilateral (12/29/2010 6:10 PM PDT) + + | Specimen | + + | | + + + + + | Narrative | Performed At | + + + | Exam Performed Location: [facility] CAROTID | MISCELANIOUS | | DUPLEX ULTRASOUND [...] NASCET criteria. | | | S: SQ ([id number]) Signed by: ELA OLGUIN MD | | + + + + + | Procedure Note | + + | [place], Rad Conversion - 07/26/2013 9:31 PM PDT Exam [facility] [...] | | stenosis by NASCET criteria.S: SQ ([id number]) Signed by: ELA OLGUIN MD | |FINDINGS [...] | | | | | |S: SQ ([id number]) Signed by: ELA OLGUIN MD | + + + +---------+ + + | Performing | Address | City/State/Zipcode | Phone Number | | Organization | | | | + +---------+ + + | [facility] | | | [phone] | + +---------+ + + | [facility] | | | [phone] | + +---------+ + + XR Chest 2 VW (12/28/2010 4:07 PM PDT) + + | Specimen | + + | | + + + + + | Narrative | Performed At | + + + | Exam Performed Location: [facility] TWO-VIEW | MISCELANIOUS | | CHEST RADIOGRAPH [...] the stomach. See above comments S: SQ [id number]) | | | Signed by: RUSTY WORTHY MD | | + + + + + | Procedure Note | + + | [place], Rad Conversion - 07/26/2013 9:23 PM PDT Exam Performed [facility]: [facility] | [facility] HeartTWO-[facility] CHEST RADIOGRAPHCLINICAL INFORMATION:Acute coronary | | syndrome.COMPARISON:11/26/2006FINDINGS:Current [...] of | | thestomach.See above commentsS: SQ ([id number]) Signed by: RUSTY WORTHY MD | |sternotomy. [...] | | | | | |S: SQ ([id number]) Signed by: RUSTY WORTHY MD | + + + +---------+ + + | Performing | Address | City/State/Zipcode | Phone Number | | Organization | | | | + +---------+ + + | [facility] | | | [phone] | + +---------+ + + | [facility] | | | [phone] | + +---------+ + + documented in this encounter Visit Diagnoses Not on filedocumented in this encounter
--- OUTSIDE RECORDS SUMMARY | ~2020-04-30 | XMS | Encounter Summary ---
Demographics + + + | Address | [address] | | | [place] [address] | + + + | Home Phone [...] Author | [facility] | | | and [place] | + + + | Organization | [facility] | | | and [...] Team Providers + +------+ + | Care Injection Molding Process Technician Name | Role | Phone | [...] 2014 | | GASTROENTEROLOGY | [address], [place] | | | | | [address] [place] | [address] [place], [place] | | | | | [address] [place], [place] | [address] | | | | | [address] | | | | | | [phone] | | | +--------+ + + + [...]
--- OUTSIDE RECORDS SUMMARY | ~2020-04-30 | XMS | Encounter Summary ---
Demographics + + + | Address | [address] | | | [place] [address] | + + + | Home Phone | | + + + | Preferred Language | Unknown | + + + | Marital Status | Single | + + + | Faith Affiliation | 1041 | + + + | Race | Unknown | + + + | Ethnic Group | Unknown | + + + Author + + + | Author | [facility] | | | and [place] | + + + | Organization | [facility] | | | and [place] [...] Providers + +------+ + | Care Hot Mill Operator Name | Role | Phone | [...] colonic | [address], | | | | | polyps | [place], [place] | [address] | | | | | 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[place], | | | | | dependence, | [place], [place] | [place] [address] | | | | | continuous | [address] | Phone: | | | | | (HCC) | Phone: | [phone] | | | | | Procedures | [phone] | Fax: | | | | | [place] | Fax: | [phone] | | | | | COLONOSCOPY | [phone] | | | | | | FLX DX | | | | | | | W/COLLJ SPEC | | | | | | | WHEN PFRMD | | | | | | | [place] | | | | | | | COLONOSCOPY | | | | | | | W/BIOPSY | | | | | | | SINGLE/MULTI | | | | | | | PLE [place] | | | | | | | COLSC FLX | | | | | | | W/RMVL OF | | | | | | | TUMOR POLYP | | | | | | | LESION SNARE | | | | | | | TQ [place] | | | | | | | ESOPHAGOGAST | | | | | | | RODUODENOSCO | | | | | | | PY TRANSORAL | | | | | | | DIAGNOSTIC | | | | | | | [place] EDG | | | | | | | TRANSORAL | | | | | | | BIOPSY | | | | | | | SINGLE/MULTI | | | | | | | PLE [place] | | | | | | | ANESTH,UGI | | | | | | | ENDOSCOPY | | | | | | | [place] | | | | | | | ANESTH,INTES | | | | | | | SIERRA,SCOPE,L | | | | | | | OW | | | +--------+ + + + + + Reason for Visit + +--------+ + | Reason | Onset | Comments | | | Date | | + +--------+ + | Appointment | 07/22/ | procedure | | | 2014 | | + +--------+ + Encounter Details +--------+ + + + + | Date | Type | Department | Care Team | Description | +--------+ + + + + | 07/22/ | Telephone | [facility] | Kwasi Cates MD | Appointment | | 2014 | | GASTROENTEROLOGY | [address] | (procedure) | | | | [address] [facility] | [address] [place] | | | | | [address] [place] | [address] | | | | | [address] | | | | | | [phone] | | | +--------+ + + + [...] this encounter Miscellaneous Notes Telephone Encounter - Ashley Stockton RN - 07/22/2015 3:34 PM PDTPt returned my call from earlier this morning; Scheduled for propofol colon screening on 08/08/[address] Cates; Reviewed medications with pt; advised to take half of his diabetic medications t he day before procedure and nothing the morning of procedure; pt verbalized understanding; r tarawed surg hx and allergies; Reviewed bowel prep; Rx to be faxed to [facility] in [place], [place]; instructions mailed to pt; Referral complete, OR booking and notes to Anam. elephone [facility] Kemi Leon - 07/22/2015 2:07 PM PDTPatient returning call to set up procedure documented in this enc ounter Plan of Treatment + + +--------+ + [...]
--- OUTSIDE RECORDS SUMMARY | ~2020-04-30 | XMS | Encounter Summary ---
Demographics + + + | Address | [address] | | | [place] [address] | + + + | Home Phone | | + + + | Preferred Language | Unknown | + + + | Marital Status | Single | + + + | Yazdanism Affiliation | [id number] | + + + | Race | Unknown | + + + | Ethnic Group | Unknown | + + + Author + + + | Author | [facility] | | | and [place] | + + + | Organization | [facility] | | | and [place] | + + + | Address | Unknown | + + + | Phone | Unavailable | + + + Support + + +---------+ + | Name | Relationship | Address | Phone | + + +---------+ + | Kaide Case | ECON | Unknown | | + + +---------+ + Care Team Providers + +------+ + | Care Greige Mender Name | Role | Phone | + +------+ + PCP | Unavailable | + +------+ + Encounter Details +--------+ + + + + | Date | Type | Department | Care Team | Description | +--------+ + + + + | 01/12/ | Hospital | [facility] | Tony Raymond MD | | | 2010 - | Encounter | [facility] | [address] | | | | | CARDIAC TRANSPLANT | [place] [address] | | | 01/17/ | | [address] | [phone] | | | 2010 | | [place] | | | | | | [address] | | | | | | [phone] | | | +--------+ + + + [...] 1940 ADMISSION DATE: 01/12/2011 DISCHARGE DATE: 01/17/2011 [id number] / [id number] ADMISSION DIAGNOSES: 1. Anemia. 2. Gastrointestinal bleed. [...] is stable. Cardiology: Informal consult with Dr. Oliver, [facility] who recommended interventi on or stent when gastrointestinal bleed is stable. HOSPITAL COURSE: 1. Anemia. The patient initially presented at [facility] with a hemoglobin of 4 .4. He received 2 liters of IV fluid and 4 units packed red blood cells. Upon arrival at [facility] ICU the patient had a hemoglobin [...] Caro vix and aspirin MADY FRANCO ADM:01/12/11 [id number] 01/17/11 DIS IN DISCHARGE SUMMARY [id number] [id number] [facility] MD DEYSI Cowart B [facility] Ata Yeager MD B THIS REPORT IS CONFIDENTIAL AND NOT TO BE RELEASED WITHOUT PROPER AUTHORIZATION. [facility] for his coronary artery disease. 2. [...] having demonstrated an inability MADY FRANCO ADM:01/12/11 [id number] 01/17/11 DIS IN DISCHARGE SUMMARY [id number] [id number] [facility] MD DEYSI Cowart [facility] MD Derek Reyes THIS REPORT IS CONFIDENTIAL AND NOT TO BE RELEASED WITHOUT PROPER AUTHORIZATION. [facility] or unwillingness to continue medications and follow up with appointments, it was felt the patient would be best provided for in a detention facility. Social work provided tremendous assistance with this and did find placement for him at an extended care facility in [place], where the patient has family, however, the [...] reported to an extended-care facility or by [facility] if he returns home. These results should [...] establish with a gastroenterology doctor in either [place], which is his home, or [place], where the nursing facility is. Recomm endations by Dr. Bai is that the patient continue on Protonix and Carafate as well as the budesonide for the ischemic colitis. The patient should continue to follow up with a astroenterology physician to monitor for further MADY FRANCO ADM:01/12/11 [id number] 01/17/11 DIS IN DISCHARGE SUMMARY [id number] [id number] [facility] MD DEYSI Cowart [facility] Ata Yeager MD B THIS REPORT IS CONFIDENTIAL AND NOT TO BE RELEASED WITHOUT PROPER AUTHORIZATION. [facility] gastrointestinal bleed and any intervention is needed. 3. Cardiology. The patient should follow up with a supervisor putty and caluking in regards to restarting P lavix, and further intervention and possible stenting of his coronary arteries after non-ST -elevation myocardial infarction. The patient can restart Plavix once his hemoglobin is st able for two weeks. His supervisor putty and caluking can determine the optimal timing for further intervent ions regarding his coronary artery disease. 4. Placement. Again, the patient did have a detention facility placement arranged by social work, which is greatly appreciated. However, at the time of discharge, the patient was seen and discharged here in [place] to go to the [place] [facility], because he was unabl e to find family here that felt capable of taking him into their home. It will be left up t o the patient to determine whether or not he wants to present himself to [facility] [place] where he has placement. He verbalized his understanding that if he fails to do so, he will loose that placement and it will not be readily available to be ac cepted into the detention facility. He states that he understands the risks involved if he were to discontinue his medications or not continue to follow up with his doctors as recommended. At the time of discharge it is unknown what the patient has decided in terms of his long-term placement. Antonio Cadena MD,R2 Ata Yeager MD A P /[facility] #[id number] cc: Antonio Cadena MD,R2 MD Ata Castle MD Bryan K. Stamm, MD Electronically Signed 05/03/11 0843 Antonio Cadena MD Electronically Signed 04/27/11 1602 Ata Yeager MD MADY FRANCO ADM:01/12/11 [id number] 01/17/11 DIS IN DISCHARGE SUMMARY [id number] [id number] [facility] Antonio Cadena MD ES [facility] Ata Yeager MD B THIS REPORT IS CONFIDENTIAL AND NOT TO BE RELEASED WITHOUT PROPER AUTHORIZATION.Electronica lly signed by Antonio Cadena MD at 08/08/2013 4:10 PM PSTdocumented in this encounter Progress Notes Antonio Cadena MD - 08/08/2013 1:55 AM PST Family Medicine Progress Note . Progress Note initiated: 01/14/11 at 1511. MADY FRANCO, a 70yo Male admitted on 01/12/11 with profound anemia 2/2 GI bleed. ADOD: 01/15/11 Comments: No acute concerns overnight per RN, pt states feeling "better, but still tired". Denies CP, ARANDA, dizziness. Family Medicine Physical Exam General Appearance: [...] anemia, hypoperfusion, metabolic etiologies * medical team amanda garcia his ability to appreciate his condition and [...] have listed any needed clarifications below. CC: //ivsc// Electronically Signed By: Antonio Cadena MD 01/14/11 1528 Electronically Signed By: Kaycee Yeager MD 01/14/11 1656 (A) MADY FRANCO ADM:01/12/11 [id number] ADM IN PROGRESS NOTE [id number] [id number] [facility] Antonio Cadena MD E -Sign: [facility] THIS REPORT IS CONFIDENTIAL AND NOT TO BE RELEASED WITHOUT PROPER AUTHORIZATION.Electronica lly signed by Antonio Cadena MD at 01/14/2011 3:28 PM PDTAntonio Cadena MD - 013 1:54 AM [facility] Family Medicine Progress Note . Progress Note initiated: 01/15/11 at 1225. MADY FRANCO, a 70yo Male admitted on 01/12/11 with [...] (5.0 - 7.5 ) 5.5 Ur Specific [place] (1.001 - 1.030 ) 1.004 Urine Protein [...] Dr. Bai here or Dr. Dejesus in [facility] for further details as Dr. Perdomo er dictated a very detailed letter to Dr. Dejesus as well 3. Encephalopathy * acute vs chronic, 2/2 anemia, hypoperfusion, metabolic etiologies * medical team amanda ns his ability to appreciate his condition [...] stented * Cards recs (Dr. Oliver of [facility] [phone]): needs intervention/st ent "at some point in [...] to get pt accepted in ECF in [place], [place] because of recent AMA discharge * [...] GIB puts pt at risk for another OH. Have broached this subject with the patient, but jann jena is vague about his wishes. At this [...] option regardless, may need to go to halfway t omorrow if nothing available by end of day. Teaching Physician's Statement: During today's hospital visit, I personally interviewed and examined the patient. I confir med the londono components of today's history and PE. I then reviewed the note as written by [facility] resident physician, and discussed the patient with the resident. I agree with the impress ions and plans and have listed any needed clarifications below. CC: //ivsc// Electronically Signed By: Antonio Cadena MD 01/15/11 1244 Electronically Signed By: Kaycee Yeager MD 01/15/11 1447 (A) MADY FRANCO ADM:01/12/11 [id number] ADM IN PROGRESS NOTE [id number] [id number] [facility] Antonio Cadena MD E -Sign: [facility] THIS REPORT IS CONFIDENTIAL AND NOT TO BE RELEASED WITHOUT PROPER AUTHORIZATION.Electronica lly signed by Antonio Cadena MD at 01/15/2011 12:44 PM PDTCoAntonio redmond MD - 013 1:54 AM [facility] Family Medicine Progress Note . Progress Note initiated: 01/16/11 at 0652. MADY FRANCO, a 70yo Male admitted on 01/12/11with profound anemia 2/2 GI bleed. ADOD: 01/16/11 Comments: SW arranged ECF in [place], [place], cannot take until Tuesday. RADHA asked pt's siste r to transport, no [...] (5.0 - 7.5 ) 5.5 Ur Specific [place] (1.001 - 1.030 ) 1.004 Urine Protein [...] Antonio Cadena MD 01/16/11 0703 MADY FRANCO DM:01/12/11 [id number] ADM IN PROGRESS NOTE [id number] [id number] [facility] Antonio Cadena MD E -Sign: [facility] THIS REPORT IS CONFIDENTIAL AND NOT TO BE RELEASED WITHOUT PROPER AUTHORIZATION.Electronica lly signed by Antonio Cadena MD at 01/16/2011 7:03 AM [facility] - 08/08/2013 1:54 AM [facility] Family Medicine Progress Note . Progress Note initiated: 01/16/11 at 0911. MAYD FRANCO, a 70yo Male admitted on 01/12/11. [...] //ivnm// Electronically Signed By: Ata Yeager MD 01/16/11 1351 MADY FRANCO ADM:01/12/11 [id number] ADM IN PROGRESS NOTE [id number] [id number] [facility] Ata Yeager MD E -Sign: [facility] THIS REPORT IS CONFIDENTIAL AND NOT TO BE RELEASED WITHOUT PROPER AUTHORIZATION.Electronica lly signed by Ata Yeager MD at 01/16/2011 1:51 PM Antonio Sequeira MD - 08/08/20 13 1:53 AM [facility] Family Medicine Progress Note . Progress Note initiated: 01/17/11 at 0701. MADY FRANCO, a 70yo Male admitted on 01/12/11with profound anemia 2/2 GI bleed, with re cent NSTEMI and MSSA bacteremia for which he left AMA. ADOD: Comments: Discussed pt's need to contact family and make arrangements for discharge today with transportation to home ([place], [place]) at his convenience. Counseled pt that [...] minimum weekly h/h as outpt, either at ECF or by [facility] at home 2. GI bleed * no change, no melena or hematochezia * on protonix PO BID and carafate currently QID per GI recs, will change to BID on dischar ge (see note 01/15) * will send detailed notes to ECF and to GI and PCP in [place] for follow-up 3. Encephalopathy * no acute [...] and in ECF or at home by [facility] 9. Dispo * Will d/c today, either to family's home or to [facility] depending on pt 's wishes and ability to arrange placement with the help of SW and RN * pt to either report to [facility] on Tuesday or return home depending on his wishes and willingness to commit to E CF placement long-term. * Pt to be provided with detailed notes for follow-up VTE prophylaxis: SCDs CC: //ivnm// Electronically Signed By: Antonio Cadena MD 01/17/11 1109 ISAAC,MADY E A DM:01/12/11 [id number] ADM IN PROGRESS NOTE [id number] [id number] [facility] Antonio Cadena MD E -Sign: [facility] THIS REPORT IS CONFIDENTIAL AND NOT TO BE RELEASED WITHOUT PROPER AUTHORIZATION.Electronica lly signed by Antonio Cadena MD at 01/17/2011 11:09 AM [facility] - 08/08/2013 1:53 AM [facility] Family Medicine Progress Note . Progress Note initiated: 01/17/11 at 0841. ISAACMADY Jena, a 70yo Male admitted on 01/12/11. ADOD: [...] please see the dictated discha rge summary. [facility] Medicine A/P VTE prophylaxis: SCDs CC: //ivnm// Electronically Signed By: Ata Yeager MD 01/17/11 1032 MADY FRANCO ADM:01/12/11 [id number] ADM IN PROGRESS NOTE Z633-01 [id number] [facility] Ata Yeager MD E -Sign: [facility] THIS REPORT IS CONFIDENTIAL AND NOT TO BE RELEASED WITHOUT PROPER AUTHORIZATION.Electronica lly signed by Ata Yeager MD at 01/17/2011 10:32 AM PDTdocumented in this encounter H&P Notes Saúl Winkler MD - 08/08/2013 1:57 AM PST PATIENT NAME: MADY FRANCO 70Y / M DATE OF : 1940 ADMISSION DATE: 01/12/2011 [id number] / [id number] CHIEF COMPLAINT: Transfer from [facility] for acute blood loss anemia. HISTORY OF PRESENT ILLNESS: Mr. Franco is a 70-year-old male who was sent to us from [facility] after being found to have a hemoglobin of 4.4. Of note, he recently le ft against medical advise from [facility] on the fifth of this month, santos bella he was admitted for an upper gastrointestinal bleed causing profound anemia and an NSTEMI . During this admission, he had an had an EGD and a colonoscopy, which found this gastric ulcer that was the presumed site of bleeding; however, no interventions were taken at that time. 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 He was given multiple units of blood and then he left AMA. He returns with weakness and again profound anemia. He was given 4 units of packed red blood cells at [facility], two liters of normal saline was sent to us. He was hypotensive apparently at [facility] with a systolic in the 80s. However, during transport his systolic blood pressure never dropped under 110. He has been awake and alert the entire time. The patient is a p oor historian and does not recall any history of melena or hematochezia, but he is awake, a lert, and oriented. PAST MEDICAL HISTORY: 1. Coronary artery disease 2. CABG x3. 3. Previous stents 4. Hypertension 5. Hyperlipidemia 6. Diabetes mellitus type 2 7. COPD 8. Bilateral carotid endarterectomies 9. Appendectomy 10. Cholecystectomy. SOCIAL HISTORY: One pack per day smoker, alcohol user. Denies any drug use. FAMILY HISTORY: Noncontributory. HOME MEDICATIONS: 1. Entocort 2. Glucotrol 3. Lisinopril 4. Glucophage 5. Protonix 6. Crestor 7. Januvia 8. Carafate. There is a question about his compliance with his home medications. SHELLY FRANCO IS E ADM:01/12/11 [id number] 01/17/11 DIS IN HISTORY & PHYSICAL Z633-01 [id number] [facility] E-Sign: [facility] MD Sona Dumont THIS REPORT IS CONFIDENTIAL AND NOT TO BE RELEASED WITHOUT PROPER AUTHORIZATION. [facility] REVIEW OF SYSTEMS: Ten-point review of systems was completed and was negative, except for the pertinent positives and negatives described above. PHYSICAL EXAMINATION: GENERAL: The patient is a . He is awake, alert, and oriented x3 and is in n o acute distress. VITAL SIGNS: Blood pressure 136/75, respiratory rate 22, temperature 99.9, heart rate 78, he is saturating 100% on 3 liters. HEENT: PERRLA. EOMI. CARDIOVASCULAR: Regular rate and rhythm. No murmurs, rubs, or gallops. LUNGS: Clear to aus cultation bilaterally. No wheezes, rales, or rhonchi. ABDOMEN: Soft, nontender, nondistende d. EXTREMITIES: No lower extremity edema. PULSES: Lower extremity pulses are +2. SKIN: No suspicious rashes, lesions or hematomas. NEUROLOGIC: Cranial nerves II through XII intact as tested. No gross neurologic deficits n oted on exam. PSYCH: Patient is cooperative and pleasant. ADMISSION LABORATORY DATA: Sodium 132, potassium 3.1, chloride 100, bicarbonate 24, BUN 11 , creatinine 0.98, glucose 405, white blood cells 8.8, hemoglobin 4.4, platelets 274, tropo giselle 1.5. ASSESSMENT AND PLAN: 1. Acute blood loss anemia. This is likely secondary to the same cause that he had the re cent admission for the gastric ulcer. Currently his vitals have been stable and he is curr ently receiving his fourth unit of packed red blood cells. His followup hemoglobin and hem atocrit taken after the third unit was 6.2. We will serially monitor the hemoglobin and he matocrit and transfuse him as needed. We will consult GI tomorrow to see if he needs to be rescoped or if any intervention is needed. We will start Protonix 80 b.i.d. We will also c heck coagulation panel and give him a unit of FFP if needed. 2. Elevated troponin with his known coronary artery disease and occlusion of the saphenou s venous graft, it is likely demand ischemia given his decreased hemoglobin. We will follo w cardiac enzymes; however, there is no intervention right now that we can do because of th e bleeding. If his enzymes do come back positive, we will get cardiology on board tomorrow. 3. Upper gastrointestinal bleed. Again, had this during a recent admission due to gastric ulcer. He was given a PPI and Carafate at discharge, but his medication compliance has com e into question. We are giving him PRBCs and we will consult GI in the morning. 4. Recent staph aureus bacteremia during previous admission. He was given Cefazolin five days, had blood cultures that were negative and he came in MADY FRANCO ADM: 01/12/11 [id number] 01/17/11 DIS IN HISTORY & PHYSICAL Z633-01 [id number] [facility] Saúl Garcia MD E-Sign: [facility] Aspen Larry MD R THIS REPORT IS CONFIDENTIAL AND NOT TO BE RELEASED WITHOUT PROPER AUTHORIZATION. [facility] to us with a PICC. We are going to DC the PICC, culture the tip. He currently does not a ppear to be septic; however, we will get another set of blood cultures as well. 5. Alcohol abuse. We will give him thiamine and folate and place the patient on CIWA. 6. Diabetes. His glucose is currently poorly controlled, being in the 400s. We will start an insulin drip. 7. Chronic obstructive pulmonary disease. He is not currently wheezy, but we will order Duo Nebs p.r.n. 8. Fluids, electrolytes and nutrition. He will currently be n.p.o. We will monitor his electrolytes and replete his potassium, which was a little low at 3.1. However, he is getti ng 4 units of blood and we will expect potassium to increase after blood administration. 9. DVT prophylaxis: SCDs. 10. Code status: The patient is FULL CODE. Saúl Garcia MD,R1 Aspen Larry MD A A /[facility] #[id number] cc: MD Aspen Castle MD Dexter Overbay, MD,R1 Electronically Signed 01/18/11 1736 Saúl Garcia MD Electronically Signed 01/15/11 1531 Aspen Larry MD SHELLY FRANCO IS E ADM:01/12/11 [id number] 01/17/11 DIS IN HISTORY & PHYSICAL Z633-01 [id number] [facility] Saúl Garcia MD E-Sign: [facility] Aspen Larry MD R THIS REPORT IS CONFIDENTIAL AND NOT TO BE RELEASED WITHOUT PROPER AUTHORIZATION.Electronica lly signed by Saúl Winkler MD at 08/08/2013 4:10 PM Antonio Retana M D - 08/08/2013 1:57 AM PST PATIENT NAME: MADY FRANCO 70Y / M DATE OF : 1940 ADMISSION DATE: 01/12/2011 [id number] / [id number] CHIEF COMPLAINT: Tired. HISTORY OF PRESENT ILLNESS: This is a 70-year-old gentleman with a recent admission to [facility] for anemia secondary to GI bleed. In the beginning of January he was admitted with a hemoglobin of around 7. He also had an NSTEMI at the time. Upper GI studie s found a bleeding gastric ulcer and the patient was started on Protonix and Carafate. Card iac catheterization during the same stay also showed a previous saphenous vein graft that was 90% occluded, and it was decided that this could be managed medically. During the same admission the patient was noted to have MSSA (methicillin sensitive staph aureus) bacteremi a, and he was on cefazolin for five days IV. On 01/05 the patient left the hospital AGAINST MEDICAL ADVICE because "the doctors wouldn't talk to me and wouldn't give me answers." He reports that he returned home his house where he lives alone. He did not take any of the m edications he had been prescribed because he said that they were new medications and he did not see any reason to take them. Over the intervening week he became progressively more ti red and weak. He denies any abdominal pain, nausea, vomiting, black or bloody stools. He d enies chest pain, shortness of breath and dizziness. However, because of his tiredness, he returned to [facility] on 01/12. At that time he was found to have a hemoglobin of 4.4. He received 2 liters of IV fluid and 4 units of packed red blood cells. However, he w as found to be hypotensive with systolic pressures in the 80s, so he was transferred to [facility]'s ICU for further care. Recheck of hemoglobin at [place] demonstrated a hemoglobin of 6.2. Other labs upon ad mission included a white count of 8.8 and a troponin of 1.5. Other cardiac enzymes were nor mal. The patient received a further transfusion of 4 units of packed red blood cells. His p ressures had stabilized and he was transferred to the floor on 01/13. REVIEW OF SYSTEMS: Negative except as in history of present illness. PAST MEDICAL HISTORY: 1. CAD with CABG x3 and stents 2. Peptic ulcer disease with bleed 3. Hypertension 4. Diabetes 5. COPD (chronic obstructive pulmonary disease) PAST SURGICAL HISTORY: 1. Cholecystectomy 2. Appendectomy 3. CABG x3 4. Stents 5. Bilateral carotid endarterectomies SOCIAL HISTORY: Tobacco - currently smokes 1 pack per day and has a 30+ pack-year history. Past alcohol abuse. The patient denies any current MADY FRANCO ADM:01/12/11 [id number] 01/17/11 DIS IN HISTORY & PHYSICAL Z633-01 [id number] [facility] Antonio Cadena MD E-Sign: [facility] MD Derek Carson THIS REPORT IS CONFIDENTIAL AND NOT TO BE RELEASED WITHOUT PROPER AUTHORIZATION. [facility] alcohol and says he has not had a drink over 30 years. The patient denies any drug use. Th e patient lives alone. FAMILY HISTORY: Unknown. MEDICATIONS: Of note, the doses of these medications are unknown, as this is gleaned mostl y from previous records. The patient was unclear about what medications he takes and says t hat, in fact, he has not been taking any of the recently prescribed medications. 1. Lisinopril 2. Protonix 3. Crestor 4. Carafate 5. Budesonide 6. Glipizide 7. Sitagliptin ALLERGIES: The patient reports allergies to benzos and diazepam - notes that these cause i tching. LABS: 1. Current CBC is notable for a white count of 12.8 with no left shift. Hemoglobin 8.7, hematocrit 27.2, platelets 214,000. 2. BMP: Calcium 3.5, bicarb 21, glucose 76, phosphorus 2.0, calcium 7.3, magnesium 2.2, and troponin 1.23. PHYSICAL EXAM: VITAL SIGNS: Temperature 99.2, pulse 66, blood pressure 120/60, respirations 16, oxygen sa turations 100% on room air. Weight 87 kg. GENERAL: This is a well-nourished, elderly man who looks much older than his stated age, resting comfortably in the bed in n o acute distress. HEENT: PERRLA. Sclerae anicteric. Oropharynx is clear. The patient has poor dentition with multiple missing teeth and fillings. CARDIOVASCULAR: 1-2/6 systolic murmur. Regular rate and rhythm. Peripheral pulses are 2 bi laterally in the upper and lower extremities. LUNGS: Clear to auscultation bilaterally with normal effort. ABDOMEN: With very loud bowel sounds appreciated during conversation with the patient. Abdomen is soft, nontender, moderately distended with no hepatomegaly and no c aput medusa appreciated. INTEGUMENTARY: No jaundice, rash or lesions. No caput medusa. EXTREMITIES: No edema. Lower extremities do show venostasis changes with thickened, hyperpigmented, scaling skin on the feet, and prominent onychomycosis. PSYCHIATRIC: The patient is oriented x3. He has good recall of the events. Normal mood and affect, but poor insight. ASSESSMENT AND PLAN: This is a 70-year-old man with a history of bleeding MADY FRANCO ADM:01/12/11 [id number] 01/17/11 DIS IN HISTORY & PHYSICAL Z633-01 [id number] [facility] Antonio Cadena MD E-Sign: [facility] MD Derek Carson THIS REPORT IS CONFIDENTIAL AND NOT TO BE RELEASED WITHOUT PROPER AUTHORIZATION. [facility] gastric ulcer with subsequent anemia. Also with a recent NSTEMI and bacteremia, [facility] MEDICAL ADVICE. 1. Anemia: The patient is ordered for q.8 hour hemoglobins and hematocrits. We will foll ow up on these. Given the patient's recent NSTEMI, as well as his current elevated troponin , which is likely due to demand ischemia, we have a higher threshold for transfusing this p atient than usual. Therefore, we will transfuse 2 units of packed red blood cells if his h emoglobin drops below 8.0, or if his troponin bumps or if he becomes symptomatic. We will a lso recheck an a.m. CBC to further evaluate his anemia and leukocytosis, which is likely an acute phase reactant. 2. GI bleed: The patient has been on Protonix 80 mg IV b.i.d. We w ill change this to Protonix 40 mg p.o. b.i.d. We will also continue the Carafate 1 gram p. o. q.6 hours. The patient can have a soft diet as tolerated. GI has been consulted and feel s that as they investigated this patient's bleed less than a week ago and he did not follow through on treatment, it would be best to resume the treatment that was recommended befor e until resolution of symptoms. 3. CAD with recent NSTEMI: Cardiology has been consulted again, and as last week they aranda ve recommended medical management. Most importantly in this patient with elevated troponin secondary to demand ischemia from his profound anemia, we must control his anemia. See #1 eric goff. We will not continue this patient on aspirin or any anticoagulation at this time due to his bleed. We will recheck cardiac enzymes in the morning, as they are trending down at this time. If they continue to trend down for one more check, we will stop rechecking thes e enzymes unless new signs or symptoms appear. 4. Diabetes: The patient was initially on an insulin drip for a glucose of 405. However, since leaving the ICU he has been off of the insulin drip. We will start Lantus 20 units s ubcu at bedtime with a citywide sliding scale. The patient will also have a soft cardiac di et. 5. COPD: Stable, no wheezing at this time. The patient has DuoNeb q.4 hours p.r.n. 6. Recent bacteremia: The patient had blood cultures drawn at the beginning of this admi ssion. Those results are pending at this time. However, the patient does not appear to be s eptic. He is normotensive, afebrile, and not tachycardic. Therefore, we are not administeri ng antibiotics at this time. We will follow the pending cultures. 7. Deep venous thrombo sis prophylaxis: Given his bleed, this patient is not a good candidate for chemical prophyl axis at this time. Therefore, he will have SCDs in place when in bed. 8. Living situation: As this is an elderly gentleman with multiple medical problems incl uding anemia, which increases his fall risk, and he has been recently hospitalized, which m ay result in deconditioning, we will get a PT, OT evaluation for his safety and ability to perform activities of daily living. DISPOSITION: Disposition likely in the next day or two when his hematocrit MADY FRANCO ADM:01/12/11 [id number] 01/17/11 DIS IN HISTORY & PHYSICAL Z633 [id number] [facility] Antonio Cadena MD E-Sign: [facility] Tony Raymond MD B THIS REPORT IS CONFIDENTIAL AND NOT TO BE RELEASED WITHOUT PROPER AUTHORIZATION. [facility] and hemoglobin have been stable for 24 hours without need for transfusion, and as long as his cardiac enzymes continue to trend down. Antonio Cadena MD,R1 Tony Raymond MD P P /rica #[id number] cc: Antonio Cadena MD,R1 MD Aspen Castle MD Bryan K. Stamm, MD Electronically Signed 02/22/11 2202 Antonio Cadena MD Electronically Signed 01/20/11 1036 Tony Raymond MD SHELLY FRANCO E ADM:01/12/11 [id number] 01/17/11 DIS IN HISTORY & PHYSICAL Z633-01 [id number] [facility] Antonio Cadena MD E-Sign: [facility] MD Derek Carson THIS REPORT IS CONFIDENTIAL AND NOT TO BE RELEASED WITHOUT PROPER AUTHORIZATION.Electronica lly signed by Antonio Cadena MD at 08/08/2013 4:10 PM PSTdocumented in this encounter Consult Notes Scott Monahan MD - 08/08/2013 1:57 AM PST PATIENT NAME: MADY FRANCO CONSULTING: Scott Monahan MD REQUESTING: [facility], DATE OF ADMISSION: 01/12/2011 DATE OF CONSULTATION: 01/13/2011 [id number] / [id number] AGE/SEX: 70Y / M : 1940 REASON FOR CONSULTATION: Profound anemia secondary to gastrointestinal blood loss. CLINICAL HISTORY: Mady Franco is a 70-year-old male who was transferred u p from [facility] in [place], [place] for management of recurrent gastroint estinal blood loss with acute/profound anemia. He was hospitalized from the 30 of December to the 05 January with similar issues complicate d by a methicillin Staphylococcus bacteremia and non-ST segment myocardial infarction. At that time, angiography was performed by Dr. Shant Oliver, which revealed the followin. Normal left ventricular size and function. 2. Single patent saphenous vein graft to the right coronary artery. 3. [place] patent to th e LAD. 4. Circumflex distribution without grafting. 5. Ostial distal/large posterolateral marginal branch approaching 70%. At that time, Dr. Oliver recommended aggressive medical therapies, addressing patient's ga strointestinal etiologies resulting in the blood loss, and medical therapies. Mr. Franco apparently responded to medical therapies during his hospitalization and, due t o frustrations that I have not confirmed with him, signed out against medical advice on the 05 of January. His gastrointestinal loss at that time was felt to be due to a gastric ulcer, though appar ently it responded to medical therapies, as well. He presented last evening to the hospital in [place] with profound weakness, fatigue, and pallor. He was also hypotensive at that time with blood pressures into the 80s systolic . Stool remained guaiac/heme-positive. Transfusion was begun as was preparation for transfer back to [facility]. Mr. Farnco has stated that he did not take any of his prescribed medicines following his h ospitalization. CARDIOVASCULAR RISK FACTORS: Age, male gender, known disease, hypertension, hyperlipidemia , adult-onset diabetes, and tobacco use. SHELLY FRANCO IS E ADM:01/12/11 [id number] ADM IN CONSULTATION Z633-01 [id number] [facility] Scott Monahan MD E-Sign: [facility] THIS REPORT IS CONFIDENTIAL AND NOT TO BE RELEASED WITHOUT PROPER AUTHORIZATION. [facility] PAST CARDIAC HISTORY: 1. Coronary artery bypass grafting x3. 2. Grafts patent by recent angiography. 3. Bilateral carotid endarterectomies. SOCIAL HISTORY: The patient continues to smoke and does drink but denies excess. FAMILY HISTORY: Noncontributory. MEDICATIONS: 1. Entocort 9 mg p.o. daily. 2. Glucotrol XL 10 mg p.o. daily and 25 mg p.o. at night. 3. Lisinopril 10 mg p.o. daily . 4. Metoprolol long-acting 25 mg p.o. daily. 5. Glucophage 1000 mg at bedtime. 6. Protonix 40 mg p.o. b.i.d. 7. Crestor 5 mg p.o. daily. 8. Januvia 50 mg p.o. daily. 9. Carafate 1 g orally before meals and at bedtime. MEDICAL ALLERGIES: None admitted to. REVIEW OF SYSTEMS: He denies any fever, chills, nausea, or vomiting. His stools have been loose and blackish in color. He has had no dysuria or change in bladder habits. He denies any weight loss or weight gain. He denies any hemoptysis, hematuria, or hematemesis. He h as had no focal muscular weakness or paresthesias. PHYSICAL EXAMINATION: GENERAL: Well-developed, nourished, unkempt male who is not a very good hi storian and seems to not care to answer questions. He does not complain of any acute distr ess. VITAL SIGNS: Blood pressure is 120/80. He is afebrile, heart rate is 70 and regular. HEENT: Sclerae are anicteric. There are no xanthelasmas. Face is symmetric. NECK: JVP is not visualized. There are well-healed carotid endarterectomy scars bilaterall y with soft bruits. CHEST: The chest shows a well-healed midline sternotomy scar. LUNGS: Clear. CARDIAC: Regular rate and rhythm without definite murmur or gallop. ABDOMEN: Soft and nont ailyn with scattered bowel sounds. EXTREMITIES: Radial pulses are full and equal. Distal p ulses are palpable. LABORATORY DATA: Renal function is unremarkable with a creatinine of 0.98. Hemoglobin is o nly 4.4, and hematocrit of 10.0. SHELLY FRANCO IS E ADM:01/12/11 [id number] ADM IN CONSULTATION Z633-01 [id number] [facility] Scott Monahan MD E-Sign: [facility] THIS REPORT IS CONFIDENTIAL AND NOT TO BE RELEASED WITHOUT PROPER AUTHORIZATION. [facility] LABORATORY DATA: Troponin is mildly elevated at 1.5. IMPRESSION: Mildly elevated cardiac enzymes secondary to acute gastrointestinal blood los s. RECOMMENDATIONS: The patient's blood pressure seems stable at this time. We will reinstitu te medications recommended at the time of last discharge. It is doubtful, given the patient's noncompliance, that any further revascularization will be considered without compelling clinical scenarios. Thank you for the opportunity to be of service. Scott Monahan MD A A CRISTELA/hernan #[id number] cc: MD Scott Castle MD Louise A Harder, MD Electronically Signed 01/15/11 1504 Scott Monahan MD SHELLY FRANCO IS E ADM:01/12/11 [id number] ADM IN CONSULTATION Z633-01 [id number] [facility] Scott Monahan MD E-Sign: [facility] THIS REPORT IS CONFIDENTIAL AND NOT TO BE RELEASED WITHOUT PROPER AUTHORIZATION.Electronica lly signed by Scott Monahan MD at 08/08/2013 4:10 PM PSTdocumented in this encounter Plan of Treatment Not on filedocumented as of this encounter Visit Diagnoses Not on filedocumented in this encounter
--- OUTSIDE RECORDS SUMMARY | ~2020-04-30 | XMS | Encounter Summary ---
Demographics + + + | Address | [address] | | | [place] [address] | + + + | Home Phone [...] + + + | Author | [facility] | + + + | Organization | [facility] | + + + | Address | Unknown | + + + | Phone | Unavailable | + + + Support + + +---------+ + | Name | Relationship | Address | Phone | + + +---------+ + | Mihaela Whitehead | ECON | Unknown | | + + +---------+ + Care Team Providers + +------+ + | Care Seismograph Supervisor Name | Role | Phone | + [...] [id number] | | | | | | [place], [place] | | | | | | [address] | | | | | | [phone] | | | +--------+ + + + [...]
--- OUTSIDE RECORDS SUMMARY | ~2020-04-30 | XMS | Encounter Summary ---
Demographics + + + | Address | [address] | | | [place] [address] | + + + | Home Phone | | + + + | Preferred Language | Unknown | + + + | Marital Status | Single | + + + | Christianity Affiliation | Unknown | + + + | Race | or | + + + | Ethnic Group | Not or | + + + Author + + + | Author | [facility] | + + + | Organization | [facility] | + + + | Address | Unknown | + + + | Phone | Unavailable | + + + Support + + +---------+ + | Name | Relationship | Address | Phone | + + +---------+ + | Mihaela Whitehead | ECON | Unknown | | + + +---------+ + Care Team Providers + +------+ + | Care Estimator Jewelry Name | Role | Phone | + [...] [id number] | | | | | | [place], [place] | | | | | | [address] | | | | | | [phone] | | | +--------+ + + + [...]
--- OUTSIDE RECORDS SUMMARY | ~2020-04-30 | XMS | Encounter Summary ---
Demographics + + + | Address | [address] | | | [place] [address] | + + + | Home Phone | | + + + | Preferred Language | Unknown | + + + | Marital Status | Single | + + + | Jew Affiliation | 1041 | + + + | Race | Unknown | + + + | Ethnic Group | Unknown | + + + Author + + + | Author | [facility] | | | and [place] | + + + | Organization | [facility] | | | and [...] Team Providers + +------+ + | Care Hotel Reservation Agent Name | Role | Phone | + +------+ + PCP | Unavailable | + +------+ + Encounter Details +--------+ + + + + | Date | Type | Department | Care Team | Description | +--------+ + + + + | 01/13/ | Hospital | [facility] | | | | 1999 | Encounter | MED CTR XRAY [address] | | | | | | [address] | | | | | | [place] [address] | | | | | | [phone] | | | +--------+ + + + [...]
--- OUTSIDE RECORDS SUMMARY | ~2020-04-30 | XMS | Encounter Summary ---
Demographics + + + | Address | [address] | | | [place] [address] | + + + | Home Phone | | + + + | Preferred Language | Unknown | + + + | Marital Status | Single | + + + | Protestant Affiliation | 1041 | + + + | Race | Unknown | + + + | Ethnic Group | Unknown | + + + Author + + + | Author | [facility] | | | and [place] | + + + | Organization | [facility] | | | and [...] Team Providers + +------+ + | Care Road Cutter Name | Role | Phone | + +------+ + | Pcp, Prov Inactive | PCP | | + +------+ + Reason for Referral Diagnostic/Screening (Urgent) +--------+--------+ + + + + | Status | Reason | Specialty | Diagnoses / | Referred By | Referred To | | | | | Procedures | Contact | Contact | +--------+--------+ + + + + | Closed | | Radiology | Diagnoses | Donta Reyes | [facility] | | | | | Coronary | MD [address] | Medicine | | | | | artery | [address] | [address] | | | | | disease of | Avenue | [place], | | | | | [place]kl[place] | [place], | [place] | | | | | artery of | [place] [address] | [address] | | | | | eklutna heart | Phone: | Phone: | | | | | with stable | [phone] | [phone] | | | | | angina | Fax: | Fax: | | | | | pectoris | [phone] | [phone] | | | | | (HCC) Chest | | | | | | | pain, | | | | | | | unspecified | | | | | | | type | | | | | | | Awareness of | | | | | | | heart beat | | | | | | | Procedures | | | | | | | NM Nuclear | | | | | | | Stress Test | | | | | | | (Exercise) | | | +--------+--------+ + + + + Reason for Visit Auth/Cert +--------+--------+ + [...] + + | 02/01/ | Hospital | [facility] | Donta Reyes MD | Coronary artery | | 2019 | Encounter | MED CTR NUCLEAR | [address] | disease of [place] | | | | MEDICINE [address] | [place], [place] | artery of ekl[place]na | | | | [address] [place], | [address] | heart with stable | | | | [place] [address] | | angina pectoris | | | | [phone] | [employer] | ([facility]); Chest pain, | | | | | | unspecified type; | | | | | | Awareness of heart | | | | | | beat | +--------+ + + + + Social [...] e | 2:12 PM | disease of [place]kl[place] | procedure are in the | | | | PDT | artery of [place]kl[place] | results section. | | | | | heart with stable | | | | | | angina pectoris | | | | | | ([facility]) Chest pain, | | | | | | unspecified type | | | | | | Awareness of heart | | | | | | beat | | + +--------+ + + + documented in this encounter Results NM Nuclear Stress Test (Exercise) (02/01/2019 2:12 PM PDT) + +--------+ + + + | Component | Value | Ref Range | Performed | Pathologist | | | | | At | Signature | + +--------+ + + + | BASELINE | 76 | bpm | [facility] | | | HEART RATE | | | | | + +--------+ + + + | BASELINE | 132/65 | mmHg | [facility] | | | BLOOD | | | | | | PRESSURE | | | | | + +--------+ + + + | PEAK HEART | 153 | | [facility] | | | RATE | | | | | + +--------+ + + + | PEAK BLOOD | 155/62 | mmHG | [facility] | | | PRESSURE | | | | | + +--------+ + + + | Target HR | 122 | | [facility] | | + +--------+ + + + | Exercise | 10 | sec | [facility] | | | duration | | | | | | (sec) | | | | | + +--------+ + + + | Percent HR | 106 | | [facility] | | + +--------+ + + + | Exercise | 2 | min | [facility] | | | duration | | | | | | (min) | | | | | + +--------+ + + + | Estimated | 4.0 | METS | [facility] | | | workload | | | | | + +--------+ + + + | LVEF-SPECT | 88 | % | [facility] | | | NUCLEAR | | | | | | STRESS/VIAB | | | | | | ILITY | | | | | + +--------+ + + + | ST | 0.0 | mm | [facility] | | | Elevation | | | | | | (mm) | | | | | + +--------+ + + + + + | Specimen | + + | | + + + + + | Narrative | Performed At | + + + | 1. Exercise | [facility] | | EKG is negative.2. Blood pressure response normal.3. Patient has | | | shortness of breath but no chest pain during procedure.4. There is | | | no arrhythmia during procedure.5. Exercise tolerance is diminished | | | for age.6. Normal exercise sestamibi myocardial imaging study. | | | Normal left ventricular size, wall thickness and motion. Preserved | | | left ventricular systolic function. LVEF by gated SPECT is 88%. | | |systolic function. LVEF by gated SPECT is 88%. | | + + + + +---------+ + + | Performing | Address | City/State/Zipcode | Phone Number | | Organization | | | | + +---------+ + + | [facility] | | | | + +---------+ + + documented in this encounter Visit Diagnoses + + | Diagnosis | + + | Coronary artery disease of [place] artery of [place] heart with stable angina pectoris | | (HCC) | + + | Chest pain, unspecified type | + + | Awareness of heart beat Palpitations | + + documented in this encounter Administered Medications + +--------+ + +------+------+ | Medication Order | MAR | Action | Dose | Rate | Site | | | Action | Date | | | | + +--------+ + +------+------+ | technetium TC-99M sestamibi | Given | 02/02/20 | 10.81 | | | | (CARDIOLITE) injection | | 19 10:05 | millicur | | | | millicurie millicurie, | | AM PDT | ies | | | | Intravenous, ONCE PRN, Other, | | | | | | | Starting [facility] 02/01/19 at 1005, For | | | | | | | 1 dose, Nuclear Medicine | | | | | | + +--------+ + +------+------+ +---+---+ | | | +---+---+ documented in this encounter"
--- OUTSIDE RECORDS SUMMARY | ~2020-04-30 | XMS | Clinical Summary ---
Demographics + + + | Address | [address] | | | [place] [address] | + + + | Home Phone | | + + + | Preferred Language | Unknown | + + + | Marital Status | Single | + + + | Judaism Affiliation | Unknown | + + + [...] | + + +---------+ + | Mihaela Wihtehead | ECON | Unknown | | + + +---------+ + Care Team Providers + +------+ + | Care Plugger Man Name | Role | Phone | + +------+ + PCP | Unavailable | + +------+ + Source Comments EL is fully live on both [facility] and [facility] InPatient.[facility] Allergies Not on File Medications Not [...] | | | | all | | [address] | | | | | | dates | | | | + +--------+ +--------+ + +--------+ | [facility] | [place] | [phone] | Effect | | | [...] | 1941 | [id number] | [place] [address] | | | luis | | | 2 (Home) | | + +--------+ +--------+ + + | Huey Franco | Agency | Self | [birth year] | [address] | | | | | 1941 | [phone] | [place] [address] | | | | | | 2 ([place]) | | + +--------+ +--------+ + +"
--- OUTSIDE RECORDS SUMMARY | ~2020-04-30 | XMS | Encounter Summary ---
Demographics + + + | Address | [address] | | | [place] [address] | + + + | Home Phone | | + + + | Preferred Language | Unknown | + + + | Marital Status | Single | + + + | Denominational Affiliation | Unknown | + + + [...] Team Providers + +------+ + | Care Nib Finisher Name | Role | Phone | + [...] as of this encounter Progress Notes Interface, Medical I D Sales In - 08/04/2005 5:04 AM [facility] [id number] ISAAC EARL Consulting Physician: Geoff Henry M.D. Consultation Date: 07/15/2005 Referring Physician: Dr. Covarrubias [facility] Chief Complaint: A [...] caffeine. 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 Physical Examination: Vital [...] this time. We will defer to his auto battery builder and his primary care physician for an [...] therapy, we would suggest physical therapist in [place] named [place], phone number [phone] for pain-oriented physical therapy who is a [...] Yaquelin Esposito M.D. Geoff Henry M.D. / [id number] / [id number] / [id number] / [id number] cc: Dr. Covarrubias [address] [place] [address] Electronically signed by Yaquelin Esposito 08-03-2005 08:55:55 AM documented i n this encounter Plan of Treatment Not on filedocumented as of this encounter Visit Diagnoses Not on filedocumented in this encounter
--- OUTSIDE RECORDS SUMMARY | ~2020-04-30 | XMS | Clinical Summary ---
Demographics + + + | Address | [address] | | | [place] [address] | + + + | Home Phone [...] + + | Author | [facility] | | | and [place] | + + + | Organization | [facility] | | | and [...] Team Providers + +------+ + | Care Trimming Machine Set Up Operator Name | Role | Phone | [...] on file | | + + + Last Filed Vital Signs + [...] Health Maintenance | Due Date | Last | Comments | | | | Done | | + + + + + | Hepatitis C | | | | | Screening | 3 | | | + + + + + | Med Mgmt: HBA1C | | | | | | 3 | | | + + + + + | Medication | | | | | Management | 3 | | | + + + + + | Diabetic Eye Exam | | | | | | 1 | | | + + + + + | Diabetic Foot Exam | | | | | | 1 | | | + + + + + | Hemoglobin A1c | | | | | Screening | 1 | | | + + + + + | Vaccine: Zoster (1 | | | | | of 2) | 3 | | | + + + + + | Vaccine: | | | | | Pneumococcal 65+ (1 | 8 | | | | of 1 - PPSV23) | | | | + + + + + | Med Mgmt: Cr | | 01/13/20 | | | | 2 | 11 | | + + + + + | Med Mgmt: K | | 01/13/20 | | | | 2 | 11 | | + + + + + | Med Mgmt: eGFR | | 01/13/20 | | | | 2 | 11 | | + + + + + | Adult Annual | | | | | Wellness Visit | 0 | | | + + + + + | Vaccine: Influenza | | 06/28/20 | | | (#1) | 0 | 18, | | | | | 07/20/20 | | | | | 17, | | | | | 07/23/20 | | | | | 16, | | | | | Addition | | | | | al | | | | | history | | | | | exists | | + + + + + | Vaccine: | | 11/25/19 | | | Dtap/Tdap/Td (2 - | 8 | 18 | | | Td) | | | [...] +--------+ +---------+--------+ | MEDICARE | MEDICA | [id number] | | [phone] | | Medica | | | RE | | 003-Pr | 5 | | re | | | PART A | | esent | | | | | | AND B | | | | | | + +--------+ +--------+ +---------+--------+ | MEDICARE | MEDICA | [id number] | | [phone] | | Medica | | | RE | | 003-Pr | 5 | | re | | | PART A | | esent | | | | | | AND B | | | | | | + +--------+ +--------+ +---------+--------+ | [place]ICAID [place] | MEDICA | [id number] | 02/01/20 | [phone] | | Medica | | | ID [place] | | 19-Pre | 2 | | id | | | PLUS | | sent | | | | + +--------+ +--------+ +---------+--------+ | [facility] | IHS | [id number] | | | | Indemn | | SERVICE | YELLOW | | 015-Pr | | | ity | | | HAWK | | esent | | | | + +--------+ +--------+ +---------+--------+ | [employer]ICAID [place] | MEDICA | [id number] | | [phone] | | Medica | | | ID [...] | 1941 | [phone] | [place] [address] | | | luis | | | 7 (Home) | | + +--------+ +--------+ + + | Huey Franco | Person | Self | [birth year] | [address] | | | al/Fam | | 1941 | [phone] | [place] [address] | | | luis | | | 7 (Home) | | + +--------+ +--------+ + + Advance Directives + + + + + | Type | Date Recorded | Patient | Explanation | | | | Shuttlecock Assembler | | + + + + + | Power of | | | | | Hebrew Teacher | | | | + + + + + | Advance | 08/08/2015 10:44 | | | | Directive | AM | | | + + + + +
--- OUTSIDE RECORDS SUMMARY | ~2020-04-30 | XMS | Encounter Summary ---
Demographics + + + | Address | [address] | | | [place] [address] | + + + | Home Phone [...] + | Author | [facility] | | | and [place] | + + + | Organization | [facility] | | | and [place] [...] Team Providers + +------+ + | Care Qa Developer Name | Role | Phone | + +------+ + PCP | Unavailable | + +------+ + Encounter Details +--------+ + + + + | Date | Type | Department | Care Team | Description | +--------+ + + + + | 11/24/ | Hospital | [facility] | Cy Olson MD | | | 2006 - | Encounter | [facility] | [address] [place] [address] | | | | | CARDIAC TRANSPLANT | [address] [place], | | | 12/02/ | | [address] | [place] [address] | | | 2006 | | [place] | [phone] | | | | | [address] | | | | | | [phone] | | | +--------+ + + + [...]
--- OUTSIDE RECORDS SUMMARY | ~2020-04-30 | XMS | Encounter Summary ---
Demographics + + + | Address | [address] | | | [place] [address] | + + + | Home Phone | | + + + | Preferred Language | Unknown | + + + | Marital Status | Single | + + + | Episcopalian Affiliation | Unknown | + + + [...] Team Providers + +------+ + | Care Spinning Frame Cleaner Name | Role | Phone | + [...] as of this encounter Progress Notes Interface, Electrical Manager In - 08/04/2005 5:04 AM [facility] [id number] ISAAC EARL Consulting Physician: Geoff Henry M.D. Consultation Date: 07/15/2005 Referring Physician: Dr. Covarrubias [facility] Chief Complaint: [...] caffeine. 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 Physical Examination: Vital [...] this time. We will defer to his orthopedic brace maker and his primary care physician for an [...] therapy, we would suggest physical therapist in [place] named Ham High, phone number [phone] for pain-oriented physical therapy who is a [...] Yaquelin Esposito M.D. Geoff Henry M.D. / [id number] / [id number] / [id number] / [id number] cc: Dr. Covarrubias [address] [place] [address] Electronically signed by Yaquelin Esposito 08-03-2005 08:55:55 AM documented i n this encounter Plan of Treatment Not on filedocumented as of this encounter Visit Diagnoses Not on filedocumented in this encounter
--- OUTSIDE RECORDS SUMMARY | ~2020-04-30 | XMS | Encounter Summary ---
Demographics + + + | Address | [address] | | | [place] [address] | + + + | Home Phone | | + + + | Preferred Language | Unknown | + + + | Marital Status | Single | + + + | Zoroastrian Affiliation | 1041 | + + + | Race | Unknown | + + + | Ethnic Group | Unknown | + + + Author + + + | Author | [facility] | | | and [place] | + + + | Organization | [facility] | | | and [...] Providers + +------+ + | Care Senior Application Programmer Name | Role | Phone | + [...] | | for | | [address], | | | | | colonoscopy | | [address] | | | | | due to | | [place]I [place], | | | | | history of | | [place] [address] | | | | | adenomatous | | Phone: | | | | | colonic | | [phone] | | | | | polyps | | Fax: | | | | | 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 | Kwasi Cates MD | POLYP-COLON; 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 | [address], [place] | deficiency anemia | | | | [address] | [address] [place], [place]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 | | | | [place], [place] | [address] | loss | | | | [address] | | | | | | [phone] | | | +--------+ + + + [...] + + documented as of this encounter H&P Notes Kwasi Cates MD - 08/08/2015 1:07 PM PSTThe patient has no questions consent forms are signed we'll proceed with upper endoscopy colonoscopy Kwasi Aguirre MD - 08/07/2015 11:00 AM PST PRE-ENDOSCOPY HISTORY AND PRE-SEDATION ASSESSMENT PATIENT NAME: Huey Franco : 1940 TODAY'S DATE: 08/08/2015 PLANNED PROCEDURE: colonoscopy PERTINENT HISTORY/INDICATION FOR PROCEDURE: Huey Franco is a 74 y.o. male who is underg oing colonoscopy for colon cancer screening and colonic polyp surveillance. 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 acetaminophen-codeine (TYLENOL #3) 300-30 mg per tablet Take 1-2 tablets by mouth every 4 h ours as needed for Pain. aspirin 81 mg chewable tablet Take 81 mg by mouth Daily. ferrous gluconate (FERGON) 325 mg tablet Take 325 mg by mouth Daily. glipiZIDE (GLUCOTROL XL) 2.5 mg 24 hr tablet Take 2.5 mg by mouth Daily. lisinopril (PRINIVIL, ZESTRIL) 5 mg tablet Take 5 mg by mouth Daily. metformin (GLUCOPHAGE) 1000 MG tablet Take 1,000 mg by mouth Daily. metoprolol succinate (TOPROL XL) 50 mg 24 hr tablet Take 50 mg by mouth Daily. multivitamin (THERAGRAN) per tablet Take 1 tablet by mouth once daily nitroglycerin (NITROSTAT) 0.4 mg SL tablet Take 1 tablet sublingually every 5 minutes up to 3 tablets total for chest pain. Call 911 or go to ER if not relieved. pantoprazole (PROTONIX) 40 mg tablet Take 40 mg by mouth 2 times daily. rosuvastatin (CRESTOR) 10 mg tablet Take 10 mg by mouth Daily. Sennosides (SENOKOT PO) TABS Take as directed sitagliptan (JANUVIA) 50 MG tablet Take 50 mg by mouth Daily. SitaGLIPtin-MetFORMIN HCl (JANUMET XR) 50-1000 MG TB24 Take 2,000 mg by mouth Daily. sodium sulfate-potassium sulfate-magnesium sulfate (SUPREP BOWEL PREP) oral solution Take 1 77 mLs by mouth See Admin Instructions. Take one kit, first dose at 4pm 08/07/15, second dose at 6am 08/08/15; NPO by 7 am 08/08/15 SUCRALFATE PO TABS Take as directed ALLERGIES Allergies Allergen Reactions Doxepin Hcl Other (See Comments) Pt does not know Diazepam Itching Valium Itching ASA CLASSIFICATION:3 EXAMINATION: Blood pressure 132/65, pulse 76, temperature 36.2 C (97.2 F), temperature source Tempor al, resp. rate 18, height 1.702 m (5' 7"), weight 83.008 kg (183 lb), SpO2 95 %. General: Alert and orientedx3 Throat: Normal Lungs: Clear Heart: Regular rate and rhythm with out significant murmur Abdomen: flat, normal bowel sounds. Soft, nontender 1. Available medical records have been reviewed. Anabella Mckeon in clinic with labs 2. Medication list reviewed. IMPRESSION: Upper endoscopy colonoscopy for evaluation of anemia colonic polyps Patient appropriate for procedure. PLAN: 1. Proceed with procedure as stated above with propofol sedation/analgesia chronic narcotic use. 2. Procedure, indications, risks and alternatives explained to patient/family and they agre ed to proceed and consent was signed. 3. Patient will be reevaluated immediately (1-2 minutes) before sedation administration and approved for the plan as stated above. Electronically Signed by: Kwasi Cates MD 08/08/2015 [facility] Portions of this chart may have been created with [employer] voice recognition software. Occasi onal wrong-word or sound-alike substitutions may have occurred due to the inherent grider itations of voice recognition software. Please read the chart carefully and recognize, using context, where these substitutions have occurred documented in this enc ounter Miscellaneous Notes Op Note - Kwasi Cates MD - 08/08/2015 1:45 PM PSTUpper endoscopy was remarkable for ga stritis and hiatal hernia without evidence of esophagitis duodenum mucosa appeared normal. Colonoscopy was remarkable for 1 cecal polyp 1 ascending colon polyp for descending colon po lyps all removed via snare technique. Patient was discharged with post polypectomy instruct ions but will have him continue on his 81 mg aspirin due to his cardiovascular disease follo w-up frequency will depend upon Results documented in t his encounter Plan of Treatment Not on filedocumented [...] | + + + + + | [facility] | [address] | [place] | [phone] | | [facility] | | [address] | | | - LABORATORY | | | | + + + + + EGD (08/08/2015 12:58 PM PST) + + | Specimen | + + | | + + + + -+ | Narrative | Performed At | + + -+ | | [facility] | | GastroenterologyPatient Name: Huey Goodwin Date: 08/08/2015 | [facility] | | 12:58 PMMRN: [id number] #: [id number] of : | | | 3Admit Type: AmbulatoryAge: 74Room: [facility] 01Gender: MaleNote | | | Status: FinalizedAttending MD: Kwasi Cates, [facility] | | Upper GI endoscopyIndications: AnemiaProviders: | | | Kwasi Cates MD, Manuela Christianson RN, Michaelle | | | Ally West, Director Operating, Eder Ceja MD | | | (Anesthesia [...] | | | the anesthesiologist and the location and measurement technician in the endoscopy suite. | | [...] | | 1:09:13 PMScope Out: 1:12:03 PM [facility] | | | [place], [address] [place] [address] | | | - Discharge patient to [...] |Scope Out: 1:12:03 PM | | | [facility], [address] [facility], [place], [place] | | | [address] | | + + -+ + +---------+ [...] | [facility] | | GastroenterologyPatient Name: Huey FrancoProcedure Date: 08/08/2015 | PROVATIO N | | 12:58 PMMRN: [id number] #: [id number] of : | | | 1940dmit Type: AmbulatoryAge: 74Room: [facility] 01Gender: MaleNote | | | Status: FinalizedAttending MD: Kwasi Cates, [facility]: | | | ColonoscopyIndications: High risk colon cancer | | | surveillance: Personal history of colonic | | | polypsProviders: Kwasi Cates MD, Manuela Thomas | | | RIO Christianson, Michaelle West, | | | Director Operating, Eder Ceja MD (Anesthesia | | | [...] the anesthesiologist and the | | | location and measurement technician in the endoscopy suite. Mental Status [...] Scope In: 1:13:56 PMScope Out: 1:40:19 PM [facility]. | | | [facility], [address] [place] [address] | | | [phone] | | | - Await pathology results. [...] |Scope Out: 1:40:19 PM | | | [facility]. [facility], [address] [place] [address] | | | [address] | | + +--------- -----+ + +---------+ [...] (H) | 70 - 150 mg/dL | [facility] | | | POC | | | [facility] | | [...] + | [facility] | [address] | [place] | [phone] | | [facility] | | [address] | | | - LABORATORY | | [...] colon, polyp: - Fragments of tubular adenoma. DDN:[facility]:C2NR | | | GROSS DESCRIPTION: The specimen is received in three parts. A. | | | The specimen is labeled "Huey Franco E" and designated "cecal polyp" | | | on the requisition. Received in formalin are five hurst colored tissue | | | fragments 0.2-0.4 cm, all into (A1). B. The specimen is labeled | | | "Huey Franco E" and designated "ascending colon polyp" on the | | | requisition. Received in formalin is one hurst colored tissue fragment, | | | 0.3 cm, all into (B1). C. The specimen is labeled "Huey Franco | | | E" and designated "descending colon polyp" on the requisition. | | | Received in formalin are five cream to pink-hurst colored tissue | | | fragments 0.15-0.5 cm, all into (C1). yt:REGGIE:margaret PERFORMING | | | LABORATORY: Tissue processing and slide preparation were performed by | | | [facility], [address], [place] [address] | | | (Echocardiographer: Aydin Wilhelm M.D. CLIA#: [id number]). | | | Professional interpretation was performed by [facility], [address] | [address], [place] [address] (Echocardiographer: Aydin | | | Natalya Wilhelm; CLIA#: [id number]). Diagnostician: Cy | | | Latesha ARCEO [...]
--- OUTSIDE RECORDS SUMMARY | ~2020-04-30 | XMS | Encounter Summary ---
Demographics + + + | Address | [address] | | | [place] [address] | + + + | Home Phone | | + + + | Preferred Language | Unknown | + + + | Marital Status | Single | + + + | Orthodox Affiliation | 1041 | + + + | Race | Unknown | + + + | Ethnic Group | Unknown | + + + Author + + + | Author | [facility] | | | and [place] | + + + | Organization | [facility] | | | and [...] Team Providers + +------+ + | Care Mechanical Engineering Technologist Name | Role | Phone | + [...] | SR | | | | | [address] [facility] | | | | | | [place], [place] | | | | | | [address] | | | | | | [phone] | | | +--------+ + + + [...]
--- OUTSIDE RECORDS SUMMARY | ~2020-04-30 | XMS | Encounter Summary ---
Demographics + + + | Address | [address] | | | [place] [address] | + + + | Home Phone [...] [facility] | | | and [place] | + + + | Organization | [facility] | | | and [...] Team Providers + +------+ + | Care Student Teaching Coordinator Name | Role | Phone | + +------+ + PCP | Unavailable | + +------+ + Encounter Details +--------+ + + + + | Date | Type | Department | Care Team | Description | +--------+ + + + + | 11/17/ | Hospital | [facility] | Unknown, | | | 1992 | Encounter | MED CTR XRAY [address] | MD Dean . | | | | | [place] | | | | | | [place] [address] | (Fax) | | | | | [phone] | | | +--------+ + + + [...]
--- OUTSIDE RECORDS SUMMARY | ~2020-04-30 | XMS | Encounter Summary ---
Demographics + + + | Address | [address] | | | [place] [address] | + + + | Home Phone | | + + + | Preferred Language | Unknown | + + + | Marital Status | Single | + + + | Amish Affiliation | 1041 | + + + | Race | Unknown | + + + | Ethnic Group | Unknown | + + + Author + + + | Author | [facility] | | | and [place] | + + + | Organization | [facility] | | | and [...] Team Providers + +------+ + | Care Cms Expert Name | Role | Phone | + [...] + + | 02/01/ | Hospital | [facility] | Donta Reyes MD | | | 2019 | Encounter | MED CTR NUCLEAR | [address] [place] [address] | | | | | MEDICINE [address] | [place], [place] | | | | | [place], | [address] | | | | | [place] [address] | | | | | | [phone] | | | +--------+ + + + [...] e | 2:12 PM | disease of cheesh-na | procedure are in the | | | | PDT | artery of cheesh-na | results section. 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
--- OUTSIDE RECORDS SUMMARY | ~2020-04-30 | XMS | Encounter Summary ---
Demographics + + + | Address | [address] | | | [place] [address] | + + + | Home Phone | | + + + | Preferred Language | Unknown | + + + | Marital Status | Single | + + + | Restoration Affiliation | 1041 | + + + | Race | Unknown | + + + | Ethnic Group | Unknown | + + + Author + + + | Author | [facility] | | | and [place] | + + + | Organization | [facility] | | | [...] Team Providers + +------+ + | Care Cell Pourer Name | Role | Phone | + +------+ + PCP | Unavailable | + +------+ + Encounter Details +--------+ + + + + | Date | Type | Department | Care Team | Description | +--------+ + + + + | 02/22/ | Hospital | [facility] | | | | 2000 | Encounter | MED CTR XRAY [address] | | | | | | [address] [place] [address] | | | | | | [place] [address] | | | | | | [phone] | | | +--------+ + + + [...]
--- OUTSIDE RECORDS SUMMARY | ~2020-04-30 | XMS | Encounter Summary ---
Demographics + + + | Address | [address] | | | [place] [address] | + + + | Home Phone [...] + + + | Author | [facility] | | | and [place] | + + + | Organization | [facility] | | | and [place] [...] Team Providers + +------+ + | Care Honey Liquefier Name | Role | Phone | + [...] | | for | | [address], | | | | | colonoscopy | | [address] | | | | | due to | | [place], | | | | | history of | | [place] [address] | | | | | adenomatous | | Phone: | | | | | colonic | | [phone] | | | | | polyps | | Fax: | | | | | Opioid type | | [phone] | | | | | dependence, | [...] | | | | | | | [place] | | | | | | | [...] CTR MP INTRA OP | [address], [place] | CHRONIC NARC | | | | [address] | [address] [place], [place] | DEPENDENT/PAIN | | | | [place], [place] | [address] | | | | | [address] | | | | | | [phone] | | | +--------+---------+ + + + [...] + + + | Blood Pressure | 117/62 | 08/08/2015 2:00 PM | | | | | PST | | + + + + + | Pulse | 69 | 08/08/2015 2:00 PM | | | | | PST | | + + + + + | Temperature | 36.4 C (97.5 F) | 08/08/2015 1:46 PM | | | | | PST | | + + + + + | Respiratory Rate | 16 | 08/08/2015 2:00 PM | | | | | PST | | + + + + + | Oxygen Saturation | 98% | 08/08/2015 2:00 PM | | | | | PST [...] and colonic polyp surveillance. The patient als o has anemia and as such upper endoscopy [...] at 4pm 08/07/15, second dose at 6am 11/6/15; NPO by 7 am 08/08/15 SUCRALFATE PO [...] 1. Available medical records have been reviewed. Yellow Schuyler in clinic with labs 2. Medication list [...] Electronically Signed by: Kwasi Cates MD 08/08/2015 [facility] Portions of this chart may have been created with [employer] voice recognition software. Occasi onal wrong-word or [...] | + + + + + | [facility] | [address] | [place] | [phone] | | [facility] | | [address] | | | - LABORATORY | | | | + + + + + EGD (08/08/2015 12:58 PM PST) + + | Specimen | + + | | + + + + -+ | Narrative | Performed At | + + -+ | | [facility] | | GastroenterologyPatient Name: Huye FrancoProcedure Date: 08/08/2015 | [facility] | | 12:58 PMMRN: [id number] #: [id number] of : | | | 3Admit Type: AmbulatoryAge: 74Room: [facility] 01Gender: MaleNote | | | Status: FinalizedAttending MD: Kwasi Cates, MITCHELrocedure: | | | Upper GI endoscopyIndications: AnemiaProviders: | | | Kwasi Cates MD, Manuela Christianson RN, Michaelle | | | Ally West, Dimension Specification Inspector, Eder Ceja MD | | | (Anesthesia [...] | | | the anesthesiologist and the drug abuse technician in the endoscopy suite. | | [...] | | 1:09:13 PMScope Out: 1:12:03 PM [facility] | | | [place], [address] [place] [address] | | | - Discharge patient to [...] Out: 1:12:03 PM | | | [facility], [address] [facility], [place], [place] | | | [address] | | + + -+ + +---------+ [...] GastroenterologyPatient Name: Huey FrancoProcedure Date: 08/08/2015 | CANDYATIO N | | 12:58 PMMRN: [id number] #: [id number] of : | | | 3Admit Type: AmbulatoryAge: 74Room: [facility] 01Gender: MaleNote | | | Status: FinalizedAttending MD: Kwasi Cates [facility]: | | | ColonoscopyIndications: High risk colon cancer | | | surveillance: Personal history of colonic | | | polypsProviders: Kwasi Cates MD, Manuela Thomas | | | RIO Christianson, Michaelle West, | | | Dimension Specification Inspector, Eder Ceja MD (Anesthesia | | | [...] the anesthesiologist and the | | | drug abuse technician in the endoscopy suite. Mental Status [...] Scope In: 1:13:56 PMScope Out: 1:40:19 PM [facility]. | | | [facility], [address] [place] [address] | | | [phone] | | | - Await pathology results. [...] |Scope Out: 1:40:19 PM | | | [facility]. [facility], [address] [place] [address] | | | [id number] | | + +--------- -----+ + +---------+ [...] | | POC | | | [facility] | | [...] | [address] | [place], [place] | [phone] | | [facility] | | [address] | | | - LABORATORY | | [...] colon, polyp: - Fragments of tubular adenoma. DDN:mauro:C2NR | | | GROSS DESCRIPTION: The specimen [...] | fragments 0.15-0.5 cm, all into (C1). yt:REGGIE:[facility] PERFORMING | | | LABORATORY: Tissue processing and slide preparation were performed by | | | [facility], [address], [place] [address] | | | (Exercise Manager: Aydin Wilhelm M.D. CLIA#: [id number]). | | | Professional interpretation was performed by [facility], [address] | [address], [place] [address] (Exercise Manager: Aydin | | | Natalya Wilhelm; CLIA#: [id number]). Diagnostician: Cy | | | Latesha ARCEO Pathologist Electronically Signed 08/12/2015 | | + + + + +---------+ + + | Performing | Address | City/State/[facility] | Phone Number | | Organization | [...]
--- OUTSIDE RECORDS SUMMARY | ~2020-04-30 | XMS | Encounter Summary ---
Demographics + + + | Address | [address] | | | [place] [address] | + + + | Home Phone | | + + + | Preferred Language | Unknown | + + + | Marital Status | Single | + + + | Quaker Affiliation | Unknown | + + + [...] Team Providers + +------+ + | Care Daycare Manager Name | Role | Phone | [...] as of this encounter Progress Notes Interface, Hairspring Ii Inspector In - 07/17/2005 5:05 AM PDT [id number] 07/15/2005 07/15/[id number]AR[address] [facility] [address] [place] [address] or July 16, 2005 Kevin Harris M.D. [facility] [address] [place] [address] RE: HUEY GRAY MR #: [id number] Dear Dr. Harris: Thank you very much for referring Huey Gray to the [facility] here at [facility] for consultation regarding his chief complaint of [...] of pain management and compliance with the [place] statutes. 2.2. Consider trial of Effexor XR [...] give me a call through the paging ferryboat operator cable in the meantime. The best way to reach me is at [phone]. Sincerely, Geoff Henry M.D. [facility] / [id number] / [id number] / [id number] / documented i n this encounter Plan of Treatment Not on filedocumented as of this encounter Visit Diagnoses Not on filedocumented in this encounter"
--- NOTE | 2020-05-01 11:31 | OR ---
[facility] [address] [place], [place] [address] Signed DATE OF OPERATION: 04/30/2020 SURGEON: Oscar Sears MD TIME: 8:20 p.m. PREOPERATIVE DIAGNOSES: 1. Sepsis, unknown etiology, need for central venous catheterization. 2. Anti-platelet therapy with Plavix. 3. Multiple medical problems. 4. History of right carotid endarterectomy. POSTOPERATIVE DIAGNOSES: 1. Sepsis, unknown etiology, need for central venous catheterization. 2. Anti-platelet therapy with Plavix. 3. Multiple medical problems. 4. History of right carotid endarterectomy. PROCEDURE PERFORMED: Right subclavian Arrow Blue Tip triple-lumen catheter placement. ANESTHESIA: 1% lidocaine and 50 mcg of fentanyl. DESCRIPTION OF PROCEDURE: In the mild Trendelenburg position with the head turned to the left, taped across the forehead to secure his neck. The right neck and right chest were prepared with a chlorhexidine solution and draped sterilely. A 1% lidocaine was injected over the right sternocleidomastoid muscle, which was uncomfortable for the patient. Using a Seldinger technique, the right internal jugular vein was catheterized, showing dark nonpulsatile blood. A flexible J-wire was passed down the needle, but has only passed a few centimeters before failing to advance. The assembly was removed and re-access undertaken in a similar way. The needle positioned and dark nonpulsatile blood once again noted. The passage of the J-wire was unsuccessful. Mindful of his prior right neck operation and possibility of distortion due to those factors, further attempts at right internal jugular approach were abandoned. The right subclavian area, which had been previously prepared was then anesthetized with lidocaine anesthetic. With Seldinger technique, the right subclavian vein was easily accessed, showing dark nonpulsatile blood. A flexible J-wire was passed down the needle and needle was Electronically Signed By: OSCAR SEARS MD 05/01/20 4817 PATIENT NAME: MADY GRAY OPERATIVE REPORT DATE OF : 44 REPORT #: [id number] PHYSICIAN: OSCAR SEARS MD PCP: NO PRIMARY CARE PHYSICIAN REPORT IS CONFIDENTIAL AND NOT TO BE RELEASED WITHOUT AUTHORIZATION [facility] [address] [place], [place] [address] Signed removed. The site was incised with an #11 blade, dilated with enclosed blue dilator and a previously inspected and irrigated Arrow Blue Tip triple-lumen catheter passed over the wire. The wire was removed from the distal port. Aspiration on the distal port showed dark nonpulsatile blood. A 10 mL were withdrawn to allow for a subsequent lactic acid level determination. The Clave was applied to the port and it was flushed. The catheter was then withdrawn a few centimeters and secured with enclosed collar device, with the enclosed Robin needle and silk suture. An anti-infective disk was applied and a SorbaView dressing applied. It is noted that per protocol, sterile mask, gloves, and gown were used during the procedure. A postprocedure chest x-ray showed the catheter to be in the atriocaval junction with no evidence of complication. MD MICHELLE Mead/VANESSAL /[id number] cc: Chirag Baker MD Copies: CHIRAG BAKER MD ~ Electronically Signed By: OSCAR SEARS MD 05/01/20 1131 PATIENT NAME: MADY GRAY SULEMA OPERATIVE REPORT DATE OF : 42 REPORT #: [id number] PHYSICIAN: OSCAR SEARS MD PCP: NO PRIMARY CARE PHYSICIAN REPORT IS CONFIDENTIAL AND NOT TO BE RELEASED WITHOUT AUTHORIZATION
--- NOTE | 2020-05-01 11:31 | CONS ---
[facility] [address] [place], [place] [address] Signed DATE OF CONSULTATION: 04/30/2020 TIME: 8:15. PROBLEM: Sepsis, unknown etiology. HISTORY OF PRESENT ILLNESS: This medically debilitated 79-year-old Iraqi man presented to the emergency room with hypotension and [id number]-[id number] atrial fibrillation. He did require cardioversion in the emergency room. He was suspected to have a possible pulmonary embolism due to hypoxemia, hypotension and swelling of the left lower extremity. A CT pulmonary angiogram was performed, which showed no evidence of pulmonary embolism, though he did have significant motion artifact. He did require pressor support with Levophed. A chest x-ray had shown bibasilar interstitial thickening without change from prior x-rays. He was considered likely to have sepsis as he was hypotensive, since there was no evidence of pulmonary embolism. Notably, I am familiar with him from 2015, at which time he underwent emergency incarcerated obturator hernia repair as well as central line catheterization. He has numerous scars on his torso and abdomen indicative of multiple prior clinical interventions including cardiac surgery most likely. The patient is noted to have a prior carotid endarterectomy on the right side related to critical carotid stenosis noted in the past. Request is made by Dr. Chirag Baker for central venous catheter for further management of his pressor support, blood draws and so forth. He does have peripheral line infusing well. PHYSICAL EXAMINATION: GENERAL: This is a disoriented Iraqi man with a daly. He is somewhat tachypneic. VITAL SIGNS: He has a blood pressure 115 systolic with a pulse of 98, on pressor drip. NECK: His trachea is midline. I see no sign of clavicular deformity. There is a scar over his right anterior sternocleidomastoid area. CHEST: Large. ABDOMEN: There are multiple abdominal incisions. EXTREMITIES: Some edema of the left lower extremity. ASSESSMENT: The patient is in need of central venous catheterization. I understand he will be transferred to another level of care as all the ICU beds locally are filled up. The risks of bleeding, infection, and pneumothorax are acknowledged, particularly given that Electronically Signed By: OSCAR SEARS MD 05/01/20 1131 PATIENT NAME: MADY GRAY CONSULTATION DATE OF : 42 REPORT #: [id number] PHYSICIAN: OSCAR SEARS MD PCP: NO PRIMARY CARE PHYSICIAN REPORT IS CONFIDENTIAL AND NOT TO BE RELEASED WITHOUT AUTHORIZATION [facility] [address] [place] [id number] Signed he is on Plavix, anti-platelet agent. An attempt at right internal jugular and if necessary subclavian approach for central venous catheterization will be undertaken. I discussed this with the patient to the extent he can. He understands and agrees. MD MICHELLE Mead/HERLINDA /[id number] cc: Chirag Baker MD Copies: CHIRAG BAKER MD ~ Electronically Signed By: OSCAR SEARS MD 05/01/20 1131 PATIENT NAME: MADY GRAY CONSULTATION DATE OF : 42 REPORT #: [id number] PHYSICIAN: OSCAR SEARS MD PCP: NO PRIMARY CARE PHYSICIAN REPORT IS CONFIDENTIAL AND NOT TO BE RELEASED WITHOUT AUTHORIZATION
--- NOTE | 2020-05-01 21:34 | EKG ---
[facility] [address] [facility] [place] [address] Signed Atrial fibrillation with rapid ventricular response with premature ventricular or aberrantly conducted complexes Marked ST abnormality, possible anteroseptal subendocardial injury Abnormal ECG When compared with ECG of 18-OCT-2019 12:42, Atrial fibrillation has replaced Sinus rhythm Vent. rate has increased BY [address] no longer elevated in Inferior leads ST now depressed in Anterior leads T wave inversion now evident in Inferior leads T wave inversion now evident in Anterolateral leads Confirmed by ADILSON CASTILLO DO ([id number]) on 05/01/2020 9:33:44 PM Electronically Signed By: ADILSON CASTILLO DO 05/01/20 2134 PATIENT NAME: MADY GRAY SULEMA Electrocardiogram DATE OF : 42 PHYSICIAN: ADILSON CASTILLO DO REPORT #: [id number] REPORT IS CONFIDENTIAL AND NOT TO BE RELEASED WITHOUT AUTHORIZATION
--- NOTE | 2020-05-01 21:34 | EKG ---
[facility] [address] [facility] [place] [address] Signed Atrial fibrillation with rapid ventricular response Nonspecific ST and T wave abnormality Abnormal ECG When compared with ECG of 30-APR-2020 15:58, (Unconfirmed) Non-specific change in ST segment in Inferior leads ST less depressed in Anterior leads T wave inversion less evident in Inferior leads T wave inversion less evident in Anterior leads Confirmed by ADILSON CASTILLO DO ([id number]) on 05/01/2020 9:33:48 PM Electronically Signed By: ADILSON CASTILLO DO 05/01/20 2134 PATIENT NAME: MADY GRAY Electrocardiogram DATE OF : 42 PHYSICIAN: ADILSON CASTILLO DO REPORT #: [id number] REPORT IS CONFIDENTIAL AND NOT TO BE RELEASED WITHOUT AUTHORIZATION
--- NOTE | 2020-05-01 21:37 | EKG ---
[facility] [address] [facility] [place] [address] Signed Sinus tachycardia Nonspecific T wave abnormality Abnormal ECG When compared with ECG of 30-APR-2020 16:21, (Unconfirmed) Sinus rhythm has replaced Atrial fibrillation Confirmed by ADILSON CASTILLO DO ([id number]) on 05/01/2020 9:37:42 PM Electronically Signed By: ADILSON CASTILLO DO 05/01/20 2137 PATIENT NAME: MADY GRAY Electrocardiogram DATE OF : 42 PHYSICIAN: ADILSON CASTILLO DO REPORT #: [id number] REPORT IS CONFIDENTIAL AND NOT TO BE RELEASED WITHOUT AUTHORIZATION
== END 2020-04-30 22:55 | disposition short-term general hospital (02) ==
LOC: ED 15:57
DX: A41.9 Sepsis, unspecified organism (principal); J18.9 Pneumonia, unspecified organism; I48.91 Unspecified atrial fibrillation; E11.9 Type 2 diabetes mellitus without complications; F17.200 Nicotine dependence, unspecified, uncomplicated; Z88.8 Allergy status to other drugs, medicaments and biological substances; Z79.899 Other long term (current) drug therapy; Z79.84 Long term (current) use of oral hypoglycemic drugs; Z79.82 Long term (current) use of aspirin
CPT/HCPCS: 36556; 51702; 71045; 71260; 80053; 81001; 83605; 83735; 83880; 84484; 85025; 85379; 93005; 93010; 93971; 99285-25; J0456; J0696; J1956; J3010; J7030; J7050; J7060; J7121; Q9967

== ENCOUNTER 2020-08-29 17:21 | Emergency (ER) | payer MEDICARE, OTHER ==
[~2020-08-29] VITALS: Ht 170.2 cm; Wt 85.0 kg
--- OUTSIDE RECORDS SUMMARY | 2020-08-29 17:24 | XMS ---
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 Care History Medical/Surgical 10/19/2019 [facility] \T\middot;\T\nbsp; PATIENT- FREDDY ELIGIBLE \T\middot;\T\nbsp; PLEASE REFER PATIENT TO [facility] FOR NON EMERGENT MEDICAL NEEDS. \T\middot;\ T\nbsp; [facility] CAN SEE PATIENTS SAME DAY FOR APTS IF PATIENT CALLS FIRST THING IN THE MORNING. E.D. VISIT COUNT (12 MO.) 3 [facility]. TOTAL 3 NOTE: Visits indicate total known visits. ED/UCC VISIT TRACKING (12 MO.) 08/29/2020 17:21 [facility] TYPE: Emergency COMPLAINT: - WEAKNESS 04/30/2020 15:57 [facility] TYPE: Emergency COMPLAINT: - SOB, LEFT LEG PAIN DIAGNOSES: - Sepsis, unspecified organism - group home (current) use of aspirin - Unspecified atrial fibrillation - Nicotine dependence, unspecified, uncomplicated - Other detention (current) drug therapy - Pneumonia, unspecified organism - Type 2 diabetes mellitus without complications - Pain in left lower leg - Allergy status to other drugs, medicaments and biological substances - Tachycardia, unspecified - Hypotension, unspecified - group home (current) use of oral hypoglycemic drugs 10/18/2019 12:21 [facility] [place] TYPE: Emergency COMPLAINT: - SOB DIAGNOSES: - Cerebral infarction, unspecified - 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 - Shortness of breath - Allergy status to other drugs, medicaments and biological substances - 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 - Cerebral infarction due to embolism of right middle cerebral artery - Type 2 diabetes mellitus without complications - Nicotine dependence, unspecified, uncomplicated - Other detention (current) drug therapy - NIHSS score 15 INPATIENT VISIT TRACKING (12 MO.) 05/01/2020 01:14 [facility] [place] TYPE: Medical Surgical DIAGNOSES: - sepsis, pna - Unspecified atrial fibrillation - Cerebral infarction due to embolism of right middle cerebral artery - Acute respiratory failure with hypoxia - Sepsis, unspecified organism - Pneumonia, unspecified organism - Severe sepsis with septic shock - Chronic kidney disease, unspecified - Unspecified abnormalities of gait and mobility [facility] DIAGNOSES: - Acute kidney failure, unspecified - Stroke (HCC) [I63.9] - Essential (primary) hypertension - Pressure ulcer of right buttock, stage 2 - -STROKE - Hyperosmolality and hypernatremia - Aphasia - Type 2 diabetes mellitus without complications - Retention of urine, unspecified - Cerebral infarction due to unspecified occlusion or stenosis of right middle cerebral artery - Atherosclerosis of coronary artery bypass graft(s) without angina pectoris - Dysphagia, unspecified [email or web address]
--- NOTE | 2020-08-30 16:59 | EKG ---
[facility] [address] [facility] [place] [address] Signed Sinus tachycardia with short NM with occasional premature ventricular complexes Nonspecific ST abnormality Abnormal ECG When compared with ECG of 30-APR-2020 19:40, premature ventricular complexes are now present Nonspecific T wave abnormality, improved in Anterolateral leads Confirmed by ADILSON CASTILLO DO ([id number]) on 08/30/2020 4:59:49 PM Electronically Signed By: ADILSON CASTILLO DO 08/30/20 1659 PATIENT NAME: ISAACMADY Electrocardiogram DATE OF : 42 PHYSICIAN: ADILSON CASTILLO DO REPORT #: [id number] REPORT IS CONFIDENTIAL AND NOT TO BE RELEASED WITHOUT AUTHORIZATION
== END 2020-08-29 20:12 | disposition home or self-care (01) ==
LOC: ED 17:21
DX: R55 Syncope and collapse (principal); M79.605 Pain in left leg; N19 Unspecified kidney failure; E11.9 Type 2 diabetes mellitus without complications; Z86.73 Personal history of transient ischemic attack (TIA), and cerebral infarction without residual deficits; Z88.8 Allergy status to other drugs, medicaments and biological substances; Z79.899 Other long term (current) drug therapy; Z79.82 Long term (current) use of aspirin
CPT/HCPCS: 73560; 73610; 80053; 83735; 84484; 85025; 93005; 93010; 99284-25; J7030

== ENCOUNTER 2021-01-10 13:42 | Emergency (ER) | payer MEDICARE, OTHER ==
[~2021-01-10] VITALS: Ht 170.2 cm; Wt 85.0 kg
[2021-01-10] MEDS ORDERED: ROSUVASTATIN CA10 MG PO (14:51)
[2021-01-10] MEDS ORDERED: ELIQUIS5 MG PO (14:51)
[2021-01-10] MEDS ORDERED: BASAGLAR K100 UNIT/1 SQ (14:51)
[2021-01-10] MEDS ORDERED: CEPHALEXIN500 M1 PO (17:25)
--- NOTE | 2021-01-10 18:17 | EKG ---
[facility] [address] [facility] [place] [address] Signed Sinus bradycardia Otherwise normal ECG When compared with ECG of 29-AUG-2020 17:24, premature ventricular complexes are no longer present Vent. rate has decreased BY [address] no longer depressed in Anterior leads Nonspecific T wave abnormality no longer evident in Inferior leads QT has shortened Confirmed by MIRZA TIRADO MD ([id number]) on 01/10/2021 6:17:34 PM Electronically Signed By: MIRZA TIRADO MD 01/10/21 1817 PATIENT NAME: MADY GRAY Electrocardiogram DATE OF : 42 PHYSICIAN: MIRZA TIRADO MD REPORT #: [id number] REPORT IS CONFIDENTIAL AND NOT TO BE RELEASED WITHOUT AUTHORIZATION
== END 2021-01-10 18:05 | disposition home or self-care (01) ==
LOC: ED 13:42
DX: E11.649 Type 2 diabetes mellitus with hypoglycemia without coma (principal); N39.0 Urinary tract infection, site not specified; Z86.73 Personal history of transient ischemic attack (TIA), and cerebral infarction without residual deficits; Z88.8 Allergy status to other drugs, medicaments and biological substances; Z79.899 Other long term (current) drug therapy; Z79.4 Long term (current) use of insulin; Z79.82 Long term (current) use of aspirin
CPT/HCPCS: 51798; 70450; 71045; 80053; 81001; 84484; 85025; 93005; 93010; 99285-25; J0696

== ENCOUNTER 2023-07-19 15:57 | Inpatient (IN) | payer MEDICARE, OTHER ==
[~2023-07-19] VITALS: Ht 170.2 cm; Wt 65.3 kg
[~2023-07-19 15:57] MED LIST changes: +BASAGLAR K100 UNIT/1 SQ; +CEPHALEXIN500 M1 PO; +COLACE100 MG PO; +ELIQUIS5 MG PO; +FARXIGA5 MG PO; +HYDROCODON-ACE1 EA10 PO; +OZEMPIC1 MG/0.71 SUB-Q; +POTASSIUM CHLO10 ME1 PO; +ROSUVASTATIN CA10 MG PO
[2023-07-19 16:53] VITALS: BP 114/63
[2023-07-19 17:12] LABS: BASOPHILS 0.5 % (0-2); EOSINOPHILS 0.9 % (0-6); HEMATOCRIT 36.4 % (35.0-50.0); HEMOGLOBIN 11.9 g/dL (12.0-18.0); LYMPHOCYTES 8.9 % (24-44); MCH 29.8 (27-36); MCHC 32.8 g/dl (30-36); MONOCYTES 5.2 % (0-12); NEUTROPHILS 84.5 % (39-80); PLATELET COUNT 447 K/uL (140-440); RDW 14.3 (10.5-15.0)
--- NOTE | 2023-07-19 17:14 | NUR ---
COVID SWAB COLLECTED SENT TO THE LAB
[2023-07-19 17:27] LABS: ALBUMIN/GLOBULIN RATIO 0.73 (1.1-2.4); BILIRUBIN, TOTAL 0.7 ng/dL (0.2-1.0); BUN/CREATININE RATIO 14.06 (6.0-28.6); CALCIUM 8.9 mg/dL (8.5-10.1); CREATININE, SERUM 1.28 mg/dL (0.70-1.30); PROTEIN, TOTAL 7.1 g/dL (6.4-8.2)
[2023-07-19 17:31] LABS: ANION GAP 11.3 (7-21); POTASSIUM 4.3 mmol/L (3.5-5.1)
[2023-07-19 17:48] LABS: INFLUENZA B NAA NEGATIVE (NEGATIVE); RESPIRATORY SYNCYTIAL VIR NAA NEGATIVE (NEGATIVE)
[2023-07-19] MEDS ORDERED: ELIQUIS5 MG PO (18:17)
[2023-07-19] MEDS ORDERED: NOVOLOG FL100 UNIT/1 SUB-Q (18:18)
--- NOTE | 2023-07-19 18:56 | NUR ---
PATIENT ISAAC ARRIVED ON THE UNIT AT 1643 VIA WHEELCHAIR. ADMISSION ASSESSMENT COMPLETE. 20G IN RIGHT FA PLACED MINIMALLY VERBAL, MULTIPLE WOUNDS, ENDORSED PAIN (PRN 0.25 HYDROMORPHONE ADMINISTERED) NEURO- MOVES ALL EXTREMITIES, RIGHT PO DROOP NOTED, LUE/RUE 4/5, RLE 3/5, LLE 1/5, ENDORSES PAIN IN LLE FROM FIBULA FX, PERRL CARDIAC- PALPABLE PULSES NOTED IN ALL EXTREMIES. RADIAL 2/2, PEDAL RLE 2/2 LLE 1/2 POST TIBIAL RLE 2/2 LLE 1/2 2+ EDEMA IN LLE AFEBRILE RESP- RA, BREATH SOUNDS CLEAR. ABLE TO COUGH AND DEEP BREATH GI/- REG DIET, NPO AT MIDNIGHT FOR LEFT ANKLE EXTERNAL FIXATION. ABDOMINAL DISTENSION. INTEGUMENTARY- SCAR IN CHEST, ABDOMEN, COCCYX/SACRUM, ESCHAR NOTED IN LEFT HEEL, LEFT MEDIAL AND DISTAL PORTIONS OF PATELLA, DRY, REDDENED SKIN LFA 20G ROUNDED WITH MD AUGUSTIN, SANTIAGO, AND LEISA. ALL QUESTIONS AND CONCERNS WERE ADDRESSED
[2023-07-19 20:00] VITALS: BP 127/59
--- NOTE | 2023-07-19 20:30 | NUR ---
REPORT GIVEN, RN ASSUMED CARE. PT IS RESTING IN BED. PT DOES COMPLAINS OF PAIN, PRN MEDICATION BEING PREPARED FOR ADMINISTRATION. PT HAS A HARD TIME VERBALIZING AT BASELINE. PT HAS GENRALIZED WEAKNESS, MORE SEVERE IN LOWER LEGS AND WORSE IN THE LEFT. PT DOES HAVE SIGNIFICANT EDEMA IN LEFT LOWER LEG. PT HAS SIGNIFICANT WOUNDS ON LEFT LEG WELL. VS WITH IN NORMAL LIMITS. CALL LIGHT WITH IN REACH, BED ALARM SET.
--- NOTE | 2023-07-19 22:15 | NUR ---
PT IS RESTING IN BED. PT WAS REPOSITIONED AND ISABEL CARES PERFORMED. FOAM DRESSINGS PLACED ON PATIENT. VS ARE WITHIN NORMAL LIMITS. PT PAIN IS CONTROLED AT THIS TIME. CALL LIGHT WITH IN REACH, BED ALARM SET. LEFT LEG ELEVATED.
[2023-07-20] VITALS (8 sets, daily range): BP systolic 116–163; BP diastolic 51–74
--- NOTE | 2023-07-20 00:10 | NUR ---
PT IS RESTING IN BED, PAIN ASSESSED. PT APPEARS TO BE COMFORTABLE AT THIS TIME. VS STABLE. CALL LIGHT WITH IN REACH. PT REPOSITIONED. PT IS NPO, WATER REMOVED FROM BEDSIDE.
--- NOTE | 2023-07-20 02:35 | NUR ---
PT IS RESTING IN BED. PT HAD A LARGE INCONTINENT LOOSE STOOL AND A LARGE INCONTINENT URNATION. PT BEDDING WAS CHANGED, ISABEL CARE PERFORMED, PT WAS REPOSITIONED. PT DID COMPLAIN OF PAIN, PRN MEDICATION GIVEN. WHEN ASKED PT SAYS "YES" TO BEING COMFORTABLE. BLOOD SUGAR WITHIN NORMAL RANGE. NO SIGNIFICANT CHANGES TO FULL BODY ASSESSMENT. VS ARE STABLE. CALL LIGHT WITH IN REACH AND BED ALARM IS ON.
--- NOTE | 2023-07-20 04:00 | NUR ---
PT IS RESTING IN BED COMFORTABLY. NO CONCERNS OR QUESTIONS AT THIS TIME. PT IS REPOSITIONED. CALL LIGHT WITH IN REACH. BED ALARM IS SET.
[2023-07-20 04:50] LABS: BASOPHILS 0.7 % (0-2); EOSINOPHILS 1.8 % (0-6); HEMATOCRIT 31.1 % (35.0-50.0); HEMOGLOBIN 10.2 g/dL (12.0-18.0); LYMPHOCYTES 14.4 % (24-44); MCH 29.5 (27-36); MCHC 32.9 g/dl (30-36); MCV 89.7 fl (81-99); MONOCYTES 5.3 % (0-12); NEUTROPHILS 77.8 % (39-80); PLATELET COUNT 330 K/uL (140-440); RBC 3.46 M/ul (4.3-5.7); RDW 14.1 (10.5-15.0)
[2023-07-20 05:05] LABS: ALBUMIN 2.5 g/dL (3.4-5.0); ALBUMIN/GLOBULIN RATIO 0.76 (1.1-2.4); ANION GAP 9.3 (7-21); BILIRUBIN, TOTAL 0.6 ng/dL (0.2-1.0); BUN/CREATININE RATIO 17.58 (6.0-28.6); CALCIUM 8.6 mg/dL (8.5-10.1); CREATININE, SERUM 0.91 mg/dL (0.70-1.30); POTASSIUM 4.3 mmol/L (3.5-5.1); PROTEIN, TOTAL 5.8 g/dL (6.4-8.2)
--- NOTE | 2023-07-20 06:44 | NUR ---
PT IS RESTING IN BED. PT WAS REPOSITIONED. PT DID GET A BRIEF CHANGE AND ISABEL CARE WELL A HIBICLENS. PT ALLERGY BAND APPLIED. INSEAM LEVELER RECIEVED REPORT AT BEDSIDE. PT LEFT THE UNIT AT 0645 TO THE OR.
--- NOTE | 2023-07-20 09:15 | NUR ---
PT ARRIVES TO ROOM IN BED. REPORT REVEIVED FROM MARY Archuleta RN. VITALS COMPLETE. PT ON RA WITH O2 SATS AT 95% ON RA. RR OF 17 NOTED. PT YELLS OUT "PAIN." FLACC SCORE OF 6 NOTED, PRN PAIN MEDICATION ADMINISTERED, SEE MAR. LEFT FOOT ON FOAM PAD TO KEEP HEEL OFF OF BED. FAMILY IN ROOM. CALL LIGHT IN REACH.
--- NOTE | 2023-07-20 09:51 | NUR ---
07/20/23 0951 Subha Cotto 0816 PT ARRIVED IN PACU NON RESPONSIVE TO NOXIOUS STIMULI WITH OPA IN PLACE. 0819 PT REACTIVE. OPA REMOVED. 0820 BLOOD SUGAR 155. ANESTHESIA AWARE. 0833 C/O PAIN AND POINTING TO L LEG. FENTANYL 25MCG GIVEN IVP. 0836 STILL C/O PAIN IN L LEG. FENTANYL 25MCG GIVE IVP. 0844 NO CHANGE. POINTING AT L LEG AND C/O PAIN. FENTANYL 50MCG GIVEN IVP. 0850 RESTING. REU. 0855 ENCOURAGED COUGH, DEEP BREATHING WITH NO REACTION FROM PT. 0900 OXYMASK PLACED AT 4L WITH SATS INCREASING TO 95%. 0910 TAKING SIPS OF WATER. 0915 OXYMASK REMOVED. SATS 93-98%. 0920 TO ROOM 120. REPORT GIVEN TO RN. BED PLUGGED IN. FAMILY AT BEDSIDE.
--- NOTE | 2023-07-20 09:58 | NUR ---
ASSESSMENT COMPLETE. LUNG SOUNDS CLEAR IN RUL AND RYAN. DIMINISHED IN RLL AND LLL. BOWEL TONES ACTIVE. EDEMA NOTED TO LEFT FOOT. FOAM PROTECTOR IN PLACE TO KEEP HEEL OFF BED. CPOX IN PLACE. RIO WILLAMS IN TALKING WITH FAMILY. NO OTHER NEEDS FROM THIS RN AT THIS TIME. CALL LIGHT IN REACH.
[2023-07-20] MEDS ORDERED: TAMSULOSIN HCL0.4 MG PO (10:16)
[2023-07-20] MEDS ORDERED: VITAMIN D350 MC3 PO (10:17)
[2023-07-20] MEDS ORDERED: THERA-M TABLET1 EACH PO (10:18)
[2023-07-20] MEDS ORDERED: FERROUS GLUCON324 M1 PO (10:18)
--- NOTE | 2023-07-20 10:19 | NUR ---
Medications reconciled using pharmacy records, RX vials and interview with patient's . She insists that she gives him Novolog once weekly on Tuesday- 8 units if BG greater than 150 and an extra 1 unit if greater than 200. She also attests to giving him Ozempic on Sundays so she apparently knows the difference.
--- NOTE | 2023-07-20 10:30 | NUR ---
PATIENT RETURNED FROM PACU. IN TO ROOM. PATIENT SISTER SANTIAGO AND SISTER IN LAW AT THE BEDSIDE. FAMILY STATES THAT PATIENT WAS LIVING AT HOME WITH SANTIAGO PRIOR TO HIS FALL. PATIENT WAS ABLE TO AMBULATE WITH HIS WALKER AND PREFORM MOST OF HIS OWN ADLS. PATIENTS SISTER IN LAW HAS BEEN A SOFTWARE REQUIREMENTS ENGINEER FOR SOMETIME AND HAS BEEN ASSISTING WITH HIS CARES AND BATHS. FAMILY STATES THAT THE PATIENT WAS DOING WELL. PATIENT HAS HAD A STAY AT [facility] IN THE PAST AND THE FAMILY IS AWARE HE WILL NEED REHAB PLACEMENT. [facility] HAD ALREADY BEEN CONTACTED TO ASSIST THE FAMILY WITH POSSIBLE PLACEMENT. FAMILY PREFERS [facility], [facility] OR [facility]. ADVISED I AM HAPPY TO SEND HIS CHART TO ALL OF THE FACILITIES. SANTIAGO STATES THAT THE PATIENT COULD RETURN HOME WITH HER IF NEEDED AFTER REHAB. THEY LIVE IN A ONE LEVEL UNIT WITH RAMPS ON THE FRONT AND BACK STAIR. THEY HAVE A WALK IN SHOWER WITH [facility]. FAMILY STATES THAT THE PATIENT WAS AMBULATING AROUND THE HOME WITH HIS WALKER PRIOR TO ADMISSION. ALL DEMOGRAPHIC INFORMATION REVIEWED. CELL NUMBER FOR SANTIAGO [phone]. ADVISED WILL CONTACT THEM WITH ANY UPDATES LASHANDA.
--- NOTE | 2023-07-20 11:02 | NUR ---
IN TO ROUND ON PT. PT SITTING UP IN RECLINER. PT REPORTING PAIN FLACC SCORE OF 5 NOTED. PRN PAIN MEDICATION ADMINISTERED, SEE MAR. PT TAKES PO MEDICATION WITH NO ISSUES. VITALS COMPLETE. PT DENIES ANY NEEDS. CALL LIGHT IN REACH. PT SHOWS THIS RN HOW TO USE CALL LIGHT. CHAIR ALARM IN PLACE. CALL LIGHT IN REACH.
--- NOTE | 2023-07-20 11:30 | NUR ---
PT HAD GREAT DIFFICULTY SPEAKING. INDICATED HE WAS TIRED. I INFORMED RIO HOGUE. PRAYED FOR PEACE AND COMFORT.
--- NOTE | 2023-07-20 11:56 | NUR ---
SPOKE WITH DR. AUGUSTIN REGARDING PAIN. VORB DR. AUGUSTIN/Jersey YATES, RN, FOR DILAUDID 0.25 MG IV X1 NOW.
--- NOTE | 2023-07-20 13:00 | NUR ---
UPON ENTERING ROOM PATIENT APPEARED TO HAVE EYES OPEN, WHILE SLEEPING. TOOK PATIENT TIME TO REORIENT. PATIENT ABLE TO VERBALIZE NO PAIN, WITH FACE SCALE PAIN RATES 0, APPEARS CALM AND RELAXED RESTING IN BED. APPLIED ICE TO SURGICAL SITE, AND ELEVATION OF HEELS WITH SURGICAL PRESSURE GELS ON LEFT SURGICAL SIDE, AND ROLLED TOWEL UNDER RIGHT HEEL. SURGICAL SITE TO LEFT LEG HAS SMALL AMONT OF BLOODY SHADOWING AROUND GAUZE, INTERNAL FIXATOR IN PLACE. DRESSING TO ULCER STIES CDI. CMS INTACT. CALL LIGHT WITHIN REACH. SET PATIENT UP FOR LUNCH. BLOOD SUGAR CONTROLLED WITH SLIDING SCALE PER MAR. APPEARS TO HAVE NO OTHER NEEDS AT THIS TIME.
--- NOTE | 2023-07-20 14:53 | NUR ---
SPOKE WITH MADISON AT [facility]. NO BED AVAILABILITY AT THIS TIME. SHE STATES IN WILL 1-2 WEEKS BEFORE THEY HAVE AN OPENING. SPOKE WITH VIOLET AT [facility]. CURRENTLY NO BED AVAILABILITY. LEFT MESSAGE FOR NICK AT [facility].
--- NOTE | 2023-07-20 15:40 | NUR ---
ADMINISTERED 2 TABS NORCO FOR SURGICAL PAIN. REPOSITIONED PATIENT. NOTED MODERATE AMOUNT OF DRAINAGE TO DRESSING. PLAN TO CHANGE PER ORDER ONCE PATIENT PAIN IS CONTROLLED FROM PO MEDICATION.
--- NOTE | 2023-07-20 16:30 | NUR ---
Update from MARCOS Miller. 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 Chart faxed to [facility].
--- NOTE | 2023-07-20 19:45 | NUR ---
REPORT RECIEVED FROM DAY SHIFT RN. PATIENT RESTING IN BED, RESPIRATIONS EVEN AND UNLABORED WITH EYES OPEN. O2 97 ON RA. PILLOW PLACED BETWEEN LEGS TO KEEP LEFT LEG STRAIGHT. CALL LIGHT WITHIN REACH.
--- NOTE | 2023-07-20 20:51 | NUR ---
PATIENT INCONTINENT OF STOOL. NEW ATTEND IN PLACE AND ISABEL CARE COMPLETED. BENAVIDEZ CARE COMPLETED. STAT LOCK PLACED ON PATIENT. PATIENT REPOSITIONED IN BED. PATIENT VITAL SIGNS TAKEN AND RECORDED. BENAVIDEZ EMPTIED AND RECORDED. PATIENT REPORTED 8/10 PAIN, EVENING AND PRN MEDICATION GIVEN, SEE EMAR. EVENING ASSESSMENT COMPLETE. STRONG PEDAL PULSES BILATERALLY. PATIENT LLE ELEVATED ON PILLOW. SCD ON RLE. HEEL PROTECTORS IN PLACE. DRESSING IN PLACE ON LLE WOUNDS AND DRAINAGE NOTED. CALL LIGHT IN REACH.
--- NOTE | 2023-07-20 22:17 | NUR ---
ROUNDING ON PATIENT. PATIENT RESTING IN BED WITH EYES CLOSED. RESPIRATIONS EVEN AND UNLABORED. 02 97% ON RA. CALL LIGHT WITHIN REACH.
--- NOTE | 2023-07-20 23:15 | NUR ---
SCHEDULED MEDICATION GIVEN, SEE EMAR. PATIENT REPOSITIONED IN BED. NEW ICE PACKS PLACED ON LLE. PATIENT REPORTS IMPROVEMENT IN PAIN. PATIENT DENIES ANY FURTHER NEEDS. CALL LIGHT IN REACH.
--- NOTE | 2023-07-20 23:40 | NUR ---
ROUNDING ON PATIENT. PATIENT RESTING ON BED, ON BACK WITH EYES CLOSED. RESPIRATIONS EVEN AND UNLABORED. O2 97% ON RA. CALL LIGHT WITHIN REACH.
[2023-07-21 01:21] VITALS: BP 123/50
--- NOTE | 2023-07-21 01:43 | NUR ---
PATIENTS VITALS AND I&Os OBTAINED. PATIENT INCONTINENT OF STOOL. BRIEF CHANGE AND ISABEL CARE PERFORMED. PATIENT REPOSITIONED IN BED AND LLE ELEVATED ON PILLOWS WITH ICE PACKS IN PLACE. PATIENT REPORTS 7/10 LLE PAIN, PRN MEDICATION GIVEN, SEE EMAR. NO FURTHER NEEDS. CALL LIGHT IN REACH.
--- NOTE | 2023-07-21 03:54 | NUR ---
ROUNDING ON PATIENT. PATIENT RESTING IN BED WITH EYES CLOSED, RESPIRATIONS EVEN AND UNLABORED. CPOX READING WNL. CALL LIGHT IN REACH.
[2023-07-21 05:47] LABS: BASOPHILS 0.4 % (0-2); HEMATOCRIT 26.8 % (35.0-50.0); LYMPHOCYTES 8.6 % (24-44); MCH 29.9 (27-36); MCHC 33.5 g/dl (30-36); MCV 89.2 fl (81-99); MONOCYTES 4.6 % (0-12); NEUTROPHILS 86.4 % (39-80); PLATELET COUNT 366 K/uL (140-440); RBC 3.01 M/ul (4.3-5.7); RDW 13.8 (10.5-15.0)
[2023-07-21 05:52] VITALS: BP 124/41
[2023-07-21 06:01] LABS: ALBUMIN 2.1 g/dL (3.4-5.0); ALBUMIN/GLOBULIN RATIO 0.68 (1.1-2.4); BILIRUBIN, TOTAL 0.4 ng/dL (0.2-1.0); BUN/CREATININE RATIO 15.9 (6.0-28.6); CALCIUM 8.4 mg/dL (8.5-10.1); CREATININE, SERUM 0.88 mg/dL (0.70-1.30); PROTEIN, TOTAL 5.2 g/dL (6.4-8.2)
--- NOTE | 2023-07-21 06:25 | NUR ---
VITALS TAKEN AND RECORDED. BENAVIDEZ EMPTIED. INTAKE AND OUTPUT RECORDED. PATIENT REPOSITIONED IN BED. LLE ELEVATED ON PILLOWS. ICE PACK PLACED ON LLE. DRESSING ON LLE SATURATED ONTO CHUX. DRESSING CHANGED PER ORDER. SCD AND HEEL PROTECTOR ON RLE. ASSESSMENT COMPLETED. BILAT PEDAL PULSES HEARD WITH DOPPLER. PATIENT RATES PAIN 7/10 PAIN IN LLE, PRN PAIN MEDICATION GIVEN PER ORDER. FRESH WATER PROVIDED. NO FURTHER NEEDS. CALL LIGHT IN REACH. IS INSTRUCTED AND COMPLETED X4.
--- NOTE | 2023-07-21 07:45 | NUR ---
IN WITH PT FOR BS CHECK. PT IS AWAKE, TELEVISION ON. REPORTS NO PAIN AT THIS TIME AND REQUESTS THE HOB BE LOWERED TO A POSITION OF COMFORT. SN AWAD PERFORMED BS CHECK WITH THIS RN PRESENT. CALL LIGHT IN REACH.
--- NOTE | 2023-07-21 08:00 | NUR ---
FULL BODY ASSESMENT DONE, PATIENT APPEARS CALM. SET UP WITH BREAKFAST, APPEARS TO BE EATING WELL. DRESSING TO LEFT LEG C/D/L. CMS INTACT, STRONG PEDAL PULSES, WARM SKIN. LEFT LEG ELEVATED ON PILLOWS, NOTED SWELLING DECREASED TO LEFT FOOT. HEALS FLOATED. PATIENT REPOSITONED WEIGHT TO RIGHT SIDE. ATTEND DRY. PATIENT NOW SL.
--- NOTE | 2023-07-21 10:00 | NUR ---
REPOSITIONED PATIENT TO LEFT, NO OTHER NEEDS AT THIS TIME. PROVIDED ICE WATER AND CUP OF COFFEE. PATIENT LEG POSITIONED WELL, HEELS FLOATED. DRESSING INTACT.
--- NOTE | 2023-07-21 10:00 | NUR ---
Spoke with pt. He is able to answer simple questions. He is aware he will discharge to a SNF. He is unable to state where he wants to go as [facility] does not have a bed open. I asked if I could call and discuss with his sister. He is agreement.
--- NOTE | 2023-07-21 11:23 | NUR ---
Called and spoke with Kadie. UPdated there is not a bed available at [facility] or [facility]. I have a text into [facility], but I think Angela from spoke with them yesterday and they did not have a bed. I did fax pts chart to [facility]. Sister prefers [facility], second choice would be [facility] in [place], [place]. She is unsure, but thinks her other brother was there and . I will try [facility] and [facility] in [place]. Will also check with Yanet from [facility].
[2023-07-21 11:58] VITALS: BP 123/57
--- NOTE | 2023-07-21 12:55 | NUR ---
PATIENT REPOSITIONED WITH PILLOWS. PAIN WELL CONTROLLED, WHEN ASKED IF HAVING PAIN PATIENT STATES "NO". NO OTHER NEEDS AT THIS TIME.
--- NOTE | 2023-07-21 14:30 | NUR ---
Sister believes, her brother was at [facility] and does not want Huey to go their. Chart has been sent to Mark and Batsheva at the [facility]. They both stated they had beds open. Pictures of wounds were emailed to both facilities. I called and updated Skyla at [facility], pt will not be there.
[2023-07-21 14:43] VITALS: BP 122/50
--- NOTE | 2023-07-21 15:31 | NUR ---
AT 1530 PATIENT WAS TRANSFERED USING PIVOT TRANSFER FROM RECLINER TO BED. PATIENT WAS TRANSFERED WITH THE HELP OF PHYSICAL THERAPY AND I WHILE UTILIZING THE WALKER. THE PATIENT WAS EDUCATED TO NOT PUT WEIGHT ON THE INJURED LEG DURING TRANSFER. THE PATIENT WAS REPOSITIONED IN BED WITH LLE ELEVATED AND POSITIONED WITH PILLOWS. WEIGHT WAS OFF OF BOTH HEELS USING PILLOWS AND HEEL GUARD. RLE WAS PROTECTED FROM HARDWARE. PATIENT WAS COMFORTABLE.
--- NOTE | 2023-07-21 15:50 | NUR ---
1430 INTO ROOM TO CHECK ON PATIENT, UP IN RECLINER. PATIENT FLEXING KNEE TO 90 DEGREE ANGLE. ADMINISTERED PRN DILAUDID PER MAR FOR BREAKTHRU PAIN, PATIENT STATED "10" WHEN ASKED ON A SCALE OF 0-10 ON PAIN SCALE. EDUCATED PATIENT ON IMPORTANCE OF PREVENTING A CONTRACTURE, REPOSITIONED LEGS WITH PILLOWS, HEELS ELEVATED. CMS INTACT. DRESSING TO SURGICAL SITE LEFT C/D/I. RIGHT LEG CUSHIONED TO PREVENT DAMAGE FROM EXTERNAL HARDWARE. 1530 PHYSICAL THERAPY WORKED WITH PATIENT TO PERFORM TOE TOUCH. PATIENT APPEARS TO BE UNABLE TO FOLLOW DIRECTIONS.
--- NOTE | 2023-07-21 16:29 | NUR ---
AT 1630 OFFERED PATIENT TO CLEAN FACE, TRUNK AND EXTREMITIES. PATIENT WANTED TO CLEAN FACE AND ARMS. ASSISITED PATIENT IN WIPING HIS ARMS, HANDS AND FACE.
[2023-07-21 17:30] VITALS: BP 134/56
--- NOTE | 2023-07-21 18:19 | NUR ---
AT 1800 WAS IN PATIENT ROOM TO REASSES PAIN LEVEL. PATIENT BEGAN THROWING UP CLEAR MUCOUSY VOMIT. PATIENT WAS CLEANED, GOWN AND TOP SHEETS WERE CHANGED. EMISIS WAS GIVEN. PRIMARY NURSE WAS NOTIFIED.
--- NOTE | 2023-07-21 19:30 | NUR ---
REPORT RECEIVED FROM REGAN Wallace RN. DAY SHIFT RN PROVIDING PAIN MEDICATION. PT REPOSITIONED. NO OTHER NEEDS AT THIS TIME. CALL LIGHT IN REACH.
[2023-07-21 20:22] VITALS: BP 130/57
--- NOTE | 2023-07-21 20:45 | NUR ---
ASSESSMENT, VS AND I&O COMPLETED. GCS 15, ALERT TO ALL BUT EVENT AND TIME. HEART TONES REGULAR, LUNGS CLEAR. ABD SOFT, NONTENDER, BOWEL TONES ACTIVE. PT REPORTS TINGLING IN FEET AND HANDS. MOTOR AND PULSES INTACT. LLE HAS 1+ EDEMA, WOUNDS COVERED AND DRY. ORIF WNL. PT REPORTS 2/10 LLE PAIN, PRN PAIN MED AND SCHEDULED MEDS PROVIDED. IV WNL, FLUSHED WELL. PT REPOSITIONED. BENAVIDEZ CARE PROVIDED AND EMPTIED. ICE WATER PROVIDED. PT STATES NO OTHER NEEDS AT THIS TIME. CALL LIGHT IN REACH.
--- NOTE | 2023-07-21 22:00 | NUR ---
PT CALLS TO REQUEST REPOSITIONING, PROVIDED. PT STATES NO OTHER NEEDS AT THIS TIME. CALL LIGHT IN REACH.
--- NOTE | 2023-07-21 23:49 | NUR ---
IN TO ROOM TO CHECK ON PT. PT HAVING EMESIS INTO BAG. NO NAUSEA MED AVAILABLE AT THIS TIME. NOTOFIED BY PHONE. VERBAL ORDERS GIVEN FOR IV COMPAZINE Q6 HOURS PRN NAUSEA AND LR @ 125ML/HR. ORDERS REPEATED BACK.
[2023-07-22] VITALS (7 sets, daily range): BP systolic 105–115; BP diastolic 44–70
--- NOTE | 2023-07-22 00:07 | NUR ---
SCHEDULED FLUIDS STARTED. PRN NAUSEA MED PROVIDED. PT STATES NO OTHER NEEDS AT THIS TIME. CALL LIGHT IN REACH.
--- NOTE | 2023-07-22 04:35 | NUR ---
PT STATES HE HAS 5/10 LLE PAIN, PRN PAIN MED PROVIDED. PT REPOSITIONED. ICE PACKS PROVIDED. VS AND I&O COMPLETED. PT STATES NO OTHER NEEDS AT THIS TIME. CALL LIGHT IN REACH.
[2023-07-22 05:49] LABS: BASOPHILS 0.4 % (0-2); EOSINOPHILS 0.1 % (0-6); HEMATOCRIT 28.6 % (35.0-50.0); HEMOGLOBIN 9.4 g/dL (12.0-18.0); LYMPHOCYTES 4.8 % (24-44); MCH 29.3 (27-36); MCHC 32.9 g/dl (30-36); MCV 89.1 fl (81-99); MONOCYTES 3.3 % (0-12); NEUTROPHILS 91.4 % (39-80); PLATELET COUNT 365 K/uL (140-440); RBC 3.21 M/ul (4.3-5.7); RDW 14.2 (10.5-15.0)
[2023-07-22 05:58] LABS: ANION GAP 7.6 (7-21); BUN/CREATININE RATIO 21.34 (6.0-28.6); CALCIUM 8.2 mg/dL (8.5-10.1); CREATININE, SERUM 0.89 mg/dL (0.70-1.30); POTASSIUM 3.6 mmol/L (3.5-5.1)
--- NOTE | 2023-07-22 06:18 | NUR ---
PT RESTING IN BED, EYES CLOSED. RR EVEN, UNLABORED. CALL LIGHT IN REACH.
--- NOTE | 2023-07-22 07:40 | NUR ---
ADMIN ONE TAB NORCO 7.5/325MG PO FOR REPORTS OF 5/10 LLE. SNACK PROVIDED WITH PAIN MEDICATION.
--- NOTE | 2023-07-22 08:28 | NUR ---
ADMIN DILAUDID 0.25MG IV FOR REPORTS OF LLE PAIN.
--- NOTE | 2023-07-22 08:45 | NUR ---
TOM WAGNER HERE ASSESSING PATIENT AND PLACING NEW ORDERS. NOTABLE SOFT BP, TACHYCARDIA AND INCREASED WBC. SEVERAL NEW ORDERS PLACED FROM TOM WAGNER-SEE CHART. PATIENT RECEIVED AN IV BOLUS, BLOOD CULTURE DRAW, URINE SENT, NEW ABX- VANCO, CHEST X-RAY. LACTIC NORMAL AT THIS TIME. PATIENT IS AWAKE, ALERT TO SELF, NO NOTABLE ACUTE DISTRESS. BP SOFT, AFEBRILE. BENAVIDEZ INTACT, PATENT, CLEAR YELLOW URINE. LLE HAS EXTERNAL FIXATION IN PLACE, PEDAL PULSE INTACT. PATIENT REMAINS CLOSE TO RN STATION.
--- NOTE | 2023-07-22 09:03 | NUR ---
BLOOD GLUCOSE OF 145 WAS READ AT 0747. ONE UNIT OF OF INSULIN WAS GIVEN AT 0825 PRIOR TO HIS MEAL WITH ASSISTANCE OF PRIMARY NURSE.
--- NOTE | 2023-07-22 09:14 | NUR ---
JOANNE RECIEVED FROM TOM WAGNER TO DISCONTINUE ORDER FOR URINE WITH MICRO.
--- NOTE | 2023-07-22 09:48 | NUR ---
URINE SAMPLE SENT AT THIS TIME.
--- NOTE | 2023-07-22 09:54 | NUR ---
[facility]. Message left. Called Mark. No answer, message left.
[2023-07-22 10:01] LABS: BILIRUBIN, URINE NEGATIVE (negative); BLOOD/HGB, URINE SMALL (Negative); KETONE, URINE SMALL (Negative); LEUK ESTERASE, URINE SMALL (negative); NITRITE, URINE NEGATIVE (negative); PH, URINE 5.5 (5-7)
[2023-07-22 10:04] LABS: BACTERIA, URINE 1+ /hpf (negative); CASTS, URINE NONE SEEN \\lpf; COLLECTION TYPE, URINE CLEAN CATCH; CRYSTALS, URINE NONE SEEN (0-1+); EPITHELIAL CELLS, URINE SQUAMOUS 1+ /lpf (0-1+); REFLEX CULTURE, URINE Yes (No)
--- NOTE | 2023-07-22 10:54 | NUR ---
PT CONSENTED TO PRAYER. PRAYED FOR ONGOING HEALING AND ABIDING PEACE.
--- NOTE | 2023-07-22 11:25 | NUR ---
AT 1120 PHYSICAL THERAPY AND I STOOD PATIENT UP. PATIENTS BREIF WAS CHECKED AND CHANGED, WITH THE HELP OF NURSING STUDENTS AND CLINICAL INSTRUCTOR. PATIENT STOOD AND TRANSFERED TO CHAIR. A STOOL SAMPLE WAS COLLECTED. PATIENT WAS "TIRED" DURING AND AFTER PHYSICAL THERAPY SESSION, WITH OCCASIONAL GRIMICES INDICATING PAIN.
--- NOTE | 2023-07-22 12:23 | NUR ---
PATIENT SITTING UP IN CHAIR, NO DISTRESS. ADMIN ONE TAB NORCO 7.5/325MG PO FOR LLE PAIN. LEGS ELEVATED IN CHAIR. LLE EXTERNAL FIXATOR UNCHANGED, DRESSING CDI.
--- NOTE | 2023-07-22 12:38 | NUR ---
UR NOTE: MCG ANKLE FRACTURE, CLOSED, OPEN REDUCTION, EXTERNAL FIXATION INPATIENT VARIANCE 07/21/23 VARIANCE 07/22/23
--- NOTE | 2023-07-22 16:48 | NUR ---
ADMIN DILAUDID 0.25MG IV FOR REPORTS OF 5/10 LLE PAIN.
--- NOTE | 2023-07-22 17:19 | NUR ---
CALLED MOON REGARDING VITALS SIGNS BP 105/44 MAP 59, HEART RATE 104, TELEPHONE ORDER READ BACK FOR 1L BOLUS LR. ALSO PROVIDED UPDATE ON PT STATUS REGARDING ABD CT OBTAINED, UA RESULTS, NO NEW ORDERS RECEIVED.
--- NOTE | 2023-07-22 17:36 | NUR ---
UPDATED DR MUÑOZ ON DISCUSSION WITH MOON REGARDING VITALS SIGNS AND BOLUS. ALSO NOTIFIED CT REPORT AVAILABLE.
--- NOTE | 2023-07-22 18:03 | NUR ---
THIS RN AT BEDSIDE WITH DR. MUÑOZ HE SPOKE WITH PATIENT REGARDING PLAN OF CARE. DR. MUÑOZ ASKED PATIENT WHAT HIS THOUGHTS WERE REGARDING PLACING AN NG TUBE- PATIENT NOT RECEPTIVE TO NG PLACEMENT AT THIS TIME. IV BOLUS INFUSING. PATIENT WATCHING TV, NO DISTRESS.
--- NOTE | 2023-07-22 19:32 | NUR ---
RECEIVED REPORT FROM DAY SHIFT RN. PATIENT IS RESTING IN BED WITH EYES CLOSED, RR 17. CALL LIGHT IN REACH.
--- NOTE | 2023-07-22 20:30 | NUR ---
PATIENT INCONT STOOL. PATIENTS ATTNED CHANGED AND ISABEL CARE COMPLETED. BENAVIDEZ CARE COMPLETED. PATIENT REPOSITIONED IN BED. PATIENTS LLE HAS SCD IN USE, HEEL PROTECTOR AND SURGICAL GEL PAD UNDER HEEL TO KEEP PRESSURE OFF OF HEEL. PATIENTS LLE ELEVATED ON PILLOWS AND POSITIONED SO THAT NOTHING IS TOUCHING PATIENTS HEEL. PILLOWED PLACED BETWEEN LEGS SO THAT FIXATOR DOES NOT TOUCH RIGHT LEG. ICE PACKS REMOVED. PATIENT IS AAOX4. PATIENTS VITALS TAKEN AND RECORDED. BENAVIDEZ EMPTIED. INTAKE AND OUTPUT RECORDED. PATIENT IS AAOX4. PM MEDS PER ORDER. PATIENT REPORTS 3/10 PAIN, PRN PAIN MEDICATION GIVEN PER ORDER. PATIENT REQUESTING WATER. PATIENT EDUCATED ON DIET AND MOUTH SWABS PROVIDED. PATIENT DENIES ANY FURTHER NEEDS. CALL LIGHT IN REACH. IV INFUSING PER ORDER. CALL LIGHT AND BELONGINGS ARE WITHIN REACH.
--- NOTE | 2023-07-22 22:29 | NUR ---
PATIENT REPOSITIONED IN BED. PATIENT DENIES ANY PAIN. PATIENTS RLE HAS SCDS AND GEL PACK UNDER ANKLE TO KEEP PRESSURE OFF HEEL. PATIENTS LLE ELEVATED ON PILLOWS AND POSITIONED TO KEEP PRESSURE OFF HEEL. PATIENT DENIES ANY NEEDS. CALL LIGHT IN REACH. IV INFUSING PER ORDER.
[2023-07-23] VITALS (7 sets, daily range): BP systolic 104–145; BP diastolic 41–79
--- NOTE | 2023-07-23 00:22 | NUR ---
PATIENT IS RESTING IN BED WITH EYES CLOSED, RR 16. CALL LIGHT IN REACH.
--- NOTE | 2023-07-23 03:01 | NUR ---
PATIENTS VITALS TAKEN AND RECORDED. PATIENT INCONT OF STOOL. ATTEND CHANGED, ISABEL CARE COMPLETED, BENAVIDEZ CARE COMPLETED, AND BARRIER CREAM APPLIED. PATIENT REPOSITIONED IN BED. PATIENTS RLE HAS SCDS AND GEL PAD UNDER ANKLE TO KEEP HEEL OFF OF BED. PATIENTS LLE IS ELEVATED ON PILLOWS AND POSITIONED TO KEEP HEEL OFF OF BED. PATIENTS DRESSING ON LLE IS C/D/I. PATIENT RATES PAIN AT A 3/10, PRN PAIN MEDICATION GIVEN PER ORDER. SCHEDULED ABX INFUSING PER ORDER. ICE APPLIED TO PATIENTS LLE. PATIENT IS AAOX4. PATIENT REQUESTS WATER. EDUCATED PATIENT ON NPO STATUS AND BOWEL REST. PATIENT STATED "OK". PATIENT DENIES ANY FURTHER NEEDS. CALL LIGHT IN REACH. IV INFUSING PER ORDER.
--- NOTE | 2023-07-23 04:04 | NUR ---
PATIENT IS RESTING IN BED WITH EYES CLOSED, RR 15. PATIENT REPOSITIONED. CALL LIGHT IN REACH.
[2023-07-23 05:08] LABS: BASOPHILS 0.2 % (0-2); EOSINOPHILS 0.1 % (0-6); HEMATOCRIT 26.1 % (35.0-50.0); HEMOGLOBIN 8.6 g/dL (12.0-18.0); LYMPHOCYTES 4.6 % (24-44); MCH 29.5 (27-36); MCHC 32.8 g/dl (30-36); MCV 89.9 fl (81-99); MONOCYTES 4.3 % (0-12); NEUTROPHILS 90.8 % (39-80); PLATELET COUNT 352 K/uL (140-440); RDW 14.7 (10.5-15.0)
[2023-07-23 05:21] LABS: BUN/CREATININE RATIO 18.66 (6.0-28.6); CALCIUM 7.8 mg/dL (8.5-10.1); CREATININE, SERUM 0.75 mg/dL (0.70-1.30)
--- NOTE | 2023-07-23 06:36 | NUR ---
PATIENTS VITALS TAKEN AND RECORDED. PATIENT INCONT OF STOOL. PATIENTS ATTEND CHANGED, ISABEL CARE, AND BENAVIDEZ CARE COMPLETED. PATIENTS INTAKE AND OUTPUT RECORDED. PATIENT REPOSITIONED IN BED. PATIENT HAS SCD, HEEL PROTECTOR IN USE ON RLE. PATIENT HAS GEL PAD UNDER RLE TO KEEP HEEL OFF OF BED TO ALLEVIATE PRESSURE IN HIS HEEL. PATIENTS LLE ELEVATED ON PILLOW AND POSTIONED TO KEEP HEEL OFF OF BED TO ALLEVIATE PRESSURE. PATIENT HAS PILLOW PLACED BETWEEN LEGS TO PREVENT FIXATOR FROM RUBBING ON LLE. PATIENT REPORTS 2/10 PAIN, PRN PAIN MEDICATION GIVEN PER ORDER. AM ABX INFUSING PER ORDER. PATIENT DENIES ANY NEEDS. CALL LIGHT IN REACH. IV INFUSING PER ORDER.
--- NOTE | 2023-07-23 07:18 | NUR ---
BEDSIDE HANDOFF REPORT RECEIVED FROM FACTORY SUPERVISOR RN. PT SLEEPING, LEFT UNDISTURBED.
--- NOTE | 2023-07-23 08:45 | NUR ---
PT RESTING IN BED, AWOKEN FOR ASSESSMENT AND MEDICATIONS. PT ASSESSMENT LIMITED BY SPEECH DEFICITS. PT ON ROOM AIR, LUNG SOUNDS CLEAR, ENCOURAGED COUGH AND DEEP BREATHS. PT DENIES ABD PAIN, BOWEL TONES ACTIVE, WITHOUT NAUSEA/VOMITING, NPO AT THIS TIME. PT RATING LEG PAIN 2/10. CMS INTACT, LEFT FOOT WITH 2+ EDEMA, PULSES FAINT. SCD TO RIGHT LOWER LEG, HEEL PROTECTOR AND GEL HEEL PAD IN PLACE. MEDICATIONS GIVEN PER EMAR, IV FLUIDS INFUSING LR AT 125ML/HR, CEFEPIOME INFUSION STARTED. DISCUSSED PLAN OF CARE WITH PT. PT DENIES OTHER NEEDS AT THIS TIME.
--- NOTE | 2023-07-23 09:45 | NUR ---
IV VANCO INFUSION STARTED. PT STATING HE IS HAVING PAIN, RATING PAIN 2/10, BUT FREQUENTLY GRIMACING. PROVIDER MOON AT BEDSIDE TO EVALUATE PT. WILL GIVE PAIN MEDICATION WHEN AVAIALBLE.
--- NOTE | 2023-07-23 12:06 | NUR ---
PT CALLS FREQUENTLY FOR PAIN, RATING PAIN 2/10, LLE REPOSITIONED, PT GIVEN 1000MG PO TYLENOL. PT BG 187, GIVEN 3 UNITS SS HUMALOG. IV POTASSIUM INFUSION STARTED. PT DENIES OTHER NEEDS AT THIS TIME.
[2023-07-23 12:13] LABS: C. DIFF TOXIN B GENE TCDB,PCR Not Detected (())
--- NOTE | 2023-07-23 12:55 | NUR ---
PT WITH FREQUENT COMPLAINT OF PAIN, CALL PLACED TO [facility] PAC, DISCUSSED PAIN AND AVAIALBLE MEDICATIONS, NEW ORDER FOR HYDROMORPHONE IV 0.25-0.5 Q3 PRN AND FOR OFIRMEV IV 1000MG Q6 SCHEDULED. 0.5MG IV DILAUDID GIVEN. PHARMACY WILL NOT VERIFY OFIRMEV PT DOES NOT MEET CRITERIA FOR NON-FOMULARY MEDICATION, DISCUSSED WITH PATRIA CASTRO TO GIVE 1000MG PO TYLENOL Q8H SCHEDULED.
--- NOTE | 2023-07-23 16:00 | NUR ---
PT REQUESTING TO GO BACK TO BED. PT TRANSFERED WITH DRAW SHEET. PERICARE PROVIDED FOR SMALL BM. LEGS REPOSITIONED AND ELEVATED ON PILLOWS. PT REQUESTING PAIN MEDICATION, GIVEN 0.5MG IV DILAUDID. PT DENIES OTHER NEEDS AT THIS TIME. CALL LIGHT WITHIN REACH.
--- NOTE | 2023-07-23 16:10 | NUR ---
PT CALLED, COMPLAINT OF NAUSEA, GIVEN 4MG IV ZOFRAN BY CONSERVATION SCIENCE OFFICER. PT GIVEN EMESIS BAG, DENIES OTHER NEEDS AT THIS TIME.
--- NOTE | 2023-07-23 18:41 | NUR ---
PT CONTINUES TO BE NPO EXCEPT FOR MEDS, COMPLAINT OF NAUSEA THIS AFTERNOON, GIVEN ZOFRAN X1. PT ON ROOM AIR, LUNG SOUNDS CLEAR, ENCOURAGE I/S. PT RECEIVING LR AT 125 ML/HR, VANCO, FLAGYL, CEFEPIME, 40 MEQ KCL. PT REPORTS PAIN 2/10, BUT APPEARED MORE UNCOFORTABLE, DILAUDID DOSE INCREASED TO 0.5MG Q3PRN. PT SAT IN CHAIR FOR MAJORITY OF DAY. BENAVIDEZ CATH WITH QS, 2 LOOSE BM TODAY.
--- NOTE | 2023-07-23 19:41 | NUR ---
RECEIVED REPORT FROM DAY SHIFT RN. PATIENT IS RESTING IN BED. DAY SHIFT RN AT BEDSIDE COMPLETING PATIENT CARE.
--- NOTE | 2023-07-23 21:14 | NUR ---
PATIENT INCONT STOOL. [facility] AND BENAVIDEZ CARE COMPLETED. PATIENT REPOSITIONED IN BED. PATIENT HAS RLE SCD IN PLACE, HEEL PROTECTOR IN PLACE, AND GEL PAD UNDER ANKLE TO KEEP HEEL OFF BED. PATIENTS LLE IS ELEVATED ON PILLOWS AND POSITIONED TO KEEP HEEL OFF OF BED. PATIENT HAS PILLOW BETWEEN LEGS AND POSITIONED TO PREVENT FIXATOR FROM HITTING LLE. PATIENTS VITALS TAKEN AND RECORDED. INTAKE AND OUTPUT RECORDED. PATIENTS PM MEDS GIVEN PER ORDER. PATIENT RATES PAIN AT A 2/10, SCHEDULED MEDICATION GIVEN PER ORDER. PATIENTS IV INFUSING PER ORDER. PATIENT DENIES ANY FURTHER NEEDS. CALL LIGHT IN REACH.
--- NOTE | 2023-07-23 22:09 | NUR ---
PATIENT IS RESTING IN BED WITH EYES CLOSED, RR 16. PATIENT REPOSITIONED IN BED. PATIENT BRIEFLY AWOKE AND DENIED PAIN. CALL LIGHT IN REACH. IV INFUSING PER ORDER.
--- NOTE | 2023-07-24 00:35 | NUR ---
PATIENT REPORTS 2/10 PAIN IN LLE, PRN PAIN MEDICATION GIVEN PER ORDER. PATIENT REPOSITIONED IN BED. PATIENTS IV INFUSING PER ORDER. PATIENT DENIES ANY FURTHER NEEDS. CALL LIGHTIN REACH.
--- NOTE | 2023-07-24 02:19 | NUR ---
PATIENTS SCHEDULED ABX INFUSING PER ORDER. PATIENTS BS CHECKED AND IS WNL. PATIENTS ATTEND IS DRY. PATIENT REPOSITIONED IN BED. ICE APPLIED TO LLE. PATIENT DENIES ANY NEEDS. CALL LIGHT IN REACH.
--- NOTE | 2023-07-24 04:10 | NUR ---
PATIENTS RATES PAIN AT A 2/10 IN HIS LLE. PATIENT GIVEN SCHEDULED MEDICATION PER ORDER. PATIENT DENIES ANY FURTHER NEEDS. PATIENT REPOSITIONED IN BED. CALL LIGHT IN REACH. IVINFUSING PER ORDER.
[2023-07-24 06:18] VITALS: BP 135/57
--- NOTE | 2023-07-24 06:21 | NUR ---
PATIENT INCONT OF STOOL. PATIENTS ATTEND CHANGED AND ISABEL CARE COMPLETED. BENAVIDEZ CARE COMPLETED. PATIENT REPOSITIONED IN BED. PATIENTS RLE HAS SCDS, HELL PROTECTOR AND GEL PAD UNDER HEEL TO PREVENT HEEL FROM TOCUHING THE BED. PATIENTS LLE IS ELEVATED ON PILLOWS AND POSITIONED TO PREVENT HEEL FROM TOUCHING THE BED. ICE PACKS APPLIED TO THE LLE. PATIENTS BENAVIDEZ EMPTIED. INTAKE AND OUTPUT RECORDED. PATIENT DENIES ANY PAIN. PATIENT DENIES ANY NEEDS. IV INFUSING PER ORDER. AM ABX INFUSING PER ORDER. CALL LIGHT IN REACH.
--- NOTE | 2023-07-24 07:40 | NUR ---
RECEIVED REPORT FROM MUTUEL MACHINE OPERATOR RN. PATIENT RESTING IN BED WITH EYES CLOSED. BREATHING IS EVEN AND UNLABORED. PATIENT CALL LIGHT AND PERSONAL BELONGINGS ARE WITHIN REACH.
[2023-07-24 08:53] LABS: ALBUMIN 1.6 g/dL (3.4-5.0); ALBUMIN/GLOBULIN RATIO 0.59 (1.1-2.4); ALKALINE PHOSPHATASE 82 U/L (46-116); ALT (SGPT) 8 U/L (14-59); ANION GAP 9.9 (7-21); AST (SGOT) 9 U/L (15-37); BILIRUBIN, TOTAL 0.5 ng/dL (0.2-1.0); BUN/CREATININE RATIO 13.69 (6.0-28.6); CALCIUM 7.9 mg/dL (8.5-10.1); CARBON DIOXIDE 26 mmol/L (21-32); CHLORIDE 102 mmol/L (98-107); CREATININE, SERUM 0.73 mg/dL (0.70-1.30); GLOMERULAR FILTRATION RATE,EST 92 mL/min (>60); POTASSIUM 2.9 mmol/L (3.5-5.1); PROTEIN, TOTAL 4.3 g/dL (6.4-8.2); UREA NITROGEN 10 mg/dL (7-18); VANCOMYCIN, TROUGH 19.1 ug/mL (5.0-20.0)
--- NOTE | 2023-07-24 09:31 | NUR ---
CALL TO DR. MUÑOZ THAT KCL IS 2.9 THIS MORNING AND MG LAB ADDED, PER Celena GALLARDO.
[2023-07-24 09:43] VITALS: BP 108/41
[2023-07-24 09:48] LABS: BASOPHILS 0.2 % (0-2); EOSINOPHILS 0.8 % (0-6); HEMOGLOBIN 8.3 g/dL (12.0-18.0); LYMPHOCYTES 5.1 % (24-44); MCH 29.8 (27-36); MCHC 33.2 g/dl (30-36); MCV 89.6 fl (81-99); MONOCYTES 3.8 % (0-12); NEUTROPHILS 90.1 % (39-80); PLATELET COUNT 327 K/uL (140-440); RBC 2.78 M/ul (4.3-5.7); RDW 14.3 (10.5-15.0)
--- NOTE | 2023-07-24 12:16 | NUR ---
PATIENT SITTING UPRIGHT IN THE RECLINER. MAGENSIUM SULFATE AND POTASSIUM CHLORIDE STARTED PER THE EMAR. PATIENT PAIN RATING WAS 2/10 IN THE LEFT LOWER LEG. PATIENT GIVEN NEW ICE PACKS AND 1,000 MG OF TYLENOL. PATIENT STATED NO FURTHER NEEDS AT THIS TIME. CALL LIGHT AND PERSONAL BELONGINGS ARE WITHIN REACH.
--- NOTE | 2023-07-24 13:14 | NUR ---
PATIENT CONSUMED 400 ML OF CLEAR LIQUID DIET. PATIENT MOVED BACK TO THE BED AND REPOSITIONED. PATIENT STATED NO PAIN ON THE TRANSFER. PATIENT STATED NO FURTHER NEEDS AT THIS TIME. CALL LIGHT AND PERSONAL BELONGINGS WITHIN REACH.
[2023-07-24 14:15] VITALS: BP 116/47
--- NOTE | 2023-07-24 14:54 | NUR ---
PATIENT FLAGYL AND CEFEPIME STARTED PER THE EMAR. PATIENT DRESSING CHANGE AND WOUND CARE COMPLETE PER DOCTORS ORDER. DRESSING ON THE LEFT HEEL WITH MODERATE AMOUNT OF DRAINAGE. LEFT KNEE DRAINAGE WITH SMALL AMOUNT ON THE PREVIOUS ALEVYN. PATIENT STATED NO PAIN THROUGHOUT THE DRESSING CHANGE PROCEDURE. ONCE DRESSING CHANGE COMPLETE, BRIEF WAS CHANGED. BRIEF WITH SMALL AMOUNT OF GREEN LIQUID STOOL. PATIENT REPOSITIONED IN BED TO PROMOTE COMFORT. PATIENT STATED NO FURTHER NEEDS AT THIS TIME. CALL LIGHT AND PERSONAL BELONGINGS ARE WITHIN REACH.
[2023-07-24 17:26] VITALS: BP 127/50
[2023-07-24 19:02] LABS: ANION GAP 11.4 (7-21); BUN/CREATININE RATIO 12.65 (6.0-28.6); CALCIUM 7.7 mg/dL (8.5-10.1); CREATININE, SERUM 0.79 mg/dL (0.70-1.30); MAGNESIUM 2.1 mg/dL (1.8-2.4); POTASSIUM 3.4 mmol/L (3.5-5.1)
--- NOTE | 2023-07-24 19:10 | NUR ---
SHIFT REPORT RECEIVED FROM CHRISTINE PATE AND MAURICIO PATE.
--- NOTE | 2023-07-24 19:15 | NUR ---
PT AWAKE AND ALERT, DESIRE RN HELPING PT FIND TV STATION, PT WITHOUT REQUESTS AT THIS TIME.
[2023-07-24 20:15] VITALS: BP 118/56
--- NOTE | 2023-07-24 20:28 | NUR ---
ASSISTED RIO YOUNG. V/S AND I&O'S TAKEN AND RECORDED. ACCUCHECK DONE.
--- NOTE | 2023-07-24 21:00 | NUR ---
PT AWAKE, ASSESSMENT COMPLETED AND RT PO/IV MEDS GIVEN, RIGHT AC AND RIGHT FOREARM SL FLUSHES WELL PRIOR TO START OF ANTIBODICS, RT TYLENOL GIVEN FOR C/O PAIN IN LEFT LOWER LEG 11/12, LEFT LEG REMAINS ELEVATED ON PILLOW, DRESSING DRY AND INTACT, FIXATION DEVICE IN PLACE, ICE TO LEFT LOWER LEG, LEFT FOOT SWOLLEN, WARM, DP PULSES PALPATED. PT RESTING, CALM, HOB ELEVATED APPROX 25%, SIDE RAILS UP X 4, BENAVIDEZ PATENT DRAINING LIGHT CLEAR YELLOW URINE. CATH CARE DONE PER ELAV BRISCOE.
--- NOTE | 2023-07-24 22:07 | NUR ---
PT AWAKE, CALM OFFERED PAIN MED, PT DESIRES TO HAVE, MEDICATED WITH DILAUDID 0.5MG SLOW IV PUSH FOR LEFT LEG DISCOMFORT 2/10, KLOR 40MEQ PO GIVEN PER ORDER. PT BACK TO SLEEP, RT ANTIBODICS INFUSING WELL.
--- NOTE | 2023-07-24 23:07 | NUR ---
PT APPEARS TO SLEEP, EYES CLOSED, RESP EVEN AND REG.
--- NOTE | 2023-07-24 23:40 | NUR ---
PT APPEARS UNCOMFORTABLE, REPOSITIONED IN BED, LLE REMAINS ELEVATED ON PILLOWS, LEFT FOOT WARM REMAINS SWOLLEN, DRESSING APPEARS DRY, FIXATON DEVICE INTACT, FRESH ICE TO LLE. PT APPEARS MORE COMFORTABLE.
--- NOTE | 2023-07-25 00:54 | NUR ---
PT APPEARS TO SLEEP, RESP EVEN AND REG, WITHOUT DISTRESS
--- NOTE | 2023-07-25 01:45 | NUR ---
PT APPEARS TO SLEEP, RESP EVEN AND REGULAR.
--- NOTE | 2023-07-25 02:00 | NUR ---
PT AWAKEN WHEN RN ENTERED ROOM, ASK PT IF HE WOULD LIKE PAIN MED AND HE SAYS YES, MEDICATED WITH DILAUDID 0.5MG IV, RT A/B HUNG AND INFUSING WELL PER RIGHT FA SL. ICE BAG CONTINUES TO LEFT ANKLE AND LLE, PT HOLDING UP 2 FINGERS TO INDICATE LEVEL OF PAIN, DP PULSE PER DOPPLE ON LEFT FOOT, FOOT REMAINS ELEVATED ON PILLOW AND REMAINS SWOLLEN BUT WARM.
[2023-07-25 02:18] VITALS: BP 114/48
--- NOTE | 2023-07-25 03:50 | NUR ---
PT AWAKEN FOR RT TYLENOL, PT SAYS YES TO PAIN 2/10, PT TILTED SLIGHTLY TO LEFT SIDE, LLE REMAINS ELEVATED ON PILLOW, ICE BAG TO LLE, DRESSING INTACT, WARM BLANKET TO UPPER TORSO, PT RESTING WITHOUT DISTRESS.
[2023-07-25 05:44] VITALS: BP 118/56
--- NOTE | 2023-07-25 05:46 | NUR ---
PT RESTING QUIETLY, LAB RENCENTLY IN FOR AM BLOOD DRAW, VS DOEN AND STABLE, PT SAYS "YES" WHEN ASKED IF HE WOULD LIKE PAIN MEDICATION, ASSESSMENT COMPLETED, FRESH ICE TO LEFT LEG WHICH REMAINS ELEVATED ON PILLOWS, DP PULSE ON LEFT FOOT AUDIBLE WITH DOPPLER.
[2023-07-25 05:50] LABS: BASOPHILS 0.8 % (0-2); EOSINOPHILS 0.9 % (0-6); HEMATOCRIT 24.3 % (35.0-50.0); HEMOGLOBIN 8.3 g/dL (12.0-18.0); LYMPHOCYTES 7.8 % (24-44); MCH 30.4 (27-36); MCHC 34.3 g/dl (30-36); MCV 88.5 fl (81-99); MONOCYTES 5.5 % (0-12); PLATELET COUNT 330 K/uL (140-440); RBC 2.75 M/ul (4.3-5.7); RDW 14.5 (10.5-15.0)
--- NOTE | 2023-07-25 05:54 | EKG ---
[facility] [address] [place] [id number] Signed Sinus rhythm with short OR Right bundle branch block Abnormal ECG When compared with ECG of 25-APR-2022 09:45, Right bundle branch block is now present Confirmed by BRIAN MUÑOZ MD ([id number]) on 07/25/2023 5:54:26 AM Electronically Signed By: BRIAN MUÑOZ 07/25/23 0554 PATIENT NAME: ISAACMADY Electrocardiogram DATE OF : 44 PHYSICIAN: BRIAN MUÑOZ REPORT #: [id number] REPORT IS CONFIDENTIAL AND NOT TO BE RELEASED WITHOUT AUTHORIZATION
[2023-07-25 06:05] LABS: ALBUMIN 1.7 g/dL (3.4-5.0); ALBUMIN/GLOBULIN RATIO 0.68 (1.1-2.4); ANION GAP 8.3 (7-21); BILIRUBIN, TOTAL 0.4 ng/dL (0.2-1.0); BUN/CREATININE RATIO 11.84 (6.0-28.6); CALCIUM 7.5 mg/dL (8.5-10.1); CREATININE, SERUM 0.76 mg/dL (0.70-1.30); POTASSIUM 3.3 mmol/L (3.5-5.1); PROTEIN, TOTAL 4.2 g/dL (6.4-8.2)
--- NOTE | 2023-07-25 06:10 | NUR ---
PT RESTING, MEDICATED WITH DILAUDID 0.5MG IV PER EARILIER REQUEST FOR PAIN MED, RT A/B STARTED AND INFUSING WELL, PT BACK TO SLEEP WHEN LEFT UNDISTURBED.
--- NOTE | 2023-07-25 07:05 | NUR ---
PT REPORT RECEIVED FROM RIO YOUNG. PT IS RESTING SUPINE IN BED, EYES CLOSED, BREATHING REGULAR, EVEN, AND NON-LABORED. TELEVISION IS ON. CALL LIGHT IN REACH.
--- NOTE | 2023-07-25 07:11 | OR ---
[facility] [address], [place] [address] Signed DATE OF OPERATION: 07/20/2023 SURGEON: Nicholas Skaggs MD PREOPERATIVE DIAGNOSES: 1. Grade 2 open fracture dislocation, trimalleolar left ankle. 2. Grade 3 decubitus ulcer, left heel. 3. Grade 3 decubitus medial femoral condyle. 4. Grade 2 decubitus fibular head, left. POSTOPERATIVE DIAGNOSES: 1. Grade 2 open fracture dislocation, trimalleolar left ankle. 2. Grade 3 decubitus ulcer, left heel. 3. Grade 3 decubitus medial femoral condyle. 4. Grade 2 decubitus fibular head, left. PROCEDURES PERFORMED: 1. Closed reduction and external fixation, left ankle. 2. Debridement of open fracture, medial malleolus. 3. Debridement of heel and medial femoral condyle ulcers 30 cm2. CENTRAL OFFICE OPERATOR: Kate Moore PA-C. Kate was present and critical for all portions of the procedure. ANESTHESIA: General. BLOOD LOSS: Minimal. IMPLANTS: Blake with four 5.0 pins were used. BRIEF HISTORY: Huey is an 82-year-old gentleman, who has a long cardiac and neurologic history having suffered a stroke, was nonverbal and minimally ambulatory prior to his fall off a stool at the [facility]. He was transported to the ER two weeks ago, was seen by the ER staff and was diagnosed with a proximal fibular fracture and sent home. They contacted our office and we were able to get them in yesterday. On physical exam yesterday, he was noted to Electronically Signed By: NICHOLAS SKAGGS MD 07/25/23 0711 PATIENT NAME: HUEY GRAY OPERATIVE REPORT DATE OF : 44 REPORT #: [id number] PHYSICIAN: NICHOLAS SKAGGS MD PCP: BHAVANA BAILEY MD REPORT IS CONFIDENTIAL AND NOT TO BE RELEASED WITHOUT AUTHORIZATION [facility] [address], [place] [address] Signed have deformity of the left ankle with a trimalleolar fracture dislocation. The ulcers were noted as well. He was admitted to the hospital directly from our facility and prepped for surgery this morning. Risks, benefits, and alternatives of treatment with an external fixator and debridement of the wounds were discussed with he and his family. They elected to proceed. DESCRIPTION OF PROCEDURE: Once consent was obtained, he was taken to the operating room. After adequate anesthesia, he was placed on the operating room table. All downside pressure points were well padded. The fracture was easily reduced and held in position. Once this was accomplished, two Schanz pins were placed, one in the talar neck and one in the calcaneus anterior to the decubitus ulcer. Two were placed in the middle 3rd of the tibia proximally. These were then connected using appropriate carbon fiber rods. The ankle was then held in a neutral position and reduced under image intensifier guidance. The external fixator was then tightened throughout. Once this was accomplished, the ankle was quite stable. We then debrided the medial malleolar wound which was about 2.5 cm long. The eschar and debris were irrigated out of it and it was cleaned using Surgiphor. The two ulcers on the medial femoral condyle and medial calcaneus were then debrided down to bleeding tissue, although the tissue in the calcaneus was quite poor. The wound care nurse was then asked to come into the room and she dressed the wounds with Medihoney and the pins were dressed with Allevyn and sterile gauze. He was awakened, taken to the recovery room in satisfactory condition. All sponge, needle, and instrument counts were correct. Nicholas Skaggs MD BA/MODL /[id number] Copies: ~ Electronically Signed By: NICHOLAS SKAGGS MD 07/25/23 07 PATIENT NAME: HUEY GRAY OPERATIVE REPORT DATE OF : 44 REPORT #: [id number] PHYSICIAN: NICHOLAS SKAGGS MD PCP: BHAVANA BAILEY MD REPORT IS CONFIDENTIAL AND NOT TO BE RELEASED WITHOUT AUTHORIZATION
--- NOTE | 2023-07-25 08:20 | NUR ---
CALLED [facility]. NO ANSWER, MESSAGE LEFT. ATTEMPT TO CONTACT LOREN AT [facility] TO INQUIRE STATUS. MESSAGE LEF.
[2023-07-25 09:18] VITALS: BP 116/49
--- NOTE | 2023-07-25 09:59 | NUR ---
IN WITH PT FOR MED ADMINISTRATION AND REPOSITIONING. PT REQUESTED WE REMOVE HIS BREAKFAST TRAY HE DOESN'T WANT ANY OF IT. PT DID TAKE SIPS OF WATER WITH HIS MEDS AND WAS GIVEN FRESH ICED WATER WHICH HE DRANK MORE OF. CALL LIGHT IN REACH. ICE TO LLE. NOTED THAT THE EGG CRATE MATTRESS IS ON UPSIDE DOWN AND WE WILL ADDRESS THIS.
--- NOTE | 2023-07-25 10:02 | NUR ---
UPDATE FAXED TO [facility].
--- NOTE | 2023-07-25 10:18 | NUR ---
PT APPEARED TO BE SLEEPING. DID NOT DISTURB. PRAYED FOR PEACE AND COMFORT.
--- NOTE | 2023-07-25 10:32 | NUR ---
CALLED AND SPOKE WITH BRITTANY BREWER AT THE [facility], UPDATE FAXED. STATES SHE WILL CALL BACK AFTER REVIEWING THE CHART.
--- NOTE | 2023-07-25 11:09 | NUR ---
IN WITH PT FOR MED ADMINISTRATION. PT'S SISTER IN LAW IS IN VISITING WITH HIM. PT REPORTS PAIN IN HIS LEGS. 0.5MG DILAUDID ADMINISTERED AT THIS TIME. CEFEPIME IV RUNNING. PT DENIES OTHER NEEDS AT THIS TIME. PERSONAL BELONGINGS, BEDSIDE TABLE, AND CALL LIGHT IN REACH.
--- NOTE | 2023-07-25 11:16 | NUR ---
[facility], CALLED TO STATE SHE CAN ACCEPT PATIENT TOMORROW.
--- NOTE | 2023-07-25 12:14 | NUR ---
IN FOR MED ADMINISTRATION PER EMAR. PT IS ASLEEP BUT AWAKENS EASILY. ENCOURAGED IS USE, WHICH PT DID WHILE THIS RN WAS IN THE ROOM. NO QUESTIONS, DENIES NEEDS AT THIS TIME. CALL LIGHT, BEDSIDE TABLE, AND PERSONAL BELONGINGS IN REACH.
--- NOTE | 2023-07-25 13:15 | NUR ---
IN TO MOVE PT TO CHAIR. PT REFUSED TRANSFER TO CHAIR. ISABEL CARE AND CATH CARE PERFORMED AT THIS TIME PT HAD A MODERATE SIZED, MUCOUSY, STICKY, GREEN BM. THIS RN IS NOT FAMILIAR WITH THIS PT BEFORE THIS SHIFT, SO I'M NOT CERTAIN IF HIS SCROTUM IS SWOLLEN OR IF THAT IS NORMAL FOR HIM. PT DID CRY OUT "OW" WHEN CLEANING THAT AREA OF HIS GENITALS; HOWEVER. HE ALSO CRIED OUT "OW" WHEN CLEANING THE URINARY MEATUS. NO DRAINAGE, REDNESS, BLOOD, ETC. NOTED. BARRIER WIPES USED ON HIS BOTTOM AND BARRIER CREAM APPLIED. SKIN IS INTACT. GAUZE COVERING WOUNDS IS CDI CALL LIGHT, BEDSIDE TABLE, AND PERSONAL BELONGINGS IN REACH. PT REPOSITIONED TO LEFT SIDE, WARM BLANKET PROVIDED.
--- NOTE | 2023-07-25 13:23 | NUR ---
ARTURO AT [facility] HAS ACCEPTED PATIENT TO BE ADMITTED TOMORROW, WILL PICK HIM UP. SPOKE WITH SANTIAGO AND DISCUSSED BOTH FACILITIES, REQUESTS PATIENT GO TO [facility]. FRANCESCO HERRON CLARENCE CHIOMA NOTIFIED. DR. MUÑOZ AND DR. BENNETT NOTIFIED.
[2023-07-25 13:24] VITALS: BP 114/43
--- NOTE | 2023-07-25 13:32 | NUR ---
IN TO DO VITALS AND I&O'S. VITALS AND I&O'S CHARTED. PATIENT HAD INCONT. BM. ISABEL CARE, CATH CARE, SKIN CARE DONE. NEW ATTENDS AND LINENS IN PLACE. PATIENT REPOSITIONED WITH PILLOW UNDER RIGHT HIP. LEFT LEG ELEVATED WITH PILLOWS. CALL LIGHT IN REACH. NO FURTHER NEEDS AT THIS TIME.
--- NOTE | 2023-07-25 14:35 | NUR ---
BOTH NARES SWABBED WITHOUT COMPLICATION.
--- NOTE | 2023-07-25 15:09 | NUR ---
PATIENT UP TO CHAIR WITH 2 PERSON PIVOT. PATIENT TOLERANCE FOR ACTIVITY FAIR. PATIENT GIVEN ONE NORCO FOR 2/10 PAIN. NO OTHER NEEDS NOTED AT THIS TIME.
--- NOTE | 2023-07-25 16:27 | NUR ---
IN FOR HOURLY ROUNDING AND RESPOND TO CALL LIGHT FOR PT REQUEST TO "GET BACK IN BED". ENCOURAGED PT TO STAY IN THE CHAIR UNTIL AFTER DINNER HE HAS BEEN IN BED FOR MOST OF THE DAY. PT REPORTS PAIN IN HIS LEGS AND HE WANTS "PAIN PILL, YES!". MONTY HAD ADMINISTERED 1 PO NORCO ABOUT ONE HOUR PRIOR AND THE ORDER IS FOR 1 TO 2 TABS, SO THIS RN ADMINISTERED ONE MORE NORCO PO AT PT'S REQUEST FOR INCREASING PAIN WHILE IN THE CHAIR WITH BLE ELEVATED. PT DENIES FURTHER NEEDS AT THIS TIME. CALL LIGHT, BEDSIDE TABLE, AND PERSONAL BELONGINGS IN REACH.
--- NOTE | 2023-07-25 17:16 | NUR ---
IN FOR INSULIN ADMINISTRATION (1 UNIT). PT IS UP IN CHAIR, EATING HIS DINNER AND WATCHING TELEVISION. DENIES NEEDS AT THIS TIME. CALL LIGHT AND PERSONAL BELONGINGS IN REACH.
[2023-07-25 17:28] VITALS: BP 122/64
--- NOTE | 2023-07-25 18:22 | NUR ---
PT WAS IN BED FOR THE FIRST 2/3RDS OF THIS SHIFT HE REFUSED WHEN WE ADVISED HIM (BEFORE PT CAME) THAT HE NEEDED TO GET UP TO THE CHAIR. PT AND ANOTHER RN WERE ABLE TO TRANSFER PT USING BEAR HUG METHOD AND PIVOT FROM BED TO CHAIR AROUND 1445 HOURS TODAY AND PATIENT REMAINED IN THE CHAIR, WITH MUCH ENCOURAGEMENT, UNTIL JUST AFTER HE FINISHED EATING HIS DINNER. WITH 2-PERSON HANDS ON ASSIST, PT WAS ABLE TO STAND AND PIVOT TRANSFER FROM CHAIR TO BED. HE HAS BEEN KEEPING HIS LEFT LEG BENT, STATING THAT IT HURTS TO STRAIGHTEN IT OUT WHILE HE IS IN BED. DRESSINGS TO LEFT LEG AND WOUNDS HAVE REMAINED DRY AND INTACT, DRESSING CHANGES TO DEBRIDED WOUNDS ARE DUE 02/23. PT DID NOT EAT ANY OF HIS CLEAR LIQUID BREAKFAST, BUT WAS CHANGED TO A SOFT DIET AFTER BREAKFAST AND HE SEEMED TO WANT TO EAT THAT. HE HAS BEEN DRINKING SOME WATER AND RECEIVING IV ABX. PT TOLERATES PO MEDS WELL WITHOUT ISSUE. PT HAD A MEDIUM, SEMI LIQUID, STICKY GREEN BM THAT APPEARED TO CONTAIN MUCOUS. HE COMPLAINED OF DISCOMFORT WITH CLEANING WHEN THE AREA OF HIS SCROTUM WAS WIPED. IV DILAUDID WAS D/C'D AND THE PT HAS HAD A TOTAL OF 2 TABS OF NORCO PO. HE USES THE CALL LIGHT APPROPRIATELY. PT SHOULD BE D/C TO A SNF TOMORROW.
--- NOTE | 2023-07-25 18:43 | NUR ---
UR NOTE: MCG ANKLE FRACTURE, CLOSED, OPEN REDUCTION, INTERNAL FISXATION INPATIENT 07/23/23 VARIANCE GL DAY 1 07/24/23 VARIANCE GL DAY 2 07/25/23 VARIANCE GL DAY 3
--- NOTE | 2023-07-25 19:10 | NUR ---
SHIFT REPORT RECEIVED FROM JAILENE PATE.
--- NOTE | 2023-07-25 19:20 | NUR ---
PT ASLEEP, RESP EVEN AND REG, HOB ELEVATED, SIDE RAILS UP X 4.
[2023-07-25 20:14] VITALS: BP 113/56
--- NOTE | 2023-07-25 20:15 | NUR ---
PT AWAKE AND ALERT, VS REVIEWED AND WNL FOR PT, PT AFEBRILE, ACCUCHECK DONE PER [employer] COMPENSATION CLAIMS ASSISTANT AND REPORTED TO BE 127, MAXIPIME STARTED PER RIGHT AC SL, SITE WITH BRUISE ABOVE SITE OTHERWISE WNL AND INFUSING WELL, ATTEMPTED TO FLUSH RIGHT FOREARM IV BUT PAINFUL TO PT, CHARGE NURSE RAZIA PATE INTO LOOK FOR NEW SITE, SUPPORT GIVEN TO PT.
--- NOTE | 2023-07-25 20:15 | NUR ---
ASSISTED RN HANNAH. V/S AND I&O'S COMPLETED. RN IN THE ROOM WITH PATIENT RE START IV.
--- NOTE | 2023-07-25 21:00 | NUR ---
AIMNTA PATE INTO ATTEMPT IV START, ONE UNATTEMPT BUT UNSUCESSFUL.
--- NOTE | 2023-07-25 21:15 | NUR ---
WESLEY PATE INTO ATTEMPT IV START. PT RESTING QUIETLY.
--- NOTE | 2023-07-25 21:20 | NUR ---
NEW 20 G SL IN LFA WITH GOOD BLOOD RETURN, VANCOMYCIN STARTED PER ORDER, SITE INTACT, PT WITHOUT COMPLAINTS OF PAIN AT SITE, RIGHT FA SL D'ALOK INTACT DUE TO PT C/O TENDERNESS WITH SALINE FLUSH AND NO BLOOD RETURN.
--- NOTE | 2023-07-25 21:21 | NUR ---
20 G IV PLACED IN LFA, 1 ATTEMPT. PT TOLERATED WELL. IV FLUSHED WELL, GOOD BLOOD RETURN. PT STATES NO OTHER NEEDS AT THIS TIME. CALL LIGHT IN REACH.
--- NOTE | 2023-07-25 22:40 | NUR ---
PT CALLING OUT, RN AND FRAME TENDER TO ROOM, PT C/O PAIN, REPOSITIONED AND LLE SUPPORTED WITH PILLOWS, ICE REMAINS ON LLE, SLIGHT LEFT TILT WITH RIGHT HIP, WARM BLANKET GIVEN, PT APPEARS MORE COMFORTABLE AT THIS TIME.
--- NOTE | 2023-07-25 23:04 | NUR ---
PT APPEARS TO SLEEP, EYES CLOSED, RESP EVEN AND REG.
--- NOTE | 2023-07-26 00:32 | NUR ---
PT AWAKEN TO FLUSH SL AFTER A/B MEDICATION COMPLETE, ASKED PT IF HE WOULD LIKE PAIN MED AND HE SAYS "YES", PT MEDICATED PER ORDER FOR LLE PAIN 5/10, FRESH ICE TO LLE, PT RESTING QUIETLY, BENAVIDEZ DRAINING WELL LIGHT YELLOW URINE.
[2023-07-26 01:36] VITALS: BP 119/59
--- NOTE | 2023-07-26 01:44 | NUR ---
PT AWAKEN BRIEFLY FOR VS, VS STABLE, PT SLEEPY, WITHOUT COMPLAINTS. ICE TO LLE, RT A/B HUNG AND INFUSING WELL PER MARCELLE AC. BENAVIDEZ OUT 950ML DILUTE YELLOW URINE.
--- NOTE | 2023-07-26 02:40 | NUR ---
PT RESTING QUIETLY, RESP EVEN AND REG.
--- NOTE | 2023-07-26 03:29 | NUR ---
PT APPEARS TO SLEEP, RESP EVEN AND REG.
[2023-07-26 05:00] VITALS: BP 120/45
--- NOTE | 2023-07-26 05:04 | NUR ---
PT AWAKEN FOR VS, VS STABLE, AFEBRILE, PT MEDICATED FOR PAIN 5/10 (PT HOLDS UP NUMBER OF FINGERS TO INDICATE PAIN LEVEL, MEDICATED WITH ONE NORCO PER ORDER, ASSESSMENT COMPLETED, REPOSITIONED IN BED AFTER CATH CARE DONE, LLE REMAINS ELEVATED ON PILLOW, HEEL PROTECTORS TO HEELS, SCD ON RIGHT LEG, FRESH ICE TO LLE, NOT DRAINAGE NOTED ON LLE. PT RESTING WATCHING TV, WITHOUT REQUESTS.
--- NOTE | 2023-07-26 05:50 | NUR ---
AM LABS DRAWN BY RIO FROM [facility] AFTER 10ML OF BLOOD WASTED, SITE INTACT.
[2023-07-26 05:55] LABS: BASOPHILS 0.7 % (0-2); EOSINOPHILS 1.3 % (0-6); HEMATOCRIT 23.3 % (35.0-50.0); HEMOGLOBIN 7.8 g/dL (12.0-18.0); LYMPHOCYTES 10.6 % (24-44); MCH 29.9 (27-36); MCHC 33.5 g/dl (30-36); MCV 89.3 fl (81-99); MONOCYTES 7.6 % (0-12); NEUTROPHILS 79.8 % (39-80); PLATELET COUNT 343 K/uL (140-440); RBC 2.61 M/ul (4.3-5.7); RDW 14.6 (10.5-15.0)
[2023-07-26 06:08] LABS: ANION GAP 7.5 (7-21); BUN/CREATININE RATIO 11.84 (6.0-28.6); CALCIUM 7.3 mg/dL (8.5-10.1); CREATININE, SERUM 0.76 mg/dL (0.70-1.30); MAGNESIUM 1.7 mg/dL (1.8-2.4); POTASSIUM 3.5 mmol/L (3.5-5.1)
--- NOTE | 2023-07-26 07:22 | NUR ---
VERBAL BEDSIDE REPORT RECEIVED FROM RIO YOUNG. PT AWAKE AND ALERT. LLE ELEVATED WITH ICE IN PLACE, DRESSING C/D/I. CALL LIGHT IN REACH, NO REQUESTS AT THIS TIME.
[2023-07-26] MEDS ORDERED: HYDROCODON-ACE1 EA11 PO (07:36)
--- NOTE | 2023-07-26 08:25 | NUR ---
PHYSICAL ASSESSMENT COMPLETE. NOTED HEEL PROTECTS IN PLACE, SCD RLE. DRESSING TO LLE C/D/I. DP PULSE STRONG, NOTED WITH DOPPLER DUE TO EDEMA PRESENT IN LEFT FOOT. PT EATS BREAKFAST, TOLERATES THIS WELL. NO REQUESTS AT THIS TIME.
--- NOTE | 2023-07-26 08:44 | NUR ---
BLOOD DRAWN FROM LFA IV FOR VANCO TROUGH, UPON DELIVERY OF SAMPLE TO LAB, NOTED VANCO TROUGH ORDER WAS CANCELLED.
--- NOTE | 2023-07-26 09:31 | NUR ---
PASRR,CHART NOTE AND DC SUMMARY FAXED TO [facility] AT THE [facility]. FAXED TO ZOHREH MONTES [phone] PER SNF REQUEST.
--- NOTE | 2023-07-26 10:10 | NUR ---
FLUID REMOVED FROM BENAVIDEZ CATHETER BALLOON, CATHETER REMOVED, TIP INTACT. PT TOLERATED WELL. VISITORS IN ROOM X2. NO REQUESTS AT THIS TIME.
[2023-07-26 11:06] VITALS: BP 114/52
--- NOTE | 2023-07-26 11:33 | NUR ---
CHECKED BRIEF FOR URINE OUTPUT SMALL AMOUNT OF URINE NOTED IN BREIF. ISABEL-CARE PROVIDED, NEW BREIF AND NEW GOWN DONNED. PT DOES NOT WANT TO WEAR HIS T-SHIRT PREFERS TO BE DISCHARGED IN THE GOWN. TELEMETRY REMOVED. IV IN RAC AND LFA REMOVED, CATHETERS INTACT, GAUZE AND COBAN DRESSING APPLIED TO EACH SITE. PT TOLERATED WELL. FAMILY X2 IN ROOM. DRESSING TO LLE REMAINS C/D/I.
--- NOTE | 2023-07-26 11:45 | NUR ---
BLADDER SCAN PERFORMED, 107 ML NOTED.
--- NOTE | 2023-07-26 12:43 | NUR ---
PT GIVES PERMISSION TO CUT SWEAT PANTS TO FIT OVER EXTERNAL FIXATOR ON LLE. SWEAT PANTS CUT AND PT ASSISTED INTO PANTS. PT TO WHEEL CHAIR VIA 2 PERSON ASSISTED PIVOT. DISCHARGE PLAN DISCUSSED WITH PT AND FAMILY. PT LEAVES VIA WHEEL CHAIR VAN TO [facility]. DISCHARGE PACKET PROVIDED TO BUS REPAIR SUPERVISOR TO DELIVER TO [facility].
--- NOTE | 2023-07-26 13:22 | NUR ---
TELEPHONE REPORT PROVIDED TO RIO BLAS OF [facility].
== END 2023-07-26 12:43 | DRG 492 ==
LOC: MS 15:57 → CCU 16:14 → MS 17:01 → CCU 17:01 → MS 07-20 09:15
PROVIDERS: Family Medicine; Physician Assistant; ADMIT Specialist; ATTEND Specialist
PROC: 0HDNXZZ Extraction of Left Foot Skin, External Approach (ICD-10-PCS; 2023-07-20)
PROC: 0HDLXZZ Extraction of Left Lower Leg Skin, External Approach (ICD-10-PCS; 2023-07-20)
PROC: 0QSK35Z Reposition Left Fibula with External Fixation Device, Percutaneous Approach (ICD-10-PCS; principal; 2023-07-20 07:30)
PROC: 0QSH35Z Reposition Left Tibia with External Fixation Device, Percutaneous Approach (ICD-10-PCS; 2023-07-20 07:30)
DX: S82.852B Displaced trimalleolar fracture of left lower leg, initial encounter for open fracture type I or II (principal); A41.9 Sepsis, unspecified organism; L89.623 Pressure ulcer of left heel, stage 3; S72.112A Displaced fracture of greater trochanter of left femur, initial encounter for closed fracture; L89.893 Pressure ulcer of other site, stage 3; S82.832A Other fracture of upper and lower end of left fibula, initial encounter for closed fracture; W08.XXXA Fall from other furniture, initial encounter; E11.9 Type 2 diabetes mellitus without complications; I25.10 Atherosclerotic heart disease of native coronary artery without angina pectoris; Y92.59 Other trade areas as the place of occurrence of the external cause; K31.89 Other diseases of stomach and duodenum; E87.6 Hypokalemia; E83.42 Hypomagnesemia; R19.7 Diarrhea, unspecified; D64.9 Anemia, unspecified; Z86.73 Personal history of transient ischemic attack (TIA), and cerebral infarction without residual deficits; Z11.52 Encounter for screening for COVID-19; Z79.4 Long term (current) use of insulin; Z72.0 Tobacco use; Z88.8 Allergy status to other drugs, medicaments and biological substances; Z79.01 Long term (current) use of anticoagulants; Z71.6 Tobacco abuse counseling
CPT/HCPCS: 01462; 36415; 71045; 73600; 74018; 74177; 80048; 80053; 80202; 81001; 83036; 83605; 83735; 85025; 87088; 87493; 87502; 93005; 93010; 97110; 97162; 97530; A9270; C9113; C9803; J0131; J0690; J0692; J0780; J1100; J1160; J1170; J1720; J1815; J1885; J2250; J2405; J2704; J2765; J3010; J3370; J3475; J3480; J3490; J7060; J7121; Q9967; U0002